=== PATIENT | female | born 1945 | race Caucasian/White ===

== ENCOUNTER 2022-01-16 12:23 | Emergency (ER) | payer MEDICARE, SELFPAY ==
[2022-01-16 12:24] VITALS: BP 131/110; PULSE 75; RESP 16; TEMP 36.6; O2SAT 94; BMI 31.8
--- NOTE | 2022-01-16 12:42 | RAD_ITS ---
STUDY: X-RAY - LUMBAR SPINE REASON FOR EXAM: Female, 76 years old. Pain TECHNIQUE: 3 view(s) of the lumbar spine were obtained. COMPARISON: Comparison is made with prior study dated 01/09/2015. FINDINGS: Normal lumbar lordosis. There is a mild dextroscoliosis of the lumbar spine. Minimal anterior listhesis of L5 on S1 most likely secondary to facet joint osteoarthritis. There is multilevel endplate spondylosis of the lumbar vertebrae. There is multi-level degenerative disc disease with multi-level disc space narrowing. There is atherosclerotic calcification of the abdominal aorta without a demonstrated aneurysm. The patient is status post cholecystectomy. RAD/Lumbar Spine 2 or 3 Views IMPRESSION: Degenerative changes of the spine, as detailed above. Electronically Signed: Murtaza Joseph MD at 13:40 EDT ,
--- NOTE | 2022-01-16 12:42 | RAD_ITS ---
STUDY: X-RAY - PELVIS AND LEFT HIP REASON FOR EXAM: Female, 76 years old. Left hip pain. TECHNIQUE: 3 views of the pelvis and hip. COMPARISON: None. FINDINGS: There is a non-specific bowel gas pattern. Normal visualized soft tissue structures. Normal bilateral iliac wings, sacroiliac joints and visualized sacrum. Normal bilateral superior and inferior pubic rami. Normal pubic symphysis. Normal bilateral ischial tuberosities. Normal visualized femoral head. There is osteoarthritic spur formation of the acetabular rim. is severe articular joint space narrowing of the hip. Moderate degree of joint space and of the right hip joint. RAD/HIP, UNI W/ Pelvis 2-3 Views IMPRESSION: Marked degree of joint space narrowing of the left hip joint. Electronically Signed: Murtaza Joseph MD at 13:41 EDT ,
--- NOTE | 2022-01-16 12:42 | RAD_ITS ---
STUDY: X-RAY - LEFT KNEE REASON FOR EXAM: Female, 76 years old. Pain TECHNIQUE: 2 view(s) of the knee. COMPARISON: Comparison is made with prior study dated 12/12/2015. FINDINGS: Normal visualized distal femur. Normal visualized proximal tibia and fibula. Normal proximal tibiofibular articulation. The patient is status post left knee replacement. There is good alignment. The soft tissue structures are unremarkable. RAD/Knee 1 or 2 Views IMPRESSION: Status post left knee replacement. No acute abnormality is seen. Electronically Signed: Murtaza Joseph MD at 13:38 EDT ,
--- NOTE | 2022-01-16 12:59 | ED.RN ---
juan manuel will pick pt up. [phone] per juan manuel pt walked to the car but refused to walk in the building
--- NOTE | 2022-01-16 13:08 | EDS_ITS ---
HPI History of Present Illness Chief Complaint: Back Informant: patient Narrative Narrative: 76-year-old female presenting with back pain. Patient states this has been ongoing for the past 3 months. She states she recently moved here from [place]. She was previously in pain management in [place]. She is trying to get set up with pain management in [place]. Denies recent injury. She complains of low back pain that radiates to her left leg. Denies bowel or bladder incontinence. Denies fever. Denies numbness or weakness. Prior similar symptoms: Yes Recent Illness/Hospitalization: No PFSH PFSH Home Medications glimepiride 2 mg PO DAILY 07/08/14 [History Last Taken 09/04/16] pantoprazole 40 mg PO BID 07/08/14 [History Last Taken 09/04/16] potassium chloride [Klor-Con M20] 20 meq PO BID 07/08/14 [History Last Taken 09/04/16] temazepam 15 mg PO QHS PRN PRN 07/08/14 [History Last Taken 09/04/16] losartan 100 mg PO DAILY 03/25/15 [History Last Taken 09/04/16] atenolol 25 mg PO DAILY #30 tablet 04/13/15 [Rx Last Taken 09/04/16] paroxetine HCl [Paxil] 20 mg PO DAILY 09/25/15 [History Last Taken 09/04/16] hydrocodone-acetaminophen 1 ea PO TID PRN 09/26/15 [History Last Taken 09/03/16] albuterol sulfate [Ventolin HFA] 2 puff INHALATION Q6H PRN PRN 12/04/15 [History Last Taken 09/04/16] dicyclomine 20 mg PO TIDAC #20 capsule 06/21/16 [Rx Last Taken 09/04/16] bumetanide 0.5 mg PO DAILY 03/15/17 [History Last Taken Unknown] doxazosin [Cardura] 2 mg PO DAILY 03/15/17 [History Last Taken Unknown] docusate sodium [Colace] 100 mg PO DAILY #20 capsule 04/03/17 [Rx Last Taken Unknown] oxycodone-acetaminophen 1 - 2 tab PO Q4H PRN PRN #20 tab 04/03/17 [Rx Last Taken Unknown] clopidogrel 75 mg tablet 75 mg PO DAILY #90 tab 01/06/18 [Rx Last Taken Unknown] hydrocodone-acetaminophen 1 tab PO Q6H PRN PRN 3 Days #10 tablet 01/16/22 [Rx Last Taken Unknown] Allergy/AdvReac Type Severity Reaction Status Date / Time amlodipine Allergy Unknown Verified 01/16/22 12:26 atorvastatin calcium Allergy Hives Verified 01/16/22 12:26 [From Lipitor] divalproex sodium Allergy Hives Verified 01/16/22 12:26 [From Depakote] furosemide [From Lasix] Allergy Unknown Verified 01/16/22 12:26 isosorbide mononitrate Allergy Unknown Verified 01/16/22 12:26 [From Imdur] moxifloxacin HCl Allergy Unknown Verified 01/16/22 12:26 [From Avelox] Social History Smoking Status: Former smoker ROS ROS ED Constitutional Constitutional ED: Denies fever(s) Eyes Eyes: Denies change in vision ENT ENT ED: Denies rhinorrhea or sore throat Cardiovascular Cardiovascular: Denies chest pain or palpitations Respiratory/Chest Respiratory/Chest: Denies cough or dyspnea Gastrointestinal Gastrointestinal: Denies abdominal pain, diarrhea, nausea or vomiting Genitourinary Genitourinary ED: Denies dysuria Musculoskeletal Musculoskeletal: Reports back pain; Denies myalgias Integumentary Denies rash Neurologic Neurologic: Denies headache(s) Psychiatric Psychiatric: Denies suicidal thoughts EXAM Physical Exam Const Vital Signs: 01/16/22 12:24 Temperature 97.8 F Temperature Source Temporal Pulse Rate 75 Respiratory Rate 16 Blood Pressure 131/110 H Blood Pressure Mean 117 Pulse Ox 94 Oxygen Delivery Method Room Air Positive well nourished and well developed General Appearance ED: well developed HEENT Reports normocephalic and head/scalp atraumatic Eyes PERRL and EOMs intact bilaterally Neck supple General: Negative for tenderness Chest Wall inspection of chest normal Resp normal respiratory effort and clear to auscultation bilaterally Cardio regular rate and regular rhythm GI non-tender and non-distended Palpation: soft; Negative for guarding or rebound tenderness present no CVA tenderness Back/Spine Back/Spine Narrative: Left lower paraspinal lumbar muscle tenderness. No midline tenderness. Normal strength and sensation. No foot drop. Thoracic Spine / Upper Back: paraspinal muscle tenderness Extremity normal to inspection Extremity Narrative: Mild diffuse tenderness left knee with active full range of motion. Neuro oriented x3 Sensorium / Orientation: alert Psych mental status grossly normal Skin no rashes or lesions noted MDM MDM MDM Narrative Medical decision making narrative: X-rays read by myself and radiology show:left hip shows joint space narrowing, Left knee shows no acute abnormality. Lumbar spine shows degenerative changes. Patient declined morphine. Discussed with Dr. Sherman. Patient is a new patient with him and has not yet been given narcotics. He is in agreement with short course of [place] and she will follow-up in the office. Advised return to ED for worsening complaints. Radiography Diagnostic Testing: Clinical Impression(s) from Imaging Studies Hip/Pelvis X-Ray 01/16/22 12:42 IMPRESSION: Marked degree of joint space narrowing of the left hip joint. Electronically Signed: Murtaza Joseph MD at 13:41 EDT , Knee X-Ray 01/16/22 12:42 IMPRESSION: Status post left knee replacement. No acute abnormality is seen. Electronically Signed: Murtaza Joseph MD at 13:38 EDT , Lumbar Spine X-Ray 01/16/22 12:42 IMPRESSION: Degenerative changes of the spine, as detailed above. Electronically Signed: Murtaza Joseph MD at 13:40 EDT , Discharge Plan Triage Chief Complaint: Back ED Provider: Yas Wilson Dx/Rx/DC Orders Clinical Impression: Chronic back pain Instructions: ED Back Pain (Acute or Chronic) Prescriptions: New hydrocodone-acetaminophen 5-325 mg tablet 1 tab PO Q6H PRN PRN (Reason: pain) 3 Days Qty: 10 RF: 0 No Action glimepiride 2 MG tablet 2 mg PO DAILY RF: 0 potassium chloride [Klor-Con M20] 20 MEQ tablet 20 meq PO BID RF: 0 temazepam 15 MG capsule 15 mg PO QHS PRN PRN (Reason: Insomnia) RF: 0 pantoprazole 40 MG tablet 40 mg PO BID RF: 0 losartan 100 MG tablet 100 mg PO DAILY RF: 0 atenolol 25 MG tablet 25 mg PO DAILY Qty: 30 RF: 0 paroxetine HCl [Paxil] 10 MG tablet 20 mg PO DAILY RF: 0 hydrocodone-acetaminophen 1 EACH tablet 1 ea PO TID PRN (Reason: Pain) RF: 0 albuterol sulfate [Ventolin HFA] 1 INHALER inhaler 2 puff inhalation Q6H PRN PRN (Reason: Sob &/Or Wheezing) RF: 0 dicyclomine 10 MG capsule 20 mg PO TIDAC Qty: 20 RF: 0 bumetanide 0.5 MG tablet 0.5 mg PO DAILY RF: 0 doxazosin [Cardura] 2 MG tablet 2 mg PO DAILY RF: 0 oxycodone-acetaminophen 1 TABLET tablet 1 - 2 tab PO Q4H PRN PRN (Reason: Pain) Qty: 20 RF: 0 docusate sodium [DOK] 100 MG capsule 100 mg PO DAILY Qty: 20 RF: 0 clopidogrel 75 MG tablet 75 mg PO DAILY Qty: 90 RF: 0 Primary Care Provider: Chandni Delgado NP Referrals: Hermelindo Sherman DO [NON-STAFF] - Chandni Delgado NP, LABEL MACHINE OPERATOR-C [Primary Care Provider] - Disposition Disposition: Home, Self Care
[2022-01-16 15:11] VITALS: BP 138/74; PULSE 62; RESP 15; O2SAT 97
== END 2022-01-16 15:12 | disposition home or self-care (01) ==
PROVIDERS: Emergency Provider Emergency Medicine; PCP Nurse Practitioner Family; Visit Provider Emergency Medicine
DX: M54.9 Dorsalgia, unspecified (principal); G89.29 Other chronic pain; M47.819 Spondylosis without myelopathy or radiculopathy, site unspecified; Z87.891 Personal history of nicotine dependence
CPT/HCPCS: 72100; 73502; 73560; 96372; 99282; J2405

== ENCOUNTER 2022-02-12 13:07 | Emergency (ER) | payer MEDICARE, SELFPAY ==
[2022-02-12 13:08] VITALS: BP 97/60; PULSE 70; RESP 15; TEMP 36.4; O2SAT 97; BMI 36.2
[2022-02-12 13:10] VITALS: BP 97/60; PULSE 70; RESP 15; TEMP 36.4; O2SAT 97
--- NOTE | 2022-02-12 13:50 | EX.ED.UPPERE ---
HPI History of Present Illness Chief Complaint: Upper Extremity Injury Informant: patient Narrative Narrative: Patient presents with a sore erythematous area to the right elbow. She states she noticed it this morning. She can move her elbow and shoulder without causing worsening pain. But if she bumps her elbow it hurts. On review of systems I find out she has nausea but she has chronic nausea and uses Zofran all the time. This is not new or worse. She has not been vomiting. She has no fevers or chills. She denies injury to the elbow. She does have diabetes. However, she states it is type II and it has been very well controlled. [facility] Medical History Arthritis CAD (coronary artery disease) CHF (congestive heart failure) COPD (chronic obstructive pulmonary disease) Home Medications glimepiride 2 mg PO DAILY 07/08/14 [History Last Taken 09/04/16] pantoprazole 40 mg PO BID 07/08/14 [History Last Taken 09/04/16] potassium chloride [Klor-Con M20] 20 meq PO BID 07/08/14 [History Last Taken 09/04/16] temazepam 15 mg PO QHS PRN PRN 07/08/14 [History Last Taken 09/04/16] losartan 100 mg PO DAILY 03/25/15 [History Last Taken 09/04/16] atenolol 25 mg PO DAILY #30 tablet 04/13/15 [Rx Last Taken 09/04/16] paroxetine HCl [Paxil] 20 mg PO DAILY 09/25/15 [History Last Taken 09/04/16] hydrocodone-acetaminophen 1 ea PO TID PRN 09/26/15 [History Last Taken 09/03/16] albuterol sulfate [Ventolin HFA] 2 puff INHALATION Q6H PRN PRN 12/04/15 [History Last Taken 09/04/16] dicyclomine 20 mg PO TIDAC #20 capsule 06/21/16 [Rx Last Taken 09/04/16] bumetanide 0.5 mg PO DAILY 03/15/17 [History Last Taken Unknown] doxazosin [Cardura] 2 mg PO DAILY 03/15/17 [History Last Taken Unknown] docusate sodium [Colace] 100 mg PO DAILY #20 capsule 04/03/17 [Rx Last Taken Unknown] oxycodone-acetaminophen 1 - 2 tab PO Q4H PRN PRN #20 tab 04/03/17 [Rx Last Taken Unknown] clopidogrel 75 mg tablet 75 mg PO DAILY #90 tab 01/06/18 [Rx Last Taken Unknown] hydrocodone-acetaminophen 1 tab PO Q6H PRN PRN 3 Days #10 tablet 01/16/22 [Rx Last Taken Unknown] doxycycline monohydrate 100 mg PO BID #20 cap 02/12/22 [Rx Last Taken Unknown] ondansetron 4 mg PO Q8H PRN #10 tab 02/12/22 [Rx Last Taken Unknown] Allergy/AdvReac Type Severity Reaction Status Date / Time amlodipine Allergy Unknown Verified 02/12/22 13:10 atorvastatin calcium Allergy Hives Verified 02/12/22 13:10 [From Lipitor] divalproex sodium Allergy Hives Verified 02/12/22 13:10 [From Depakote] furosemide [From Lasix] Allergy Unknown Verified 02/12/22 13:10 isosorbide mononitrate Allergy Unknown Verified 02/12/22 13:10 [From Imdur] moxifloxacin HCl Allergy Unknown Verified 02/12/22 13:10 [From Avelox] Social History Smoking Status: Former smoker ROS ROS ED Constitutional Constitutional ED: Denies chills or fever(s) ENT ENT ED: Denies rhinorrhea or sore throat Cardiovascular Cardiovascular: Denies chest pain Respiratory/Chest Respiratory/Chest: Denies cough or dyspnea Gastrointestinal Gastrointestinal: Reports nausea; Denies abdominal pain, constipation, diarrhea, melena or vomiting Genitourinary Genitourinary ED: Denies dysuria Musculoskeletal Musculoskeletal: Reports other Details: See history of present illness. Integumentary Reports Abrasions, rash and other Details: See history of present illness ; Denies abscess Neurologic Neurologic: Denies paresthesias or weakness Endocrine Endocrinology: Denies polydipsia or polyuria Hematologic/Lymphatic Hematologic/Lymphatic: Denies easy bleeding or easy bruising Allergic/Immunologic Allergic/Immunologic ED: Denies urticaria EXAM Physical Exam Const Vital Signs: 02/12/22 13:08 02/12/22 13:10 Temperature 97.5 F L 97.5 F L Temperature Source Temporal Temporal Pulse Rate 70 70 Respiratory Rate 15 15 Blood Pressure 97/60 97/60 Blood Pressure Mean 72 72 Pulse Ox 97 97 Oxygen Delivery Method Room Air Room Air Positive well nourished and well developed General Appearance ED: well developed and NAD; Negative for cyanotic or diaphoretic HEENT normocephalic and atraumatic Neck supple Resp normal respiratory effort and clear to auscultation bilaterally Cardio regular rate and regular rhythm GI non-tender and non-distended Auscultation: normoactive bowel sounds Palpation: soft Back/Spine no CVA tenderness Extremity Extremity Narrative: Patient does have a slight abrasion to the right elbow. She says she has not hit it but it looks like she may have scraped it on something recently. Around this there is an area of erythema about 3 x 6 cm. It is well demarcated. This is right over the olecranon bursa. However, the bursa does not seem to be notably enlarged. I can move her elbow a good 90 to 150 degrees without any notable pain. Distal pulses are intact. No proximal lymph nodes or tenderness in the axilla noted. Neuro oriented x3 Sensorium / Orientation: alert Psych mental status grossly normal Skin Skin Narrative: See above exam. MDM MDM MDM Narrative Medical decision making narrative: Patient's exam is more consistent with a local cellulitis that probably started from the small area of abrasion. No sign of intra-articular infection. No pain with short arc range of motion. Although this is overlying the olecranon bursa, I do not notice it to be enlarged. It would not be appropriate to attempt aspiration through what I think is already an infected area. We will get her started on antibiotics. She states she has lots of problems taking any medicines. She cannot tolerate Keflex. She cannot tolerate Bactrim. She does not know or recall any problems with doxycycline so we will try this. I will write for some more Zofran as she states she is getting out of it. I will give a dose of pain meds here. We discussed returning with worsening pain, swelling, fevers, vomiting or and inability to take meds, or other concerns. I will give patient hydrocodone here as she has tolerated this. She should have about a week less of hydrocodone from a recent prescription when I checked online prescribing. Discharge Plan Triage Chief Complaint: Upper Extremity Injury ED Provider: Heraclio Mckee Dx/Rx/DC Orders Clinical Impression: Cellulitis of right elbow Instructions: ED Cellulitis Prescriptions: New doxycycline monohydrate 100 MG capsule 100 mg PO BID Qty: 20 RF: 0 ondansetron 4 mg tablet,disintegrating 4 mg PO Q8H PRN (Reason: nausea and vomiting) Qty: 10 RF: 0 No Action glimepiride 2 MG tablet 2 mg PO DAILY RF: 0 potassium chloride [Klor-Con M20] 20 MEQ tablet 20 meq PO BID RF: 0 temazepam 15 MG capsule 15 mg PO QHS PRN PRN (Reason: Insomnia) RF: 0 pantoprazole 40 MG tablet 40 mg PO BID RF: 0 losartan 100 MG tablet 100 mg PO DAILY RF: 0 atenolol 25 MG tablet 25 mg PO DAILY Qty: 30 RF: 0 paroxetine HCl [Paxil] 10 MG tablet 20 mg PO DAILY RF: 0 hydrocodone-acetaminophen 1 EACH tablet 1 ea PO TID PRN (Reason: Pain) RF: 0 albuterol sulfate [Ventolin HFA] 1 INHALER inhaler 2 puff inhalation Q6H PRN PRN (Reason: Sob &/Or Wheezing) RF: 0 dicyclomine 10 MG capsule 20 mg PO TIDAC Qty: 20 RF: 0 bumetanide 0.5 MG tablet 0.5 mg PO DAILY RF: 0 doxazosin [Cardura] 2 MG tablet 2 mg PO DAILY RF: 0 oxycodone-acetaminophen 1 TABLET tablet 1 - 2 tab PO Q4H PRN PRN (Reason: Pain) Qty: 20 RF: 0 docusate sodium [DOK] 100 MG capsule 100 mg PO DAILY Qty: 20 RF: 0 hydrocodone-acetaminophen 5-325 mg tablet 1 tab PO Q6H PRN PRN (Reason: pain) 3 Days Qty: 10 RF: 0 clopidogrel 75 MG tablet 75 mg PO DAILY Qty: 90 RF: 0 Primary Care Provider: Chandni Delgado NP Referrals: Chandni Delgado SONG AND DANCE PERFORMER, SONG AND DANCE PERFORMER-C [Primary Care Provider] - 2 Days for wound check Disposition Disposition: Home, Self Care
[2022-02-12] MEDS: Ondansetron ODT 4 MG Tablet PO (14:15)
[2022-02-12] MEDS: HYDROcodone Bitartrate/Apap 5/325 Tablet PO (14:23)
--- NOTE | 2022-02-14 15:45 | CASEMGMT ---
SERGEY CASTRO ED visit f/u call: ED visit: 02/12/22 Complaint: Rt elbow pain Dx: Cellulitis Call to pt's #. Dtr, Karen, answered and states pt is not home at this time. She states pt was not feeling well yesterday and therefore had not picked up the new rx's that were prescribed in ED on Friday, so she is picking them up now. Dtr states pt says her elbow is still a little sore and that her mom has a picking problem and thinks that may have been how the infection started. She states she tries to help her parents w/medication management and appts, but that she does not live close and it has been difficult to manage. Dtr made aware of [facility] program and she states is very interested. She was provided w/CCN contact number and states she plans to call. SERGEY CASTRO also suggested looking into a pharmacy that does home delivery for use in the future, if needed. She voices appreciation for the call and information. She was not aware pt was to have f/u visit w/PSYCHIATRY INSTRUCTOR in 2 days for wound check, but states she will call now to schedule an appt. Dat LOPEZ RN, CM
== END 2022-02-12 14:30 | disposition home or self-care (01) ==
LOC: ED 14:13
PROVIDERS: Emergency Provider Emergency Medicine; PCP Nurse Practitioner Family; Visit Provider Emergency Medicine
DX: L03.113 Cellulitis of right upper limb (principal); J44.9 Chronic obstructive pulmonary disease, unspecified; I50.9 Heart failure, unspecified; E11.9 Type 2 diabetes mellitus without complications; I25.10 Atherosclerotic heart disease of native coronary artery without angina pectoris; Z87.891 Personal history of nicotine dependence; R11.0 Nausea
CPT/HCPCS: 99283

== ENCOUNTER → 2022-04-03 | Outpatient (CLI) | payer MEDICARE, SELFPAY ==
[2022-04-03 17:00] LABS: Absolute Lymphocyte Count 2.26 X10^3/uL (0.83-4.51); Absolute Neutrophil Count 5.2 X10^3/uL (2.0-7.7); Basophil# 0.06 X10^3/uL; Basophil% 0.7 % (0-1); Eosinophil# 0.29 X10^3/uL; Eosinophils% 3.4 % (0-5); Hematocrit 35.4 % (37-47); Hemoglobin 10.6 g/dL (12.0-15.0); Lymphocyte # 2.26 X10^3/ul (0.83-4.51); Lymphocyte % 26.3 % (19-41); Mean Corp Hgb Conc 29.9 g/dL (32-36); Mean Corpuscular Hgb 23.2 pg (27.0-32.0); Mean Corpuscular Volume 77.6 fL (81-99); Mean Platelet Vol. 9.7 fl (6.2-12.0); Monocyte# 0.73 X10^3/uL; Monocyte% 8.5 % (0-10); NRBC Flagged by Analyzer 0 % (0-5); Neutrophil # 5.21 X10^3/uL (2.7-7.7); Neutrophil % 60.8 % (47-70); Platelet Count 270 K/mm3 (150-450); RBC Distribution Width CV 17.8 % (11.6-14.6); RBC Distribution Width SD 49.4 fl (35.1-43.9); Red Blood Count 4.56 M/mm3 (4.2-5.4); White Blood Count 8.6 K/mm3 (4.4-11.0)
[2022-04-03 17:07] LABS: ALB/GLOB Ratio 0.8 RATIO (0.9-2.4); AST(SGOT) 19 U/L (15-37); Alanine Aminotransfer ALT/SGPT 29 U/L (13-56); Albumin, Serum 3.3 g/dL (3.2-5.0); Alkaline Phosphatase 61 U/L (45-117); Anion Gap 8 (5-15); BUN 12 mg/dL (7-18); BUN/Creat Ratio 16.9 RATIO (10-20); Calcium,Total 8.6 mg/dL (8.5-10.1); Chloride 104 mmol/L (98-107); Cholesterol 155 mg/dL (200); Creatinine, Serum 0.71 mg/dL (0.55-1.02); EST Glomerular Filtration Rate 85 mL/min (>60); Est Glom Filt Rate - Afr Amer 103 mL/min (>60); Globulin 3.9 g/dL (2.2-4.2); Glucose 97 mg/dL (74-106); High Density Lipoprotein 42 mg/dL; Potassium 3.6 mmol/L (3.5-5.1); Protein, Total 7.2 g/dL (6.4-8.2); Sodium Level 138 mmol/L (136-145); Triglycerides 105 mg/dL; Very Low Density Lipoprotein 21 mg/dL (5-40)
[2022-04-03 17:34] LABS: Hemoglobin A1c 6.3 % (3.8-5.6)
== END | disposition home or self-care (01) ==
LOC: BIMLAB 15:27
PROVIDERS: PCP Internal Medicine; Referring Provider Internal Medicine; Visit Provider Internal Medicine
DX: E11.65 Type 2 diabetes mellitus with hyperglycemia (principal); I10 Essential (primary) hypertension; E78.5 Hyperlipidemia, unspecified
CPT/HCPCS: 36415; 80053; 80061; 83036; 85025

== ENCOUNTER → 2022-06-12 | Outpatient (CLI) | payer MEDICARE, SELFPAY ==
[2022-06-12 12:44] LABS: Absolute Lymphocyte Count 1.61 X10^3/uL (0.83-4.51); Basophil# 0.06 X10^3/uL; Basophil% 0.8 % (0-1); Eosinophil# 0.19 X10^3/uL; Eosinophils% 2.6 % (0-5); Hematocrit 36.5 % (37-47); Hemoglobin 11.1 g/dL (12.0-15.0); Lymphocyte # 1.61 X10^3/ul (0.83-4.51); Lymphocyte % 21.6 % (19-41); Mean Corp Hgb Conc 30.4 g/dL (32-36); Mean Corpuscular Hgb 23.2 pg (27.0-32.0); Mean Corpuscular Volume 76.4 fL (81-99); Mean Platelet Vol. 9.7 fl (6.2-12.0); Monocyte# 0.56 X10^3/uL; Monocyte% 7.5 % (0-10); NRBC Flagged by Analyzer 0 % (0-5); Neutrophil % 67.1 % (47-70); Platelet Count 255 K/mm3 (150-450); RBC Distribution Width CV 15.3 % (11.6-14.6); Red Blood Count 4.78 M/mm3 (4.2-5.4); White Blood Count 7.5 K/mm3 (4.4-11.0)
[2022-06-12 13:35] LABS: AST(SGOT) 21 U/L (15-37); Alanine Aminotransfer ALT/SGPT 23 U/L (13-56); Albumin, Serum 3.4 g/dL (3.2-5.0); Alkaline Phosphatase 63 U/L (45-117); Anion Gap 9 (5-15); BUN 18 mg/dL (7-18); BUN/Creat Ratio 22.6 RATIO (10-20); Bilirubin, Direct 0.07 mg/dL (0.00-0.30); Calcium,Total 8.7 mg/dL (8.5-10.1); Chloride 105 mmol/L (98-107); Cholesterol 184 mg/dL (200); EST Glomerular Filtration Rate 74 mL/min (>60); Est Glom Filt Rate - Afr Amer 90 mL/min (>60); Globulin 3.8 g/dL (2.2-4.2); Glucose 100 mg/dL (74-106); High Density Lipoprotein 48 mg/dL; Magnesium 1.9 mg/dL (1.6-2.6); Potassium 3.1 mmol/L (3.5-5.1); Protein, Total 7.2 g/dL (6.4-8.2); Sodium Level 141 mmol/L (136-145); Triglycerides 169 mg/dL; Very Low Density Lipoprotein 34 mg/dL (5-40)
== END | disposition home or self-care (01) ==
LOC: LAB 10:50
PROVIDERS: PCP Internal Medicine; Referring Provider Internal Medicine Cardiovascular Disease; Visit Provider Internal Medicine Cardiovascular Disease
DX: R06.09 Other forms of dyspnea (principal); I77.9 Disorder of arteries and arterioles, unspecified; R07.9 Chest pain, unspecified; I25.10 Atherosclerotic heart disease of native coronary artery without angina pectoris; I35.0 Nonrheumatic aortic (valve) stenosis; Z95.5 Presence of coronary angioplasty implant and graft; E78.2 Mixed hyperlipidemia; I10 Essential (primary) hypertension; E66.9 Obesity, unspecified
CPT/HCPCS: 36415; 80048; 80061; 80076; 83735; 85025

== ENCOUNTER → 2022-06-27 | Outpatient (CLI) | payer MEDICARE, SELFPAY ==
[2022-06-27 14:48] LABS: Amphetamine Urine VISTA NEGATIVE (<1000 ng/mL); Barbiturate Urine VISTA NEGATIVE (< 200 ng/mL); Benzodiazepine Urine VISTA NEGATIVE (< 200 ng/mL); Cocaine Urine VISTA NEGATIVE (< 300 ng/mL); Ecstacy Urine VISTA NEGATIVE (< 500 ng/mL); Methadone Urine VISTA NEGATIVE (< 300 ng/mL); PCP Urine VISTA NEGATIVE (< 25 ng/mL); THC Urine VISTA NEGATIVE (< 50 ng/mL); Vista UDS pH Range 5
== END | disposition home or self-care (01) ==
LOC: LAB 13:36
PROVIDERS: PCP Internal Medicine; Referring Provider Anesthesiology Pain Medicine; Visit Provider Anesthesiology Pain Medicine
DX: F11.20 Opioid dependence, uncomplicated (principal)
CPT/HCPCS: 80307

== ENCOUNTER → 2022-07-04 | Outpatient (CLI) | payer MEDICARE, SELFPAY ==
--- NOTE | 2022-07-04 06:26 | ECHOD_ITS ---
Reason For Study: MURMUR Procedure This was a 2D Doppler, Color Flow transthoracic echocardiogram. The study was technically difficult. Exam performed in department. Left Ventricle Based upon the 2D echocardiographic and contrast enhanced images obtained there appears to be grossly normal left ventricular size, wall motion, and systolic function. The estimated ejection fraction is 55 %. No evidence for diastolic dysfunction. Right Ventricle Based upon the 2D echocardiographic images obtained there appears to be grossly normal right ventricular size and systolic function. Atria Normal left atrium. Normal right atrium. No doppler evidence for ASD. Mitral Valve There is no mitral annular calcification. Normal mitral valve. Trivial mitral valve insufficiency. Tricuspid Valve Normal tricuspid valve. Moderate (2+) tricuspid valve insufficiency. Right ventricular systolic pressure estimated to be 24 mmHg. Aortic Valve Trisinus/trileaflet aortic valve. Mild focal aortic valve calcification. Mild (1+) aortic valve insufficiency. Pulmonic Valve The pulmonic valve is not well visualized. Great Vessels Normal sized aortic root. Pericardium/Pleural No pericardial effusion. MMode/2D Measurements & Calculations LVIDd: 5.1 cm IVSd: 1.2 cm Ao root diam: 3.0 cm LVIDs: 2.8 cm LVPWd: 1.2 cm RVDd: 4.0 cm FS: 44.7 % LAV(MOD-bp): 61.5 ml LA A4 area: 19.4 cm2 LA dimension(2D): 4.3 cm LAV(MOD-bp) Indexed: 32.5 ml/m2 LAV(MOD-sp2): 55.9 ml LAV(MOD-sp4): 60.6 ml RA A4 area: 16.2 cm2 Time Measurements MV dec time: 0.21 sec Doppler Measurements & Calculations MV E max marquis: 78.2 cm/sec Lat Peak E' Marquis: 6.0 cm/sec Med Peak E' Marquis: 6.4 cm/sec MV A max marquis: 83.4 cm/sec E/E' lat: 13.0 E/E' med: 12.2 MV E/A: 0.94 MV dec slope: 379.7 cm/sec2 Ao V2 max: 82.9 cm/sec LV V1 max: 76.8 cm/sec Ao max P.7 mmHg LV V1 max P.4 mmHg PA V2 max: 84.0 cm/sec TR max marquis: 228.9 cm/sec TR max P.0 mmHg ECHO/Echo Complete Interpretation Summary The study was technically difficult. Based upon the 2D echocardiographic and contrast enhanced images obtained there appears to be grossly normal left ventricular size, wall motion, and systolic function. The estimated ejection fraction is 55 %. Trivial mitral valve insufficiency. Moderate (2+) tricuspid valve insufficiency. Mild focal aortic valve calcification. Mild (1+) aortic valve insufficiency. Right ventricular systolic pressure estimated to be 24 mmHg. No evidence for diastolic dysfunction. Ordering Physician: Gabriele Brooks Referring Physician: ROBIN HERNÁNDEZ Performed By: Claire Geronimo, RDPINO, RVT
--- NOTE | 2022-07-04 09:38 | STRESSREP ---
Stress Test Report Date: 07-04-2022 Procedure: Pharmacologic stress nuclear imaging study Indications: CAD; PCI; aortic valve disease; CHF Consent: Per the patient Procedure: The patient underwent pharmacologic (Regadenoson 0.4mg ) evaluation with a peak heart rate of 92 beats per minute (63%predicted maximal heart rate) and a peak blood pressure of 150/72 mmHg. The baseline ECG demonstrated sinus bradycardia. The peak pharmacologic ECG demonstrated sinus rhythm with nonspecific T wave abnormality with subsequent resolution to baseline in recovery. There were no cardiac dysrhythmias pretest, during pharmacologic infusion, or recovery. There was notation of chest discomfort at peak recovery with subsequent spontaneous resolution. The examination was discontinued secondary to completion of protocol. Impression: 1. Pharmacologic (Regadenoson) evaluation 2. Peak pharmacologic ECG with continued sinus rhythm with nonspecific T wave abnormality with subsequent resolution to baseline in recovery. 3. There were no cardiac dysrhythmias pretest, during pharmacologic infusion, or recovery. 4. Nuclear images pending Myocardial perfusion imaging study: Technique: The patient was injected with 11.9 millicuries of technetium 99m Cardiolite and subsequently rest SPECT Cardiolite nuclear imaging was obtained in the horizontal long, vertical long, and short axis views. The patient underwent pharmacologic (Regadenoson) evaluation with a peak heart rate of 92 beats per minute (63% percent predicted maximal heart rate) and a peak blood pressure of 150/72 mmHg. The patient was injected with 34.4 millicuries of technetium 99m Cardiolite and subsequently stress SPECT Cardiolite nuclear imaging was obtained in the horizontal long, vertical long, and short axis views. A gated Cardiolite study at peak stress was obtained. Interpretation: Rest and stress SPECT Cardiolite nuclear imaging status post realignment, normalization, and attenuation correction demonstrate relative uniform tracer uptake and myocardial perfusion appearing within normal limits. There is end systolic thickening and brightening. The gated Cardiolite study demonstrates myocardial thickening and inward wall motion. The reported LVEF is 78%. Impression: 1. Rest and stress SPECT Cardiolite nuclear imaging demonstrate relative uniform tracer uptake and myocardial perfusion appearing within normal limits. 2. The gated Cardiolite study reports an LVEF of 78%. This note was generated with Accellionation software. It may contain incorrect words, spelling, and punctuation that were not noted in checking the note before signing.
== END | disposition home or self-care (01) ==
LOC: CVS 06:23
PROVIDERS: PCP Internal Medicine; Referring Provider Internal Medicine Cardiovascular Disease; Visit Provider Internal Medicine Cardiovascular Disease
DX: R07.9 Chest pain, unspecified (principal); I77.9 Disorder of arteries and arterioles, unspecified; R06.09 Other forms of dyspnea; I25.10 Atherosclerotic heart disease of native coronary artery without angina pectoris; I35.0 Nonrheumatic aortic (valve) stenosis; Z95.5 Presence of coronary angioplasty implant and graft; E78.2 Mixed hyperlipidemia; I10 Essential (primary) hypertension; E66.9 Obesity, unspecified
CPT/HCPCS: 78452; 93017; 93306; A9500; A4216; J2785

== ENCOUNTER → 2022-07-10 | Outpatient (CLI) | payer MEDICARE, SELFPAY ==
[2022-07-10 14:59] LABS: Absolute Lymphocyte Count 1.81 X10^3/uL (0.83-4.51); Absolute Neutrophil Count 7.7 X10^3/uL (2.0-7.7); Basophil# 0.03 X10^3/uL; Basophil% 0.3 % (0-1); Eosinophil# 0.03 X10^3/uL; Eosinophils% 0.3 % (0-5); Hematocrit 35.4 % (37-47); Hemoglobin 10.7 g/dL (12.0-15.0); Lymphocyte # 1.81 X10^3/ul (0.83-4.51); Lymphocyte % 17.6 % (19-41); Mean Corp Hgb Conc 30.2 g/dL (32-36); Mean Corpuscular Hgb 23.5 pg (27.0-32.0); Mean Corpuscular Volume 77.6 fL (81-99); Mean Platelet Vol. 9.7 fl (6.2-12.0); Monocyte# 0.71 X10^3/uL; Monocyte% 6.9 % (0-10); NRBC Flagged by Analyzer 0 % (0-5); Neutrophil # 7.68 X10^3/uL (2.7-7.7); Neutrophil % 74.4 % (47-70); Platelet Count 266 K/mm3 (150-450); RBC Distribution Width CV 15.1 % (11.6-14.6); RBC Distribution Width SD 42.3 fl (35.1-43.9); Red Blood Count 4.56 M/mm3 (4.2-5.4); White Blood Count 10.3 K/mm3 (4.4-11.0)
[2022-07-10 15:38] LABS: Anion Gap 9 (5-15); BUN 16 mg/dL (7-18); BUN/Creat Ratio 18.4 RATIO (10-20); Calcium,Total 8.6 mg/dL (8.5-10.1); Chloride 103 mmol/L (98-107); Creatinine, Serum 0.87 mg/dL (0.55-1.02); EST Glomerular Filtration Rate 67 mL/min (>60); Est Glom Filt Rate - Afr Amer 81 mL/min (>60); Ferritin 8 ng/mL (8-252); Glucose 77 mg/dL (74-106); Iron 28 ug/dL (50-170); Iron Binding Capacity,Total 486 ug/dL (250-450); Potassium 3.2 mmol/L (3.5-5.1); Sodium Level 139 mmol/L (136-145)
== END | disposition home or self-care (01) ==
LOC: BIMLAB 14:23
PROVIDERS: Physician Assistant; PCP Internal Medicine; Referring Provider Internal Medicine; Visit Provider Internal Medicine
DX: D64.9 Anemia, unspecified (principal); E87.6 Hypokalemia; I10 Essential (primary) hypertension
CPT/HCPCS: 36415; 80048; 82728; 83540; 83550; 85025

== ENCOUNTER → 2022-07-26 | Outpatient (CLI) | payer MEDICARE, SELFPAY ==
[2022-07-26 15:48] LABS: Probe Check PASS; Specimen Processing Control PASS
== END | disposition home or self-care (01) ==
LOC: LABSPEC 09:37
PROVIDERS: PCP Internal Medicine; Referring Provider Nurse Practitioner Family; Visit Provider Nurse Practitioner Family
DX: J02.9 Acute pharyngitis, unspecified (principal)
CPT/HCPCS: 87635; U0003; U0005

== ENCOUNTER 2022-08-13 13:33 | Emergency (ER) | payer MEDICARE, SELFPAY ==
[2022-08-13 13:33] VITALS: BP 161/84; PULSE 76; RESP 18; TEMP 35.7; O2SAT 98; BMI 36.2
--- NOTE | 2022-08-13 15:33 | EDS_ITS ---
HPI History of Present Illness Chief Complaint: Eye Problem Narrative Narrative: I did not participate in this patient's care. [facility] Medical History Anemia Arthritis Atherosclerotic heart disease of [place] coronary artery without angina pectoris Benign essential hypertension CAD (coronary artery disease) CAD (coronary artery disease) CHF (congestive heart failure) Constipation COPD (chronic obstructive pulmonary disease) COPD (chronic obstructive pulmonary disease) Coronary atherosclerosis of [place] coronary artery Encounter to establish care History of COPD History of esophageal reflux History of fibromyalgia History of IBS History of tobacco use HLD (hyperlipidemia) Hypokalemia Memory impairment Mild aortic stenosis Mixed hyperlipidemia Nonrheumatic aortic (valve) stenosis YOVANA (obstructive sleep apnea) Presence of stent in coronary artery (~03/2002) Tremor Type 2 diabetes mellitus URI (upper respiratory infection) Vaginal anomaly Home Medications pantoprazole 40 mg tablet,delayed release 40 mg PO BID 07/08/14 [History Last Taken 09/04/16] atenolol 25 mg tablet 25 mg PO DAILY #30 TABLETS 04/13/15 [Rx Last Taken 09/04/16] doxazosin 2 mg tablet (Cardura) 2 mg PO DAILY 03/15/17 [History Last Taken Unknown] clopidogrel 75 mg tablet 75 mg PO DAILY #90 tabs 01/06/18 [Rx Last Taken U nknown] hydrocodone-acetaminophen 5-325mg 5mg-325mg 1 tab PO Q6H PRN PRN pain 3 days #10 TABLETS 01/16/22 [Rx Last Taken Unknown] valsartan 160 mg tablet 160 mg PO DAILY #90 tabs 04/23/22 [Rx Last Taken Unknown] paroxetine HCl 20 mg tablet 30 mg PO DAILY 06/06/22 [History Last Taken Unknown] glimepiride 2 mg tablet 4 mg PO DAILY 06/11/22 [History Last Taken Unknown] melatonin 5 mg tablet 5 mg PO HS PRN 06/11/22 [History Last Taken Unknown] potassium chloride 20 mEq oral packet 20 meq PO DAILY #100 ea 07/10/22 [Rx Last Taken Unknown] fluticasone propionate 50 mcg/actuation nasal spray,suspension (Flonase Allergy Relief) 2 spray intranasal DAILY #15.8 grams 07/26/22 [Rx Last Taken Unknown] Allergy/AdvReac Type Severity Reaction Status Date / Time amoxicillin Allergy Unknown Itching Verified 08/13/22 15:36 cephalexin [From Keflex] Allergy Unknown GI Upset, Verified 08/13/22 15:36 Itching doxycycline Allergy Unknown Rash Verified 08/13/22 15:36 furosemide [From Lasix] Allergy Unknown Hives Verified 08/13/22 15:36 simvastatin Allergy Unknown Hives Verified 08/13/22 15:36 atorvastatin calcium Allergy Hives Verified 08/13/22 15:36 [From Lipitor] divalproex sodium Allergy Hives Verified 08/13/22 15:36 [From Depakote] isosorbide mononitrate Allergy Unknown Verified 08/13/22 15:36 [From Imdur] moxifloxacin HCl Allergy Unknown Verified 08/13/22 15:36 [From Avelox] amlodipine AdvReac Unknown Swelling Verified 08/13/22 15:36 fluticasone furoate AdvReac Unknown Throat Verified 08/13/22 15:36 [From Breo Ellipta] Burning-hoarseness sucralfate [From Carafate] AdvReac Unknown Diarrhea Verified 08/13/22 15:36 vilanterol AdvReac Unknown Throat Verified 08/13/22 15:36 [From Breo Ellipta] Burning-hoarseness Family History Father CAD (coronary artery disease) Hypertension Mother CAD (coronary artery disease) Hypertension Mixed hyperlipidemia COPD (chronic obstructive pulmonary disease) Brother CAD (coronary artery disease) History of coronary artery bypass surgery Brother CAD (coronary artery disease) History of coronary artery bypass surgery Sister CAD (coronary artery disease) History of coronary artery bypass surgery Sister CAD (coronary artery disease) History of coronary artery bypass surgery Surgical History History of cholecystectomy History of foot surgery History of hysterectomy History of total knee replacement Presence of coronary angioplasty implant and graft (~03/2002) Social History Smoking Status: Former smoker alcohol intake: never substance use type: does not use what type of physical activity do you participate in: none EXAM Physical Exam Const Vital Signs: 08/13/22 13:33 Temperature 96.3 F L Temperature Source Temporal Pulse Rate 76 Respiratory Rate 18 Blood Pressure 161/84 H Blood Pressure Mean 109 Pulse Ox 98 Oxygen Delivery Method Room Air MDM MDM MDM Narrative Medical decision making narrative: I did not participate in this patient's care. Discharge Plan Triage Chief Complaint: Eye Problem ED Provider: Heraclio Mckee Dx/Rx/DC Orders Clinical Impression: Contusion of eye, left, Subconjunctival hemorrhage of left eye Prescriptions: No Action paroxetine HCl 20 mg tablet 30 mg PO DAILY potassium chloride 20 mEq packet 20 meq PO DAILY Qty: 100 1RF fluticasone propionate [Flonase Allergy Relief] 50 mcg/actuation spray,suspension 2 spray intranasal DAILY Qty: 15.8 1RF Rx Instructions: administer into each nostril pantoprazole 40 MG tablet 40 mg PO BID Label Comments: ACID REFLUX atenolol 25 MG tablet 25 mg PO DAILY Qty: 30 0RF Label Comments: BLOOD PRESSURE doxazosin [Cardura] 2 MG tablet 2 mg PO DAILY hydrocodone-acetaminophen 5-325 mg tablet 1 tab PO Q6H PRN PRN (Reason: pain) 3 Days Qty: 10 0RF clopidogrel 75 MG tablet 75 mg PO DAILY Qty: 90 0RF valsartan 160 mg tablet 160 mg PO DAILY Qty: 90 0RF glimepiride 2 mg tablet 4 mg PO DAILY melatonin 5 mg tablet 5 mg PO HS PRN Primary Care Provider: Loyd Armas Referrals: Loyd Armas MD [Primary Care Provider] - Shyam Wallace MD [Med Staff - Active Staff] - 2 Days Disposition Disposition: Home, Self Care Discharge Date/Time: 08/13/22 16:43
--- NOTE | 2022-08-13 15:43 | EDS_ITS ---
HPI History of Present Illness Chief Complaint: Eye Problem Informant: patient Narrative Narrative: Patient states her left eye has been bothering her for about 2 days. Its been a little bit red. She stated it was more red yesterday and is less red today. Her vision out of that eye is very poor. She does have what sounds like a fixed esotropia. She states her right eye is much better vision in her left eye is poor but it seems to be at its baseline. She is not sure if anything could have poked or abraded the eye. There has been no drainage or matting. She has no headache. No nausea vomiting. [facility] Medical History Anemia Arthritis Atherosclerotic heart disease of [place] coronary artery without angina pectoris Benign essential hypertension CAD (coronary artery disease) CAD (coronary artery disease) CHF (congestive heart failure) Constipation COPD (chronic obstructive pulmonary disease) COPD (chronic obstructive pulmonary disease) Coronary atherosclerosis of [place] coronary artery Encounter to establish care History of COPD History of esophageal reflux History of fibromyalgia History of IBS History of tobacco use HLD (hyperlipidemia) Hypokalemia Memory impairment Mild aortic stenosis Mixed hyperlipidemia Nonrheumatic aortic (valve) stenosis YOVANA (obstructive sleep apnea) Presence of stent in coronary artery (~03/2002) Tremor Type 2 diabetes mellitus URI (upper respiratory infection) Vaginal anomaly Home Medications pantoprazole 40 mg tablet,delayed release 40 mg PO BID 07/08/14 [History Last Taken 09/04/16] atenolol 25 mg tablet 25 mg PO DAILY #30 TABLETS 04/13/15 [Rx Last Taken 09/04/16] doxazosin 2 mg tablet (Cardura) 2 mg PO DAILY 03/15/17 [History Last Taken Unknown] clopidogrel 75 mg tablet 75 mg PO DAILY #90 tabs 01/06/18 [Rx Last Taken Unknown] hydrocodone-acetaminophen 5-325mg 5mg-325mg 1 tab PO Q6H PRN PRN pain 3 days #10 TABLETS 01/16/22 [Rx Last Taken Unknown] valsartan 160 mg tablet 160 mg PO DAILY #90 tabs 04/23/22 [Rx Last Taken Unknown] paroxetine HCl 20 mg tablet 30 mg PO DAILY 06/06/22 [History Last Taken Unknown] glimepiride 2 mg tablet 4 mg PO DAILY 06/11/22 [History Last Taken Unknown] melatonin 5 mg tablet 5 mg PO HS PRN 06/11/22 [History Last Taken Unknown] potassium chloride 20 mEq oral packet 20 meq PO DAILY #100 ea 07/10/22 [Rx Last Taken Unknown] fluticasone propionate 50 mcg/actuation nasal spray,suspension (Flonase Allergy Relief) 2 spray intranasal DAILY #15.8 grams 07/26/22 [Rx Last Taken Unknown] Allergy/AdvReac Type Severity Reaction Status Date / Time amoxicillin Allergy Unknown Itching Verified 08/13/22 15:36 cephalexin [From Keflex] Allergy Unknown GI Upset, Verified 08/13/22 15:36 Itching doxycycline Allergy Unknown Rash Verified 08/13/22 15:36 furosemide [From Lasix] Allergy Unknown Hives Verified 08/13/22 15:36 simvastatin Allergy Unknown Hives Verified 08/13/22 15:36 atorvastatin calcium Allergy Hives Verified 08/13/22 15:36 [From Lipitor] divalproex sodium Allergy Hives Verified 08/13/22 15:36 [From Depakote] isosorbide mononitrate Allergy Unknown Verified 08/13/22 15:36 [From Imdur] moxifloxacin HCl Allergy Unknown Verified 08/13/22 15:36 [From Avelox] amlodipine AdvReac Unknown Swelling Verified 08/13/22 15:36 fluticasone furoate AdvReac Unknown Throat Verified 08/13/22 15:36 [From Breo Ellipta] Burning-hoarseness sucralfate [From Carafate] AdvReac Unknown Diarrhea Verified 08/13/22 15:36 vilanterol AdvReac Unknown Throat Verified 08/13/22 15:36 [From Breo Ellipta] Burning-hoarseness Family History Father CAD (coronary artery disease) Hypertension Mother CAD (coronary artery disease) Hypertension Mixed hyperlipidemia COPD (chronic obstructive pulmonary disease) Brother CAD (coronary artery disease) History of coronary artery bypass surgery Brother CAD (coronary artery disease) History of coronary artery bypass surgery Sister CAD (coronary artery disease) History of coronary artery bypass surgery Sister CAD (coronary artery disease) History of coronary artery bypass surgery Surgical History History of cholecystectomy History of foot surgery History of hysterectomy History of total knee replacement Presence of coronary angioplasty implant and graft (~03/2002) Social History Smoking Status: Former smoker alcohol intake: never substance use type: does not use what type of physical activity do you participate in: none ROS ROS ED Constitutional Constitutional ED: Denies chills or fever(s) Eyes Eyes: Reports other Details: See history of present illness. ; Denies change in vision ENT ENT ED: Denies rhinorrhea or sore throat Cardiovascular Cardiovascular: Denies chest pain or palpitations Respiratory/Chest Respiratory/Chest: Denies cough or dyspnea Gastrointestinal Gastrointestinal: Denies nausea or vomiting Musculoskeletal Musculoskeletal: Denies myalgias or neck pain Integumentary Reports other Details: She denies seeing any rash or skin changes on her face. ; Denies rash Neurologic Neurologic: Denies headache(s) Hematologic/Lymphatic Hematologic/Lymphatic: Denies lymphadenopathy EXAM Physical Exam Const Vital Signs: 08/13/22 13:33 Temperature 96.3 F L Temperature Source Temporal Pulse Rate 76 Respiratory Rate 18 Blood Pressure 161/84 H Blood Pressure Mean 109 Pulse Ox 98 Oxygen Delivery Method Room Air Positive well nourished and well developed General Appearance ED: well developed HEENT HEENT Narrative: I see no vesicles on her face forehead or nose. atraumatic Eyes Eyes Narrative: There is a small area of erythema on the inferior lateral aspect of the left eye that is a small subconjunctival hematoma. She does have esotropia. Just with confrontation, her vision is normal to her. There is no swelling of the lids. There is no proptosis. There is no pain with range of motion. Resp normal respiratory effort Cardio regular rate and regular rhythm GI non-tender and non-distended Neuro Sensorium / Orientation: alert Skin no wounds Skin Narrative: No vesicles. Negative Nieves MDM MDM MDM Narrative Medical decision making narrative: Slit-lamp exam was done that showed no acute abnormality. I see no tear. Pupillary response is normal without indirect ophthalmoscope. I did use fluorescein dye. There is no sign of laceration or abrasion to the cornea. There is no dendritic pattern. I looked under both lids. Were not able to see any foreign body. I then did Raúl-Pen pressures and got 16, 18, 18. At the end of this exam the patient states that she thinks she forgot to tell me that she ran into the door of her microwave the other day. Its been hurting since then. I am not seeing any external bruising on the lids or face but there does appear to be that subconjunctival hemorrhage at the inferior lateral corner. This is likely from the impact. She states redness is getting better and pain is getting better. She states vision is at her baseline which is extremely poor. I have still encouraged her to follow-up with her coat operator. I will give her a number of somebody locally because it sounds like she has trouble getting to see hers. We discussed reasons to return. I do not think any specific treatment is needed at this time. Discharge Plan Triage Chief Complaint: Eye Problem ED Provider: Heraclio Mckee Dx/Rx/DC Orders Clinical Impression: Contusion of eye, left, Subconjunctival hemorrhage of left eye Instructions: ED Eye Contusion Prescriptions: No Action paroxetine HCl 20 mg tablet 30 mg PO DAILY potassium chloride 20 mEq packet 20 meq PO DAILY Qty: 100 1RF fluticasone propionate [Flonase Allergy Relief] 50 mcg/actuation spray,suspension 2 spray intranasal DAILY Qty: 15.8 1RF Rx Instructions: administer into each nostril pantoprazole 40 MG tablet 40 mg PO BID Label Comments: ACID REFLUX atenolol 25 MG tablet 25 mg PO DAILY Qty: 30 0RF Label Comments: BLOOD PRESSURE doxazosin [Cardura] 2 MG tablet 2 mg PO DAILY hydrocodone-acetaminophen 5-325 mg tablet 1 tab PO Q6H PRN PRN (Reason: pain) 3 Days Qty: 10 0RF clopidogrel 75 MG tablet 75 mg PO DAILY Qty: 90 0RF valsartan 160 mg tablet 160 mg PO DAILY Qty: 90 0RF glimepiride 2 mg tablet 4 mg PO DAILY melatonin 5 mg tablet 5 mg PO HS PRN Primary Care Provider: Loyd Armas Referrals: Loyd Armas MD [Primary Care Provider] - Shyam Wallace MD [Med Staff - Active Staff] - 2 Days Disposition Disposition: Home, Self Care
[2022-08-13] MEDS: Fluorescein 1 MG STRIP 1 STRIP OPHTHALMIC (15:49)
[2022-08-13] MEDS: Tetracaine 0.5% Ophthalmic Bottle OPHTHALMIC (16:37)
== END 2022-08-13 16:43 | disposition home or self-care (01) ==
PROVIDERS: Emergency Provider Emergency Medicine; PCP Internal Medicine; Visit Provider Emergency Medicine
DX: S05.12XA Contusion of eyeball and orbital tissues, left eye, initial encounter (principal); J44.9 Chronic obstructive pulmonary disease, unspecified; I11.0 Hypertensive heart disease with heart failure; I50.9 Heart failure, unspecified; E11.9 Type 2 diabetes mellitus without complications; Z87.891 Personal history of nicotine dependence; E78.2 Mixed hyperlipidemia; H11.32 Conjunctival hemorrhage, left eye; I25.10 Atherosclerotic heart disease of native coronary artery without angina pectoris
CPT/HCPCS: 99282

== ENCOUNTER 2022-09-26 15:53 | Inpatient (IN) | payer MEDICARE, SELFPAY ==
[2022-09-26 15:55] VITALS: BP 116/99; PULSE 69; RESP 16; TEMP 36.4; O2SAT 97; BMI 36.6
--- NOTE | 2022-09-26 16:09 | VDLE_ITS ---
Reason For Study: Pain RIGHT GSV is normal. CFV is compressible, spontaneous, phasic, competent and demonstrates normal augmentation. FV is compressible, spontaneous, phasic, competent and demonstrates normal augmentation. POP V is compressible, spontaneous, phasic, competent and demonstrates normal augmentation. T/P Trunk is compressible. PTV is compressible. RT PerV is compressible. Procedure This is a venous duplex using B-mode, color flow and spectral Doppler. Exam performed portable in ED. A preliminary report was called and/or faxed to Dr. Moctezuma. VL/Venous Duplex US, Unilateral Interpretation Summary There is no evidence of right lower extremity deep vein thrombosis. Right great saphenous vein appears patent and compressible segmentally. Ordering Physician: Curt Moctezuma Referring Physician: Loyd Armas Performed By: Krista Wan RVT
--- NOTE | 2022-09-26 16:10 | ED.VIS.LOWEX ---
HPI History of Present Illness Chief Complaint: Lower Extremity Injury Informant: patient Narrative Narrative: Sent in here from doctor's office for DVT rule out. Reports pain in the foot increasing swelling for the past 3 days. Baseline ambulates with a cane. Has had difficulty getting around for 3 days. She sees pain management Dr. Lopez for back issues with injections in the past. She follows up monthly. She only uses Tylenol as needed. Denies any trauma to the foot. Denies recent travel. Denies any history of DVTs. She has coronary disease with stenting on Plavix. She states she does not take baby aspirin. No other anticoagulants. She lives alone. She reports her son picked her up a walker. She was transported to the office from a van and wheelchair into the office. She had difficulty getting around. Prior similar symptoms: No PFSH PFSH Medical History Anemia Arthritis Atherosclerotic heart disease of [place] coronary artery without angina pectoris Benign essential hypertension CAD (coronary artery disease) CAD (coronary artery disease) CHF (congestive heart failure) Constipation COPD (chronic obstructive pulmonary disease) COPD (chronic obstructive pulmonary disease) Coronary atherosclerosis of [place] coronary artery Encounter to establish care History of COPD History of esophageal reflux History of fibromyalgia History of IBS History of tobacco use HLD (hyperlipidemia) Hypokalemia Memory impairment Mild aortic stenosis Mixed hyperlipidemia Nonrheumatic aortic (valve) stenosis YOVANA (obstructive sleep apnea) Presence of stent in coronary artery (~03/2002) Tremor Type 2 diabetes mellitus URI (upper respiratory infection) Vaginal anomaly Home Medications pantoprazole 40 mg tablet,delayed release 40 mg PO BID ACID REFLUX 07/08/14 [History Last Taken 09/26/22] doxazosin 2 mg tablet (Cardura) 2 mg PO QHS BLOOD PRESSURE 03/15/17 [History Last Taken 09/25/22] paroxetine HCl 20 mg tablet 30 mg PO DAILY ANXIETY 06/06/22 [History Last Taken 09/26/22] glimepiride 2 mg tablet 4 mg PO DAILY DIABETES 06/11/22 [History Last Taken 09/25/22] melatonin 5 mg tablet 10 mg PO HS PRN Sleep 06/11/22 [History Last Taken 09/25/22] ondansetron 4 mg disintegrating tablet 4 mg PO Q8H PRN nausea and vomiting #30 tabs 09/20/22 [Rx Last Taken 09/23/22] acetaminophen 500 mg tablet 500 mg PO Q6H PRN Pain 09/26/22 [History Last Taken Unknown] clopidogrel 75 mg tablet 75 mg PO QHS BLOOD THINNER 09/26/22 [History Last Taken 09/25/22] fluticasone propionate 50 mcg/actuation nasal spray,suspension (Flonase Allergy Relief) 2 spray intranasal QODAY ALLERGIES 09/26/22 [History Last Taken 09/25/22] hydrocodone-acetaminophen 5-325mg 5mg-325mg 1 tab PO BID PRN Pain 09/26/22 [History Last Taken Unknown] peg [id number] 1 %-0.2 %-0.2 % eye drops (Dry Eye Relief) 1 drp EACH EYE DAILY DRY EYES 09/26/22 [History Last Taken 09/26/22] valsartan 160 mg tablet 160 mg PO DAILY BLOOD PRESSURE 09/26/22 [History Last Taken 09/24/22] Allergy/AdvReac Type Severity Reaction Status Date / Time amoxicillin Allergy Unknown Itching Verified 09/26/22 15:55 cephalexin [From Keflex] Allergy Unknown GI Upset, Verified 09/26/22 15:55 Itching doxycycline Allergy Unknown Rash Verified 09/26/22 15:55 furosemide [From Lasix] Allergy Unknown Hives Verified 09/26/22 15:55 simvastatin Allergy Unknown Hives Verified 09/26/22 15:55 atorvastatin calcium Allergy Hives Verified 09/26/22 15:55 [From Lipitor] divalproex sodium Allergy Hives Verified 09/26/22 15:55 [From Depakote] isosorbide mononitrate Allergy Unknown Verified 09/26/22 15:55 [From Imdur] moxifloxacin HCl Allergy Unknown Verified 09/26/22 15:55 [From Avelox] vancomycin Allergy Hives Verified 09/26/22 22:50 amlodipine AdvReac Unknown Swelling Verified 09/26/22 15:55 fluticasone furoate AdvReac Unknown Throat Verified 09/26/22 15:55 [From Breo Ellipta] Burning-hoarseness sucralfate [From Carafate] AdvReac Unknown Diarrhea Verified 09/26/22 15:55 vilanterol AdvReac Unknown Throat Verified 09/26/22 15:55 [From Roberto Brothers] Burning-hoarseness Family History Father CAD (coronary artery disease) Hypertension Mother CAD (coronary artery disease) Hypertension Mixed hyperlipidemia COPD (chronic obstructive pulmonary disease) Brother CAD (coronary artery disease) History of coronary artery bypass surgery Brother CAD (coronary artery disease) History of coronary artery bypass surgery Sister CAD (coronary artery disease) History of coronary artery bypass surgery Sister CAD (coronary artery disease) History of coronary artery bypass surgery Surgical History History of cholecystectomy History of foot surgery History of hysterectomy History of total knee replacement Presence of coronary angioplasty implant and graft (~03/2002) Social History Smoking Status: Former smoker alcohol intake: never substance use type: does not use what type of physical activity do you participate in: none ROS ROS ED Constitutional Constitutional ED: Denies chills, fever(s) or sweats Eyes Eyes: Denies change in vision ENT ENT ED: Denies dysphagia or sore throat Cardiovascular Cardiovascular: Denies chest pain, leg edema, palpitations or racing heartbeat Respiratory/Chest Respiratory/Chest: Denies cough, dyspnea or dyspnea on exertion Gastrointestinal Gastrointestinal: Denies abdominal pain, diarrhea, nausea or vomiting Genitourinary Genitourinary ED: Denies dysuria, hematuria or urinary frequency Musculoskeletal Musculoskeletal: Reports extremity pain; Denies back pain or neck pain Integumentary Denies rash or wounds Neurologic Neurologic: Denies headache(s), paresthesias or weakness EXAM Physical Exam Const Vital Signs: 09/26/22 15:55 Temperature 97.6 F L Temperature Source Temporal Pulse Rate 69 Respiratory Rate 16 Blood Pressure 116/99 H Blood Pressure Mean 104 Pulse Ox 97 Oxygen Delivery Method Room Air Positive well nourished and well developed General Appearance ED: well developed and NAD HEENT Reports moist mucous membranes normocephalic and atraumatic Eyes PERRL, EOMs intact bilaterally and conjunctivae normal General Eye ED: Yes normal appearance of both eyes Neck no lymphadenopathy and supple General: Negative for tenderness Chest Wall Chest: Negative for tenderness Resp normal respiratory effort and normal air movement Effort and Inspection: symmetric chest movement; Negative for respiratory distress Cardio regular rate, regular rhythm and no murmurs Peripheral Pulses: pulses 2+ throughout GI normal to inspection, nondistended, normoactive bowel sounds and non-tender Palpation: Negative for guarding or rebound tenderness present Back/Spine no CVA tenderness and no thoracic nor lumbar tenderness Extremity Extremity Narrative: Right lower extremity: No calf or medial thigh pain. There is swelling ankle and foot with no tenderness to the ankle. There is midfoot tenderness. There is no erythema. No signs of infection. Pulses are intact distally. General Extremety ED: Yes weight-bearing difficulty; Negative for edema or tenderness General Extremity: weight-bearing difficulty; Negative for edema Neuro oriented x3 and no sensory deficits noted Sensorium / Orientation: awake and alert Skin no rashes or lesions noted and no wounds MDM MDM MDM Narrative Medical decision making narrative: Patient swelling tenderness in the midfoot. X-ray 3 views right foot reviewed by myself and read by radiology soft tissue swelling with no fractures there was 2 screws noted on the distal first metatarsal. DVT studies negative. Patient is in pain in the foot, there is red and warmth. Concerns for cellulitis. She is a diabetic. Potential complications because of the hardware. Over the top of the healed incision no significant redness however foot is warm. Labs were checked with blood cultures. White count 10.5. 0 out of 4 SIRS criteria. However elevated ESR and CRP. Patient is covered with clindamycin and vancomycin. Attempted ambulation with a walker, she is only able to take 2 steps. She lives alone. Discussed with son cannot be there to take care of her full-time. I discussed with hospitalist, Dr. Bishop for admission. She is stable for the medical floor. Lab Data Attestation: I reviewed the patient's lab results. Labs: Laboratory Results - last 24 hr 09/26/22 09/26/22 18:05 18:05 WBC 10.5 RBC 4.71 Hgb 10.8 L Hct 35.5 L MCV 75.4 L MCH 22.9 L MCHC 30.4 L RDW Std Deviation 43.5 RDW Coeff of Edgar 15.9 H Plt Count 271 MPV 9.3 Immature Gran % (Auto) 0.500 Neut % (Auto) 60.4 Lymph % (Auto) 26.3 [place] % (Auto) 11.0 H Eos % (Auto) 1.3 Baso % (Auto) 0.5 Absolute Neuts (auto) 6.4 Absolute Lymphs (auto) 2.76 Nucleated RBC % 0 ESR 70 H Sodium 137 Potassium 3.3 L Chloride 102 Carbon Dioxide 28.0 Anion Gap 7 BUN 12 Creatinine 0.79 Estim Creat Clear Calc 37.85 Est GFR (MDRD) Af Amer 91 Est GFR (MDRD) Non-Af 75 BUN/Creatinine Ratio 15.2 Glucose 132 H Calcium 8.9 C-React Prot Ext Range 75.10 H Radiography Diagnostic Testing: Clinical Impression(s) from Imaging Studies Venous Doppler Study 09/26/22 16:09 Interpretation Summary There is no evidence of right lower extremity deep vein thrombosis. Right great saphenous vein appears patent and compressible segmentally. Ordering Physician: Curt Moctezuma Referring Physician: Loyd Armas Performed By: Krista Wan RVT Foot X-Ray 09/26/22 16:11 IMPRESSION: Soft tissue swelling no acute osseous abnormalities. There is a hallux valgus deformity present. Electronically Signed: Herve Louise MD at 16:36 EST , Discharge Plan Dx/Rx/DC Orders Clinical Impression: Cellulitis of foot, right, Acute pain of right foot, History of diabetes mellitus Disposition Disposition: Acute Care [facility] Discharge Date/Time: 09/26/22 22:01
--- NOTE | 2022-09-26 16:11 | RAD_ITS ---
EXAM: XR RIGHT FOOT COMPLETE, 3 OR MORE VIEWS CLINICAL INDICATION: pain TECHNIQUE: Frontal, lateral and oblique views of the right foot. This report was created using [employer] report generation technology. COMPARISON: None. FINDINGS: BONES/JOINTS: Orthopedic screw is seen in the first metatarsal. There is a hallux valgus deformity present. No acute fracture. Preservation of the joint space. No sclerotic or destructive changes observed. SOFT TISSUES: There is soft tissue swelling over the dorsum of the foot. No radiopaque foreign body. RAD/Foot min 3 Views IMPRESSION: Soft tissue swelling no acute osseous abnormalities. There is a hallux valgus deformity present. Electronically Signed: Herve Louise MD at 16:36 EST ,
[2022-09-26] MEDS: HYDROcodone Bitartrate/Apap 5/325 Tablet PO (17:32)
[2022-09-26 18:33] LABS: Absolute Lymphocyte Count 2.76 X10^3/uL (0.83-4.51); Absolute Neutrophil Count 6.4 X10^3/uL (2.0-7.7); Basophil# 0.05 X10^3/uL; Basophil% 0.5 % (0-1); Eosinophil# 0.14 X10^3/uL; Eosinophils% 1.3 % (0-5); Hematocrit 35.5 % (37-47); Hemoglobin 10.8 g/dL (12.0-15.0); Lymphocyte # 2.76 X10^3/ul (0.83-4.51); Lymphocyte % 26.3 % (19-41); Mean Corp Hgb Conc 30.4 g/dL (32-36); Mean Corpuscular Hgb 22.9 pg (27.0-32.0); Mean Corpuscular Volume 75.4 fL (81-99); Mean Platelet Vol. 9.3 fl (6.2-12.0); Monocyte# 1.15 X10^3/uL; NRBC Flagged by Analyzer 0 % (0-5); Neutrophil # 6.35 X10^3/uL (2.7-7.7); Neutrophil % 60.4 % (47-70); Platelet Count 271 K/mm3 (150-450); RBC Distribution Width CV 15.9 % (11.6-14.6); RBC Distribution Width SD 43.5 fl (35.1-43.9); Red Blood Count 4.71 M/mm3 (4.2-5.4); White Blood Count 10.5 K/mm3 (4.4-11.0)
[2022-09-26 18:44] LABS: Erythrocyte Sedimentation Rate 70 mm/hr (0-30)
[2022-09-26 18:51] LABS: Anion Gap 7 (5-15); BUN 12 mg/dL (7-18); BUN/Creat Ratio 15.2 RATIO (10-20); Calcium,Total 8.9 mg/dL (8.5-10.1); Chloride 102 mmol/L (98-107); Creatinine, Serum 0.79 mg/dL (0.55-1.02); EST Glomerular Filtration Rate 75 mL/min (>60); Est Glom Filt Rate - Afr Amer 91 mL/min (>60); Estimated Creatinine Clearance 37.85 ml/min; Glucose 132 mg/dL (74-106); Potassium 3.3 mmol/L (3.5-5.1); Sodium Level 137 mmol/L (136-145)
[2022-09-26 20:35] VITALS: BP 118/78; PULSE 78; RESP 16; TEMP 36.6; O2SAT 100; O2SAT 99
--- NOTE | 2022-09-26 20:39 | HP.PCM.HOS_ITS ---
[facility] - General General Date of Admission: 09/26/22 Date of Service: 09/26/22 Chief Complaint: Swelling of right foot HPI Narrative BRADY BALL, is a 77 F with a significant history of asthma, COPD, CAD on Plavix; diabetes mellitus who presents to the emergency department with 3-day history of progressively worsening swelling of her right foot. Associated with her symptoms is pain and increased warmth of right foot. Patient went to see her pain management doctor, Dr. Lopez for routine back pain visit. She mentioned and showed her right foot to her pain management doctor and she was encouraged her to come to the emergency department. Patient lives by her self at home. Patient is unable to walk on her right foot secondary to pain. [facility] Medical History Anemia Arthritis Atherosclerotic heart disease of [place] coronary artery without angina pectoris Benign essential hypertension CAD (coronary artery disease) CAD (coronary artery disease) CHF (congestive heart failure) Constipation COPD (chronic obstructive pulmonary disease) COPD (chronic obstructive pulmonary disease) Coronary atherosclerosis of [place] coronary artery Encounter to establish care History of COPD History of esophageal reflux History of fibromyalgia History of IBS History of tobacco use HLD (hyperlipidemia) Hypokalemia Memory impairment Mild aortic stenosis Mixed hyperlipidemia Nonrheumatic aortic (valve) stenosis YOVANA (obstructive sleep apnea) Presence of stent in coronary artery (~03/2002) Tremor Type 2 diabetes mellitus URI (upper respiratory infection) Vaginal anomaly Home Medications pantoprazole 40 mg tablet,delayed release 40 mg PO BID ACID REFLUX 07/08/14 [History Last Taken 09/26/22] doxazosin 2 mg tablet (Cardura) 2 mg PO QHS BLOOD PRESSURE 03/15/17 [History Last Taken 09/25/22] paroxetine HCl 20 mg tablet 30 mg PO DAILY ANXIETY 06/06/22 [History Last Taken 09/26/22] glimepiride 2 mg tablet 4 mg PO DAILY DIABETES 06/11/22 [History Last Taken 09/25/22] melatonin 5 mg tablet 10 mg PO HS PRN Sleep 06/11/22 [History Last Taken 09/25/22] ondansetron 4 mg disintegrating tablet 4 mg PO Q8H PRN nausea and vomiting #30 tabs 09/20/22 [Rx Last Taken 09/23/22] acetaminophen 500 mg tablet 500 mg PO Q6H PRN Pain 09/26/22 [History Last Taken Unknown] clopidogrel 75 mg tablet 75 mg PO QHS BLOOD THINNER 09/26/22 [History Last Taken 09/25/22] fluticasone propionate 50 mcg/actuation nasal spray,suspension (Flonase Allergy Relief) 2 spray intranasal QODAY ALLERGIES 09/26/22 [History Last Taken 09/25/22] hydrocodone-acetaminophen 5-325mg 5mg-325mg 1 tab PO BID PRN Pain 09/26/22 [History Last Taken Unknown] peg 262-[id number]-ghfyjbsz 1 %-0.2 %-0.2 % eye drops (Dry Eye Relief) 1 drp EACH EYE DAILY DRY EYES 09/26/22 [History Last Taken 09/26/22] valsartan 160 mg tablet 160 mg PO DAILY BLOOD PRESSURE 09/26/22 [History Last Taken 09/24/22] Allergy/AdvReac Type Severity Reaction Status Date / Time amoxicillin Allergy Unknown Itching Verified 09/26/22 15:55 cephalexin [From Keflex] Allergy Unknown GI Upset, Verified 09/26/22 15:55 Itching doxycycline Allergy Unknown Rash Verified 09/26/22 15:55 furosemide [From Lasix] Allergy Unknown Hives Verified 09/26/22 15:55 simvastatin Allergy Unknown Hives Verified 09/26/22 15:55 atorvastatin calcium Allergy Hives Verified 09/26/22 15:55 [From Lipitor] divalproex sodium Allergy Hives Verified 09/26/22 15:55 [From Depakote] isosorbide mononitrate Allergy Unknown Verified 09/26/22 15:55 [From Imdur] moxifloxacin HCl Allergy Unknown Verified 09/26/22 15:55 [From Avelox] vancomycin Allergy Hives Verified 09/26/22 22:50 amlodipine AdvReac Unknown Swelling Verified 09/26/22 15:55 fluticasone furoate AdvReac Unknown Throat Verified 09/26/22 15:55 [From Breo Ellipta] Burning-hoarseness sucralfate [From Carafate] AdvReac Unknown Diarrhea Verified 09/26/22 15:55 vilanterol AdvReac Unknown Throat Verified 09/26/22 15:55 [From Breo Ellipta] Burning-hoarseness Family History Father CAD (coronary artery disease) Hypertension Mother CAD (coronary artery disease) Hypertension Mixed hyperlipidemia COPD (chronic obstructive pulmonary disease) Brother CAD (coronary artery disease) History of coronary artery bypass surgery Brother CAD (coronary artery disease) History of coronary artery bypass surgery Sister CAD (coronary artery disease) History of coronary artery bypass surgery Sister CAD (coronary artery disease) History of coronary artery bypass surgery Surgical History History of cholecystectomy History of foot surgery History of hysterectomy History of total knee replacement Presence of coronary angioplasty implant and graft (~03/2002) Social History Smoking Status: Former smoker alcohol intake: never substance use type: does not use what type of physical activity do you participate in: none ROS ROS Narrative Pertinent positives and pertinent negatives as noted in HPI. All other systems were reviewed and are negative Vital Signs Vital Signs Vital Signs: 09/26/22 15:55 09/26/22 20:35 09/26/22 20:35 Temperature 97.6 F L 97.8 F Temperature Source Temporal Temporal Pulse Rate 69 78 78 Respiratory Rate 16 16 16 Blood Pressure 116/99 H 118/78 118/78 Blood Pressure Mean 104 91 91 Pulse Ox 97 99 100 Oxygen Delivery Method Room Air Room Air Room Air Weight Weight: 90.718 kg Body Mass Index (BMI) 36.6 Physical Exam Narrative Physical exam: General: Well-nourished, well-developed. Head: Normocephalic, atraumatic, no tenderness Eyes: Vision is grossly intact. EOMI ENT, no trauma, moist mucous membranes, no rhinorrhea Neck: Nontender, No thyromegaly. CVS: Regular rate and rhythm. S1-S2 present. No murmur, gallop or rub. Respiratory : clear to auscultation bilaterally, chest wall nontender, no wheezing Abdomen: Soft, nontender, nondistended, normal bowel sounds, no masses : Deferred Back: Nontender, no CVA tenderness. Extremities: Right foot swelling, tenderness and increased warmth. Left foot with no swelling, tenderness or increased warmth. Skin: Normal color, no trauma, abrasions Neuro: Alert, oriented, cranial nerves II through XII grossly intact. Psychiatry: Normal mood. Normal affect. Not depressed. Not anxious. Results Lab / Micro Data Result Diagrams: 09/26/22 18:05 09/26/22 18:05 Labs: Laboratory Results - last 24 hr 09/26/22 18:05: WBC 10.5, RBC 4.71, Hgb 10.8 L, Hct 35.5 L, MCV 75.4 L, MCH 22.9 L, MCHC 30.4 L, RDW Std Deviation 43.5, RDW Coeff of Edgar 15.9 H, Plt Count 271, MPV 9.3, Immature Gran % (Auto) 0.500, Neut % (Auto) 60.4, Lymph % (Auto) 26.3, [place] % (Auto) 11.0 H, Eos % (Auto) 1.3, Baso % (Auto) 0.5, Absolute Neuts (auto) 6.4, Absolute Lymphs (auto) 2.76, Nucleated RBC % 0, ESR 70 H 09/26/22 18:05: Sodium 137, Potassium 3.3 L, Chloride 102, Carbon Dioxide 28.0, Anion Gap 7, BUN 12, Creatinine 0.79, Estim Creat Clear Calc 37.85, Est GFR (MDRD) Af Amer 91, Est GFR (MDRD) Non-Af 75, BUN/Creatinine Ratio 15.2, Glucose 132 H, Calcium 8.9, C-React Prot Ext Range 75.10 H Radiology Impression Venous Doppler Study 09/26/22 16:09 Interpretation Summary There is no evidence of right lower extremity deep vein thrombosis. Right great saphenous vein appears patent and compressible segmentally. Ordering Physician: Curt Moctezuma Referring Physician: Loyd Armas Performed By: Krista Wan RVT Foot X-Ray 09/26/22 16:11 IMPRESSION: Soft tissue swelling no acute osseous abnormalities. There is a hallux valgus deformity present. Electronically Signed: Herve Louise MD at 16:36 EST , Assessment & Plan Assessment/Plan (1) Cellulitis of right foot: (2) Benign essential hypertension: PLAN: Plan Cellulitis of right foot Patient was given vancomycin at the emergency department and reportedly he developed hives on extremity. Vancomycin was stopped and Benadryl was given. Also clindamycin was ordered in the ED. Clindamycin continued. [place] continued. CRP and ESR was elevated. We will check MRI. Consult podiatry. Diabetes mellitus Patient with mild hyperglycemia on presentation Hold home glimepiride Monitor Accu-Cheks Correction scale insulin ordered. Hypertension Blood pressure is stable Cardura continued Trend blood pressure and adjust blood pressure medications. DVT prophylaxis Subcutaneous Lovenox ordered. Charges/Coding Visit Charges Inpatient E&M: 53177 Init Hosp L3
[2022-09-26] MEDS: Clindamycin 600 MG/50 ML BAG 100 MG IV (20:58)
[2022-09-26 21:51] VITALS: BMI 36.3
[2022-09-26] MEDS: Doxazosin 1 MG Tablet 2 MG PO (22:30)
[2022-09-26] MEDS: Clopidogrel Bisulfate 75 MG Tablet PO (22:30)
[2022-09-26] MEDS: Pantoprazole Sodium 40 MG Tablet PO (22:30)
[2022-09-26 22:34] VITALS: BP 136/60; PULSE 65; RESP 18; TEMP 37.1; O2SAT 94
--- NOTE | 2022-09-26 22:41 | PCM.RX.CS ---
Consult Pharmacy has been consulted to manage selected antiobiotic: Vancomycin Type of Consult: New start Suspected Infection: Skin/Soft tissue Prior Doses of Antibiotics Received/Current Regimen: Medications Vancomycin HCl (Vancomycin) 1,000 mg in 200 mls @ 200 mls/hr IV Q12H JENNIFER Discontinued Medications Vancomycin HCl 2,000 mg/ (Sodium Chloride) 540 mls @ 250 mls/hr IV X1 ONE Stop: 09/26/22 22:38 Last Admin: 09/26/22 22:31 Dose: 250 mls/hr Labs: Sodium 137 mmol/L (136-145) 09/26/22 18:05 Potassium 3.3 mmol/L (3.5-5.1) L 09/26/22 18:05 Chloride 102 mmol/L (98-107) 09/26/22 18:05 Carbon Dioxide 28.0 mmol/L (21.0-32.0) 09/26/22 18:05 Anion Gap 7 (5-15) 09/26/22 18:05 BUN 12 mg/dL (7-18) 09/26/22 18:05 Creatinine 0.79 mg/dL (0.55-1.02) 09/26/22 18:05 Est GFR (MDRD) Af Amer 91 mL/min (>60) 09/26/22 18:05 Est GFR (MDRD) Non-Af 75 mL/min (>60) 09/26/22 18:05 BUN/Creatinine Ratio 15.2 RATIO (10-20) 09/26/22 18:05 Glucose 132 mg/dL (74-106) H 09/26/22 18:05 Weight used for dosin kg Estimated Creatinine Clearance: 63 Goal Trough: 15-20 mcg/mL Pharmacy Plan for Drug Dosing: Pharmacy Service will continue to monitor and adjust dosing as required. Follow-Up Labs: Trough Vancomycin Labs to be done on [date and time ordered]: 09/28/22 @1000
[2022-09-26] MEDS: MELATONIN 10 MG TABLET PO (22:43)
[2022-09-26] MEDS: DiphenhydrAMINE 50 MG/ML Syringe 25 MG IV (23:54)
[2022-09-27] VITALS (9 sets, daily range): BP systolic 111–148; BP diastolic 45–66; PULSE 53–75; RESP 16–18; TEMP 35.8–37.4; O2SAT 94–98
[2022-09-27] MEDS: Insulin Lispro 100 UNIT/ML INSULN.PEN SC (00:03)
[2022-09-27] MEDS: 0.9% Saline Lock 10 ML Syringe IV ×2 (00:05→05:01)
[2022-09-27] MEDS: Clindamycin 600 MG/50 ML BAG 100 MG IV ×4 (00:52→18:17)
[2022-09-27] MEDS: HYDROcodone Bitartrate/Apap 5/325 Tablet PO ×3 (00:57→18:29)
[2022-09-27 02:36] LABS: Bedside Glucose 155 mg/dL (74-106)
[2022-09-27 04:44] LABS: Absolute Lymphocyte Count 2.47 X10^3/uL (0.83-4.51); Absolute Neutrophil Count 3.8 X10^3/uL (2.0-7.7); Basophil# 0.06 X10^3/uL; Basophil% 0.8 % (0-1); Eosinophil# 0.23 X10^3/uL; Eosinophils% 3.1 % (0-5); Hematocrit 31.8 % (37-47); Hemoglobin 9.9 g/dL (12.0-15.0); Lymphocyte # 2.47 X10^3/ul (0.83-4.51); Lymphocyte % 33.2 % (19-41); Mean Corp Hgb Conc 31.1 g/dL (32-36); Mean Corpuscular Hgb 23.7 pg (27.0-32.0); Mean Corpuscular Volume 76.1 fL (81-99); Mean Platelet Vol. 9.6 fl (6.2-12.0); Monocyte# 0.89 X10^3/uL; NRBC Flagged by Analyzer 0 % (0-5); Neutrophil # 3.77 X10^3/uL (2.7-7.7); Neutrophil % 50.8 % (47-70); Platelet Count 225 K/mm3 (150-450); RBC Distribution Width CV 15.9 % (11.6-14.6); RBC Distribution Width SD 43.8 fl (35.1-43.9); Red Blood Count 4.18 M/mm3 (4.2-5.4); White Blood Count 7.4 K/mm3 (4.4-11.0)
[2022-09-27 05:05] LABS: Anion Gap 7 (5-15); BUN 13 mg/dL (7-18); BUN/Creat Ratio 17.6 RATIO (10-20); Calcium,Total 8.6 mg/dL (8.5-10.1); Chloride 107 mmol/L (98-107); Creatinine, Serum 0.74 mg/dL (0.55-1.02); EST Glomerular Filtration Rate 81 mL/min (>60); Est Glom Filt Rate - Afr Amer 98 mL/min (>60); Estimated Creatinine Clearance 37.85 ml/min; Glucose 148 mg/dL (74-106); Potassium 3.2 mmol/L (3.5-5.1); Sodium Level 140 mmol/L (136-145)
--- NOTE | 2022-09-27 07:24 | MRI_ITS ---
STUDY: MRI RIGHT MIDFOOT/FOREFOOT WITHOUT CONTRAST. REASON FOR EXAM: Female, 77 years old. pain -- midfoot pain PAIN RADIATES FRO MID FOOT TO TOES AND HEEL, NO INJURY, STEPPED DOWN OUT OF BED AND HAD PAIN, UNABLE TO BEAR WEIGHT TECHNIQUE: Standardized fat and water weighted pulse sequences were obtained in all 3 orthogonal planes. COMPARISON: X-ray of the right foot dated September 26, 2022. FINDINGS: Moderate edema is present in the bases and proximal shaft of the second and third metatarsal bones, with mild edema seen in the base of the fourth metatarsal bone and in the first and middle cuneiforms. The edema is most likely due to contusions/stress edema related to the recent stepping injury. No fracture or cortical break is present. Moderate subcutaneous edema is present around the mid and forefoot. Mild intramuscular edema is also present throughout the mid foot either due to strain injury, reactivity, or sequela of chronic neuropathy. A small to moderate size ankle joint effusion is also present. Prior osteotomy with anchoring screws seen in the head neck junction of the first metatarsal bone. Normal talonavicular articulation. Normal calcaneocuboid articulation. Normal navicular-cuneiform articulations. Normal intercuneiform articulations. Normal first tarsometatarsal articulation. Normal Lisfranc ligament. Normal second and third tarsometatarsal articulations. Normal cuboid fourth and cuboid fifth tarsometatarsal articulation. The phalanges are unremarkable. The visualized aspects of the distal Achilles tendon reveals mild bulbous thickening at the level of Kager''s fat pad consistent with mild tendinosis. The distal Achilles insertion on the calcaneus is normal. Normal tibialis anterior tendon. Normal extensor hallucis longus tendon. Normal extensor digitorum longus tendons. Normal peroneus longus tendon and distal insertion. Normal peroneus brevis tendon and distal insertion. There is mild fluid distention of the posterior tibialis tendon sheath, consistent with mild tenosynovitis. MRI/Lower Ext/No Jt/w/o IMPRESSION: 1. Moderate edema is present in the bases and proximal shaft of the second and third metatarsal bones, with mild edema seen in the base of the fourth metatarsal bone and in the first and middle cuneiforms. The edema is most likely due to contusions/stress edema related to the recent stepping injury. No fracture or cortical break is present. 2. Moderate subcutaneous edema is present around the mid and forefoot. 3. Mild intramuscular edema is also present throughout the mid foot either due to strain injury, reactivity, or sequela of chronic neuropathy. 4. Small to moderate-sized ankle joint effusion. 5. Mild tenosynovitis of the posterior tibialis tendon Electronically Signed: Benny Lee MD at 12:06 EST ,
--- NOTE | 2022-09-27 07:24 | PCM.CONS.GEN ---
Assessment & Plan Assessment/Plan (1) Acute pain of right foot: (2) Cellulitis of foot, right: (3) History of diabetes mellitus: PLAN: Plan Evaluation performed. Reviewed diagnotic data. There is pain and swelling to the right foot. Clinically there are no open wounds and really no erythema. Right foot xrays with no visible fracture or acute issues noted. Further evaluation is indicated - MRI was ordered. Also ordered uric acid lab to help evaluate for the possibility of gout. Patient is on antibiotics at this time to help cover for any infection. Podiatry will continue to follow. Thank you for consultation. HPI Consult Data Date of Consult: 09/27/22 HPI Narrative Reason for Consultation: Right foot pain and swelling HPI Narrative: BRADY BALL, is a 77 F who presents for right foot pain and swelling. Patient was seen in the ER last night for pain and swelling right foot. Doppler was negative for DVT. She relates the pain - points to the midfoot on the right foot. She is able to move the foot but it is limited. She is resting in bed. She follows with pain management. She has been started on antibiotics. WBC is normal. Patient is afebrile, no fever, or chills. She has hx of diabetes and many medical problems. [facility] Medical History Anemia Arthritis Atherosclerotic heart disease of po[place] coronary artery without angina pectoris Benign essential hypertension CAD (coronary artery disease) CAD (coronary artery disease) CHF (congestive heart failure) Constipation COPD (chronic obstructive pulmonary disease) COPD (chronic obstructive pulmonary disease) Coronary atherosclerosis of [place] coronary artery Encounter to establish care History of COPD History of esophageal reflux History of fibromyalgia History of IBS History of tobacco use HLD (hyperlipidemia) Hypokalemia Memory impairment Mild aortic stenosis Mixed hyperlipidemia Nonrheumatic aortic (valve) stenosis YOVANA (obstructive sleep apnea) Presence of stent in coronary artery (~03/2002) Tremor Type 2 diabetes mellitus URI (upper respiratory infection) Vaginal anomaly Home Medications pantoprazole 40 mg tablet,delayed release 40 mg PO BID ACID REFLUX 07/08/14 [History Last Taken 09/26/22] doxazosin 2 mg tablet (Cardura) 2 mg PO QHS BLOOD PRESSURE 03/15/17 [History Last Taken 09/25/22] paroxetine HCl 20 mg tablet 30 mg PO DAILY ANXIETY 06/06/22 [History Last Taken 09/26/22] glimepiride 2 mg tablet 4 mg PO DAILY DIABETES 06/11/22 [History Last Taken 09/25/22] melatonin 5 mg tablet 10 mg PO HS PRN Sleep 06/11/22 [History Last Taken 09/25/22] ondansetron 4 mg disintegrating tablet 4 mg PO Q8H PRN nausea and vomiting #30 tabs 09/20/22 [Rx Last Taken 09/23/22] acetaminophen 500 mg tablet 500 mg PO Q6H PRN Pain 09/26/22 [History Last Taken Unknown] clopidogrel 75 mg tablet 75 mg PO QHS BLOOD THINNER 09/26/22 [History Last Taken 09/25/22] fluticasone propionate 50 mcg/actuation nasal spray,suspension (Flonase Allergy Relief) 2 spray intranasal QODAY ALLERGIES 09/26/22 [History Last Taken 09/25/22] hydrocodone-acetaminophen 5-325mg 5mg-325mg 1 tab PO BID PRN Pain 09/26/22 [History Last Taken Unknown] peg [id number] 1 %-0.2 %-0.2 % eye drops (Dry Eye Relief) 1 drp EACH EYE DAILY DRY EYES 09/26/22 [History Last Taken 09/26/22] valsartan 160 mg tablet 160 mg PO DAILY BLOOD PRESSURE 09/26/22 [History Last Taken 09/24/22] Allergy/AdvReac Type Severity Reaction Status Date / Time amoxicillin Allergy Unknown Itching Verified 09/26/22 15:55 cephalexin [From Keflex] Allergy Unknown GI Upset, Verified 09/26/22 15:55 Itching doxycycline Allergy Unknown Rash Verified 09/26/22 15:55 furosemide [From Lasix] Allergy Unknown Hives Verified 09/26/22 15:55 simvastatin Allergy Unknown Hives Verified 09/26/22 15:55 atorvastatin calcium Allergy Hives Verified 09/26/22 15:55 [From Lipitor] divalproex sodium Allergy Hives Verified 09/26/22 15:55 [From Depakote] isosorbide mononitrate Allergy Unknown Verified 09/26/22 15:55 [From Imdur] moxifloxacin HCl Allergy Unknown Verified 09/26/22 15:55 [From Avelox] vancomycin Allergy Hives Verified 09/26/22 22:50 amlodipine AdvReac Unknown Swelling Verified 09/26/22 15:55 fluticasone furoate AdvReac Unknown Throat Verified 09/26/22 15:55 [From Breo Ellipta] Burning-hoarseness sucralfate [From Carafate] AdvReac Unknown Diarrhea Verified 09/26/22 15:55 vilanterol AdvReac Unknown Throat Verified 09/26/22 15:55 [From Breo Ellipta] Burning-hoarseness Family History Father CAD (coronary artery disease) Hypertension Mother CAD (coronary artery disease) Hypertension Mixed hyperlipidemia COPD (chronic obstructive pulmonary disease) Brother CAD (coronary artery disease) History of coronary artery bypass surgery Brother CAD (coronary artery disease) History of coronary artery bypass surgery Sister CAD (coronary artery disease) History of coronary artery bypass surgery Sister CAD (coronary artery disease) History of coronary artery bypass surgery Surgical History History of cholecystectomy History of foot surgery History of hysterectomy History of total knee replacement Presence of coronary angioplasty implant and graft (~03/2002) Social History Smoking Status: Former smoker alcohol intake: never substance use type: does not use what type of physical activity do you participate in: none Physical Exam Narrative Right foot with edema noted and goes to the ankle, no right leg edema, there is POP to the midfoot; there are no open lesions, no drainage, no necrosis, no fluctuance, no visible abscess, no crepitus, CFT < 2 seconds to all toes and no evidence of ischemia noted to the foot, no blisters, there is very trace to no erythema to the foot, muscle strength is intact to the major muscle groups of the foot and ankle but limited. Sensation is intact to light touch bilateral. Left foot with no open lesions, no edema or acute issues. Const alert, oriented x3 and no apparent distress Lab / Micro Data Result Diagrams: 09/27/22 04:20 09/27/22 04:20 Labs: Laboratory Results - last 24 hr 09/26/22 18:05: WBC 10.5, RBC 4.71, Hgb 10.8 L, Hct 35.5 L, MCV 75.4 L, MCH 22.9 L, MCHC 30.4 L, RDW Std Deviation 43.5, RDW Coeff of Edgar 15.9 H, Plt Count 271, MPV 9.3, Immature Gran % (Auto) 0.500, Neut % (Auto) 60.4, Lymph % (Auto) 26.3, [place] % (Auto) 11.0 H, Eos % (Auto) 1.3, Baso % (Auto) 0.5, Absolute Neuts (auto) 6.4, Absolute Lymphs (auto) 2.76, Nucleated RBC % 0, ESR 70 H 09/26/22 18:05: Sodium 137, Potassium 3.3 L, Chloride 102, Carbon Dioxide 28.0, Anion Gap 7, BUN 12, Creatinine 0.79, Estim Creat Clear Calc 37.85, Est GFR (MDRD) Af Amer 91, Est GFR (MDRD) Non-Af 75, BUN/Creatinine Ratio 15.2, Glucose 132 H, Calcium 8.9, C-React Prot Ext Range 75.10 H 09/27/22 00:00: POC Glucose 155 H 09/27/22 04:20: WBC 7.4, RBC 4.18 L, Hgb 9.9 L, Hct 31.8 L, MCV 76.1 L, MCH 23.7 L, MCHC 31.1 L, RDW Std Deviation 43.8, RDW Coeff of Edgar 15.9 H, Plt Count 225, MPV 9.6, Immature Gran % (Auto) 0.100, Neut % (Auto) 50.8, Lymph % (Auto) 33.2, [place] % (Auto) 12.0 H, Eos % (Auto) 3.1, Baso % (Auto) 0.8, Absolute Neuts (auto) 3.8, Absolute Lymphs (auto) 2.47, Nucleated RBC % 0 09/27/22 04:20: Sodium 140, Potassium 3.2 L, Chloride 107, Carbon Dioxide 26.0, Anion Gap 7, BUN 13, Creatinine 0.74, Estim Creat Clear Calc 37.85, Est GFR (MDRD) Af Amer 98, Est GFR (MDRD) Non-Af 81, BUN/Creatinine Ratio 17.6, Glucose 148 H, Calcium 8.6 Radiology Impression Venous Doppler Study 09/26/22 16:09 Interpretation Summary There is no evidence of right lower extremity deep vein thrombosis. Right great saphenous vein appears patent and compressible segmentally. Ordering Physician: Curt Moctezuma Referring Physician: Loyd Armas Performed By: Krista Wan T Foot X-Ray 09/26/22 16:11 IMPRESSION: Soft tissue swelling no acute osseous abnormalities. There is a hallux valgus deformity present. Electronically Signed: Herve Louise MD at 16:36 EST ,
[2022-09-27 07:25] LABS: Bedside Glucose 110 mg/dL (74-106)
[2022-09-27 07:46] LABS: Uric Acid 5.9 mg/dL (2.6-6.0)
[2022-09-27] MEDS: Potassium Chloride Oral Tablet 20 MEQ 40 MEQ PO (08:53)
[2022-09-27] MEDS: PARoxetine 10 MG Tablet 30 MG PO (08:55)
[2022-09-27] MEDS: Glycerin/Hypromellose/PEG400 15 ml Bottle 1 DRP EACH EYE (08:56)
[2022-09-27] MEDS: Pantoprazole Sodium 40 MG Tablet PO ×2 (08:56→20:59)
[2022-09-27] MEDS: Losartan Potassium 50 MG Tablet PO (08:59)
--- NOTE | 2022-09-27 11:30 | CASEMGMT ---
RN?CM?EXTR[employer] SUPERVISOR?CM?to room to meet with patient for initial transition planning/care coordination?assessment.?RN?CM?introduced self and role at [facility].? Pt voices understanding and consents to?assessment?at this time.? Pt sitting up in chair in room in no distress at this time.? Pt is A/O at this time and answers all questions appropriately.?? Care providers, pharmacy, and demographics verified/updated at this time.? PCP:?Dr Armas Specialists:?Dr Lopez-pain mgmt, Dr Brooks-cardiology Preferred Pharmacy:?[facility] Insurance:?[facility] Prescription Benefit:?yes Living Will/HPOA:??Pt states she has both LW and HCPOA, who is her dtr, Karen Victoria LNOK:?Pt has 4 children. Dtr/POA, Karen. Son, Delroy. Pt states her in April of this year/2021. Living Arrangements:?Lives alone in a one-story home w/one step to enter. Pt states she is independent w/ADL's and manages her own medications and appts. Her friend, Meggan, checks in on her about 2 x's/week and helps car pick up driver her medications, get groceries for her, or takes her to the grocery store. Transportation:?Pt states she does not have a vehicle. Friend, Meggan, or son Delroy, help her w/transportation or she takes a cab at times. She used to use [facility] van for transportation but d/t difficulty getting in/out of the van on her own, she has not been able to use them. DME: ?States has the following DME:??built-in shower seat, cane, walker. She has been using her late husbands glucometer and is almost out of lancets. She would like to get another glucometer and supplies. Jodi, MS3 RN MATTHEW, made aware. She used to have a PAP, but no longer has it. She voices interest on information on medical alert button. SERGEY CASTRO provided list at this time. Pt states no need for further DME at this time.?? HHC/SNF:?No hx of either. Pt states she is interested in HHC. PT/OT evals pending. Discussed home-bound requirements. Pt states, if she does not qualify for HHC, then she would also be interested in OP therapy @ [facility]. SERGEY Zapata CM, made aware. Pt wishes to return home and states has no concerns with going home at time of discharge.???CM?to follow for further discharge planning/needs.? Pt voices no further concerns/needs at this time.? Advised pt to ask for?CM?if any further questions/concerns/needs arise.? Voices understanding.? PLAN:??Home w/either HHC or OP therapy. PT/OT evals pending. Pt would like a script for glucometer. Dat ROSADON?RN?CM
--- NOTE | 2022-09-27 11:46 | CASEMGMT ---
Social Work Pt does have a health care POA on file naming Stiven Lee. SW spoke with pt about this document. Pt states she has made a new HCPOA since this 2007 document and Trace is no longer her HCPOA. Pt states the new document names her daughter Karen Victoria. Pt states she will bring this document to the hospital when she returns home. Pt Dgts name added to contact information on demographic sheet. PA Greenberg
[2022-09-27 12:35] LABS: Bedside Glucose 133 mg/dL (74-106)
--- NOTE | 2022-09-27 14:01 | PCM.PN.HOSP ---
Subjective Subjective Patient reports that her foot may feel little bit better today. No erythema however she stated there was a black spot on the lateral aspect and it was red yesterday. No significant tenderness to palpation however the foot is swollen. She was unable to bear a bit of weight on it but not anything significant. MRI is pending Objective Data Objective Data Vital Signs: Vital Signs Temp Pulse Resp BP Pulse Ox O2 Del Method 97.6 F L 58 L 16 111/50 L 95 Room Air 09/27/22 12:42 09/27/22 12:42 09/27/22 12:42 09/27/22 12:42 09/27/22 12:42 09/27/22 12:42 Oxygen Delivery Method Room Air Weight: 90.083 kg Body Mass Index (BMI) 36.3 Intake & Output: Intake and Output for Last 24 Hours 09/25/22 09/26/22 09/27/22 23:59 23:59 23:59 Intake Total 87.5 / 187.5 700 / 700 Balance 87.5 / 187.5 700 / 700 Lab / Micro Data Result Diagrams: 09/27/22 04:20 09/27/22 04:20 Labs: Laboratory Results - last 24 hr 09/26/22 18:05: WBC 10.5, RBC 4.71, Hgb 10.8 L, Hct 35.5 L, MCV 75.4 L, MCH 22.9 L, MCHC 30.4 L, RDW Std Deviation 43.5, RDW Coeff of Edgar 15.9 H, Plt Count 271, MPV 9.3, Immature Gran % (Auto) 0.500, Neut % (Auto) 60.4, Lymph % (Auto) 26.3, [place] % (Auto) 11.0 H, Eos % (Auto) 1.3, Baso % (Auto) 0.5, Absolute Neuts (auto) 6.4, Absolute Lymphs (auto) 2.76, Nucleated RBC % 0, ESR 70 H 09/26/22 18:05: Sodium 137, Potassium 3.3 L, Chloride 102, Carbon Dioxide 28.0, Anion Gap 7, BUN 12, Creatinine 0.79, Estim Creat Clear Calc 37.85, Est GFR (MDRD) Af Amer 91, Est GFR (MDRD) Non-Af 75, BUN/Creatinine Ratio 15.2, Glucose 132 H, Calcium 8.9, C-React Prot Ext Range 75.10 H 09/27/22 00:00: POC Glucose 155 H 09/27/22 04:20: WBC 7.4, RBC 4.18 L, Hgb 9.9 L, Hct 31.8 L, MCV 76.1 L, MCH 23.7 L, MCHC 31.1 L, RDW Std Deviation 43.8, RDW Coeff of Edgar 15.9 H, Plt Count 225, MPV 9.6, Immature Gran % (Auto) 0.100, Neut % (Auto) 50.8, Lymph % (Auto) 33.2, [place] % (Auto) 12.0 H, Eos % (Auto) 3.1, Baso % (Auto) 0.8, Absolute Neuts (auto) 3.8, Absolute Lymphs (auto) 2.47, Nucleated RBC % 0 09/27/22 04:20: Sodium 140, Potassium 3.2 L, Chloride 107, Carbon Dioxide 26.0, Anion Gap 7, BUN 13, Creatinine 0.74, Estim Creat Clear Calc 37.85, Est GFR (MDRD) Af Amer 98, Est GFR (MDRD) Non-Af 81, BUN/Creatinine Ratio 17.6, Glucose 148 H, Calcium 8.6 09/27/22 04:20: Uric Acid 5.9 09/27/22 07:03: POC Glucose 110 H 09/27/22 12:06: POC Glucose 133 H Radiography Diagnostic Testing: Radiology Impression Venous Doppler Study 09/26/22 16:09 Interpretation Summary There is no evidence of right lower extremity deep vein thrombosis. Right great saphenous vein appears patent and compressible segmentally. Ordering Physician: Curt Moctezuma Referring Physician: Loyd Armas Performed By: Krista Wan RVT Foot X-Ray 09/26/22 16:11 IMPRESSION: Soft tissue swelling no acute osseous abnormalities. There is a hallux valgus deformity present. Electronically Signed: Herve Louise MD at 16:36 EST , Lower Extremity MRI 09/27/22 07:24 IMPRESSION: 1. Moderate edema is present in the bases and proximal shaft of the second and third metatarsal bones, with mild edema seen in the base of the fourth metatarsal bone and in the first and middle cuneiforms. The edema is most likely due to contusions/stress edema related to the recent stepping injury. No fracture or cortical break is present. 2. Moderate subcutaneous edema is present around the mid and forefoot. 3. Mild intramuscular edema is also present throughout the mid foot either due to strain injury, reactivity, or sequela of chronic neuropathy. 4. Small to moderate-sized ankle joint effusion. 5. Mild tenosynovitis of the posterior tibialis tendon Electronically Signed: Benny Lee MD at 12:06 EST , Physical Exam Const alert, oriented x3, no apparent distress, healthy appearing and well nourished Constitutional Narrative: Obese, very pleasant elderly white female sitting up in chair at the bedside, therapy at bedside, patient appears comfortable nontoxic HEENT head/scalp atraumatic and moist oral mucous membranes HEENT Narrative: Edentulous, Mallampati 2, no thrush Resp normal respiratory effort, no retractions, no use of accessory muscles and clear to auscultation bilaterally Auscultation: Negative for crackles, rhonchi or wheezes Cardio regular rate, regular rhythm, S1 normal heart sound, S2 normal heart sound, no murmurs, no rub, no gallops and no clicks GI normal to inspection, nondistended, normoactive bowel sounds, soft to palpation and non-tender Extremity Extremity Narrative: Numbness right foot with mild tenderness, no wounds or erythema, 2+ pedal pulses, no cyanosis or clubbing Skin no rashes or lesions noted, no wounds, skin turgor normal, no jaundice, no petechiae and no mottling Neuro oriented x3, CN's II-XII intact bilaterally, moves all extremities, no focal motor deficits and no sensory deficits noted Speech: speech normal Psych affect normal Psych Narrative: Very pleasant and appropriately interactive, intermittently joking Assessment & Plan Assessment/Plan (1) Acute pain of right foot: (2) Iron deficiency anemia: (3) Hypokalemia: PLAN: Plan Acute right foot pain -No significant cellulitic changes noted -No open wounds -X-rays were unremarkable -MRI is pending -Sed rate and CRP are elevated -White count is normal -Uric acid is normal -Continue antibiotics at this time and await further work-up--> if no signs of infection on MRI will discontinue antibiotics -As needed oral narcotics for pain control -As needed bowel regimen -PT/OT consultation Chronic microcytic anemia -Did have recent iron studies in June 2022 which were consistent with iron deficiency -Start supplemental iron -Check Hemoccult -Consider GI consultation depending on Hemoccult versus outpatient follow-up -No colonoscopy or EGD performed here per review of recent documentation Hypokalemia -40 mill equivalents p.o. potassium -Repeat in a.m. DM-2 -Most recent hemoglobin A1c was 5.9 -Hold home glimepiride -Sliding scale insulin -Accu-Cheks as ordered GERD -Continue home Protonix Hypertension -Continue home valsartan -As needed Cardura CAD -Continue home Plavix History of COPD -Patient is not on any inhalers -Consider as needed albuterol if any shortness of breath YOVANA -Patient does not wear CPAP -Monitor Depression -Continue home paroxetine DVT prophylaxis -Start enoxaparin -SCDs CODE STATUS -full code Charges/Coding Visit Charges Inpatient E&M: 66920 Subs Hosp L2
[2022-09-27 15:17] LABS: Platelet Count 224 K/mm3 (150-450); RET-HE 26.4 pg (30-35); Reticulocyte Count 1.07 % (0.5-1.5)
[2022-09-27] MEDS: Ondansetron 4 MG/2 ML Vial IV (15:18)
--- NOTE | 2022-09-27 15:37 | CASEMGMT ---
SERGEY CASTRO in to pt room, discussed pt progress with therapy today. Pt states she would like to have HHC. Patient was provided a list of HHC providers including quality and resource use data and consistent with the patient?s preferred geographic region, medical needs, and insurance network were provided from [facility]. Pt states she will review this but cannot at the moment as she is nauseated. SERGEY CASTRO to check back. Pt nurse made aware of nausea.
[2022-09-27 17:10] LABS: Bedside Glucose 133 mg/dL (74-106)
[2022-09-27] MEDS: Doxazosin 1 MG Tablet 2 MG PO (20:59)
[2022-09-27] MEDS: Clopidogrel Bisulfate 75 MG Tablet PO (20:59)
[2022-09-27] MEDS: MELATONIN 10 MG TABLET PO (21:11)
[2022-09-27 23:30] LABS: Bedside Glucose 123 mg/dL (74-106)
[2022-09-28] VITALS (8 sets, daily range): BP systolic 124–165; BP diastolic 55–75; PULSE 64–93; RESP 18; TEMP 36.6–37.5; O2SAT 95–98
[2022-09-28] MEDS: Clindamycin 600 MG/50 ML BAG 100 MG IV ×3 (01:00→12:09)
[2022-09-28] MEDS: HYDROcodone Bitartrate/Apap 5/325 Tablet PO ×3 (01:05→19:52)
[2022-09-28 07:06] LABS: Absolute Neutrophil Count 2.7 X10^3/uL (2.0-7.7); Basophil# 0.07 X10^3/uL; Basophil% 1.1 % (0-1); Eosinophil# 0.31 X10^3/uL; Eosinophils% 5.1 % (0-5); Hematocrit 32.3 % (37-47); Lymphocyte % 37.6 % (19-41); Mean Corpuscular Hgb 23.7 pg (27.0-32.0); Mean Corpuscular Volume 76.5 fL (81-99); Mean Platelet Vol. 9.4 fl (6.2-12.0); Monocyte# 0.69 X10^3/uL; Monocyte% 11.3 % (0-10); NRBC Flagged by Analyzer 0 % (0-5); Neutrophil # 2.74 X10^3/uL (2.7-7.7); Neutrophil % 44.7 % (47-70); Platelet Count 244 K/mm3 (150-450); RBC Distribution Width SD 44.3 fl (35.1-43.9); Red Blood Count 4.22 M/mm3 (4.2-5.4); White Blood Count 6.1 K/mm3 (4.4-11.0)
[2022-09-28 07:25] LABS: Bedside Glucose 109 mg/dL (74-106)
[2022-09-28 07:32] LABS: ALB/GLOB Ratio 0.8 RATIO (0.9-2.4); AST(SGOT) 13 U/L (15-37); Alanine Aminotransfer ALT/SGPT 20 U/L (13-56); Albumin, Serum 2.8 g/dL (3.2-5.0); Alkaline Phosphatase 52 U/L (45-117); Anion Gap 6 (5-15); BUN 15 mg/dL (7-18); BUN/Creat Ratio 21.7 RATIO (10-20); Calcium,Total 8.3 mg/dL (8.5-10.1); Chloride 107 mmol/L (98-107); Creatinine, Serum 0.69 mg/dL (0.55-1.02); EST Glomerular Filtration Rate 88 mL/min (>60); Est Glom Filt Rate - Afr Amer 106 mL/min (>60); Estimated Creatinine Clearance 37.85 ml/min; Globulin 3.4 g/dL (2.2-4.2); Glucose 101 mg/dL (74-106); Phosphorus 4.6 mg/dL (2.5-4.9); Potassium 3.7 mmol/L (3.5-5.1); Protein, Total 6.2 g/dL (6.4-8.2); Sodium Level 140 mmol/L (136-145)
[2022-09-28] MEDS: Glycerin/Hypromellose/PEG400 15 ml Bottle 1 DRP EACH EYE (09:31)
[2022-09-28] MEDS: Pantoprazole Sodium 40 MG Tablet PO ×2 (09:32→23:01)
[2022-09-28] MEDS: Losartan Potassium 50 MG Tablet PO (09:32)
--- NOTE | 2022-09-28 09:44 | PN_ITS ---
Subjective Subjective Patient was seen this morning for follow up on right foot. WBC is normal. Patient is afebrile. No complaints of fever, chills, nausea or vomiting. Objective Data Objective Data Vital Signs: Vital Signs Temp Pulse Resp BP Pulse Ox O2 Del Method 98.5 F 67 18 124/55 H 97 Room Air 09/28/22 09:11 09/28/22 09:11 09/28/22 09:11 09/28/22 09:11 09/28/22 09:11 09/28/22 09:11 Oxygen Delivery Method Room Air Weight: 90.083 kg Body Mass Index (BMI) 36.3 Intake & Output: Intake and Output for Last 24 Hours 09/26/22 09/27/22 09/28/22 23:59 23:59 23:59 Intake Total 87.5 / 187.5 1150 / 1150 100 / 100 Balance 87.5 / 187.5 1150 / 1150 100 / 100 Lab / Micro Data Result Diagrams: 09/28/22 06:20 09/28/22 06:20 Labs: Laboratory Results - last 24 hr 09/27/22 04:20: Retic Count 1.07, Immature Retic Fraction 15.70, Retic Hgb Equivalent 26.4 L 09/27/22 12:06: POC Glucose 133 H 09/27/22 16:51: POC Glucose 133 H 09/27/22 21:16: POC Glucose 123 H 09/28/22 06:02: POC Glucose 109 H 09/28/22 06:20: WBC 6.1, RBC 4.22, Hgb 10.0 L, Hct 32.3 L, MCV 76.5 L, MCH 23.7 L, MCHC 31.0 L, RDW Std Deviation 44.3 H, RDW Coeff of Edgar 16.0 H, Plt Count 24 4, MPV 9.4, Immature Gran % (Auto) 0.200, Neut % (Auto) 44.7 L, Lymph % (Auto) 37.6, [place] % (Auto) 11.3 H, Eos % (Auto) 5.1 H, Baso % (Auto) 1.1 H, Absolute Neuts (auto) 2.7, Absolute Lymphs (auto) 2.30, Nucleated RBC % 0 09/28/22 06:20: Sodium 140, Potassium 3.7, Chloride 107, Carbon Dioxide 27.0, Anion Gap 6, BUN 15, Creatinine 0.69, Estim Creat Clear Calc 37.85, Est GFR (MDRD) Af Amer 106, Est GFR (MDRD) Non-Af 88, BUN/Creatinine Ratio 21.7 H, Glucose 101, Calcium 8.3 L, Phosphorus 4.6, Magnesium 2.0, Total Bilirubin 0.30, AST 13 L, ALT 20, Alkaline Phosphatase 52, Total Protein 6.2 L, Albumin 2.8 L, Globulin 3.4, Albumin/Globulin Ratio 0.8 L Radiography Diagnostic Testing: Radiology Impression Lower Extremity MRI 09/27/22 07:24 IMPRESSION: 1. Moderate edema is present in the bases and proximal shaft of the second and third metatarsal bones, with mild edema seen in the base of the fourth metatarsal bone and in the first and middle cuneiforms. The edema is most likely due to contusions/stress edema related to the recent stepping injury. No fracture or cortical break is present. 2. Moderate subcutaneous edema is present around the mid and forefoot. 3. Mild intramuscular edema is also present throughout the mid foot either due to strain injury, reactivity, or sequela of chronic neuropathy. 4. Small to moderate-sized ankle joint effusion. 5. Mild tenosynovitis of the posterior tibialis tendon Electronically Signed: Benny Lee MD at 12:06 EST Reading Location ID and State: [address] [place] [address] , Service support , Physical Exam Narrative Right foot with edema noted and goes to the ankle, no right leg edema, there is POP to the midfoot; there are no open lesions, no drainage, no necrosis, no fluctuance, no visible abscess, no crepitus, CFT < 2 seconds to all toes and no evidence of ischemia noted to the foot, no blisters, there is no erythema to the foot, muscle strength is intact to the major muscle groups of the foot and ankle but limited. Sensation is intact to light touch bilateral. Left foot with no open lesions, no edema or acute issues. Const alert, oriented x3 and no apparent distress Assessment & Plan Assessment/Plan (1) Acute pain of right foot: (2) Cellulitis of foot, right: (3) History of diabetes mellitus: (4) Contusion of foot, right: (5) Stress fracture, right foot, initial encounter for fracture: PLAN: Plan Evaluation performed. Reviewed diagnostic data. Reviewed right foot MRI findings, discussed with patient. Finding c/w more with deep contusion, possible stress fracture to the right foot, also consider early Charcot neuroarthropathy, but Charcot neuroarthropathy appears less likely at this time. Ordered right pneumatic CAM Walker boot to keep the foot immobilized and protected. She is to keep the foot protected in the boot. Keep right foot elevated. TRELL hose for compression therapy. Limit weight on foot to allow foot to rest and heal aid healing. Patient may partial weightbear for transitions and for short distances as long as she is assisted with regular walker and again- keep foot protected in CAM Walker; avoid ambulation to foot if any pain. Physical therapy is going to see patient today to see if these is able to do this - otherwise patient may need to go to nursing rehab facility. Patient is on antibiotics at this time to help cover for any infection as there was initial concern for cellulitis, but no noted erythema or open wound to foot or ankle this time. Podiatry will continue to follow. We will need to continue to follow foot - patient to follow up as outpatient in podiatry office in 2-3 days after discharge. Discussed with Dr. Porras today.
[2022-09-28] MEDS: PARoxetine 10 MG Tablet 30 MG PO (12:07)
[2022-09-28 12:31] LABS: Bedside Glucose 120 mg/dL (74-106)
--- NOTE | 2022-09-28 14:36 | PCM.PN.HOSP ---
Subjective Subjective No significant issues overnight. Patient is still experiencing foot pain. We discussed the case with Dr. Jernigan at the bedside and he is concerned that there may be a possible stress fracture that is not showing up on MRI versus soft tissue injury. But no signs of infection. A boot was recommended and we reevaluated gait with boot in place and therapy is still recommending skilled facility at discharge. Objective Data Objective Data Vital Signs: Vital Signs Temp Pulse Resp BP Pulse Ox O2 Del Method 97.9 F 75 18 129/57 H 98 Room Air 09/28/22 10:00 09/28/22 10:00 09/28/22 10:00 09/28/22 10:00 09/28/22 10:00 09/28/22 10:22 Oxygen Delivery Method Room Air Weight: 90.083 kg Body Mass Index (BMI) 36.3 Intake & Output: Intake and Output for Last 24 Hours 09/26/22 09/27/22 09/28/22 23:59 23:59 23:59 Intake Total 87.5 / 187.5 1150 / 1150 6250 / 6250 Balance 87.5 / 187.5 1150 / 1150 6250 / 6250 Lab / Micro Data Result Diagrams: 09/28/22 06:20 09/28/22 06:20 Labs: Laboratory Results - last 24 hr 09/27/22 04:20: Retic Count 1.07, Immature Retic Fraction 15.70, Retic Hgb Equivalent 26.4 L 09/27/22 16:51: POC Glucose 133 H 09/27/22 21:16: POC Glucose 123 H 09/28/22 06:02: POC Glucose 109 H 09/28/22 06:20: WBC 6.1, RBC 4.22, Hgb 10.0 L, Hct 32.3 L, MCV 76.5 L, MCH 23.7 L, MCHC 31.0 L, RDW Std Deviation 44.3 H, RDW Coeff of Edgar 16.0 H, Plt Count 244, MPV 9.4, Immature Gran % (Auto) 0.200, Neut % (Auto) 44.7 L, Lymph % (Auto) 37.6, [place] % (Auto) 11.3 H, Eos % (Auto) 5.1 H, Baso % (Auto) 1.1 H, Absolute Neuts (auto) 2.7, Absolute Lymphs (auto) 2.30, Nucleated RBC % 0 09/28/22 06:20: Sodium 140, Potassium 3.7, Chloride 107, Carbon Dioxide 27.0, Anion Gap 6, BUN 15, Creatinine 0.69, Estim Creat Clear Calc 37.85, Est GFR (MDRD) Af Amer 106, Est GFR (MDRD) Non-Af 88, BUN/Creatinine Ratio 21.7 H, Glucose 101, Calcium 8.3 L, Phosphorus 4.6, Magnesium 2.0, Total Bilirubin 0.30, AST 13 L, ALT 20, Alkaline Phosphatase 52, Total Protein 6.2 L, Albumin 2.8 L, Globulin 3.4, Albumin/Globulin Ratio 0.8 L 09/28/22 12:06: POC Glucose 120 H Physical Exam Const alert, oriented x3, no apparent distress, healthy appearing and well nourished Constitutional Narrative: Obese, very pleasant elderly white female sitting up in chair at the bedside, therapy at bedside, patient appears comfortable nontoxic HEENT head/scalp atraumatic and moist oral mucous membranes HEENT Narrative: A dentulous, Mallampati 2-3, no thrush Head and Scalp: normocephalic Resp normal respiratory effort, no retractions, no use of accessory muscles and clear to auscultation bilaterally Auscultation: Negative for crackles, rhonchi or wheezes Cardio regular rate, regular rhythm, S1 normal heart sound, S2 normal heart sound, no murmurs, no rub, no gallops and no clicks GI normal to inspection, nondistended, normoactive bowel sounds, soft to palpation and non-tender Extremity Extremity Narrative: Tenderness right foot with palpation on the plantar and dorsal aspect, no wounds or erythema, 2+ pedal pulses, no cyanosis or clubbing Neuro oriented x3 and moves all extremities Speech: speech normal Psych affect normal Psych Narrative: Very pleasant and appropriately interactive, intermittently joking Assessment & Plan Assessment/Plan (1) Acute pain of right foot: (2) Iron deficiency anemia: (3) Hypokalemia: PLAN: Plan Acute right foot pain -No significant cellulitic changes noted -No open wounds -X-rays were unremarkable -MRI -Per podiatry they feel that this is likely a deep contusion versus possible stress fracture versus early Charcot neuroarthropathy -CAM Walker boot ordered and patient is to be partial weightbearing -Was reevaluated by therapy with this in place however still will need skilled placement -TRELL hose/Quinn bandage for compression -Only podiatry follow-up 2 to 3 days after discharge -Sed rate and CRP are elevated -White count is normal -Uric acid is normal -Discontinue antibiotics -As needed oral narcotics for pain control -As needed bowel regimen -PT/OT following -Dietary will follow as an outpatient after discharge Chronic microcytic anemia -Did have recent iron studies in June 2022 which were consistent with iron deficiency -Patient does not tolerate oral iron -Dose IV iron 200 mg daily x3 days -Check Hemoccult--> negative in April 2016 -With stable hemoglobin will recommend outpatient follow-up with GI -No colonoscopy or EGD performed here per review of recent documentation -States its been a long time since he has had any colonoscopy Hypokalemia - resolved DM-2 -Most recent hemoglobin A1c was 5.9 -Hold home glimepiride -Sliding scale insulin -Accu-Cheks as ordered GERD -Continue home Protonix Hypertension -Continue home valsartan -As needed Cardura CAD -Continue home Plavix History of COPD -Patient is not on any inhalers -Consider as needed albuterol if any shortness of breath YOVANA -Patient does not wear CPAP -Monitor Depression -Continue home paroxetine DVT prophylaxis -Enoxaparin -SCDs CODE STATUS -full code Charges/Coding Visit Charges Inpatient E&M: 61986 Subs Hosp L2
--- NOTE | 2022-09-28 14:49 | CASEMGMT ---
Social Work SW met w/pt, as PT has indicated pt agreeable to SNF at this time. SW spoke w/pt about going to a fci for rehab, pt is agreeable. SW provided to pt a list via [facility] of fdc facilities complete with quality and resource use data in pt's preferred geographic area, in pt's insurance network. SW reviewed the list w/pt also as she states sees double with her left eye. Pt would like to [facility], however [facility] does not come up as in network w/her insurance. SW explained that the SW on Friday will check on this, and if [facility] does not take her insurance pt will need to choose additional facilities. Pt states understanding. SW explained on Friday we will make the referrals, and once we have an accepting facility they will start the precert process. SW then assisted pt in calling her friend. SW will follow up Friday with [facility], and w/pt regarding other choices if [facility] does not take her insurance. PAMELLA [place]
[2022-09-28 16:21] LABS: Bedside Glucose 127 mg/dL (74-106)
[2022-09-28] MEDS: Sodium Ferric Gluconat 250 MG in 0.9% Normal Saline 250 ML 135 MG IV (16:36)
[2022-09-28] MEDS: MELATONIN 10 MG TABLET PO (22:55)
[2022-09-28] MEDS: Clopidogrel Bisulfate 75 MG Tablet PO (23:00)
[2022-09-28] MEDS: Doxazosin 1 MG Tablet 2 MG PO (23:01)
[2022-09-28 23:55] LABS: Bedside Glucose 104 mg/dL (74-106)
[2022-09-29] VITALS (7 sets, daily range): BP systolic 144–166; BP diastolic 50–80; PULSE 61–69; RESP 18; TEMP 36.4–36.9; O2SAT 94–98
[2022-09-29] MEDS: 0.9% Saline Lock 10 ML Syringe IV ×2 (02:50→22:10)
[2022-09-29] MEDS: HYDROcodone Bitartrate/Apap 5/325 Tablet PO ×3 (05:39→22:05)
[2022-09-29 07:20] LABS: Bedside Glucose 118 mg/dL (74-106)
[2022-09-29] MEDS: Glycerin/Hypromellose/PEG400 15 ml Bottle 1 DRP EACH EYE (10:25)
[2022-09-29] MEDS: Fluticasone 0.05% 1 SPRAY NASAL.SRY 2 SPRAY NASAL (10:26)
[2022-09-29] MEDS: Pantoprazole Sodium 40 MG Tablet PO ×2 (10:26→22:07)
[2022-09-29] MEDS: PARoxetine 10 MG Tablet 30 MG PO (10:27)
[2022-09-29] MEDS: Enoxaparin 40 MG/0.4 ML Syringe SC (10:27)
[2022-09-29] MEDS: Losartan Potassium 50 MG Tablet PO (10:28)
--- NOTE | 2022-09-29 12:08 | PN.HOSP_ITS ---
Subjective Subjective Given the night. Patient states she does not like coffee and would like TIM. She states her foot does feel better overall in the boot especially on the plantar surface. Ambulating is still a challenge. She is excepting of need to go for rehab prior to discharge home. Objective Data Objective Data Vital Signs: Vital Signs Temp Pulse Resp BP Pulse Ox O2 Del Method O2 Flow Rate 98.1 F 64 18 157/61 H 95 Room Air 94 09/29/22 08:00 09/29/22 08:46 09/29/22 08:00 09/29/22 08:00 09/29/22 11:57 09/29/22 11:57 09/29/22 02:44 Oxygen Flow Rate (L/min) 94 Oxygen Delivery Method Room Air Weight: 90.083 kg Body Mass Index (BMI) 36.3 Intake & Output: Intake and Output for Last 24 Hours 09/27/22 09/28/22 09/29/22 23:59 23:59 23:59 Intake Total 1150 / 1150 6520 / 6520 Balance 1150 / 1150 6520 / 6520 Lab / Micro Data Result Diagrams: 09/28/22 06:20 09/28/22 06:20 Labs: Laboratory Results - last 24 hr 09/28/22 12:06: POC Glucose 120 H 09/28/22 15:59: POC Glucose 127 H 09/28/22 22:51: POC Glucose 104 09/29/22 05:41: POC Glucose 118 H Physical Exam Const alert, oriented x3, no apparent distress, healthy appearing and well nourished Constitutional Narrative: Obese, very pleasant elderly white female sitting up in chair at the bedside, eating breakfast, patient appears comfortable nontoxic HEENT head/scalp atraumatic and moist oral mucous membranes Resp normal respiratory effort, no retractions, no use of accessory muscles and clear to auscultation bilaterally Auscultation: Negative for crackles, rhonchi or wheezes Cardio regular rate, regular rhythm, S1 normal heart sound, S2 normal heart sound, no murmurs, no rub, no gallops and no clicks GI normal to inspection, nondistended, normoactive bowel sounds, soft to palpation and non-tender Extremity Extremity Narrative: Boot on right lower extremity Neuro oriented x3, moves all extremities and no focal motor deficits Speech: speech normal Psych affect normal Psych Narrative: Very pleasant and appropriately interactive Assessment & Plan Assessment/Plan (1) Acute pain of right foot: (2) Iron deficiency anemia: (3) Hypokalemia: PLAN: Plan Acute right foot pain -No significant cellulitic changes noted -No open wounds -X-rays were unremarkable -MRI -Per podiatry they feel that this is likely a deep contusion versus possible st ress fracture versus early Charcot neuroarthropathy -CAM Walker boot in place -We will need skilled therapy at discharge--> Case management to address -TRELL hose/Quinn bandage for compression -We will need podiatry follow-up 2 to 3 days after discharge -Sed rate and CRP are elevated -White count is normal -Uric acid is normal -Discontinue antibiotics -As needed oral narcotics for pain control -As needed bowel regimen -PT/OT following -Dietary will follow as an outpatient after discharge Chronic microcytic anemia -Did have recent iron studies in June 2022 which were consistent with iron deficiency -Patient does not tolerate oral iron -Dose IV iron 200 mg daily x3 days--> today is day 2 of 3 -Check Hemoccult--> negative in April 2016 -With stable hemoglobin will recommend outpatient follow-up with GI -No colonoscopy or EGD performed here per review of recent documentation -States its been a long time since he has had any colonoscopy -CBC in a.m. DM-2 -Most recent hemoglobin A1c was 5.9 -Hold home glimepiride -Sliding scale insulin -Accu-Cheks as ordered GERD -Continue home Protonix Hypertension -Continue home valsartan -As needed Cardura CAD -Continue home Plavix History of COPD -Patient is not on any inhalers -Consider as needed albuterol if any shortness of breath YOAVNA -Patient does not wear CPAP -Monitor Depression -Continue home paroxetine DVT prophylaxis -Enoxaparin -SCDs CODE STATUS -full code Charges/Coding Visit Charges Inpatient E&M: 56701 Subs Hosp L2
--- NOTE | 2022-09-29 17:08 | PN_ITS ---
Subjective Subjective Patient was seen today for follow up on right foot. She is able to ambulate with CAM Walker in place. WBC normal. Patient afebrile. Objective Data Objective Data Vital Signs: Vital Signs Temp Pulse Resp BP Pulse Ox O2 Del Method O2 Flow Rate 98.0 F 66 18 144/80 H 95 Room Air 94 09/29/22 14:56 09/29/22 14:56 09/29/22 14:56 09/29/22 14:56 09/29/22 14:56 09/29/22 14:56 09/29/22 02:44 Oxygen Flow Rate (L/min) 94 Oxygen Delivery Method Room Air Weight: 90.083 kg Body Mass Index (BMI) 36.3 Intake & Output: Intake and Output for Last 24 Hours 09/27/22 09/28/22 09/29/22 23:59 23:59 23:59 Intake Total 1150 / 1150 6520 / 6520 500 / 500 Balance 1150 / 1150 6520 / 6520 500 / 500 Lab / Micro Data Result Diagrams: 09/28/22 06:20 09/28/22 06:20 Labs: Laboratory Results - last 24 hr 09/28/22 22:51: POC Glucose 104 09/29/22 05:41: POC Glucose 118 H Physical Exam Narrative Right foot with edema noted and goes to the ankle, no right leg edema, there is POP to the midfoot; there are no open lesions, no drainage, no necrosis, no fluctuance, no visible abscess, no crepitus, CFT < 2 seconds to all toes and no evidence of ischemia noted to the foot, no blisters, there is no erythema to the foot, muscle strength is intact to the major muscle groups of the foot and ankle but limited. Sensation is intact to light touch bilateral. Left foot with no open lesions, no edema or acute issues. Const alert, oriented x3 and no apparent distress Assessment & Plan Assessment/Plan (1) Acute pain of right foot: (2) Cellulitis of foot, right: (3) History of diabetes mellitus: (4) Contusion of foot, right: (5) Stress fracture, right foot, initial encounter for fracture: PLAN: Plan Evaluation performed. Reviewed diagnostic data. Reviewed right foot MRI findings, discussed with patient. Finding c/w more with deep contusion, possible stress fracture to the right foot, also consider early Charcot neuroarthropathy, but Charcot neuroarthropathy appears less likely at this time. Continue with right pneumatic CAM Walker boot to keep the foot immobilized and protected. She is to keep the foot protected in the boot. Keep right foot elevated. TRELL hose for compression therapy or kerlix and magdalene bandage- change daily. Limit weight on foot to allow foot to rest and heal aid healing. Patient may partial weightbear for transitions and for short distances as long as she is assisted with regular walker and again- keep foot protected in CAM Walker; avoid ambulation to foot if any pain. Podiatry will continue to follow. We will need to continue to follow foot - patient to follow up as outpatient in podiatry office in 2-3 days after dis charge.
[2022-09-29] MEDS: MELATONIN 10 MG TABLET PO (22:06)
[2022-09-29] MEDS: Senna/Docusate Sodium 1 Tablet PO (22:06)
[2022-09-29] MEDS: Clopidogrel Bisulfate 75 MG Tablet PO (22:06)
[2022-09-29] MEDS: Doxazosin 1 MG Tablet 2 MG PO (22:09)
[2022-09-29 23:31] LABS: Bedside Glucose 127 mg/dL (74-106)
[2022-09-30 02:09] VITALS: BP 164/67; PULSE 64; RESP 18; TEMP 36.7; O2SAT 95
[2022-09-30 05:35] LABS: Absolute Lymphocyte Count 2.32 X10^3/uL (0.83-4.51); Basophil# 0.06 X10^3/uL; Basophil% 0.8 % (0-1); Eosinophil# 0.38 X10^3/uL; Eosinophils% 5.1 % (0-5); Hematocrit 33.6 % (37-47); Hemoglobin 10.4 g/dL (12.0-15.0); Lymphocyte # 2.32 X10^3/ul (0.83-4.51); Lymphocyte % 31.3 % (19-41); Mean Corpuscular Hgb 23.6 pg (27.0-32.0); Mean Corpuscular Volume 76.4 fL (81-99); Mean Platelet Vol. 9.4 fl (6.2-12.0); Monocyte# 0.65 X10^3/uL; Monocyte% 8.8 % (0-10); NRBC Flagged by Analyzer 0 % (0-5); Neutrophil # 3.99 X10^3/uL (2.7-7.7); Neutrophil % 53.7 % (47-70); Platelet Count 274 K/mm3 (150-450); RBC Distribution Width CV 16.1 % (11.6-14.6); White Blood Count 7.4 K/mm3 (4.4-11.0)
[2022-09-30 05:55] LABS: Anion Gap 6 (5-15); BUN 16 mg/dL (7-18); BUN/Creat Ratio 23.7 RATIO (10-20); Calcium,Total 8.6 mg/dL (8.5-10.1); Chloride 104 mmol/L (98-107); Creatinine, Serum 0.68 mg/dL (0.55-1.02); EST Glomerular Filtration Rate 90 mL/min (>60); Est Glom Filt Rate - Afr Amer 109 mL/min (>60); Estimated Creatinine Clearance 37.85 ml/min; Glucose 115 mg/dL (74-106); Potassium 3.9 mmol/L (3.5-5.1); Sodium Level 138 mmol/L (136-145)
[2022-09-30 07:15] LABS: Bedside Glucose 121 mg/dL (74-106)
[2022-09-30 08:08] VITALS: BP 152/67; PULSE 69; RESP 18; TEMP 36.7; O2SAT 96
[2022-09-30] MEDS: Ferrous Sulfate 325 MG Tablet PO ×2 (09:14→12:46)
[2022-09-30] MEDS: Glycerin/Hypromellose/PEG400 15 ml Bottle 1 DRP EACH EYE (09:14)
[2022-09-30] MEDS: Polyethylene Glycol 3350 17 GM PACKET PO (09:15)
[2022-09-30] MEDS: PARoxetine 10 MG Tablet 30 MG PO (09:15)
[2022-09-30] MEDS: Pantoprazole Sodium 40 MG Tablet PO ×2 (09:16→20:40)
[2022-09-30] MEDS: Enoxaparin 40 MG/0.4 ML Syringe SC (09:22)
[2022-09-30] MEDS: Losartan Potassium 50 MG Tablet PO (09:22)
[2022-09-30] MEDS: Senna/Docusate Sodium 1 Tablet PO (09:23)
--- NOTE | 2022-09-30 11:23 | CASEMGMT ---
Social Work SW called [facility] to confirm if facility takes pt insurance. SW was told facility does not take pt insurance. Pt informed of this and pt frustrated with news. SW attempted to discuss alternative options with pt. Pt listened as SW read options for list, but pt declined all options provided. Pt concerned that family will not be able to travel to visit pt at farther SNFs. Pt also declined local SNFs at this time. Pt inquired about returning home with [facility]. SW reviewed pt therapy notes with pt. Pt unable to ambulate more then a few feet on own, needing assistance with toiletry and dressing tasks. Pt states would be able to handle meals as meals are delivered to pt home. SW asked pt about heating meals and carrying meals without being able to walk. Pt still insistent on d/c home. After some discussion SW gained permission from pt to call pt daughter Karen, and discuss SNF options. Pt stated Karen would make right choice for pt. SW called Karen. Discussed pt need for SNF. Karen agreeable as does not want pt home alone and unable to walk. An electronic list of SNF providers including quality and resource use data and consistent with the patient?s preferred geographic region, medical needs, and insurance network from the [employer] Guide was sent to Karen. Karen to review and provide choices later this day. PLAN: SNF [facility]
[2022-09-30] MEDS: HYDROcodone Bitartrate/Apap 5/325 Tablet PO ×2 (12:46→21:17)
--- NOTE | 2022-09-30 13:14 | PCM.PN.HOSP ---
Subjective Subjective Follow-up for right lower extremity pain and swelling, possible Charcot's joint Objective Data Objective Data Vital Signs: Vital Signs Temp Pulse Resp BP Pulse Ox O2 Del Method O2 Flow Rate 98.1 F 69 18 152/67 H 96 Room Air 94 09/30/22 08:08 09/30/22 08:08 09/30/22 08:08 09/30/22 08:08 09/30/22 08:08 09/30/22 08:12 09/29/22 02:44 Oxygen Flow Rate (L/min) 94 Oxygen Delivery Method Room Air Weight: 198 lb 9.6 oz Body Mass Index (BMI) 36.3 Intake & Output: Intake and Output for Last 24 Hours 09/28/22 09/29/22 09/30/22 23:59 23:59 23:59 Intake Total 6520 / 6520 500 / 500 Balance 6520 / 6520 500 / 500 Lab / Micro Data Result Diagrams: 09/30/22 05:05 09/30/22 05:05 Labs: Laboratory Results - last 24 hr 09/29/22 22:19: POC Glucose 127 H 09/30/22 05:05: WBC 7.4, RBC 4.40, Hgb 10.4 L, Hct 33.6 L, MCV 76.4 L, MCH 23.6 L, MCHC 31.0 L, RDW Std Deviation 44.0 H, RDW Coeff of Edgar 16.1 H, Plt Count 274, MPV 9.4, Immature Gran % (Auto) 0.300, Neut % (Auto) 53.7, Lymph % (Auto) 31.3, [place] % (Auto) 8.8, Eos % (Auto) 5.1 H, Baso % (Auto) 0.8, Absolute Neuts (auto) 4.0, Absolute Lymphs (auto) 2.32, Nucleated RBC % 0 09/30/22 05:05: Sodium 138, Potassium 3.9, Chloride 104, Carbon Dioxide 28.0, Anion Gap 6, BUN 16, Creatinine 0.68, Estim Creat Clear Calc 37.85, Est GFR (MDRD) Af Amer 109, Est GFR (MDRD) Non-Af 90, BUN/Creatinine Ratio 23.7 H, Glucose 115 H, Calcium 8.6 09/30/22 06:54: POC Glucose 121 H Physical Exam Narrative Seen and examined. Patient yesterday she did not move hold for 2 days. Mild dyspeptic symptoms. General: Alert, Oriented x3, Cooperative HEENT: Atraumatic, PERRLA, EOMI, Normocephalic Oral: No Gingival or Mucosal Lesions/ Ulcerations Neck: Supple, No JVD, Negative Carotid Bruits Lungs: Air entry diminished in bilateral lung bases. No crepitation/rhonchi Cardiovascular: Regular rate, Regular Rhythm, Normal S1, Normal S2, No murmurs Abdomen: Bowel Sounds Present, Soft, Non Tender, Non-Distended : No renal angle tenderness. No suprapubic tenderness. Extremities: No edema, Capillary Refill Less than 3 Seconds Skin: No rashes, No breakdown Musculoskeletal: Right foot swelling, tender and increased sensitivity/hyperalgesia. Left foot also tender. Bilateral Quinn wrap bandage. ROM severely limited at ankle joints. Neurological: Cranial nerves II-XII grossly intact, DTR 2+/4, bilateral feet neuropathy Psych/Mental Status: Flat affect. Assessment & Plan Assessment/Plan (1) Acute pain of right foot: (2) Iron deficiency anemia: (3) Hypokalemia: PLAN: Plan 1. 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 MRI foot shows moderate edema and bases and proximal shaft of second and third metatarsal bone, mild edema in base of fourth metatarsal bone. No fracture or cortical break noticed. Moderate subcutaneous edema around mid and forefoot, reactive edema. Small to moderate ankle joint effusion and mild stenosing Vitas of posterior tibialis tendon. No cellulitis changes. No open wound. X-rays were unremarkable. Unit Control Clerk feels early Charcot neuroarthropathy -CAM Walker boot in place -We will need skilled therapy at discharge--> Case management to address -TRELL hose/Quinn bandage for compression need podiatry follow-up 2 to 3 days after discharge -Sed rate and CRP are elevated -White count is normal -Uric acid is normal Antibiotics were discontinued -As needed oral narcotics for pain control -As needed bowel regimen -PT/OT following Chronic microcytic anemia Had recent iron studies in June 2022 which were consistent with iron deficiency -Patient does not tolerate oral iron -Dose IV iron 200 mg daily x3 days--> today is day 2 of 3 Stool for occult blood ordered. negative in April 2016. Hemoglobin is stable 10.4/33.6. Platelet count 274,000. Outpatient colonoscopy. -With stable hemoglobin will recommend outpatient follow-up with GI -No colonoscopy or EGD performed here per review of recent documentation DM-2 -Most recent hemoglobin A1c was 5.9 -Hold home glimepiride -Sliding scale insulin -Accu-Cheks as ordered GERD -Continue home Protonix Hypertension -Continue home valsartan -As needed Cardura CAD -Continue home Plavix History of COPD -Patient is not on any inhalers -Consider as needed albuterol if any shortness of breath YOVANA -Patient does not wear CPAP -Monitor Depression -Continue home paroxetine DVT prophylaxis -Enoxaparin -SCDs Chronic constipation: Dulcolax suppository ordered. Patient already on oral laxatives CODE STATUS -full code Laboratory Results 09/29/22 22:19: POC Glucose 127 H 09/30/22 05:05: WBC 7.4, RBC 4.40, Hgb 10.4 L, Hct 33.6 L, MCV 76.4 L, MCH 23.6 L, MCHC 31.0 L, RDW Std Deviation 44.0 H, RDW Coeff of Edgar 16.1 H, Plt Count 274, MPV 9.4, Immature Gran % (Auto) 0.300, Neut % (Auto) 53.7, Lymph % (Auto) 31.3, [place] % (Auto) 8.8, Eos % (Auto) 5.1 H, Baso % (Auto) 0.8, Absolute Neuts (auto) 4.0, Absolute Lymphs (auto) 2.32, Nucleated RBC % 0 09/30/22 05:05: Sodium 138, Potassium 3.9, Chloride 104, Carbon Dioxide 28.0, Anion Gap 6, BUN 16, Creatinine 0.68, Estim Creat Clear Calc 37.85, Est GFR (MDRD) Af Amer 109, Est GFR (MDRD) Non-Af 90, BUN/Creatinine Ratio 23.7 H, Glucose 115 H, Calcium 8.6 09/30/22 06:54: POC Glucose 121 H Clinical Impression(s) from Imaging Studies Venous Doppler Study 09/26/22 16:09 Interpretation Summary There is no evidence of right lower extremity deep vein thrombosis. Right great saphenous vein appears patent and compressible segmentally. Foot X-Ray 09/26/22 16:11 IMPRESSION: Soft tissue swelling no acute osseous abnormalities. There is a hallux valgus deformity present. Lower Extremity MRI 09/27/22 07:24 IMPRESSION: 1. Moderate edema is present in the bases and proximal shaft of the second and third metatarsal bones, with mild edema seen in the base of the fourth metatarsal bone and in the first and middle cuneiforms. The edema is most likely due to contusions/stress edema related to the recent stepping injury. No fracture or cortical break is present. 2. Moderate subcutaneous edema is present around the mid and forefoot. 3. Mild intramuscular edema is also present throughout the mid foot either due to strain injury, reactivity, or sequela of chronic neuropathy. 4. Small to moderate-sized ankle joint effusion. 5. Mild tenosynovitis of the posterior tibialis tendon Charges/Coding Visit Charges Inpatient E&M: 35918 Subs Hosp L2
--- NOTE | 2022-09-30 14:27 | CASEMGMT ---
Social Work Pt Daughter, Karen, responded to [facility] SNF list with preferred provider. SW sent referral to [facility] in [place]. PLAN: [facility], pending acceptance and precert [facility]
[2022-09-30 14:50] VITALS: BP 162/61; PULSE 58; RESP 18; TEMP 36.8; O2SAT 96
[2022-09-30 14:52] VITALS: BP 162/61; PULSE 58; RESP 18; TEMP 36.8; O2SAT 96
[2022-09-30] MEDS: Bisacodyl 10 MG Suppository RC (17:31)
[2022-09-30 20:31] VITALS: BP 144/75; PULSE 73; RESP 18; TEMP 36.7; O2SAT 96
[2022-09-30] MEDS: Doxazosin 1 MG Tablet 2 MG PO (20:38)
[2022-09-30] MEDS: Clopidogrel Bisulfate 75 MG Tablet PO (20:39)
[2022-09-30] MEDS: MELATONIN 10 MG TABLET PO (20:41)
--- NOTE | 2022-09-30 21:11 | NURSING ---
pt C/O back pain - [place] not due again until 45. Dr Fernandez notified & ordered OK to give [place] now instead.
[2022-09-30] MEDS: 0.9% Saline Lock 10 ML Syringe IV (21:18)
[2022-10-01 02:00] VITALS: BP 142/71; PULSE 61; RESP 18; TEMP 36.8; O2SAT 98
[2022-10-01 06:10] LABS: Absolute Lymphocyte Count 2.12 X10^3/uL (0.83-4.51); Absolute Neutrophil Count 3.9 X10^3/uL (2.0-7.7); Basophil# 0.06 X10^3/uL; Basophil% 0.9 % (0-1); Eosinophil# 0.35 X10^3/uL; Hematocrit 35.1 % (37-47); Hemoglobin 10.6 g/dL (12.0-15.0); Lymphocyte # 2.12 X10^3/ul (0.83-4.51); Lymphocyte % 30.1 % (19-41); Mean Corp Hgb Conc 30.2 g/dL (32-36); Mean Corpuscular Hgb 23.1 pg (27.0-32.0); Mean Corpuscular Volume 76.6 fL (81-99); Mean Platelet Vol. 9.2 fl (6.2-12.0); Monocyte# 0.61 X10^3/uL; Monocyte% 8.7 % (0-10); NRBC Flagged by Analyzer 0 % (0-5); Neutrophil # 3.88 X10^3/uL (2.7-7.7); Neutrophil % 54.9 % (47-70); Platelet Count 283 K/mm3 (150-450); RBC Distribution Width CV 16.2 % (11.6-14.6); RBC Distribution Width SD 44.5 fl (35.1-43.9); Red Blood Count 4.58 M/mm3 (4.2-5.4); White Blood Count 7.1 K/mm3 (4.4-11.0)
[2022-10-01 06:45] LABS: Anion Gap 7 (5-15); BUN 13 mg/dL (7-18); BUN/Creat Ratio 18.5 RATIO (10-20); Calcium,Total 8.6 mg/dL (8.5-10.1); Chloride 106 mmol/L (98-107); EST Glomerular Filtration Rate 86 mL/min (>60); Est Glom Filt Rate - Afr Amer 104 mL/min (>60); Estimated Creatinine Clearance 37.85 ml/min; Glucose 116 mg/dL (74-106); Potassium 3.9 mmol/L (3.5-5.1); Sodium Level 140 mmol/L (136-145)
[2022-10-01 08:00] VITALS: BP 119/64; PULSE 77; RESP 18; TEMP 36.7; O2SAT 96
[2022-10-01] MEDS: Fluticasone 0.05% 1 SPRAY NASAL.SRY 2 SPRAY NASAL (09:29)
[2022-10-01] MEDS: Glycerin/Hypromellose/PEG400 15 ml Bottle 1 DRP EACH EYE (09:29)
[2022-10-01] MEDS: Pantoprazole Sodium 40 MG Tablet PO ×2 (09:29→19:51)
[2022-10-01] MEDS: Enoxaparin 40 MG/0.4 ML Syringe SC (09:31)
[2022-10-01] MEDS: Losartan Potassium 50 MG Tablet PO (09:31)
[2022-10-01] MEDS: PARoxetine 10 MG Tablet 30 MG PO (09:32)
[2022-10-01] MEDS: HYDROcodone Bitartrate/Apap 5/325 Tablet PO ×2 (09:35→18:01)
--- NOTE | 2022-10-01 11:06 | CASEMGMT ---
Addendum entered by Carlie Marroquin 10/01/22 11:09: SW in to update pt of acceptance. Pt voiced understanding. Made aware will need to wait for insurance auth now. SW called pt daughter, Karen, to give family update. Karen voiced understanding and will wait for further updates on d/c plan. [facility] Original Note: Social Work Juan J from [employer] Reached out. Patient has been accepted. Juan J to start precert this morning. PLAN: [facility], pending precert [facility]
[2022-10-01 15:00] VITALS: BP 141/57; PULSE 63; RESP 18; TEMP 36.7; O2SAT 97
--- NOTE | 2022-10-01 17:00 | PCM.PN.HOSP ---
Subjective Subjective Seen and examined. No acute change in his status. Right ankle is still painful. Objective Data Objective Data Vital Signs: Vital Signs Temp Pulse Resp BP Pulse Ox O2 Del Method O2 Flow Rate 98.0 F 77 18 119/64 96 Room Air 94 10/01/22 08:00 10/01/22 08:00 10/01/22 08:00 10/01/22 08:00 10/01/22 08:00 10/01/22 08:00 09/30/22 14:52 Oxygen Flow Rate (L/min) 94 Oxygen Delivery Method Room Air Weight: 198 lb 9.6 oz Body Mass Index (BMI) 36.3 Intake & Output: Intake and Output for Last 24 Hours 09/29/22 09/30/22 10/01/22 23:59 23:59 23:59 Intake Total 500 / 500 Balance 500 / 500 Lab / Micro Data Result Diagrams: 10/01/22 05:30 10/01/22 05:30 Labs: Laboratory Results - last 24 hr 10/01/22 05:30: WBC 7.1, RBC 4.58, Hgb 10.6 L, Hct 35.1 L, MCV 76.6 L, MCH 23.1 L, MCHC 30.2 L, RDW Std Deviation 44.5 H, RDW Coeff of Edgar 16.2 H, Plt Count 283, MPV 9.2, Immature Gran % (Auto) 0.400, Neut % (Auto) 54.9, Lymph % (Auto) 30.1, [place] % (Auto) 8.7, Eos % (Auto) 5.0, Baso % (Auto) 0.9, Absolute Neuts (auto) 3.9, Absolute Lymphs (auto) 2.12, Nucleated RBC % 0 10/01/22 05:30: Sodium 140, Potassium 3.9, Chloride 106, Carbon Dioxide 27.0, Anion Gap 7, BUN 13, Creatinine 0.70, Estim Creat Clear Calc 37.85, Est GFR (MDRD) Af Amer 104, Est GFR (MDRD) Non-Af 86, BUN/Creatinine Ratio 18.5, Glucose 116 H, Calcium 8.6 Micro: Microbiology 09/30/22 18:31 Stool Stool Occult Blood (RAFITA) - Final Physical Exam Narrative Seen and examined. Patient had bowel movement. General: Alert, Oriented x3, Cooperative HEENT: Atraumatic, PERRLA, EOMI, Normocephalic Oral: No Gingival or Mucosal Lesions/ Ulcerations Neck: Supple, No JVD, Negative Carotid Bruits Lungs: Air entry diminished in bilateral lung bases. No crepitation/rhonchi Cardiovascular: Regular rate, Regular Rhythm, Normal S1, Normal S2, No murmurs Abdomen: Bowel Sounds Present, Soft, Non Tender, Non-Distended : No renal angle tenderness. No suprapubic tenderness. Extremities: No edema, Capillary Refill Less than 3 Seconds Skin: No rashes, No breakdown Musculoskeletal: Right foot swelling, tender and increased sensitivity/hyperalgesia. Left foot also tender. Bilateral Quinn wrap bandage. ROM severely limited at ankle joints. Neurological: Cranial nerves II-XII grossly intact, DTR 2+/4, bilateral feet neuropathy Psych/Mental Status: Flat affect. Assessment & Plan Assessment/Plan (1) Acute pain of right foot: (2) Iron deficiency anemia: (3) Hypokalemia: PLAN: Plan 1. 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 MRI foot shows moderate edema and bases and proximal shaft of second and third metatarsal bone, mild edema in base of fourth metatarsal bone. No fracture or cortical break noticed. Moderate subcutaneous edema around mid and forefoot, reactive edema. Small to moderate ankle joint effusion and mild stenosing Vitas of posterior tibialis tendon. No cellulitis changes. No open wound. X-rays were unremarkable. Mainframe Applications Developer feels early Charcot neuroarthropathy -CAM Walker boot in place -We will need skilled therapy at discharge--> Case management to address -TRELL hose/Quinn bandage for compression need podiatry follow-up 2 to 3 days after discharge -Sed rate and CRP are elevated -White count is normal -Uric acid is normal Antibiotics were discontinued -As needed oral narcotics for pain control -As needed bowel regimen -PT/OT following 10/01: Patient awaiting pre-CERT. Chronic microcytic anemia Had recent iron studies in June 2022 which were consistent with iron deficiency -Patient does not tolerate oral iron -Dose IV iron 200 mg daily x3 days--> today is day 2 of 3 Stool for occult blood ordered. negative in April 2016. Hemoglobin is stable 10.4/33.6. Platelet count 274,000. Outpatient colonoscopy. -With stable hemoglobin will recommend outpatient follow-up with GI -No colonoscopy or EGD performed here per review of recent documentation 10/01: H&H 10.6/35.1%. Platelet count 1 83,000. DM-2 -Most recent hemoglobin A1c was 5.9 -Hold home glimepiride -Sliding scale insulin -Accu-Cheks as ordered GERD -Continue home Protonix Hypertension -Continue home valsartan -As needed Cardura CAD -Continue home Plavix History of COPD -Patient is not on any inhalers -Consider as needed albuterol if any shortness of breath YOVANA -Patient does not wear CPAP -Monitor Depression -Continue home paroxetine DVT prophylaxis -Enoxaparin -SCDs Chronic constipation: Dulcolax suppository ordered. Patient already on oral laxatives 10/18: Patient had a bowel movement. CODE STATUS -full code Clinical Impression(s) from Imaging Studies Venous Doppler Study 09/26/22 16:09 Interpretation Summary There is no evidence of right lower extremity deep vein thrombosis. Right great saphenous vein appears patent and compressible segmentally. Foot X-Ray 09/26/22 16:11 IMPRESSION: Soft tissue swelling no acute osseous abnormalities. There is a hallux valgus deformity present. Lower Extremity MRI 09/27/22 07:24 IMPRESSION: 1. Moderate edema is present in the bases and proximal shaft of the second and third metatarsal bones, with mild edema seen in the base of the fourth metatarsal bone and in the first and middle cuneiforms. The edema is most likely due to contusions/stress edema related to the recent stepping injury. No fracture or cortical break is present. 2. Moderate subcutaneous edema is present around the mid and forefoot. 3. Mild intramuscular edema is also present throughout the mid foot either due to strain injury, reactivity, or sequela of chronic neuropathy. 4. Small to moderate-sized ankle joint effusion. 5. Mild tenosynovitis of the posterior tibialis tendon Charges/Coding Visit Charges Inpatient E&M: 77965 Subs Hosp L2
[2022-10-01] MEDS: Doxazosin 1 MG Tablet 2 MG PO (19:49)
[2022-10-01] MEDS: Clopidogrel Bisulfate 75 MG Tablet PO (19:50)
[2022-10-01] MEDS: MELATONIN 10 MG TABLET PO (20:00)
[2022-10-01 22:00] VITALS: BP 127/77; PULSE 75; RESP 18; TEMP 37.2; O2SAT 97
[2022-10-02 04:00] VITALS: BP 168/63; PULSE 66; RESP 18; TEMP 36.8; O2SAT 91
[2022-10-02 06:33] LABS: Absolute Neutrophil Count 3.6 X10^3/uL (2.0-7.7); Basophil# 0.06 X10^3/uL; Eosinophil# 0.29 X10^3/uL; Eosinophils% 4.6 % (0-5); Hematocrit 34.1 % (37-47); Hemoglobin 10.7 g/dL (12.0-15.0); Lymphocyte % 28.7 % (19-41); Mean Corp Hgb Conc 31.4 g/dL (32-36); Mean Corpuscular Volume 76.5 fL (81-99); Mean Platelet Vol. 10.5 fl (6.2-12.0); Monocyte# 0.53 X10^3/uL; Monocyte% 8.4 % (0-10); NRBC Flagged by Analyzer 0 % (0-5); Neutrophil # 3.57 X10^3/uL (2.7-7.7); Neutrophil % 56.8 % (47-70); POSITIVE COUNT YES; Platelet Count 232 K/mm3 (150-450); RBC Distribution Width CV 16.6 % (11.6-14.6); RBC Distribution Width SD 45.1 fl (35.1-43.9); Red Blood Count 4.46 M/mm3 (4.2-5.4); White Blood Count 6.3 K/mm3 (4.4-11.0)
[2022-10-02 06:55] LABS: Anion Gap 5 (5-15); BUN 16 mg/dL (7-18); BUN/Creat Ratio 22.4 RATIO (10-20); Calcium,Total 8.7 mg/dL (8.5-10.1); Chloride 105 mmol/L (98-107); Creatinine, Serum 0.71 mg/dL (0.55-1.02); EST Glomerular Filtration Rate 85 mL/min (>60); Est Glom Filt Rate - Afr Amer 102 mL/min (>60); Estimated Creatinine Clearance 37.85 ml/min; Glucose 112 mg/dL (74-106); Potassium 4.1 mmol/L (3.5-5.1); Sodium Level 138 mmol/L (136-145)
[2022-10-02] MEDS: Glycerin/Hypromellose/PEG400 15 ml Bottle 1 DRP EACH EYE (09:31)
[2022-10-02] MEDS: Pantoprazole Sodium 40 MG Tablet PO (09:31)
[2022-10-02] MEDS: PARoxetine 10 MG Tablet 30 MG PO (09:32)
[2022-10-02] MEDS: Losartan Potassium 50 MG Tablet PO (09:32)
[2022-10-02] MEDS: Enoxaparin 40 MG/0.4 ML Syringe SC (09:32)
[2022-10-02] MEDS: HYDROcodone Bitartrate/Apap 5/325 Tablet PO (09:39)
--- NOTE | 2022-10-02 09:58 | CASEMGMT ---
Discharge Waste Water Operator Juan J from [facility] reached out. Pre-cert has been obtained. Patient can go to [facility] when medically ready. Dr. Peacock notified. This proposal manager writer asked patients RN to due a rapid covid test. Roberta YOUNG Drawing Operator
[2022-10-02 09:59] VITALS: BP 152/87; PULSE 81; RESP 18; TEMP 36.7; O2SAT 94
--- NOTE | 2022-10-02 10:00 | TREXTCAR_ITS ---
Diet Diet Order/Speech Therapy: 09/26/22 21:44 Diet: Consistent Carb - Calorie Controlled Food consistency:: Easy to Chew Liquid Consistency:: Regular/Thin Dietary Modifications:: Cardiac / Heart Healthy Type of Dietary Supplement:: 4 oz GS tid Is pt able to select menu?: No Diet Comments: pt has no teeth, do not send hard to chew items How many daily calories?: 1800 calorie Routine Orders/Code Status Suppository Type: Dulcolax 10mg Suppository Frequency: Daily PRN Code Status: Full Code Therapies Weight Bearing: Partial weight bearing Extremity Affected:: Bilateral Lower Physical Therapy: Eval and Treat Occupational Therapy: Eval and Treat Speech Therapy: Eval and Treat Problem/Diagnosis (1) Acute pain of right foot: Status: Acute Code(s): M79.671 - Pain in right foot (2) Iron deficiency anemia: Status: Acute Code(s): D50.9 - Iron deficiency anemia, unspecified (3) Hypokalemia: Status: Acute Code(s): E87.6 - Hypokalemia Plan 1. Acute right foot pain most likely due to early Charcot neuroarthropathy: Patient is admitted MedSur floor. MRI foot shows moderate edema and bases and proximal shaft of second and third metatarsal bone, mild edema in base of fourth metatarsal bone. No fracture or cortical break noticed. Moderate subcutaneous edema around mid and forefoot, reactive edema. Small to moderate ankle joint ef fusion and mild stenosing Vitas of posterior tibialis tendon. No cellulitis changes. No open wound. X-rays were unremarkable. Diagram Clerk feels early Charcot neuroarthropathy -CAM Walker boot in place -We will need skilled therapy at discharge--> Case management to address -TRELL hose/Quinn bandage for compression need podiatry follow-up 2 to 3 days after discharge -Sed rate and CRP are elevated -White count is normal -Uric acid is normal Antibiotics were discontinued -As needed oral narcotics for pain control -As needed bowel regimen -PT/OT following Chronic microcytic anemia Had recent iron studies in June 2022 which were consistent with iron deficiency -Patient does not tolerate oral iron -Dose IV iron 200 mg daily x3 days--> today is day 2 of 3 Stool for occult blood ordered. negative in April 2016. Hemoglobin is stable 10.4/33.6. Platelet count 274,000. Outpatient colonoscopy. -With stable hemoglobin will recommend outpatient follow-up with GI -No colonoscopy or EGD performed here per review of recent documentation DM-2 -Most recent hemoglobin A1c was 5.9 -Hold home glimepiride -Sliding scale insulin -Accu-Cheks as ordered GERD -Continue home Protonix Hypertension -Continue home valsartan -As needed Cardura CAD -Continue home Plavix History of COPD -Patient is not on any inhalers -Consider as needed albuterol if any shortness of breath YOVANA -Patient does not wear CPAP -Monitor Depression -Continue home paroxetine DVT prophylaxis -Enoxaparin -SCDs Chronic constipation: Dulcolax suppository ordered. Patient already on oral laxatives CODE STATUS -full code Laboratory Results 09/29/22 22:19: POC Glucose 127 H 09/30/22 05:05: WBC 7.4, RBC 4.40, Hgb 10.4 L, Hct 33.6 L, MCV 76.4 L, MCH 23.6 L, MCHC 31.0 L, RDW Std Deviation 44.0 H, RDW Coeff of Edgar 16.1 H, Plt Count 274, MPV 9.4, Immature Gran % (Auto) 0.300, Neut % (Auto) 53.7, Lymph % (Auto) 31.3, [place] % (Auto) 8.8, Eos % (Auto) 5.1 H, Baso % (Auto) 0.8, Absolute Neuts (auto) 4.0, Absolute Lymphs (auto) 2.32, Nucleated RBC % 0 09/30/22 05:05: Sodium 138, Potassium 3.9, Chloride 104, Carbon Dioxide 28.0, Anion Gap 6, BUN 16, Creatinine 0.68, Estim Creat Clear Calc 37.85, Est GFR (MDRD) Af Amer 109, Est GFR (MDRD) Non-Af 90, BUN/Creatinine Ratio 23.7 H, Glucose 115 H, Calcium 8.6 09/30/22 06:54: POC Glucose 121 H Clinical Impression(s) from Imaging Studies Venous Doppler Study 09/26/22 16:09 Interpretation Summary There is no evidence of right lower extremity deep vein thrombosis. Right great saphenous vein appears patent and compressible segmentally. Foot X-Ray 09/26/22 16:11 IMPRESSION: Soft tissue swelling no acute osseous abnormalities. There is a hallux valgus deformity present. Lower Extremity MRI 09/27/22 07:24 IMPRESSION: 1. Moderate edema is present in the bases and proximal shaft of the second and third metatarsal bones, with mild edema seen in the base of the fourth metatarsal bone and in the first and middle cuneiforms. The edema is most likely due to contusions/stress edema related to the recent stepping injury. No fracture or cortical break is present. 2. Moderate subcutaneous edema is present around the mid and forefoot. 3. Mild intramuscular edema is also present throughout the mid foot either due to strain injury, reactivity, or sequela of chronic neuropathy. 4. Small to moderate-sized ankle joint effusion. 5. Mild tenosynovitis of the posterior tibialis tendon Allergies/Procedures Done in Hospital Allergies amoxicillin Allergy (Unknown, Verified 09/26/22 15:55) Itching cephalexin [From Keflex] Allergy (Unknown, Verified 09/26/22 15:55) GI Upset, Itching doxycycline Allergy (Unknown, Verified 09/26/22 15:55) Rash furosemide [From Lasix] Allergy (Unknown, Verified 09/26/22 15:55) Hives simvastatin Allergy (Unknown, Verified 09/26/22 15:55) Hives atorvastatin calcium [From Lipitor] Allergy (Verified 09/26/22 15:55) Hives divalproex sodium [From Depakote] Allergy (Verified 09/26/22 15:55) Hives isosorbide mononitrate [From Imdur] Allergy (Verified 09/26/22 15:55) Unknown moxifloxacin HCl [From Avelox] Allergy (Verified 09/26/22 15:55) Unknown vancomycin Allergy (Verified 09/26/22 22:50) Hives amlodipine Adverse Reaction (Unknown, Verified 09/26/22 15:55) Swelling fluticasone furoate [From Breo Ellipta] Adverse Reaction (Unknown, Verified 09/26/22 15:55) Throat Burning-hoarseness sucralfate [From Carafate] Adverse Reaction (Unknown, Verified 09/26/22 15:55) Diarrhea vilanterol [From Breo Ellipta] Adverse Reaction (Unknown, Verified 09/26/22 15:55) Throat Burning-hoarseness Type of Care/Length of Stay Estimated LOS: Convalescent Care Less Than 30 days Type of Care Needed: Skilled Rehab Potential: Good Prognosis: Good Additional Orders/Day of Discharge Day of Discharge: 10/02/22 Dietary and Speech Recommendations Dietitian Recommendations/Changes: Will continue Cardiac/ 1800 rain Consistent CHO diet d/t hx edema, cardiac dysfunction Will decrease glucerna shake to 4 oz w/ meals - pt wants to continue to receive. Discharge Plan Admission Admit Date/Time: 09/26/22 20:23 Primary Reason for Your Visit: Right foot possible charchot joint with pain Attending Provider: Felipe Peacock Primary Care Provider: Loyd Armas Consulting Providers: Matt Jernigan ; Jj Bishop ; Magali Porras Discharge Orders/Prescriptions Prescriptions: New losartan 50 mg Tablet 50 mg PO DAILY Qty: 0 0RF polyethylene glycol 3350 17 gram Powder In Packet 17 g PO DAILY Qty: 0 0RF sennosides-docusate sodium [Stool Softener-Stimulant Laxat] 8.6-50 mg Tablet 1 tab PO BID Qty: 0 0RF ferrous sulfate [FeroSul] 325 mg (65 mg iron) Tablet 325 mg PO QODAY Qty: 0 0RF Continued paroxetine HCl 20 mg tablet 30 mg PO DAILY pantoprazole 40 MG tablet 40 mg PO BID Label Comments: ACID REFLUX doxazosin [Cardura] 2 MG tablet 2 mg PO QHS acetaminophen 500 mg Tablet 500 mg PO Q6H PRN (Reason: Pain) Dry Eye Relief 1-0.2-0.2 % Drops 1 drp EACH EYE DAILY clopidogrel 75 MG tablet 75 mg PO QHS fluticasone propionate [Flonase Allergy Relief] 50 mcg/actuation spray,suspension 2 spray intranasal QODAY glimepiride 2 mg tablet 4 mg PO DAILY melatonin 5 mg tablet 10 mg PO HS PRN (Reason: Sleep) ondansetron 4 mg tablet,disintegrating 4 mg PO Q8H PRN (Reason: nausea and vomiting) Qty: 30 0RF Changed hydrocodone-acetaminophen 5-325 mg tablet 1 tab PO BID PRN (Reason: Pain) 3 Days Qty: 7 0RF Discontinued valsartan 160 mg tablet 160 mg PO DAILY Referrals / Follow Up: Loyd Armas MD [Primary Care Provider] - Within 1 Month Matt Jernigan DPM [Med Staff - Active Staff] - See Referral Note (2 to 3 days) Friend,DO Constantine [Med Staff - Active Staff] - Within 1 Month (Chronic microcytic anemia/needs colonoscopy) Disposition Disposition (needs filled in before D/C Order can be placed): Residential Facility
--- NOTE | 2022-10-02 11:45 | PCM.DC.SUM ---
Providers Date of Admission: 09/26/22 Date of Discharge: 10/02/22 Primary Care Physician: Dr. Loyd Armas MD Consultations 09/26/22 21:44 Consult: Podiatry Routine Consulting Provider: Matt Jernigan Reason for Consult: R foot infection EMERGENT Consult: No MD Notified: Yes Date Notified: 09/27/22 Time Notified: 05:32 Method of Notification: Text Reason For Visit: R FOOT CELLULITIS Diagnosis Discharge Diagnosis (1) Acute pain of right foot: Status: Acute Code(s): M79.671 - Pain in right foot (2) Iron deficiency anemia: Status: Acute Code(s): D50.9 - Iron deficiency anemia, unspecified (3) Hypokalemia: Status: Acute Code(s): E87.6 - Hypokalemia Medications at Discharge Home Medications pantoprazole 40 mg tablet,delayed release 40 mg PO BID ACID REFLUX 07/08/14 doxazosin 2 mg tablet (Cardura) 2 mg PO QHS BLOOD PRESSURE 03/15/17 paroxetine HCl 20 mg tablet 30 mg PO DAILY ANXIETY 06/06/22 glimepiride 2 mg tablet 4 mg PO DAILY DIABETES 06/11/22 melatonin 5 mg tablet 10 mg PO HS PRN Sleep 06/11/22 ondansetron 4 mg disintegrating tablet 4 mg PO Q8H PRN nausea and vomiting #30 tabs 09/20/22 acetaminophen 500 mg tablet 500 mg PO Q6H PRN Pain 09/26/22 clopidogrel 75 mg tablet 75 mg PO QHS BLOOD THINNER 09/26/22 fluticasone propionate 50 mcg/actuation nasal spray,suspension (Flonase Allergy Relief) 2 spray intranasal QODAY ALLERGIES 09/26/22 peg [id number] 1 %-0.2 %-0.2 % eye drops (Dry Eye Relief) 1 drp EACH EYE DAILY DRY EYES 09/26/22 ferrous sulfate 325 mg (65 mg iron) tablet (FeroSul) 325 mg PO QODAY #0 tabs 10/02/22 hydrocodone-acetaminophen 5-325mg 5mg-325mg 1 tab PO BID PRN Pain 3 days #7 tabs 10/02/22 losartan 50 mg tablet 50 mg PO DAILY #0 tabs 10/02/22 polyethylene glycol 3350 17 gram oral powder packet 17 g PO DAILY #0 ea 10/02/22 sennosides 8.6 mg-docusate sodium 50 mg tablet (Stool Softener-Stimulant Laxative) 1 tab PO BID #0 tabs 10/02/22 Hospital Course Summary of Care Provided Hospital Course: 77-year-old female was admitted with 3-day history of progressive swelling of right foot along with pain and increased warmth. Patient was unable to walk on her right foot and therefore admitted. 1. 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 MRI foot shows moderate edema and bases and proximal shaft of second and third metatarsal bone, mild edema in base of fourth metatarsal bone. No fracture or cortical break noticed. Moderate subcutaneous edema around mid and forefoot, reactive edema. Small to moderate ankle joint effusion and mild stenosing Vitas of posterior tibialis tendon. No cellulitis changes. No open wound. X-rays were unremarkable. Night Clerk Auditor feels early Charcot neuroarthropathy -CAM Walker boot in place -We will need skilled therapy at discharge--> Case management to address -TRELL hose/Quinn bandage for compression need podiatry follow-up 2 to 3 days after discharge -Sed rate and CRP are elevated -White count is normal -Uric acid is normal Antibiotics were discontinued -As needed oral narcotics for pain control -As needed bowel regimen -PT/OT following Patient is being discharged to [facility] Chronic microcytic anemia Had recent iron studies in June 2022 which were consistent with iron deficiency -Patient does not tolerate oral iron -Dose IV iron 200 mg daily x3 days--> today is day 2 of 3 Stool for occult blood ordered. negative in April 2016. Hemoglobin is stable 10.4/33.6. Platelet count 274,000. Outpatient colonoscopy. -With stable hemoglobin will recommend outpatient follow-up with GI -No colonoscopy or EGD performed here per review of recent documentation 10/02: Discharged on ferrous sulfate. DM-2 -Most recent hemoglobin A1c was 5.9 -Hold home glimepiride -Sliding scale insulin -Accu-Cheks as ordered 10/02: Home meds resumed. On glimepiride. Glucose is controlled GERD -Continue home Protonix Hypertension -Continue home valsartan -As needed Cardura CAD -Continue home Plavix History of COPD -Patient is not on any inhalers -Consider as needed albuterol if any shortness of breath YOVANA -Patient does not wear CPAP -Monitor Depression -Continue home paroxetine DVT prophylaxis -Enoxaparin -SCDs Chronic constipation: Dulcolax suppository ordered. Patient already on oral laxatives CODE STATUS -full code Discharge medication reconciliation done. Discharge follow-up instructions completed. Discharge process discussed with the patient and all questions were answered to patient's satisfaction. Follow-up with GI, podiatry and PCP. Total time spent, exact 35 minutes on discharge meds reconciliation, examination, coordination of care with nurses and ancillary staff, review of imaging and blood test and discussion with the patient on follow-up instructions. Microbiology Past 72 Hours 10/02/22 10:10 Nasal Secretion SARS-CoV-2 Antigen (Rapid) - Final 09/26/22 18:15 Blood Culture (Wb) - Right Hand Blood Culture - Final No growth in 5 days. 09/26/22 18:05 Blood Culture (Wb) - Left Forearm Blood Culture - Final No growth in 5 days. 09/30/22 18:31 Stool Stool Occult Blood (RAFITA) - Final Laboratory Results 10/02/22 05:50: WBC 6.3, RBC 4.46, Hgb 10.7 L, Hct 34.1 L, MCV 76.5 L, MCH 24.0 L, MCHC 31.4 L, RDW Std Deviation 45.1 H, RDW Coeff of Edgar 16.6 H, Plt Count 232, MPV 10.5, Immature Gran % (Auto) 0.500, Neut % (Auto) 56.8, Lymph % (Auto) 28.7, Freestone % (Auto) 8.4, Eos % (Auto) 4.6, Baso % (Auto) 1.0, Absolute Neuts (auto) 3.6, Absolute Lymphs (auto) 1.80, Nucleated RBC % 0 10/02/22 05:50: Sodium 138, Potassium 4.1, Chloride 105, Carbon Dioxide 28.0, Anion Gap 5, BUN 16, Creatinine 0.71, Estim Creat Clear Calc 37.85, Est GFR (MDRD) Af Amer 102, Est GFR (MDRD) Non-Af 85, BUN/Creatinine Ratio 22.4 H, Glucose 112 H, Calcium 8.7 Clinical Impression(s) from Imaging Studies Venous Doppler Study 09/26/22 16:09 Interpretation Summary There is no evidence of right lower extremity deep vein thrombosis. Right great saphenous vein appears patent and compressible segmentally. Foot X-Ray 09/26/22 16:11 IMPRESSION: Soft tissue swelling no acute osseous abnormalities. There is a hallux valgus deformity present. Lower Extremity MRI 09/27/22 07:24 IMPRESSION: 1. Moderate edema is present in the bases and proximal shaft of the second and third metatarsal bones, with mild edema seen in the base of the fourth metatarsal bone and in the first and middle cuneiforms. The edema is most likely due to contusions/stress edema related to the recent stepping injury. No fracture or cortical break is present. 2. Moderate subcutaneous edema is present around the mid and forefoot. 3. Mild intramuscular edema is also present throughout the mid foot either due to strain injury, reactivity, or sequela of chronic neuropathy. 4. Small to moderate-sized ankle joint effusion. 5. Mild tenosynovitis of the posterior tibialis tendon Physical Exam Narrative Seen and examined. Patient had bowel movement. The patient is still has pain mainly in the right foot and very sensitive to touch General: Alert, Oriented x3, Cooperative HEENT: Atraumatic, PERRLA, EOMI, Normocephalic Oral: No Gingival or Mucosal Lesions/ Ulcerations Neck: Supple, No JVD, Negative Carotid Bruits Lungs: Air entry diminished in bilateral lung bases. No crepitation/rhonchi Cardiovascular: Regular rate, Regular Rhythm, Normal S1, Normal S2, No murmurs Abdomen: Bowel Sounds Present, Soft, Non Tender, Non-Distended : No renal angle tenderness. No suprapubic tenderness. Extremities: No edema, Capillary Refill Less than 3 Seconds Skin: No rashes, No breakdown Musculoskeletal: Right foot swelling and tenderness, sensitivity mild improvement. Left foot also tender. Bilateral Quinn wrap bandage. ROM severely limited at ankle joints. Neurological: Cranial nerves II-XII grossly intact, DTR 2+/4, bilateral feet neuropathy Psych/Mental Status: Flat affect. Weight / BMI Weight Weight: 198 lb 9.6 oz Body Mass Index (BMI) 36.3 ABG / Lab / Microbiology Data Result Diagrams: 10/02/22 05:50 10/02/22 05:50 Laboratory: Laboratory Results - last 24 hr 10/01/22 05:30: WBC 7.1, RBC 4.58, Hgb 10.6 L, Hct 35.1 L, MCV 76.6 L, MCH 23.1 L, MCHC 30.2 L, RDW Std Deviation 44.5 H, RDW Coeff of Edgar 16.2 H, Plt Count 283, MPV 9.2, Immature Gran % (Auto) 0.400, Neut % (Auto) 54.9, Lymph % (Auto) 30.1, Freestone % (Auto) 8.7, Eos % (Auto) 5.0, Baso % (Auto) 0.9, Absolute Neuts (auto) 3.9, Absolute Lymphs (auto) 2.12, Nucleated RBC % 0 10/01/22 05:30: Sodium 140, Potassium 3.9, Chloride 106, Carbon Dioxide 27.0, Anion Gap 7, BUN 13, Creatinine 0.70, Estim Creat Clear Calc 37.85, Est GFR (MDRD) Af Amer 104, Est GFR (MDRD) Non-Af 86, BUN/Creatinine Ratio 18.5, Glucose 116 H, Calcium 8.6 Microbiology: Microbiology 09/30/22 18:31 Stool Stool Occult Blood (RAFITA) - Final Meaningful Use Info Meaningful Use Diagnoses (Choose all that apply): None applicable Discharge Plan Admission Admit Date/Time: 09/26/22 20:23 Primary Reason for Your Visit: Right foot possible charchot joint with pain Attending Provider: Felipe Peacock Primary Care Provider: Loyd Armas Consulting Providers: Matt Jernigan ; Jj Bishop ; Magali Porras Discharge Orders/Prescriptions Prescriptions: New losartan 50 mg Tablet 50 mg PO DAILY Qty: 0 0RF polyethylene glycol 3350 17 gram Powder In Packet 17 g PO DAILY Qty: 0 0RF sennosides-docusate sodium [Stool Softener-Stimulant Laxat] 8.6-50 mg Tablet 1 tab PO BID Qty: 0 0RF ferrous sulfate [FeroSul] 325 mg (65 mg iron) Tablet 325 mg PO QODAY Qty: 0 0RF Continued paroxetine HCl 20 mg tablet 30 mg PO DAILY pantoprazole 40 MG tablet 40 mg PO BID Label Comments: ACID REFLUX doxazosin [Cardura] 2 MG tablet 2 mg PO QHS acetaminophen 500 mg Tablet 500 mg PO Q6H PRN (Reason: Pain) Dry Eye Relief 1-0.2-0.2 % Drops 1 drp EACH EYE DAILY clopidogrel 75 MG tablet 75 mg PO QHS fluticasone propionate [Flonase Allergy Relief] 50 mcg/actuation spray,suspension 2 spray intranasal QODAY glimepiride 2 mg tablet 4 mg PO DAILY melatonin 5 mg tablet 10 mg PO HS PRN (Reason: Sleep) ondansetron 4 mg tablet,disintegrating 4 mg PO Q8H PRN (Reason: nausea and vomiting) Qty: 30 0RF Changed hydrocodone-acetaminophen 5-325 mg tablet 1 tab PO BID PRN (Reason: Pain) 3 Days Qty: 7 0RF Discontinued valsartan 160 mg tablet 160 mg PO DAILY Referrals / Follow Up: Loyd Armas MD [Primary Care Provider] - Within 1 Month Matt Jernigan DPM [Med Staff - Active Staff] - See Referral Note (2 to 3 days) Constantine Mcallister DO [Med Staff - Active Staff] - Within 1 Month (Chronic microcytic anemia/needs colonoscopy) Disposition Disposition (needs filled in before D/C Order can be placed): Long Term Facility Charges/Coding Visit Charges Inpatient E&M: 96799 Disch Hosp
--- NOTE | 2022-10-02 12:06 | CASEMGMT ---
Social Work? ALEJANDRA notified pt of discharge to [facility] [place] today. ALEJANDRA also called pt daughter, Karen to inform of discharge. ALEJANDRA completed 7000 convalescent form in [employer]. Set up wheelchair transportation through [facility] for 1:00 pm. ALEJANDRA faxed all discharge orders to [facility] [place] via [employer] and notified of discharge time. ALEJANDRA notified pt nurse of transport time. ALEJANDRA made copies of discharge orders and placed on pt chart. Sent original orders in envelope with pt upon discharge.?? Disposition: [facility] [place], skilled, convalescent, level of care? [place]
== END 2022-10-02 12:55 | DRG 74 ==
LOC: ED 20:32 → MS3 20:59
PROVIDERS: Internal Medicine; Podiatrist; Admitting Provider Hospitalist; Emergency Provider Emergency Medicine; PCP Internal Medicine; Visit Provider Internal Medicine
DX: E11.610 Type 2 diabetes mellitus with diabetic neuropathic arthropathy (principal); A52.16 Charcot's arthropathy (tabetic); J44.9 Chronic obstructive pulmonary disease, unspecified; D50.9 Iron deficiency anemia, unspecified; E78.2 Mixed hyperlipidemia; E87.6 Hypokalemia; I10 Essential (primary) hypertension; I25.10 Atherosclerotic heart disease of native coronary artery without angina pectoris; M79.7 Fibromyalgia; G47.33 Obstructive sleep apnea (adult) (pediatric); M10.9 Gout, unspecified; K21.9 Gastro-esophageal reflux disease without esophagitis; Z60.2 Problems related to living alone; Z79.84 Long term (current) use of oral hypoglycemic drugs; Z87.891 Personal history of nicotine dependence; F32.A Depression, unspecified
CPT/HCPCS: 36415; 73630; 73718; 80048; 80053; 82274; 82962; 83735; 84100; 84550; 85025; 85045; 85652; 86140; 87040; 87426; 92610; 93971; 97110; 97116; 97162; 97530; 97802; 99283; J7040; J7050; A4216; J2405; J2916

== ENCOUNTER 2022-11-02 17:12 | Emergency (ER) | payer MEDICARE, SELFPAY ==
[2022-11-02 17:13] VITALS: BP 155/78; PULSE 78; RESP 16; TEMP 36.6; O2SAT 99; BMI 53.9
--- NOTE | 2022-11-02 18:22 | EKG12_ITS ---
Test Reason : DYSRYTHMIA Blood Pressure : / mmHG Vent. Rate : 057 BPM Atrial Rate : 057 BPM P-R Int : 184 ms QRS Dur : 070 ms QT Int : 500 ms P-R-T Axes : 046 -08 053 degrees QTc Int : 486 ms Sinus bradycardia Otherwise normal ECG Confirmed by KEVIN PAZ, OTTONIEL ([id number]), scientific publications editor SHANTEL LANIER ([id number]) on 11/04/2022 11:17:20 AM Referred By: CARMELITA Confirmed By:OTTONIEL BROWN MD
--- NOTE | 2022-11-02 18:23 | CT_ITS ---
STUDY: CT ABDOMEN AND PELVIS WITHOUT CONTRAST REASON FOR EXAM: Female, 77 years old. Gastric pain and chills. Nausea, vomiting and diarrhea. RADIATION DOSAGE (If Supplied By Facility): CTDIvol = ( 20.14 ) mGy, DLP = ( 1031.50 ) mGycm TECHNIQUE: Transaxial images were obtained from the dome of the diaphragm to the symphysis pubis without oral contrast, and without intravenous contrast. Sagittal and coronal images were reconstructed. Individualized dose optimization techniques were used for this CT. COMPARISON: March 15, 2017. FINDINGS: The visualized lung bases are unremarkable. The visualized portions of the heart are within normal limits. Normal liver. There are surgical clips in the gallbladder fossa consistent with a prior cholecystectomy. Normal spleen. Normal pancreas. Normal bilateral adrenal glands. Normal right kidney. Normal left kidney. Normal bilateral ureters. Normal visualized stomach. Normal small intestine. Scattered colonic diverticuli. There is lack of haustral markings and luminal narrowing at the descending and sigmoid colon. Question colitis. The appendix is visualized and appears normal. Normal abdominal aorta. Normal inferior vena cava. Normal retroperitoneum. Normal urinary bladder. Status post hysterectomy with unremarkable vaginal cuff. No pelvic lymphadenopathy. No free air or free fluid is seen within the abdominal cavity. Small umbilical hernia of omental fat. Apical degenerative changes of the lumbar spine. CT/Abdomen/Pelvis without Cont IMPRESSION: Question colitis. Electronically Signed: Jerson Mittal DO at 19:29 EST Reading Location ID and State: [facility] Tel [phone], Service support ,
--- NOTE | 2022-11-02 18:24 | EX.ED.DYSGE1 ---
HPI History of Present Illness Chief Complaint: Nausea/Vomiting/Diarrhea Informant: patient Narrative Narrative: Patient is here primarily for epigastric pain. She also states she has some flank pain. She has a history of GERD and irritable bowel and she thinks this is acting up but she is not sure. She does have nausea vomiting and diarrhea. No blood is seen. She currently is not on Plavix as she stopped that for a trigger point injection. She also has some headache and myalgias. She said she had a cough and then she denied having a cough but she consistently denied being short of breath. I then find out that she was around her son who is sick was diagnosed with influenza and she was around him the day before her symptoms initially started. She has been trying to take some crackers and Pedialyte but really is not able to keep it down well. She denies any fever. Nothing specifically makes her symptoms better or worse. I see Emma on her med list but it sounds like she does not actually have this at home now. Past surgical history includes gallbladder and abdominal hysterectomy. She denies prior bowel obstruction. [facility] Medical History Acute pain of right foot Anemia Arthritis Atherosclerotic heart disease of ramp[place] coronary artery without angina pectoris Benign essential hypertension CAD (coronary artery disease) CAD (coronary artery disease) CHF (congestive heart failure) Constipation COPD (chronic obstructive pulmonary disease) COPD (chronic obstructive pulmonary disease) Coronary atherosclerosis of [place] coronary artery Encounter to establish care History of COPD History of diabetes mellitus History of esophageal reflux History of fibromyalgia History of IBS History of tobacco use HLD (hyperlipidemia) Hypokalemia Iron deficiency anemia Memory impairment Mild aortic stenosis Mixed hyperlipidemia Nonrheumatic aortic (valve) stenosis YOVANA (obstructive sleep apnea) Presence of stent in coronary artery (~03/2002) Tremor Type 2 diabetes mellitus URI (upper respiratory infection) Vaginal anomaly Home Medications pantoprazole 40 mg tablet,delayed release 40 mg PO BID ACID REFLUX 07/08/14 [History Last Taken 09/26/22] doxazosin 2 mg tablet (Cardura) 2 mg PO QHS BLOOD PRESSURE 03/15/17 [History Last Taken 09/25/22] paroxetine HCl 20 mg tablet 30 mg PO DAILY ANXIETY 06/06/22 [History Last Taken 09/26/22] glimepiride 2 mg tablet 4 mg PO DAILY DIABETES 06/11/22 [History Last Taken 09/25/22] melatonin 5 mg tablet 10 mg PO HS PRN Sleep 06/11/22 [History Last Taken 09/25/22] ondansetron 4 mg disintegrating tablet 4 mg PO Q8H PRN nausea and vomiting #30 tabs 09/20/22 [Rx Last Taken 09/23/22] acetaminophen 500 mg tablet 500 mg PO Q6H PRN Pain 09/26/22 [History Last Taken Unknown] clopidogrel 75 mg tablet 75 mg PO QHS BLOOD THINNER 09/26/22 [History Last Taken 09/25/22] fluticasone propionate 50 mcg/actuation nasal spray,suspension (Flonase Allergy Relief) 2 spray intranasal QODAY ALLERGIES 09/26/22 [History Last Taken 09/25/22] peg [id number] 1 %-0.2 %-0.2 % eye drops (Dry Eye Relief) 1 drp EACH EYE DAILY DRY EYES 09/26/22 [History Last Taken 09/26/22] ferrous sulfate 325 mg (65 mg iron) tablet (FeroSul) 325 mg PO QODAY #0 tabs 10/02/22 [Rx Last Taken Unknown] hydrocodone-acetaminophen 5-325mg 5mg-325mg 1 tab PO BID PRN Pain 3 days #7 tabs 10/02/22 [Rx Last Taken Unknown] losartan 50 mg tablet 50 mg PO DAILY #0 tabs 10/02/22 [Rx Last Taken Unknown] polyethylene glycol 3350 17 gram oral powder packet 17 g PO DAILY #0 ea 10/02/22 [Rx Last Taken Unknown] sennosides 8.6 mg-docusate sodium 50 mg tablet (Stool Softener-Stimulant Laxative) 1 tab PO BID #0 tabs 10/02/22 [Rx Last Taken Unknown] promethazine 12.5 mg tablet 12.5 mg PO TID PRN nausea and vomiting #10 tabs 11/02/22 [Rx Last Taken Unknown] Allergy/AdvReac Type Severity Reaction Status Date / Time amoxicillin Allergy Unknown Itching Verified 11/02/22 17:12 cephalexin [From Keflex] Allergy Unknown GI Upset, Verified 11/02/22 17:12 Itching doxycycline Allergy Unknown Rash Verified 11/02/22 17:12 furosemide [From Lasix] Allergy Unknown Hives Verified 11/02/22 17:12 simvastatin Allergy Unknown Hives Verified 11/02/22 17:12 atorvastatin calcium Allergy Hives Verified 11/02/22 17:12 [From Lipitor] divalproex sodium Allergy Hives Verified 11/02/22 17:12 [From Depakote] isosorbide mononitrate Allergy Unknown Verified 11/02/22 17:12 [From Imdur] moxifloxacin HCl Allergy Unknown Verified 11/02/22 17:12 [From Avelox] vancomycin Allergy Hives Verified 11/02/22 17:12 amlodipine AdvReac Unknown Swelling Verified 11/02/22 17:12 fluticasone furoate AdvReac Unknown Throat Verified 11/02/22 17:12 [From Breo Ellipta] Burning-hoarseness sucralfate [From Carafate] AdvReac Unknown Diarrhea Verified 11/02/22 17:12 vilanterol AdvReac Unknown Throat Verified 11/02/22 17:12 [From Breo Ellipta] Burning-hoarseness Family History Father CAD (coronary artery disease) Hypertension Mother CAD (coronary artery disease) Hypertension Mixed hyperlipidemia COPD (chronic obstructive pulmonary disease) Brother CAD (coronary artery disease) History of coronary artery bypass surgery Brother CAD (coronary artery disease) History of coronary artery bypass surgery Sister CAD (coronary artery disease) History of coronary artery bypass surgery Sister CAD (coronary artery disease) History of coronary artery bypass surgery Surgical History History of cholecystectomy History of foot surgery History of hysterectomy History of total knee replacement Presence of coronary angioplasty implant and graft (~03/2002) Social History Smoking Status: Former smoker alcohol intake: never substance use type: does not use what type of physical activity do you participate in: none ROS ROS ED Constitutional Constitutional ED: Denies fever(s) Eyes Eyes: Denies change in vision ENT ENT ED: Denies rhinorrhea or sore throat Cardiovascular Cardiovascular: Denies chest pain or palpitations Respiratory/Chest Respiratory/Chest: Reports cough; Denies dyspnea Gastrointestinal Gastrointestinal: Reports abdominal pain, diarrhea, nausea and vomiting Genitourinary Genitourinary ED: Denies dysuria Musculoskeletal Musculoskeletal: Reports myalgias Integumentary Denies rash Neurologic Neurologic: Reports headache(s); Denies paresthesias or weakness Endocrine Endocrinology: Denies polydipsia or polyuria Hematologic/Lymphatic Hematologic/Lymphatic: Denies easy bleeding or easy bruising Allergic/Immunologic Allergic/Immunologic ED: Denies urticaria EXAM Physical Exam Const Vital Signs: 11/02/22 17:13 11/02/22 18:36 Temperature 97.8 F Temperature Source Temporal Pulse Rate 78 59 L Respiratory Rate 16 17 Blood Pressure 155/78 H 124/71 H Blood Pressure Mean 103 88 Pulse Ox 99 99 Oxygen Delivery Method Room Air Room Air Positive well nourished and well developed General Appearance ED: well developed and NAD; Negative for pallor HEENT Reports dry mucous membranes HEENT Narrative: Mildly dry mucous membrane Mouth ED: Yes dry mucous membranes Mouth: dry mucous membranes Eyes General Eye ED: Negative for scleral icterus Neck supple Chest Wall inspection of chest normal Resp normal respiratory effort and clear to auscultation bilaterally Cardio regular rate and regular rhythm GI GI Narrative: Abdomen does show some obesity. No notable distention. She does have some slightly increased bowel sounds. She has some mild epigastric tenderness that is variable. No rebound or guarding. I do not feel a mass. Back/Spine no CVA tenderness Extremity normal to inspection Psych mental status grossly normal Skin no rashes or lesions noted General Skin Exam: Negative for jaundice or pallor MDM MDM MDM Narrative Medical decision making narrative: My independent interpretation of the patient's abdominal film obstruction. No free air. I do not see any abnormal mass. I was not able to notice any sign of colitis. Official reading does show some hint what could be mild colitis. Patient CBC shows normal white count. Her hemoglobin is a little higher than her normal. Platelets are normal. Electrolytes are normal. Liver function test are normal. Glucose is normal at 79. Her lipase level is normal at 92. Patient was rechecked. She is feeling better. Zofran helped a little bit. She states it helps IV but it does not help orally. Evidently she does have Zofran at home. She states this is her typical irritable bowel and reflux. She states sometimes a Grasshopper helps but she states she feels better now and does not really want to try 1. I think we can get her home. I will write for some Phenergan as she states that works better for nausea for her. We did discuss that it can make her a little bit tired and sleepy or Zofran does not. We discussed reasons to return. Lab Data Attestation: I reviewed the patient's lab results. Labs: Laboratory Results - last 24 hr 11/02/22 11/02/22 18:10 18:10 WBC 7.6 RBC 4.74 Hgb 11.5 L Hct 37.1 MCV 78.3 L MCH 24.3 L MCHC 31.0 L RDW Std Deviation 47.5 H RDW Coeff of Edgar 16.9 H Plt Count 240 MPV 9.6 Immature Gran % (Auto) 0.300 Neut % (Auto) 49.3 Lymph % (Auto) 38.0 [place] % (Auto) 8.9 Eos % (Auto) 2.6 Baso % (Auto) 0.9 Absolute Neuts (auto) 3.8 Absolute Lymphs (auto) 2.90 Nucleated RBC % 0 Sodium 138 Potassium 4.2 Chloride 108 H Carbon Dioxide 22.0 Anion Gap 8 BUN 12 Creatinine 0.84 Estim Creat Clear Calc 45.06 Est GFR (MDRD) Af Amer 84 Est GFR (MDRD) Non-Af 70 BUN/Creatinine Ratio 14.3 Glucose 79 Calcium 8.6 Total Bilirubin 0.30 AST 31 ALT 25 Alkaline Phosphatase 63 Total Protein 7.4 Albumin 3.5 Globulin 3.9 Albumin/Globulin Ratio 0.9 Lipase 92 Radiography Diagnostic Testing: Clinical Impression(s) from Imaging Studies Abdomen/Pelvis CT 11/02/22 18:23 IMPRESSION: Question colitis. Electronically Signed: Jerson Mittal DO at 19:29 EST Reading Location ID and State: [address] [place] [address] Tel [phone], Service support , Discharge Plan Triage Chief Complaint: Nausea/Vomiting/Diarrhea ED Provider: Heraclio Mckee Dx/Rx/DC Orders Clinical Impression: Abdominal pain, History of gastroesophageal reflux (GERD), History of irritable bowel syndrome, Nausea Instructions: ED Abdominal Pain Unkn Cause Fem Prescriptions: New promethazine 12.5 mg tablet 12.5 mg PO TID PRN (Reason: nausea and vomiting) Qty: 10 0RF Rx Instructions: 3 doses during day; last dose no later than 4 hr before bedtime No Action paroxetine HCl 20 mg tablet 30 mg PO DAILY pantoprazole 40 MG tablet 40 mg PO BID Label Comments: ACID REFLUX doxazosin [Cardura] 2 MG tablet 2 mg PO QHS acetaminophen 500 mg Tablet 500 mg PO Q6H PRN (Reason: Pain) Dry Eye Relief 1-0.2-0.2 % Drops 1 drp EACH EYE DAILY clopidogrel 75 MG tablet 75 mg PO QHS fluticasone propionate [Flonase Allergy Relief] 50 mcg/actuation spray,suspension 2 spray intranasal QODAY losartan 50 mg Tablet 50 mg PO DAILY Qty: 0 0RF polyethylene glycol 3350 17 gram Powder In Packet 17 g PO DAILY Qty: 0 0RF sennosides-docusate sodium [Stool Softener-Stimulant Laxat] 8.6-50 mg Tablet 1 tab PO BID Qty: 0 0RF ferrous sulfate [FeroSul] 325 mg (65 mg iron) Tablet 325 mg PO QODAY Qty: 0 0RF hydrocodone-acetaminophen 5-325 mg tablet 1 tab PO BID PRN (Reason: Pain) 3 Days Qty: 7 0RF glimepiride 2 mg tablet 4 mg PO DAILY melatonin 5 mg tablet 10 mg PO HS PRN (Reason: Sleep) ondansetron 4 mg tablet,disintegrating 4 mg PO Q8H PRN (Reason: nausea and vomiting) Qty: 30 0RF Primary Care Provider: Loyd Armas Referrals: Loyd Armas MD [Primary Care Provider] - 3-5 Days Disposition Disposition: Home, Self Care
[2022-11-02] MEDS: Morphine 4 MG/ML Syringe IV ×2 (18:30→19:35)
[2022-11-02] MEDS: Ondansetron 4 MG/2 ML Vial IV (18:30)
[2022-11-02] MEDS: 0.9% Normal Saline 1,000 ML 1000 ML IV (18:30)
[2022-11-02 18:36] VITALS: BP 124/71; PULSE 59; RESP 17; O2SAT 99
[2022-11-02 18:49] LABS: Absolute Neutrophil Count 3.8 X10^3/uL (2.0-7.7); Basophil# 0.07 X10^3/uL; Basophil% 0.9 % (0-1); Eosinophils% 2.6 % (0-5); Hematocrit 37.1 % (37-47); Hemoglobin 11.5 g/dL (12.0-15.0); Mean Corpuscular Hgb 24.3 pg (27.0-32.0); Mean Corpuscular Volume 78.3 fL (81-99); Mean Platelet Vol. 9.6 fl (6.2-12.0); Monocyte# 0.68 X10^3/uL; Monocyte% 8.9 % (0-10); NRBC Flagged by Analyzer 0 % (0-5); Neutrophil # 3.77 X10^3/uL (2.7-7.7); Neutrophil % 49.3 % (47-70); Platelet Count 240 K/mm3 (150-450); RBC Distribution Width CV 16.9 % (11.6-14.6); RBC Distribution Width SD 47.5 fl (35.1-43.9); Red Blood Count 4.74 M/mm3 (4.2-5.4); White Blood Count 7.6 K/mm3 (4.4-11.0)
[2022-11-02 19:06] LABS: ALB/GLOB Ratio 0.9 RATIO (0.9-2.4); AST(SGOT) 31 U/L (15-37); Alanine Aminotransfer ALT/SGPT 25 U/L (13-56); Albumin, Serum 3.5 g/dL (3.2-5.0); Alkaline Phosphatase 63 U/L (45-117); Anion Gap 8 (5-15); BUN 12 mg/dL (7-18); BUN/Creat Ratio 14.3 RATIO (10-20); Calcium,Total 8.6 mg/dL (8.5-10.1); Chloride 108 mmol/L (98-107); Creatinine, Serum 0.84 mg/dL (0.55-1.02); EST Glomerular Filtration Rate 70 mL/min (>60); Est Glom Filt Rate - Afr Amer 84 mL/min (>60); Estimated Creatinine Clearance 45.06 ml/min; Globulin 3.9 g/dL (2.2-4.2); Glucose 79 mg/dL (74-106); Lipase 92 U/L (73-393); Potassium 4.2 mmol/L (3.5-5.1); Protein, Total 7.4 g/dL (6.4-8.2); Sodium Level 138 mmol/L (136-145)
[2022-11-02 21:41] VITALS: BP 165/85; PULSE 74; RESP 16; O2SAT 97
== END 2022-11-02 21:58 | disposition home or self-care (01) ==
PROVIDERS: Emergency Provider Emergency Medicine; PCP Internal Medicine; Visit Provider Emergency Medicine
DX: R10.9 Unspecified abdominal pain (principal); J44.9 Chronic obstructive pulmonary disease, unspecified; I11.0 Hypertensive heart disease with heart failure; I50.9 Heart failure, unspecified; E11.9 Type 2 diabetes mellitus without complications; Z87.891 Personal history of nicotine dependence; E78.2 Mixed hyperlipidemia; M79.10 Myalgia, unspecified site; I25.10 Atherosclerotic heart disease of native coronary artery without angina pectoris; R11.2 Nausea with vomiting, unspecified; K58.0 Irritable bowel syndrome with diarrhea
CPT/HCPCS: 74176; 80053; 83690; 85025; 87428; 93005; 99283; J7030; A4216; J2405

== ENCOUNTER → 2022-11-25 | Outpatient (CLI) | payer MEDICARE, SELFPAY ==
[2022-11-25 16:35] LABS: Absolute Lymphocyte Count 2.29 X10^3/uL (0.83-4.51); Basophil# 0.06 X10^3/uL; Basophil% 0.8 % (0-1); Eosinophil# 0.25 X10^3/uL; Eosinophils% 3.5 % (0-5); Hematocrit 37.4 % (37-47); Hemoglobin 11.6 g/dL (12.0-15.0); Lymphocyte # 2.29 X10^3/ul (0.83-4.51); Lymphocyte % 32.1 % (19-41); Mean Corpuscular Hgb 24.2 pg (27.0-32.0); Mean Corpuscular Volume 78.1 fL (81-99); Mean Platelet Vol. 9.8 fl (6.2-12.0); Monocyte# 0.54 X10^3/uL; Monocyte% 7.6 % (0-10); NRBC Flagged by Analyzer 0 % (0-5); Neutrophil # 3.98 X10^3/uL (2.7-7.7); Neutrophil % 55.7 % (47-70); Platelet Count 234 K/mm3 (150-450); RBC Distribution Width CV 16.4 % (11.6-14.6); RBC Distribution Width SD 46.7 fl (35.1-43.9); Red Blood Count 4.79 M/mm3 (4.2-5.4); White Blood Count 7.1 K/mm3 (4.4-11.0)
[2022-11-25 17:13] LABS: BNP,B-Type NATRIURETIC PEPTIDE 102.5 pg/mL (0-100)
[2022-11-25 17:29] LABS: Anion Gap 7 (5-15); BUN 10 mg/dL (7-18); BUN/Creat Ratio 12.9 RATIO (10-20); Calcium,Total 8.6 mg/dL (8.5-10.1); Chloride 104 mmol/L (98-107); Creatinine, Serum 0.78 mg/dL (0.55-1.02); EST Glomerular Filtration Rate 77 mL/min (>60); Est Glom Filt Rate - Afr Amer 93 mL/min (>60); Glucose 116 mg/dL (74-106); Potassium 3.2 mmol/L (3.5-5.1); Sodium Level 139 mmol/L (136-145); Thyroid Stim Hormone (TSH) 1.42 uIU/mL (0.358-3.74)
== END | disposition home or self-care (01) ==
LOC: LAB 14:59
PROVIDERS: PCP Internal Medicine; Referring Provider Nurse Practitioner Gerontology; Visit Provider Nurse Practitioner Gerontology
DX: R06.09 Other forms of dyspnea (principal); R53.83 Other fatigue
CPT/HCPCS: 36415; 80048; 83880; 84443; 85025

== ENCOUNTER → 2022-12-06 | Outpatient (CLI) | payer MEDICARE, SELFPAY ==
--- NOTE | 2022-12-06 12:42 | CDU_ITS ---
Reason For Study: Dizziness Rt. Velocities/BP Lt. Velocities/BP Prox CCA 68.6/11.9 cm/sec. Prox CCA 95.2/16.0 cm/sec. Mid CCA 64.8/12.8 cm/sec. Mid CCA 78.7/17.1 cm/sec. Dist CCA 67.6/13.8 cm/sec. Dist CCA 72.1/13.8 cm/sec. Prox ICA 63.9/15.7 cm/sec. Prox ICA 84.2/22.6 cm/sec. Mid ICA 76.1/16.6 cm/sec. Mid ICA 103.0/23.0 cm/sec. Dist ICA 123.5/34.0 cm/sec. Dist ICA 108.9/26.7 cm/sec. Rt. ICA/CCA = 1.9. Lt. ICA/CCA = 1.4. Prox ECA 80.9/3.4 cm/sec. Prox ECA 117.4/5.6 cm/sec. Rt. Vert. 76.0/12.1 cm/sec. Lt. Vert. 48.6/8.1 cm/sec. Right Extracranial There is homogeneous, smooth atherosclerotic plaque noted in the right common carotid artery. There is heterogeneous, irregular atherosclerotic plaque noted in the right internal carotid artery. The right internal carotid artery is very tortuous. The tortuous nature of the right internal carotid artery may result in flow velocities overestimating the degree of stenosis. There is heterogeneous, irregular atherosclerotic plaque noted in the right external carotid artery. Antegrade flow is noted in the right vertebral artery. Left Extracranial There is homogeneous, smooth atherosclerotic plaque noted in the left common carotid artery. There is heterogeneous, irregular atherosclerotic plaque noted in the left internal carotid artery. The left internal carotid artery is very tortuous. The tortuous nature of the left internal carotid artery may result in flow velocities overestimating the degree of stenosis. The atherosclerotic plaque causes acoustic shadowing. There is homogeneous, smooth atherosclerotic plaque noted in the left external carotid artery. Antegrade flow is noted in the left vertebral artery. Procedure Carotid Duplex [id number]. This is a Carotid Duplex examination using B-mode, color flow and specral Doppler. The exam was diagnostic. Exam performed in department. VL/Carotid Duplex Ultrasound Interpretation Summary Mild (<50%) stenosis right extracranial internal carotid. Mild (<50%) stenosis left extracranial internal carotid. Patent and antegrade vertebrals bilaterally. Ordering Physician: Ann Yeboah Referring Physician: Loyd Armas Performed By: Apolinar Jones RVT
== END | disposition home or self-care (01) ==
LOC: CVS 12:40
PROVIDERS: PCP Internal Medicine; Referring Provider Nurse Practitioner Gerontology; Visit Provider Nurse Practitioner Gerontology
DX: I65.23 Occlusion and stenosis of bilateral carotid arteries (principal)
CPT/HCPCS: 93880

== ENCOUNTER → 2023-02-04 | Outpatient (CLI) | payer MEDICARE, SELFPAY ==
[2023-02-04 12:44] LABS: Hematocrit 38.4 % (37-47); Hemoglobin 11.8 g/dL (12.0-15.0); Mean Corp Hgb Conc 30.7 g/dL (32-36); Mean Corpuscular Hgb 24.5 pg (27.0-32.0); Mean Corpuscular Volume 79.8 fL (81-99); Mean Platelet Vol. 9.3 fl (6.2-12.0); Platelet Count 258 K/mm3 (150-450); RBC Distribution Width CV 15.7 % (11.6-14.6); RBC Distribution Width SD 45.1 fl (35.1-43.9); Red Blood Count 4.81 M/mm3 (4.2-5.4); White Blood Count 7.8 K/mm3 (4.4-11.0)
[2023-02-04 13:07] LABS: AST(SGOT) 22 U/L (15-37); Alanine Aminotransfer ALT/SGPT 25 U/L (13-56); Albumin, Serum 3.6 g/dL (3.2-5.0); Alkaline Phosphatase 67 U/L (45-117); Bilirubin, Direct 0.08 mg/dL (0.00-0.30); Cholesterol 188 mg/dL (200); Globulin 3.6 g/dL (2.2-4.2); High Density Lipoprotein 43 mg/dL; Protein, Total 7.2 g/dL (6.4-8.2); Triglycerides 264 mg/dL; Very Low Density Lipoprotein 53 mg/dL (5-40)
[2023-02-04 13:31] LABS: Anion Gap 8 (5-15); BUN 12 mg/dL (7-18); BUN/Creat Ratio 15.2 RATIO (10-20); Calcium,Total 8.6 mg/dL (8.5-10.1); Chloride 107 mmol/L (98-107); Creatinine, Serum 0.79 mg/dL (0.55-1.02); EST Glomerular Filtration Rate 75 mL/min (>60); Est Glom Filt Rate - Afr Amer 91 mL/min (>60); Glucose 83 mg/dL (74-106); Potassium 3.1 mmol/L (3.5-5.1); Sodium Level 141 mmol/L (136-145)
== END | disposition home or self-care (01) ==
LOC: BIMLAB 10:29
PROVIDERS: Nurse Practitioner Gerontology; PCP Internal Medicine; Referring Provider Nurse Practitioner Family; Visit Provider Nurse Practitioner Family
DX: E87.6 Hypokalemia (principal); Z87.19 Personal history of other diseases of the digestive system; E78.2 Mixed hyperlipidemia
CPT/HCPCS: 36415; 80048; 80061; 80076; 85027

== ENCOUNTER → 2023-06-18 | Outpatient (CLI) | payer MEDICARE, SELFPAY ==
[2023-06-18 14:58] LABS: Amphetamine Urine VISTA NEGATIVE (<1000 ng/mL); Barbiturate Urine VISTA NEGATIVE (< 200 ng/mL); Benzodiazepine Urine VISTA NEGATIVE (< 200 ng/mL); Cocaine Urine VISTA NEGATIVE (< 300 ng/mL); Ecstacy Urine VISTA NEGATIVE (< 500 ng/mL); Methadone Urine VISTA NEGATIVE (< 300 ng/mL); PCP Urine VISTA NEGATIVE (< 25 ng/mL); THC Urine VISTA NEGATIVE (< 50 ng/mL); Vista UDS pH Range 4
== END | disposition home or self-care (01) ==
LOC: LAB 14:01
PROVIDERS: PCP Internal Medicine; Referring Provider Anesthesiology Pain Medicine; Visit Provider Anesthesiology Pain Medicine
DX: F11.20 Opioid dependence, uncomplicated (principal)
CPT/HCPCS: 80307

== ENCOUNTER → 2023-06-27 | Outpatient (CLI) | payer MEDICARE, SELFPAY ==
[2023-06-27 16:32] LABS: Absolute Lymphocyte Count 2.31 X10^3/uL (0.83-4.51); Absolute Neutrophil Count 3.5 X10^3/uL (2.0-7.7); Basophil# 0.05 X10^3/uL; Basophil% 0.8 % (0-1); Eosinophil# 0.24 X10^3/uL; Eosinophils% 3.6 % (0-5); Hematocrit 38.8 % (37-47); Lymphocyte # 2.31 X10^3/ul (0.83-4.51); Lymphocyte % 34.7 % (19-41); Mean Corp Hgb Conc 30.9 g/dL (32-36); Mean Corpuscular Hgb 24.8 pg (27.0-32.0); Mean Corpuscular Volume 80.2 fL (81-99); Mean Platelet Vol. 9.2 fl (6.2-12.0); Monocyte# 0.53 X10^3/uL; NRBC Flagged by Analyzer 0 % (0-5); Neutrophil # 3.52 X10^3/uL (2.7-7.7); Neutrophil % 52.7 % (47-70); Platelet Count 239 K/mm3 (150-450); RBC Distribution Width CV 15.4 % (11.6-14.6); RBC Distribution Width SD 44.6 fl (35.1-43.9); Red Blood Count 4.84 M/mm3 (4.2-5.4); White Blood Count 6.7 K/mm3 (4.4-11.0)
[2023-06-27 17:09] LABS: ALB/GLOB Ratio 1.2 RATIO (0.9-2.4); AST(SGOT) 18 U/L (15-37); Alanine Aminotransfer ALT/SGPT 28 U/L (13-56); Albumin, Serum 3.8 g/dL (3.2-5.0); Alkaline Phosphatase 68 U/L (45-117); Anion Gap 5 (5-15); BUN 14 mg/dL (7-18); BUN/Creat Ratio 18.2 RATIO (10-20); Calcium,Total 8.8 mg/dL (8.5-10.1); Chloride 108 mmol/L (98-107); Creatinine, Serum 0.77 mg/dL (0.55-1.02); EST Glomerular Filtration Rate 77 mL/min (>60); Est Glom Filt Rate - Afr Amer 94 mL/min (>60); Globulin 3.3 g/dL (2.2-4.2); Glucose 79 mg/dL (74-106); Protein, Total 7.1 g/dL (6.4-8.2); Sodium Level 140 mmol/L (136-145)
== END | disposition home or self-care (01) ==
LOC: BIMLAB 16:07
PROVIDERS: PCP Internal Medicine; Visit Provider Internal Medicine
DX: E11.9 Type 2 diabetes mellitus without complications (principal)
CPT/HCPCS: 36415; 80053; 85025

== ENCOUNTER → 2023-07-08 | Outpatient (CLI) | payer MEDICARE, SELFPAY ==
[2023-07-08 16:17] LABS: Absolute Lymphocyte Count 2.14 X10^3/uL (0.83-4.51); Basophil# 0.06 X10^3/uL; Basophil% 0.9 % (0-1); Eosinophil# 0.16 X10^3/uL; Eosinophils% 2.3 % (0-5); Hematocrit 36.3 % (37-47); Hemoglobin 11.1 g/dL (12.0-15.0); Lymphocyte # 2.14 X10^3/ul (0.83-4.51); Lymphocyte % 31.4 % (19-41); Mean Corp Hgb Conc 30.6 g/dL (32-36); Mean Corpuscular Hgb 24.8 pg (27.0-32.0); Mean Corpuscular Volume 81.2 fL (81-99); Mean Platelet Vol. 9.4 fl (6.2-12.0); Monocyte# 0.49 X10^3/uL; Monocyte% 7.2 % (0-10); NRBC Flagged by Analyzer 0 % (0-5); Neutrophil # 3.96 X10^3/uL (2.7-7.7); Neutrophil % 58.1 % (47-70); Platelet Count 234 K/mm3 (150-450); RBC Distribution Width CV 15.1 % (11.6-14.6); RBC Distribution Width SD 44.6 fl (35.1-43.9); Red Blood Count 4.47 M/mm3 (4.2-5.4); White Blood Count 6.8 K/mm3 (4.4-11.0)
[2023-07-08 17:04] LABS: Anion Gap 7 (5-15); BUN 10 mg/dL (7-18); BUN/Creat Ratio 12.5 RATIO (10-20); Calcium,Total 8.3 mg/dL (8.5-10.1); Chloride 106 mmol/L (98-107); EST Glomerular Filtration Rate 74 mL/min (>60); Est Glom Filt Rate - Afr Amer 90 mL/min (>60); Glucose 143 mg/dL (74-106); Potassium 3.5 mmol/L (3.5-5.1); Sodium Level 139 mmol/L (136-145); Thyroid Stim Hormone (TSH) 1.56 uIU/mL (0.358-3.74)
== END | disposition home or self-care (01) ==
LOC: LAB 15:23
PROVIDERS: PCP Internal Medicine; Referring Provider Nurse Practitioner Gerontology; Visit Provider Nurse Practitioner Gerontology
DX: R06.09 Other forms of dyspnea (principal); R00.2 Palpitations
CPT/HCPCS: 36415; 80048; 83735; 83880; 84443; 85025

== ENCOUNTER → 2023-07-11 | Outpatient (CLI) | payer MEDICARE, SELFPAY ==
--- NOTE | 2023-07-11 11:49 | RAD_ITS ---
EXAM: XR LEFT SHOULDER COMPLETE, 2 OR MORE VIEWS CLINICAL INDICATION: Left Shoulder Pain TECHNIQUE: Two or more views of the left shoulder. COMPARISON: No relevant prior studies available. FINDINGS: BONES/JOINTS: No acute abnormality. SOFT TISSUES: Normal. No soft tissue swelling or gas. No radiopaque foreign body. RAD/Shoulder min 2 Views IMPRESSION: Intact left shoulder. Electronically Signed: Maury Masterson MD at 15:30 EDT ,
== END | disposition home or self-care (01) ==
LOC: RAD 11:45
PROVIDERS: PCP Internal Medicine; Referring Provider Internal Medicine; Visit Provider Internal Medicine
DX: M25.512 Pain in left shoulder (principal)
CPT/HCPCS: 73030

== ENCOUNTER → 2023-07-18 | Outpatient (CLI) | payer MEDICARE, SELFPAY | END | disposition home or self-care (01) | LOC: PSN 13:59 | PROVIDERS: PCP Internal Medicine; Referring Provider Nurse Practitioner Gerontology; Visit Provider Nurse Practitioner Gerontology | DX: R00.2 Palpitations (principal) | CPT/HCPCS: 93225; 93226 ==

== ENCOUNTER → 2023-07-28 | Outpatient (CLI) | payer MEDICARE, SELFPAY ==
--- NOTE | 2023-07-28 06:18 | ECHOD_ITS ---
Reason For Study: CHEST PAIN Procedure This was a 2D Doppler, Color Flow transthoracic echocardiogram. Exam performed in department. Left Ventricle Normal LV size. Moderate concentric left ventricular hypertrophy. The left ventricular ejection fraction is 65 %. Stage 2 diastolic dysfunction. Right Ventricle Normal right ventricle. Atria The left atrium is mildly enlarged. Normal right atrium. Mitral Valve Trivial mitral valve insufficiency. Tricuspid Valve Moderate (2+) tricuspid valve insufficiency. Right ventricular systolic pressure estimated to be 35 mmHg. Aortic Valve Trisinus/trileaflet aortic valve. Mild diffuse aortic valve calcification. Mild aortic stenosis. Mild-Moderate (1-2+) aortic valve insufficiency. Pulmonic Valve The pulmonic valve is not well visualized. Great Vessels Normal sized aortic root. Pericardium/Pleural No pericardial effusion. Epicardial fat. MMode/2D Measurements & Calculations LVIDd: 4.3 cm IVSd: 1.6 cm Ao root diam: 3.2 cm LVIDs: 2.8 cm LVPWd: 1.0 cm FS: 35.2 % LAV(MOD-bp): 63.6 ml LVAd ap4: 27.1 cm2 LVAd ap2: 24.9 cm2 LAV(MOD-bp) Indexed: 33.3 ml/m2 LVLd ap4: 8.4 cm LVLd ap2: 7.5 cm LAV(MOD-sp2): 63.6 ml EDV(MOD-sp4): 71.7 ml EDV(MOD-sp2): 69.3 ml LAV(MOD-sp4): 63.7 ml EDV(sp4-el): 73.7 ml EDV(sp2-el): 69.6 ml LVAs ap4: 15.3 cm2 LVAs ap2: 13.8 cm2 LVLs ap4: 6.7 cm LVLs ap2: 6.9 cm ESV(MOD-sp4): 31.7 ml ESV(MOD-sp2): 24.9 ml ESV(sp4-el): 29.8 ml ESV(sp2-el): 23.2 ml EF(MOD-sp4): 55.7 % EF(MOD-sp2): 64.1 % EF(sp4-el): 59.6 % SV(MOD-sp4): 40.0 ml SV(MOD-sp2): 44.4 ml SV(sp4-el): 43.9 ml LA dimension(2D): 4.0 cm Aortic Valve Planimetry: 1.8 cm2 LA A4 area: 21.3 cm2 RA A4 area: 18.0 cm2 TAPSE: 2.0 cm Time Measurements MV dec time: 0.31 sec Doppler Measurements & Calculations MV E max marquis: 90.6 cm/sec Lat Peak E' Marquis: 7.8 cm/sec Med Peak E' Marquis: 5.9 cm/sec MV A max marquis: 100.6 cm/sec E/E' lat: 11.6 E/E' med: 15.4 MV E/A: 0.90 MV V2 max: 114.8 cm/sec MV P1/2t max marquis: 93.1 cm/sec Ao V2 max: 205.6 cm/sec MV max P.3 mmHg MV P1/2t: 96.1 msec Ao max P.0 mmHg MV V2 mean: 64.5 cm/sec Ao V2 mean: 145.1 cm/sec MV mean P.9 mmHg MV dec slope: 283.8 cm/sec2 Ao mean P.5 mmHg MV V2 VTI: 37.0 cm MVA(P1/2t): 2.3 cm2 Ao V2 VTI: 54.7 cm AV (velocity ratio): 0.55 AI max marquis: 446.5 cm/sec LV V1 max: 104.4 cm/sec PA V2 max: 69.7 cm/sec AI max P.8 mmHg LV V1 max P.4 mmHg PA V2 mean: 51.1 cm/sec LV V1 mean P.2 mmHg AI dec slope: 289.4 cm/sec2 LV V1 mean: 69.3 cm/sec AI P1/2t: 451.9 msec LV V1 VTI: 30.3 cm TR max marquis: 269.6 cm/sec TR max P.1 mmHg ECHO/Echo Complete Interpretation Summary Moderate concentric left ventricular hypertrophy. The left ventricular ejection fraction is 65 %. Stage 2 diastolic dysfunction. The left atrium is mildly enlarged. Moderate (2+) tricuspid valve insufficiency. Mild aortic stenosis. Mild-Moderate (1-2+) aortic valve insufficiency. Ordering Physician: Ann Yeboah Referring Physician: Loyd Armas Performed By: Claire Geronimo, HECTOR, RVT
--- NOTE | 2023-07-31 09:31 | STRESSREP ---
Stress Test Report Date: 07/28/2023 Procedure: Pharmacologic stress nuclear imaging study Indications: Chest pain Consent: Per the patient Procedure: The patient underwent pharmacologic (Regadenoson 0.4mg ) evaluation with a peak heart rate of 80 beats per minute (55%predicted maximal heart rate) and a peak blood pressure of 126/80 mmHg. The baseline ECG demonstrated sinus rhythm with nonspecific ST-T wave changes. The peak pharmacologic ECG demonstrated no diagnostic changes secondary to baseline abnormality. Occasional PVCs noted. There was no complaint of chest discomfort during pharmacologic infusion or recovery. The patient was injected with 11.4 millicuries of technetium 99m Cardiolite and subsequently rest SPECT Cardiolite nuclear imaging was obtained in the horizontal long, vertical long, and short axis views. The patient underwent pharmacologic (Regadenoson) evaluation. The patient was injected with 34.1 millicuries of technetium 99m Cardiolite and subsequently stress SPECT Cardiolite nuclear imaging was obtained in the horizontal long, vertical long, and short axis views. A gated Cardiolite study at peak stress was obtained. The examination was stopped secondary to completion of protocol. Rest and stress SPECT Cardiolite nuclear imaging status post realignment, normalization, and attenuation correction demonstrate small area at the apex with mild reversible perfusion defect. There is end systolic thickening and brightening. The gated Cardiolite study demonstrates myocardial thickening and inward wall motion. The reported LVEF is 62%. Impression: 1. Pharmacologic (Regadenoson) evaluation 2. Peak pharmacologic ECG with no diagnostic change. 3. Occasional PVCs noted. 5. Small reversible defect of the apex suggestive of mild ischemia. 6. The gated Cardiolite study reports an LVEF of 62%. This note was generated with [employer] software. It may contain incorrect words, spelling, and punctuation that were not noted in checking the note before signing.
== END | disposition home or self-care (01) ==
PROVIDERS: PCP Internal Medicine; Referring Provider Nurse Practitioner Gerontology; Visit Provider Nurse Practitioner Gerontology
DX: I35.0 Nonrheumatic aortic (valve) stenosis (principal); R07.9 Chest pain, unspecified; R06.09 Other forms of dyspnea
CPT/HCPCS: 78452; 93017; 93306; A9500; A4216; J2785

== ENCOUNTER 2023-09-16 11:27 | Observation (INO) | payer MEDICARE, SELFPAY ==
--- NOTE | 2023-09-09 12:13 | RAD_ITS ---
STUDY: X-RAY CHEST REASON FOR EXAM: Female, 78 years old. Shortness of breath. For heart catheterization. TECHNIQUE: Frontal and lateral views of the chest on 3 images. COMPARISON: Chest dated June 21, 2016 FINDINGS: Hyperinflation unchanged. There is no demonstrated pleural abnormality. Stable cardiomegaly. Normal mediastinum and tanner. Normal visualized pulmonary arteries. Aortic tortuosity with calcification unchanged. Diffuse mild thoracic spondylosis unchanged. Normal visualized ribs, clavicles, and shoulders. No abnormality of the visualized soft tissue structures of the upper abdomen. RAD/Chest PA and Lateral IMPRESSION: Stable chest with no acute or active cardiopulmonary disease Electronically Signed: Venkat Ruiz MD at 14:28 EST ,
[2023-09-09 12:25] LABS: Absolute Lymphocyte Count 2.13 X10^3/uL (0.83-4.51); Absolute Neutrophil Count 6.1 X10^3/uL (2.0-7.7); Basophil# 0.07 X10^3/uL; Basophil% 0.7 % (0-1); Eosinophil# 0.25 X10^3/uL; Eosinophils% 2.7 % (0-5); Hematocrit 36.1 % (37-47); Hemoglobin 11.1 g/dL (12.0-15.0); Lymphocyte # 2.13 X10^3/ul (0.83-4.51); Lymphocyte % 22.8 % (19-41); Mean Corp Hgb Conc 30.7 g/dL (32-36); Mean Corpuscular Hgb 24.6 pg (27.0-32.0); Mean Corpuscular Volume 79.9 fL (81-99); Mean Platelet Vol. 9.3 fl (6.2-12.0); Monocyte# 0.79 X10^3/uL; Monocyte% 8.4 % (0-10); NRBC Flagged by Analyzer 0 % (0-5); Neutrophil # 6.09 X10^3/uL (2.7-7.7); Neutrophil % 65.2 % (47-70); Platelet Count 291 K/mm3 (150-450); RBC Distribution Width CV 15.3 % (11.6-14.6); RBC Distribution Width SD 44.4 fl (35.1-43.9); Red Blood Count 4.52 M/mm3 (4.2-5.4); White Blood Count 9.4 K/mm3 (4.4-11.0)
[2023-09-09 12:53] LABS: Anion Gap 8 (5-15); BUN 14 mg/dL (7-18); BUN/Creat Ratio 19.6 RATIO (10-20); Calcium,Total 8.4 mg/dL (8.5-10.1); Chloride 107 mmol/L (98-107); Creatinine, Serum 0.71 mg/dL (0.55-1.02); EST Glomerular Filtration Rate 84 mL/min (>60); Est Glom Filt Rate - Afr Amer 102 mL/min (>60); Glucose 82 mg/dL (74-106); Potassium 3.6 mmol/L (3.5-5.1); Sodium Level 140 mmol/L (136-145)
[2023-09-15 07:59] VITALS: BMI 36.7
[2023-09-16] VITALS (19 sets, daily range): BP systolic 89–138; BP diastolic 41–84; PULSE 63–95; RESP 13–22; TEMP 36.2–37; O2SAT 87–96; BMI 37.1
--- NOTE | 2023-09-16 11:30 | EKG12_ITS ---
Test Reason : AFIB Blood Pressure : / mmHG Vent. Rate : 090 BPM Atrial Rate : 144 BPM P-R Int : 000 ms QRS Dur : 076 ms QT Int : 374 ms P-R-T Axes : 000 -17 178 degrees QTc Int : 457 ms Poor data quality, interpretation may be adversely affected Atrial fibrillation with premature ventricular or aberrantly conducted complexes Marked ST abnormality, possible lateral subendocardial injury Abnormal ECG When compared with ECG of 02-NOV-2022 18:36, Atrial fibrillation has replaced Sinus rhythm Vent. rate has increased BY [address] now depressed in Anterolateral leads Nonspecific T wave abnormality now evident in Inferior leads T wave inversion now evident in Lateral leads Confirmed by KEVIN PAZ, OTTONIEL ([id number]), clinical editor MERVIN CEBALLOS ([id number]) on 09/18/2023 9:26:37 AM Referred By: Elbert Rodriguez Confirmed By:OTTONIEL BROWN MD
--- NOTE | 2023-09-16 11:34 | PN_ITS ---
Progress Note Patient complains of choking sensation and hoarseness during coronary angiography. Tongue noted to be swollen. Treated for contrast allergic reacti on/anaphylaxis. Administered hydrocortisone, Benadryl and epinephrine. Feeling better. Post epinephrine, patient went into atrial fibrillation. Administered amiodarone. Monitor in ICU.
[2023-09-16] MEDS: 0.9% Normal Saline (1000mL) 1,000 ML 100 ML IV (11:54)
--- NOTE | 2023-09-16 12:00 | CL.I_ITS ---
Patient Name: BRADY BALL Study Date: 09/16/2023 Performing: Elbert Rodriguez MD Ht: 62 inches 157.48 cm : 1945 Wt: 201 lbs 91.17 kg Age: 78 Gender: female BSA: 1.92 PROCEDURE(S) PERFORMED DC02-(78220)LHC/COR IC12-(23870/C9600)JOSE W/WO PTCA, SINGLE CORONARY ARTERY CLINICAL PROFILE AND CO-MORBIDITIES Indications: Stable Known CAD Heart Failure: None Stress/Imaging Stress Test w/SPECT MPI: Yes Result: Positive Intermediate Risk Stress Test with SPECT MPI: Positive Intermediate Risk CAD Presentations: Other: CONCLUSIONS 70% distal/apical LAD 60-65% Prox LCX calcified 70% Prox RCA; 90% distal RCA ISR (post-dilated using 3.0 mm balloon) RECOMMENDATIONS ASA Indefinitley Plavix for at least 12 months DESCRIPTION OF PROCEDURE The patient arrived to the procedure lab. The risks and benefits of the procedure as well as a full description of our services here and lack of surgical backup were fully explained to the patient and/or their significant other prior to the catheterization. The Timeout was completed, verifying the correct patient and procedure. The patient's procedural site was prepped and draped in the usual fashion. Local anesthetic was given subcutaneously to right radial region with Lidocaine 2%. Using a modified Seldinger technique, and ultrasound guidance,arterial access was obtained via the right radial artery, a 6Fr sheath was inserted.. Left Coronary Artery selective angiography was performed in multiple views using a 5 Fr. JL3.5 catheter. Right Coronary Artery selective angiography was then performed in multiple views using a 5 Fr. 3DRC (Binu) catheterThe images were reviewed and options discussed. A decision was then made to proceed with an Intervention, IVUS or other adjunct procedure. 3drc Guide catheter was inserted and engaged into the RCA. runthrough Guide wire was advanced to the RCA. Angiogram performed pre stent deployment. lester 2.5 x 38 Drug Eluting stent was advanced across the lesion in the graft to the RCA. Angiogram performed post stent deployment. nc emerege 2.75 x20 Balloon catheter was inserted post stent. Angiogram performed post balloon dilatation. lester 2.75 x 8 Drug Eluting stent was advanced across the lesion in the graft to the RCA. Angiogram performed post stent deployment. Ballwin lester 3x26 Drug Eluting stent was inserted. PTCA balloon inflated at 14 atms for 10 secs. Angiogram performed. frontier lester 3.0x12 Drug Eluting stent was advanced across the lesion in the right coronary, proximal. PTCA balloon inflated at 14 atms for 08 secs. 3.0x20 NC emerge Balloon catheter was inserted post stent. Angiogram performed. The arterial sheath was pulled and a TR Band was applied for hemostasis with 12cc of air placed in the band. CORONARY ANGIOGRAPHY DOMINANCE: Right Dominant LEFT MAIN: Tubular 20% Ostial lesion in Left Main LEFT ANTERIOR DESCENDING ARTERY: LAD: Tubular 70% Distal lesion in LAD Calcified 30% Proximal lesion in LAD DIAGONAL 1: Tubular 50% Proximal lesion in 1st Diagonal RIGHT CORONARY ARTERY: RCA: Calcified 70% Proximal lesion in RCA In-Stent Restenosis 90% Distal lesion in RCA, STENT to 90% RT PDA: Tubular 50% Mid lesion in RT PDA INTERVENTION INFORMATION LESION SITE: RCA (Distal) Lesion Complexity: High/C, lesion length: 44 mm, In-stent restenosis: Yes, Previously treated with a stent: Yes Stent Type: with JOSE Pre Stenosis: 90 % Pre intervention OFELIA flow: 3 PROCEDURE: Drug Eluting Stent with post dilatation Post Stenosis: 0 % Post intervention OFELIA flow: 3 Lesion Devices: Cordis 6 Fr 3DRC 100cm Guide Catheter Terumo .014 180cm Runthrough Extra Floppy straight Medtronic 2.50 x 38 LESTER FRONTIER JOSE Michele Sci NC EMERGE MR 2.75x20 BALLOON Medtronic 2.75 x 08 LESTER FRONTIER JOSE LESION SITE: RCA (Proximal) Lesion Complexity: High/C, lesion length: 36 mm Pre Stenosis: 70 % Pre intervention OFELIA flow: 3 PROCEDURE: Drug Eluting Stent with post dilatation Post Stenosis: 0 % Post intervention OFELIA flow: 3 Lesion Devices: Cordis 6 Fr 3DRC 100cm Guide Catheter Terumo .014 180cm Runthrough Extra Floppy straight Medtronic 3.0 x 26 LESTER FRONTIER JOSE Medtronic 3.0 x 12 LESTER FRONTIER JOSE Michele Sci NC EMERGE MR 3.00x20 BALLOON COMPLICATIONS No Complications PROCEDURE MEDICATIONS Versed 2 mg IV Fentanyl 50 mcg IV Versed 2 mg IV Fentanyl 50 mcg IV Fentanyl 50 mcg IV Versed 1 mg IV Fentanyl 50 mcg IV Oxygen: 2 L/min via nasal cannula Oxygen: 15 L/min via bag Benadryl 25 mg IV 09/16/2023 10:47:47 Amiodarone 600 ml/hour @ 09/16/2023 11:26:53 Epinephrine 0.3cc 09/16/2023 10:54:58 Heparin given IA 09/16/2023 09:50:05 Heparin 2000 unit(s) IV 09/16/2023 09:51:10 Heparin 5000 unit(s) IV 09/16/2023 10:09:43 Heparin 2000 unit(s) IV 09/16/2023 10:49:27 Heparin 3000 unit(s) IV 09/16/2023 11:22:19 Nitro 200 mcg IC 09/16/2023 10:13:10 Nitro Tab .4 mg PO 09/16/2023 10:27:16 Nitro 200 mcg IC 09/16/2023 10:41:32 Nitro 200 mcg IC 09/16/2023 10:51:03 Verapamil 2.5mg, Ntg 200mcgs, 2000 units of Heparin given IA 09/16/2023 09:50:05 SUMMARY OF HEMODYNAMIC DATA Time AIR REST ECG 07:52:40 AO 128/66 (90) SA 09:50:54 Signed By Elbert Rodriguez MD On 09/16/2023 11:59:37 Elbert Rodriguez MD
--- NOTE | 2023-09-16 13:09 | CRPHASE1_ITS ---
Patient Communication Patient Information Former Patient:: Phase I PHII Cardiac Rehab Discussed with Patient:: Yes Guide to Cardiac Rehab Given to Patient:: Yes Cardiac Rehab Facility Choice List Given to Patient:: Yes Communication to Cardiac Rehab Choice Program [facility] CR PHII:: Communication Given to CR Lens Polisher:: Elbert Rodriguez Phase II Cardiac Rehab:: Yes Sessions:: 36 sessions - 3 days/wk, 12 weeks Post Discharge Choice Letter Given to Patient:: Yes Cardiac Rehabilitation Info Program Information Cardiac Rehabilitation Program Information: Cardiac Rehab The cardiac rehab team at [facility] consists of highly skilled exercise physiologists, nurses, respiratory therapists and physicians working together with you. Our purpose is to help you have a full recovery and achieve the goals you set for yourself. Over the years many of our patients have returned to activities they assumed they would never do again! We can help restore your confidence and motivation to make lifestyle changes that can have a significant impact on your health and quality of life! We can help answer questions and concerns you may have about exercise, lifestyle , medications, diet, stress and anxiety which are common following a hospitalization. WE monitor ECG and vital signs during exercise and discuss your progress with you and report to your physician(s). Cardiac Rehab is proven to help reduce readmissions, improve functional capacity and lower recurrence of problems with your heart. Our Cardiac Rehab program is Certified by the [place] [employer]monary [employer] (AACVPR) and Accredited by the [place] [employer] through our [facility]. You can contact us at . We invite you to call us with your questions or to get started in our program. If you have other questions or concerns be sure to ask your physician/provider during your follow-up visit. WE look forward to seeing you!
--- NOTE | 2023-09-16 13:10 | CRPH1.INST_ITS ---
General Education Discussed with Patient CAD and cardiac anatomy and function:: Patient communicates acknowledgment Explanation of diagnoses and procedures:: Patient communicates acknowledgment Sign/Symptoms of ND:: Patient communicates acknowledgment Antiplatelet therapy: Patient communicates acknowledgment Proper use of NTG-SL: Patient communicates acknowledgment Emergency procedures and activation of EMS: Patient communicates acknowledgment Compliance of all prescribed medications: Patient communicates acknowledgment Smoking Recommendations Recommendations Include:: Previous smoker; encourage continued cessation Response Code Nicotine/Smoking Response Code:: Patient communicates acknowledgment Dyslipidemia Recommendations Recommendations Include:: Lipid profile not available Response Code Dyslipidemia Response Code:: Patient communicates acknowledgment Overweight/Obesity Risk Factors Patient Overweight/Obesity Risk Factors Are:: Obesity - > or = 30 Recommendations Recommendations Include:: Weight loss of 5-10%, Reduced calorie diet and Exercise 5-7 times/week Response Code Overweight/Obesity:: Patient communicates acknowledgment Hypertension Recommendations Recommendations Include:: BP <130/80 if diabetic Response Code Hypertension:: Patient communicates acknowledgment Heart Disease Risk Factors Patient Heart Disease Risk Factors Are:: Family history of heart disease < 65 years old Recommendations Recommendations Include:: Educated family members of their risk Response Code Heart Disease Response Code:: Patient communicates acknowledgment Diabetes Risk Factors Patient Diabetes Risk Factors Are:: Elevated blood sugars Recommendations Recommendations Include:: Maintain fasting blood sugars 70-110 md/dL and Melanie ntain HgbA1c of 6% or less Response Code Diabetes:: Patient communicates acknowledgment Metabolic Syndrome Recommendations Recommendations Include:: Does not meet criteria Response Code Metabolic Syndrome Response Code:: Patient communicates acknowledgment Sedentary Recommendations Recommendations Include:: Benefits of regular exercise and Monitored Outpatient Cardiac Rehab Response Code Sedentary Response Code:: Patient communicates acknowledgment Stress Recommendations Recommendations Include:: Identification of stressors, and assessment of coping skills and Stress management techniques Response Code Stress Response Code:: Patient communicates acknowledgment
--- NOTE | 2023-09-16 14:08 | DCINST_ITS ---
Discharge Instructions Diet Discharge Diet: No restrictions and 2000 Calorie Control Diet Activity Discharge Activity: Return to Normal Activity May resume sexual activity in: No Restrictions Dressing / Incision Call your doctor if your incision/area has: Continuous Slow Oozing, Sudden Increased Bleeding, Increased Pain/ Swelling, Increased Redness, Foul Smelling Discharge and Swelling at the incision site Call your doctor if you observe: Fever of 101 or Higher, Coldness, Increased Pain, Numbness or Tingling and Change in Color Follow Up Care Please Follow Up With: Elbert Rodriguez MD When: 1-2 weeks Test Results: Test results from this visit will be discussed in further detail at your follow- up appointment, if applicable. Discharge Plan Admission Admit Date/Time: 09/16/23 11:27 Attending Provider: Elbert Rodriguez Primary Care Provider: Loyd Armas Discharge Orders/Prescriptions Prescriptions: New aspirin 81 mg Tablet,Delayed Release (Dr/Ec) 81 mg PO DAILY@0800 Qty: 100 6RF Continued paroxetine HCl 30 mg tablet 30 mg PO DAILY hydrocodone-acetaminophen 5-325 mg tablet 1 tab PO BID PRN (Reason: pain) valsartan 320 mg tablet 320 mg PO DAILY Qty: 90 3RF amlodipine 5 mg tablet 5 mg PO DAILY Qty: 30 1RF glimepiride 2 mg tablet 2 mg PO DAILY Qty: 90 1RF potassium chloride 20 mEq tablet extended release 20 meq PO DAILY Qty: 90 1RF ezetimibe [Zetia] 10 mg tablet 10 mg PO DAILY Qty: 90 1RF clopidogrel 75 mg tablet 75 mg PO QHS Qty: 90 1RF pantoprazole 40 mg tablet,delayed release (DR/EC) 40 mg PO BID Qty: 180 1RF doxazosin [Cardura] 2 mg tablet 2 mg PO QHS Qty: 90 1RF Referrals / Follow Up: Loyd Armas MD [Primary Care Provider] - Disposition Disposition (needs filled in before D/C Order can be placed): Home, Self Care
--- NOTE | 2023-09-16 14:08 | PCM.PN.BLA ---
Progress Note Patient spontaneously converted to normal sinus rhythm. Denies any complaints. Resting comfortably in bed. Continue to monitor. Discharge home in the morning if remains stable.
[2023-09-16 18:36] LABS: ACT Activated Clotting Time 233 sec (74-137)
[2023-09-16 18:36] LABS: ACT Activated Clotting Time 185 sec (74-137)
[2023-09-16] MEDS: HYDROcodone Bitartrate/Apap 5/325 Tablet PO (19:21)
[2023-09-16] MEDS: Doxazosin 1 MG Tablet 2 MG PO (20:40)
[2023-09-16] MEDS: Pantoprazole Sodium 40 MG Tablet PO (20:41)
[2023-09-16] MEDS: Clopidogrel Bisulfate 75 MG Tablet PO (20:41)
[2023-09-17] VITALS (13 sets, daily range): BP systolic 104–156; BP diastolic 37–82; PULSE 57–112; RESP 13–22; TEMP 36.4–37; O2SAT 92–97; BMI 37.3
[2023-09-17] MEDS: HYDROcodone Bitartrate/Apap 5/325 Tablet PO (05:40)
[2023-09-17 06:08] LABS: ALB/GLOB Ratio 0.9 RATIO (0.9-2.4); AST(SGOT) 16 U/L (15-37); Alanine Aminotransfer ALT/SGPT 17 U/L (13-56); Albumin, Serum 3.2 g/dL (3.2-5.0); Alkaline Phosphatase 62 U/L (45-117); Anion Gap 6 (5-15); BUN 9 mg/dL (7-18); BUN/Creat Ratio 12.3 RATIO (10-20); Chloride 107 mmol/L (98-107); Creatinine, Serum 0.73 mg/dL (0.55-1.02); EST Glomerular Filtration Rate 82 mL/min (>60); Est Glom Filt Rate - Afr Amer 99 mL/min (>60); Estimated Creatinine Clearance 37.26 ml/min; Globulin 3.5 g/dL (2.2-4.2); Glucose 105 mg/dL (74-106); Protein, Total 6.7 g/dL (6.4-8.2); Sodium Level 141 mmol/L (136-145)
[2023-09-17] MEDS: PARoxetine 10 MG Tablet 30 MG PO (08:32)
[2023-09-17] MEDS: Glimepiride 2 MG Tablet PO (08:32)
[2023-09-17] MEDS: Ezetimibe 10 MG Tablet PO (08:32)
[2023-09-17] MEDS: Potassium Chloride Oral Tablet 20 MEQ PO (08:32)
[2023-09-17] MEDS: Pantoprazole Sodium 40 MG Tablet PO (08:33)
[2023-09-17] MEDS: Aspirin E.C. 81 MG Tablet PO (08:33)
[2023-09-17 09:04] LABS: Hematocrit 36.9 % (37-47); Mean Corp Hgb Conc 29.8 g/dL (32-36); Mean Corpuscular Hgb 24.4 pg (27.0-32.0); Mean Corpuscular Volume 81.8 fL (81-99); Mean Platelet Vol. 9.6 fl (6.2-12.0); Platelet Count 257 K/mm3 (150-450); RBC Distribution Width CV 15.5 % (11.6-14.6); RBC Distribution Width SD 45.9 fl (35.1-43.9); Red Blood Count 4.51 M/mm3 (4.2-5.4); White Blood Count 8.3 K/mm3 (4.4-11.0)
[2023-09-17] MEDS: Losartan Potassium 100 MG Tablet PO (09:17)
[2023-09-17] MEDS: amLODIPine 5 MG Tablet PO (09:17)
--- NOTE | 2023-09-17 10:00 | EKG12_ITS ---
Test Reason : AM EKG Blood Pressure : / mmHG Vent. Rate : 065 BPM Atrial Rate : 000 BPM P-R Int : 000 ms QRS Dur : 070 ms QT Int : 406 ms P-R-T Axes : 000 -23 150 degrees QTc Int : 422 ms Atrial fibrillation Nonspecific T wave abnormality Abnormal ECG When compared with ECG of 16-SEP-2023 11:06, MANUAL COMPARISON REQUIRED, DATA IS UNCONFIRMED Confirmed by KEVIN PAZ, OTTONIEL ([id number]), school photograph editor MERVIN CEBALLOS ([id number]) on 09/18/2023 9:26:02 AM Referred By: Elbert Rodriguez Confirmed By:OTTONIEL BROWN MD
== END 2023-09-17 13:45 | disposition home or self-care (01) ==
LOC: ICU 11:44
PROVIDERS: Admitting Provider Internal Medicine Cardiovascular Disease; PCP Internal Medicine; Referring Provider Internal Medicine Cardiovascular Disease; Visit Provider Internal Medicine Cardiovascular Disease
DX: I25.10 Atherosclerotic heart disease of native coronary artery without angina pectoris (principal); J44.9 Chronic obstructive pulmonary disease, unspecified; I11.0 Hypertensive heart disease with heart failure; I50.9 Heart failure, unspecified; E11.9 Type 2 diabetes mellitus without complications; R07.9 Chest pain, unspecified; Z79.899 Other long term (current) drug therapy; Z79.84 Long term (current) use of oral hypoglycemic drugs; Z79.02 Long term (current) use of antithrombotics/antiplatelets; K21.9 Gastro-esophageal reflux disease without esophagitis; M79.7 Fibromyalgia; E78.5 Hyperlipidemia, unspecified; Z87.891 Personal history of nicotine dependence; R94.39 Abnormal result of other cardiovascular function study
CPT/HCPCS: 36415; 71046; 80048; 80053; 85025; 85027; 85347; 92928; 93005; 93454; 96360; 96361; 99152; 99153; 99221; C1874; J7030; J7040; Q9967; C1725; C1769; C1887; C1894; C9600; G0378; J2405

== ENCOUNTER → 2023-12-02 | Outpatient (CLI) | payer MEDICARE, SELFPAY ==
[2023-12-02 16:53] LABS: ALB/GLOB Ratio 0.9 RATIO (0.9-2.4); AST(SGOT) 15 U/L (15-37); Alanine Aminotransfer ALT/SGPT 17 U/L (13-56); Albumin, Serum 3.3 g/dL (3.2-5.0); Alkaline Phosphatase 69 U/L (45-117); Anion Gap 6 (5-15); BUN 14 mg/dL (7-18); BUN/Creat Ratio 16.9 RATIO (10-20); Calcium,Total 8.6 mg/dL (8.5-10.1); Chloride 109 mmol/L (98-107); Cholesterol 154 mg/dL (200); Creatinine, Serum 0.83 mg/dL (0.55-1.02); EST Glomerular Filtration Rate 71 mL/min (>60); Est Glom Filt Rate - Afr Amer 86 mL/min (>60); Globulin 3.6 g/dL (2.2-4.2); Glucose 121 mg/dL (74-106); High Density Lipoprotein 44 mg/dL; Protein, Total 6.9 g/dL (6.4-8.2); Sodium Level 141 mmol/L (136-145); Triglycerides 154 mg/dL; Very Low Density Lipoprotein 31 mg/dL (5-40)
== END | disposition home or self-care (01) ==
LOC: LAB 14:28
PROVIDERS: PCP Internal Medicine; Referring Provider Internal Medicine Cardiovascular Disease; Visit Provider Internal Medicine Cardiovascular Disease
DX: I10 Essential (primary) hypertension (principal); I27.29 Other secondary pulmonary hypertension; E78.5 Hyperlipidemia, unspecified; I25.10 Atherosclerotic heart disease of native coronary artery without angina pectoris; Z86.79 Personal history of other diseases of the circulatory system; R06.09 Other forms of dyspnea
CPT/HCPCS: 36415; 80053; 80061

== ENCOUNTER → 2023-12-15 | Outpatient (CLI) | payer MEDICARE, SELFPAY ==
--- NOTE | 2023-12-15 10:36 | CDU_ITS ---
Reason For Study: Carotid bruit Rt. Velocities/BP Lt. Velocities/BP Prox CCA 68.3/13.5 cm/sec. Prox CCA 76.8/11.6 cm/sec. Mid CCA 70.2/12.6 cm/sec. Mid CCA 78.7/12.6 cm/sec. Dist CCA 68.3/12.6 cm/sec. Dist CCA 72.1/14.5 cm/sec. Prox ICA 71.6/15.1 cm/sec. Prox ICA 74/16.3 cm/sec. Mid ICA 79/23.7 cm/sec. Mid ICA 73.7/17.7 cm/sec. Dist ICA 100/22.6 cm/sec. Dist ICA 92.5/20 cm/sec. Rt. ICA/CCA = 1.46. Lt. ICA/CCA = 1.20. Prox ECA 118.2/6.5 cm/sec. Prox ECA 108.4/7.7 cm/sec. Rt. Vert. 77.7/15.1 cm/sec. Lt. Vert. 57/7.8 cm/sec. Right Extracranial There is homogeneous, smooth atherosclerotic plaque noted in the right common carotid artery. There is homogeneous, smooth atherosclerotic plaque noted in the right internal carotid artery. The right internal carotid artery is very tortuous. There is intimal thickening but no significant atherosclerotic plaque noted in the right external carotid artery. Antegrade flow is noted in the right vertebral artery. Left Extracranial There is homogeneous, smooth atherosclerotic plaque noted in the left common carotid artery. There is heterogeneous, irregular atherosclerotic plaque noted in the left internal carotid artery. There is intimal thickening but no significant atherosclerotic plaque noted in the left external carotid artery. Antegrade flow is noted in the left vertebral artery. Procedure This is a Carotid Duplex examination using B-mode, color flow and specral Doppler. Carotid Duplex [id number]. Exam performed in department. VL/Carotid Duplex Ultrasound Interpretation Summary Mild (<50%) stenosis right extracranial internal carotid. Mild (<50%) stenosis left extracranial internal carotid. Patent and antegrade vertebrals bilaterally. Ordering Physician: Elbert Rodriguez Referring Physician: Loyd Armas Performed By: Krista Wan RVT
--- OUTSIDE RECORDS SUMMARY | 2023-12-15 11:59 | XMS RPT_ITS | CCD ---
Author Name Unknown Address [address] [facility] [address] [place] [address] Organization [facility] Care Team Providers Care Collection Support Specialist Name Role Phone Queden SHREDDING SPECIALIST.Chandni PERRY Primary Care Provider QUEDAYNE, CHANDNI A Attending Unavailable QUEDEN, CHANDNI A Referring Unavailable QUEDEN, CHANDNI A Primary Care Unavailable QUEDEN, CHANDNI A Referring Unavailable QUEDEN, CHANDNI A Primary Care Unavailable Loyd Armas MD Primary Care Provider Queden SHREDDING SPECIALIST.Chandni PERRY Primary Care Provider Quedayne SHREDDING SPECIALIST.Chandni PERRY Primary Care Provider LOYD ARMAS Primary Care Unavailable JARRET VYAS Attending Unavailable QUEDEN, CHANDNI A Primary Care Unavailable AJRRET VYAS Attending Unavailable QUEDEN, CHANDNI A Primary Care Unavailable Allergies Allergy Classification Reported Allergen(s) Allergy Type Date of Onset Reaction(s) Facility (17 sources) amLODIPine; Translations: [AMLODIPINE] Drug Allergy 04-18-2015 Swelling [facility] Work Phone: (17 sources) Amoxicillin; Translations: [AMOXICILLIN] Drug Allergy 02-24-2015 Itching [facility] Work Phone: (17 sources) atorvastatin; Translations: [ATORVASTATIN CALCIUM] Drug Allergy 01-30-2007 Hives [facility] Work Phone: (17 sources) Cephalexin; Translations: [CEPHALEXIN] Drug Allergy 02-28-2015 GI Upset, Itching [facility] Work Phone: (17 sources) Doxycycline; Translations: [DOXYCYCLINE] Drug Allergy 02-24-2015 Rash [facility] Work Phone: (8 sources) fluticasone / vilanterol; Translations: [FLUTICASONE FUROATE-VILANTER OL] Drug Allergy 03-25-2017 Other: See Comments [facility] (17 sources) Furosemide; Translations: [FUROSEMIDE] Drug Allergy 12-28-2014 Itching, Other: See Comments [facility] Work Phone: (17 sources) moxifloxacin; Translations: [MOXIFLOXACIN HCL] Drug Allergy 03-29-2010 Vomiting [facility] Work Phone: (17 sources) Simvastatin; Translations: [SIMVASTATIN] Drug Allergy 01-30-2007 [facility] Work Phone: [phone] (17 sources) Sucralfate; Translations: [SUCRALFATE] Drug Allergy 01-30-2007 Diarrhea [facility] Work Phone: (17 sources) Valproate; Translations: [DIVALPROEX SODIUM] Drug Allergy 03-29-2010 [facility] Work Phone: (9 sources) fluticasone / vilanterol Drug Allergy 03-25-2017 Other: See Comments [facility] Medications Current Medications Medication Drug Class(es) Dates Sig (Normalized) Sig (Original) benoxinate hydrochloride 4 mg/ml / fluorescein sodium 2.5 mg/ml ophthalmic solution (1 source) Diagnostic Dye Start: 03-19-2022 End: 03-20-2022 fluorescein-benoxin ate 0.25-0.4 % 1 Drop (FLURESS) phenylephrine hydrochloride 25 mg/ml ophthalmic solution (2 sources) alpha-1 Adrenergic Agonist Start: 08-28-2022 End: 08-28-2022 PHENYLephrine 2.5 % 1 Drop (AK-DILATE, LEXY-SYNEPHRINE) Completed/Discontinued Medications Medication Drug Class(es) Dates Sig (Normalized) Sig (Original) albuterol 0.83 mg/ml inhalation solution (15 sources) beta2-Adrenergic Agonist Start: 06-09-2017 take 2.5 mg by inhalation every six hours as needed albuterol (PROVENTIL) 2.5 mg /3 mL (0.083 %) nebulizer solution Use 3 mL via nebulizer four times daily as needed for Wheezing/Shortnes s of Breath (DX: J45.40). Inhale by nebulizer over 5-15 minutes 1 Package 3 06/09/2017 Active Problems Active Problems Problem Classification Problem Date Documented Da te Episodic/Chronic Anxiety disorders (16 sources) Mixed anxiety and depressive disorder; Translations: [Anxiety disorder, unspecified] Onset: 3 06-10-2013 Chronic Asthma (16 sources) Asthma; Translations: [Unspecified asthma, uncomplicated] Onset: 1 10-15-2021 Chronic Cataract (2 sources) Pseudophakia; Translations: [Presence of intraocular lens] Chronic Coronary atherosclerosis and other heart disease (16 sources) Coronary arteriosclerosis; Translations: [Atherosclerotic heart disease of [place] coronary artery without angina pectoris] Onset: 5 10-15-2021 Chronic Diabetes mellitus without complication (18 sources) Type 2 diabetes mellitus; Translations: [Type 2 diabetes mellitus without complications] Onset: 3 12-18-2012 Chronic Disorders of lipid metabolism (16 sources) Hyperlipidemia; Translations: [Hyperlipidemia, unspecified] Onset: 5 08-11-2015 Chronic Esophageal disorders (20 sources) Gastroesophageal reflux disease; Translations: [Gastro-esophageal reflux disease without esophagitis] 01-21-2007 Chronic Essential hypertension (17 sources) Hypertensive disorder; Translations: [Essential (primary) hypertension] Onset: 3 12-18-2012 Chronic Mood disorders (1 source) Mood disorders; Translations: [Anxiety and depression] Onset: 3 Osteoarthritis (15 sources) Osteoarthritis of left knee joint; Translations: [Unilateral primary osteoarthritis, left knee] 10-15-2021 Chronic Other connective tissue disease (15 sources) History of total knee arthroplasty; Translations: [Presence of unspecified artificial knee joint] Onset: 6 05-23-2016 Chronic Other connective tissue disease (15 sources) Muscle pain; Translations: [Myalgia and myositis, unspecified] 03-29-2010 Episodic Other eye disorders (2 sources) Esotropia of left eye; Translations: [Unspecified esotropia] Episodic Other eye disorders (1 source) Tear film insufficiency; Translations: [Dry eye syndrome of bilateral lacrimal glands] Episodic Other gastrointestinal disorders (15 sources) Irritable bowel syndrome; Translations: [Irritable bowel syndrome without diarrhea] 03-29-2010 Chronic Other gastrointestinal disorders (1 source) Irritable bowel syndrome with diarrhea; Translations: [Irritable bowel syndrome with diarrhea] Onset: 0 Chronic Other nervous system disorders (1 source) Chronic pain syndrome; Translations: [Chronic pain syndrome] Onset: 2 Chronic Other nervous system disorders (1 source) Difficulty in walking, not elsewhere classified; Translations: [Difficulty walking] Onset: 2 Chronic Other nutritional; endocrine; and metabolic disorders (15 sources) Body mass index 30+ - obesity; Translations: [Obesity, unspecified] 05-25-2016 Chronic Kimberly-; endo-; and myocarditis; cardiomyopathy (except that caused by tuberculosis or sexually transmitted disease) (15 sources) Heart valve disorder; Translations: [Endocarditis, valve unspecified] Onset: 5 04-04-2015 Chronic Retinal detachments; defects; vascular occlusion; and retinopathy (1 source) Epiretinal membrane of right eye; Translations: [Puckering of macula, right eye] Chronic Unclassified (1 source) PT Eval Onset: 2 Past or Other Problems Problem Classification Problem Date Documented Date Episodic/Chronic Administrative/social admission (1 source) Other reduced mobility; Translations: [Impaired mobility and endurance] Onset: 01-02-2022 Episodic Complication of device; implant or graft (15 sources) Pain due to knee joint prosthesis; Translations: [Pain due to internal orthopedic prosthetic devices, implants and grafts, initial encounter] Onset: 09-03-2016 09-03-2016 Episodic Other connective tissue disease (2 sources) Other symptoms and signs involving the musculoskeletal system; Translations: [Bilateral leg weakness] Onset: 12-04-2021 Episodic Other non-traumatic joint disorders (15 sources) Pain in left knee; Translations: [Pain in joint, lower leg] Onset: 05-23-2016 05-23-2016 Episodic Residual codes; unclassified (15 sources) Insomnia; Translations: [Insomnia, unspecified] Onset: 04-04-2015 10-15-2021 Episodic Results Test Name Value Interpretation Reference Range Facil ity Encounters Encounter Date Encounter Type Care Provider Facility Start: 01-16-2023 Refill Ulices Faggiol i [facility] Work Phone: [facility] Procedures Date Procedure Procedure Detail Performing Clinician Start: 08-28-2022 Computerized ophthal enrrique imaging retina Jarret Vyas MD Work Phone: Start: 12-26-2009 Colonoscopy Chandni Herrera sriram GRAVESSALES COMPENSATION ANALYST Work Phone: Plan of Treatment Date Care Activity Detail Author Start: 08-28-2023 Hepatitis C antibody , confirmatory test DILATED RETINAL EXAM [facility] Start: 04-03-2023 Hepatitis B surface antibody level LDL CHOLESTEROL [facility] Start: 03-19-2023 Hepatitis C antibody , confirmatory test DILATED RETINAL EXAM [facility] Start: 02-12-2023 BP CONTROLLED (<130/80) BP CONTROLLE D (<130/80) [facility] Start: 12-04-2022 ANNUAL PCP TEAM TIMBER FALLER ELLEN DISEASE VISIT ANNUAL PCP TEAM CHRONIC DISEASE VISIT [facility] Start: 10-20-2022 ADVANCE DIRECTIVE DISCUSSION ADVANCE DIRECTIVE DISCUSSION [facility] Start: 10-03-2022 Hemoglobin A1c/Hemoglobin.total in Blood HBA1C [facility] Start: 06-20-2022 Influenza vaccination [facility] Start: 01-05-2022 COVID-19 VACCINE (4 - Booster) COVID-19 VACCINE (4 - Booster) [facility] Start: 11-02-2021 COVID-19 VACCINE (4 - Booster) COVID-19 VACCINE (4 - Booster) [facility] Start: 10-20-2021 ADVANCE DIRECTIVE DISCUSSION ADVANCE DIRECTIVE DISCUSSION [facility] Start: 12-27-2019 Colonoscopy COLONOSCOPY [facility] Start: 12-27-2019 COLORECTAL CANCER SCREENING COLORECTAL CANCER SCREENING [facility] Start: 01-06-2018 Hepatitis C antibody , confirmatory test DILATED RETINAL EXAM [facility] Start: 12-16-2017 3 comp foot exam completed DIABETIC FOOT EXAM [facility] Start: 12-12-2017 Hepatitis B surface antibody level LDL CHOLESTEROL [facility] Start: 07-29-2017 Hepatitis B screening URINE AL BUMIN:CREATININE RATIO [facility] Start: 06-11-2017 Hemoglobin A1c/Hemoglobin.total in Blood HBA1C [facility] Start: 1996 SHINGRIX VACCINE (1 of 2) SHINGRIX V ACCINE (1 of 2) [facility] Start: 1991 COLOGUARD (FIT-DNA) COLOGUARD (FIT-D NA) [facility] Start: [address] COLONOGRAPHY [facility] Start: 1991 FECAL OCCULT BLOOD FECAL OCCULT BLOO D [facility] Start: 1991 SIGMOIDOSCOPY SIGMOIDOSCOPY [facility] Start: 1965 Urine microalbumin profile DTAP,TDAP ,TD (1 - Tdap) [facility] Start: 1964 SPIROMETRY SPIROMETRY [facility] Immunizations Immunization Date Immunization Notes Care Provider Fa cility 09-07-2021 COVID-19 vaccine, ag e 12+ yr (PFIZER-BIONTECH - PURPLE TOP) Chandni Queden SHREDDING SPECIALIST.SALES COMPENSATION ANALYST Work Phone: [facility] 01-18-2021 COVID-19 vaccine, ag e 12+ yr (PFIZER-BIONTECH - PURPLE TOP) Chandni Queden SHREDDING SPECIALIST.SALES COMPENSATION ANALYST Work Phone: [facility] 12-20-2020 COVID-19 vaccine, fu ll dose (MODERNA) Chandni Queden SHREDDING SPECIALIST.SALES COMPENSATION ANALYST Work Phone: [facility] 07-18-2016 influenza, high dose seasonal, preservative-free Chandni Queden SHREDDING SPECIALIST.SALES COMPENSATION ANALYST Work Phone: [facility] 07-18-2016 pneumococcal polysaccharide vaccine, 23 valent Chandni Queden SHREDDING SPECIALIST.SALES COMPENSATION ANALYST Work Phone: [facility] 08-04-2015 influenza, high dose seasonal, preservative-free Chandni Queden SHREDDING SPECIALIST.SALES COMPENSATION ANALYST Work Phone: [facility] Work Phone: 04-04-2015 pneumococcal conjuga te vaccine, 13 valent Chandni Queden SHREDDING SPECIALIST.SALES COMPENSATION ANALYST Work Phone: [facility] 08-03-2014 influenza, seasonal, injectable Chandni Queden SHREDDING SPECIALIST.SALES COMPENSATION ANALYST Work Phone: [facility] 07-31-2013 influenza virus vacc ine, unspecified formulation Chandni Queden SHREDDING SPECIALIST.SALES COMPENSATION ANALYST Work Phone: [facility] 07-16-2011 influenza virus vacc ine, unspecified formulation Chandni Delgado SHREDDING SPECIALIST.SALES COMPENSATION ANALYST Work Phone: [facility] Work Phone: 10-21-1999 pneumococcal polysaccharide vaccine, 23 valent Chandni Delgado SHREDDING SPECIALIST.SALES COMPENSATION ANALYST Work Phone: [facility] Work Phone: Payers Date Payer Category Payer Unknown ANTHEM BLUE CROS S AND BLUE SHIELD ANTHEM MEDIBLUE O [id number] 2021-Present [phone] [id number] [id number] 2021 Unknown [id number] 2021 Unknown ANTHEM BLUE CROS S AND BLUE SHIELD ANTHEM MEDIBLUE O [id number] 2021-Present [phone] [address] [place] [id number] [facility] [id number] Social History Date Type Detail Facility Start: 08-23-[facility] End: 10-20-1987 History of tobacco use Current smoker [facility] Start: 02-12-2022 End: 08-28-2022 Alcohol intake Current non-drinker of alcohol (finding) [facility] Start: 1945 Sex Assigned At Not on file [facility] Start: 02-02-2022 End: 03-19-2022 Exposure to SARS-CoV-2 (event) Not sure [facility] End: 10-20-1987 History of tobacco use Cigarette Smoker [facility] Start: 08-23-2011 Cigarettes smoked cu rrent (pack per day) - Reported 3 [facility] Start: 08-23-2011 Tobacco use and exposure Smoke less tobacco non-user [facility] Clinical Notes 12-29-2014 to 01-16-2023 Telephone Encounter - Heather Lorenz MA - 01/16/2023 2:41 PM EDTTelephone Encounter - Heather Lorenz MA - 01/16/2023 2:41 PM EDTTelephone Encounter - Ulices Rizvi RPh - 01/16/2023 12:29 PM EDT Note Date & Type Note Facility 01-16-2023 Miscellaneous Notes Tried to call patient, no answer and voicemail full. Heather Lorenz MA Images from the original note were not included. Chandni Dlegado APRN.[facility] Clinical Pool 1 hour ago (12:55 PM) Patient needs an appointment. Tata Ball is identified through a medication adherence outreach initiative based on pharmacy claims data from [employer] (insurer) for LAVINIA medication(s). Patient is reviewed 01/15/23 due to medication adherence concerns with the following medications (name, strength, sig): valsartan 160 mg tablets - 1 tablet by mouth once daily. Patient is out of refills. Patient's medications were transferred to different pharmacy and no refills left when transferred. Pended order for provider review. Of note, patient is using different pharmacy called [facility]. Ulices Rizvi, PharmD, [facility] Primary Care Director Public documented in this encounter [facility] 01-15-2023 Note HNO ID: [id number] Author: Leilani Diaz Service: ? Author Type: ? Type: Progress Notes Filed: 01/15/2023 3:57 PM Note Text: ---- Attestation signed by Ulices Rizvi RPh at 01/20/2023 11:48 AM Approving student documentation and outreach below. Refill request sent to PCP. Ulices Rizvi RPh PharmD BCPS ---- Tata Ball is identified through a medication adherence outreach initiative based on pharmacy claims data from [employer] (insurer) for LAVINIA medication(s). Patient is reviewed 01/15/23 due to medication adherence concerns with the following medications (name, strength, sig): valsartan 160 mg tablets - 1 tablet by mouth once daily. Per call to pharmacy, last picked up date and days supply: 30 d/s picked up on 12/17/22. Patient is out of refills and will need more in the next day or two. Any need for new prescription (I.e. out of refills on most recent prescription) YES/NO/Active: yes Outcome of review/outreach: (choose outcome source and status) - Filled within 7 days of Next fill date per call to pharmacy Leilani Diaz PharmD Candidate 2022 [facility] 01-15-2023 Note Patient Outreach (PH POHE) ---- TATA BALL ([id number]) 1945 F Date Time Provider Department 01/15/23 ULICES RIZVI During your visit today, we recorded the following information about you: Leilani Diaz 01/15/2023 3:57 PM Attested ---- Attestation signed by Ulices Rizvi RPh at 01/20/2023 11:48 AM Approving student documentation and outreach below. Refill request sent to PCP. Ulices Rizvi RPh PharmD BCPS ---- Tatagabino Ball is identified through a medication adherence outreach initiative based on pharmacy claims data from [employer] (insurer) for LAVINIA medication(s). Patient is reviewed 01/15/23 due to medication adherence concerns with the following medications (name, strength, sig): valsartan 160 mg tablets - 1 tablet by mouth once daily. Per call to pharmacy, last picked up date and days supply: 30 d/s picked up on 12/17/22. Patient is out of refills and will need more in the next day or two. Any need for new prescription (I.e. out of refills on most recent prescription) YES/NO/Active: yes Outcome of review/outreach: (choose outcome source and status) - Filled within 7 days of Next fill date per call to pharmacy Leilani Diaz PharmD Candidate 2022 Allergies As of Date: 01/15/2023 Noted Allergy Reaction AMOXICILLIN 02/24/2015 9 - Itching AVELOX (MOXIFLOXACIN HCL) 03/29/2010 11 - Vomiting Comments: palpatations BREO ELLIPTA (FLUTICASONE FUROATE*03/25/2017 14 - Other: See Comments Comments: throat burning - hoarseness / raspy voice / worse cough. CARAFATE (SUCRALFATE) 01/30/2007 6 - Diarrhea DEPAKOTE ER (DIVALPROEX SODIUM) 03/29/2010 4 - Hives DOXYCYCLINE 02/24/2015 2 - Rash FUROSEMIDE 12/28/2014 9 - Itching 14 - Other: See Comments Comments: A few petechiae Patient also said got hives KEFLEX (CEPHALEXIN) 02/28/2015 8 - GI Upset 9 - Itching LIPITOR (ATORVASTATIN CALCIUM) 01/30/2007 4 - Hives NORVASC (AMLODIPINE) 04/18/2015 7 - Swelling Comments: swelling; resolved after stopped Norvasc ZOCOR (SIMVASTATIN) 01/30/2007 4 - Hives Date Reviewed: 08/28/2022 Reviewed by: Jarret Vyas MD - Fully Assessed Reason for Visit: Allied Health Visit [5] Cmt: Medication Adherence Outreach Prescriptions as of 01/20/2023 - pantoprazole DR (PROTONIX) 40 mg tablet TAKE 1 TABLET BY MOUTH TWICE A DAY BEFORE MEALS - PARoxetine (PAXIL) 20 mg tablet TAKE 1 TABLET BY MOUTH EVERY DAY - clopidogrel (PLAVIX) 75 mg tablet TAKE 1 TABLET BY MOUTH EVERY DAY - glimepiride (AMARYL) 2 mg tablet TAKE 2 TABLETS BY MOUTH DAILY WITH BREAKFAST. - valsartan (DIOVAN) 160 mg tablet Take 1 tablet by mouth once daily. - atenolol (TENORMIN) 25 mg tablet Take 1 tablet by mouth once daily. - doxazosin (CARDURA) 2 mg tablet Take 1 tablet by mouth daily at bedtime. - fluticasone-salmeterol (ADVAIR DISKUS) 100-50 mcg/dose inhaler Inhale 1 Puff as instructed twice daily. RINSE AND GARGLE MOUTH WITH WATER AFTER EACH USE. - potassium chloride ER (KLOR-CON M20) 20 mEq tablet Take 1 tablet by mouth twice daily. - albuterol (PROVENTIL) 2.5 mg /3 mL (0.083 %) nebulizer solution Use 3 mL via nebulizer four times daily as needed for Wheezing/Shortness of Breath (DX: J45.40). Inhale by nebulizer over 5-15 minutes - dicyclomine (BENTYL) 20 mg tablet Take 1 tablet by mouth twice daily as needed. - ondansetron (ZOFRAN) 4 mg tablet Take 1 tablet by mouth every 8 hours as needed. 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] Groin pain [R10.30] 08/23/2011 04/04/2015 Esophagitis, unspecified [K20.90] 02/05/2012 04/04/2015 DM type 2 (diabetes mellitus, type 2) [E11.9] HTN (hypertension) [I10] CHF (congestive heart failure) ([facility]) [I50.9] 04/04/2015 Hyperlipidemia [E78.5] Obesity (BMI 35.0-39.9 without comorbidity) [E6* Anxiety and depression [F41.9, F32.A] Left knee DJD [M17.12] Abdominal pain, unspecified site [R10.9] 12/29/2014 04/04/2015 CAD (coronary artery disease) [I25.10] 04/04/2015 Valvular heart disease [I38] 04/04/2015 Insomnia [G47.00] 04/04/2015 Asthma [J45.909] History of total knee arthroplasty [Z96.659] 05/23/2016 Chronic pain of left knee [M25.562, G89.29] 05/23/2016 Painful total knee replacement (HCC) [T84.84XA,*09/03/2016 Encounter Status:Closed by ULICES RIZVI on 01/20/23 [facility] 12-10-2022 Miscellaneous Notes Pharmacy requesting refills as follows: Last Office Visit 12/04/21. Last Refill 05/20/22. Needs apt Requested Prescriptions Pending Prescriptions Disp Refills valsartan (DIOVAN) 160 mg tablet [Pharmacy Med Name: VALSARTAN 160 MG TABLET] 30 tablet 2 Sig: TAKE 1 TABLET BY MOUTH EVERY DAY Please review and advise. Kathrin Zarate MA documented in this encounter [facility] 10-22-2022 Miscellaneous Notes Pharmacy requesting refills as follows: Last Office Visit 12/04/21. Last Refill 05/20/22. Requested Prescriptions Pending Prescriptions Disp Refills PARoxetine (PAXIL) 20 mg tablet [Pharmacy Med Name: PAROXETINE HCL 20 MG TABLET] 30 tablet 2 Sig: TAKE 1 TABLET BY MOUTH EVERY DAY Please review and advise. Kathrin Zarate MA documented in this encounter [facility] 09-23-2022 Miscellaneous Notes Pharmacy requesting refills as follows: Last Office Visit 12/04/21. Last Refill 05/20/22. Requested Prescriptions Pending Prescriptions Disp Refills clopidogrel (PLAVIX) 75 mg tablet [Pharmacy Med Name: CLOPIDOGREL 75 MG TABLET] 30 tablet 2 Sig: TAKE 1 TABLET BY MOUTH EVERY DAY Please review and advise. Kathrin Zarate MA documented in this encounter [facility] 09-06-2022 Miscellaneous Notes Pharm requesting refills: Last office visit 12/04/2021. Last refill 02/22/2022 nov none Requested Prescriptions Pending Prescriptions Disp Refills glimepiride (AMARYL) 2 mg tablet [Pharmacy Med Name: GLIMEPIRIDE 2 MG TABLET] 90 tablet 3 Sig: TAKE 2 TABLETS BY MOUTH DAILY WITH BREAKFAST. Please review and advise. Tianna Cardenas MA documented in this encounter [facility] 08-28-2022 Note HNO ID: [id number] Author: Jarret Vyas MD Service: ? Author Type: Physician Type: Progress Notes Filed: 08/28/2022 10:23 AM Note Text: Assessment and Plan 1. Type 2 diabetes mellitus without retinopathy (HCC) -no diabetic retinopathy both eyes 2. Pseudophakia -stable both eyes -s/p YAG capsulotomy both eyes 3. Esotropia, left eye -long-standing. Has seen Dr. Hampton -with element of amblyopia both eyes? 4. Epiretinal membrane right eye -preserved foveal contour 5. Dry eye syndrome both eyes -contributing to fluctuating vision? Plan: -Continue blood sugar and blood pressure control -artificial tears twice a day both eyes -follow-up 4-6 months with dilated fundus exam and OCT macula both eyes / sooner as needed I have confirmed and edited as necessary the relevant ophthalmic history, ROS, and the neuro exam findings as obtained by others. I have seen and examined Tata Ball. I have discussed the case and the management of this patient's care with the Resident/Fellow, if applicable. I also have reviewed and agree with the assessment and plan as stated above and agree with all of its relevant components. Jarret Vyas MD [facility] 08-28-2022 Instructions Jarret Vyas MD - 08/28/2022 10:23 AM EST Images from the original note were not included. documented in this encounter [facility] 08-28-2022 History of Present illness Narrative Assessment and Plan 1. Type 2 diabetes mellitus without retinopathy (HCC) -no diabetic retinopathy both eyes 2. Pseudophakia -stable both eyes -s/p YAG capsulotomy both eyes 3. Esotropia, left eye -long-standing. Has seen Dr. Hampton -with element of amblyopia both eyes? 4. Epiretinal membrane right eye -preserved foveal contour 5. Dry eye syndrome both eyes -contributing to fluctuating vision? Plan: -Continue blood sugar and blood pressure control -artificial tears twice a day both eyes -follow-up 4-6 months with dilated fundus exam and OCT macula both eyes / sooner as needed I have confirmed and edited as necessary the relevant ophthalmic history, ROS, and the neuro exam findings as obtained by others. I have seen and examined Tata Ball. I have discussed the case and the management of this patient's care with the Resident/Fellow, if applicable. I also have reviewed and agree with the assessment and plan as stated above and agree with all of its relevant components. Jarret Vyas MD documented in this encounter [facility] 08-23-2022 Miscellaneous Notes Pharmacy requesting refills as follows: Last Office Visit 12/04/21. Last Refill 05/20/22. Requested Prescriptions Pending Prescriptions Disp Refills pantoprazole DR (PROTONIX) 40 mg tablet [Pharmacy Med Name: PANTOPRAZOLE SOD DR 40 MG TAB] 60 tablet 2 Sig: TAKE 1 TABLET BY MOUTH TWICE A DAY BEFORE MEALS Please review and advise. Kathrin Zarate MA documented in this encounter [facility] 07-29-2022 Miscellaneous Notes documented in this encounter [facility] 07-16-2022 Note HNO ID: [id number] Author: Mary Salomon PT Service: ? Author Type: Physical Therapist Type: Progress Notes Filed: 07/16/2022 1:27 PM Note Text: 07/16/2022 [facility] PHYSICAL THERAPY DISCONTINUANCE OF CARE Plan of Care Period: Start of Care Date: 12/25/21 Last Visit Date: 01/02/2022 Therapy Program: The following is a summary of the interventions provided for this episode of care; Therapeutic activities and Gait training Assessment: Based on most recent visit, patient was progressing slower than expected toward functional goals based on pain levels. Unable to formally assess goal achievement, as patient has not returned to therapy or scheduled additional follow-up appointments. Reason for Discontinuation of Care: Patient has not returned to therapy or scheduled additional follow-up appointments. Mary Salomon PT [facility] 05-20-2022 Miscellaneous Notes Pharmacy requesting refills as follows: Last Office Visit 12/04/21. Last Refill 02/22/22 for Paxil and 02/14/22 for the rest. Pending Prescriptions Disp Refills PANTOPRAZOLE 40 MG TABLET,DELAYED RELEASE 60 tablet 2 Sig: TAKE 1 TABLET BY MOUTH TWICE A DAY BEFORE MEALS AYAAN: Yes CLOPIDOGREL 75 MG TABLET 30 tablet 2 Sig: TAKE 1 TABLET BY MOUTH ONCE DAILY. (DR. THOMPSON) AYAAN: Yes PAROXETINE 20 MG TABLET 30 tablet 2 Sig: TAKE 1 TABLET BY MOUTH EVERY DAY AYAAN: Yes VALSARTAN 160 MG TABLET 30 tablet 2 Sig: Take 1 tablet by mouth once daily. AYAAN: No Please review and advise. Kathrin Zarate MA documented in this encounter [facility] 03-19-2022 Note HNO ID: [id number] Author: Jarret Vyas MD Service: ? Author Type: Physician Type: Progress Notes Filed: 03/19/2022 3:18 PM Note Text: Assessment and Plan 1. Type 2 diabetes mellitus without retinopathy (HCC) -no diabetic retinopathy both eyes 2. Pseudophakia -stable both eyes -s/p YAG capsulotomy both eyes 3. Esotropia, left eye -long-standing. Has seen Dr. Hampton Plan: -Continue blood sugar and blood pressure control -follow-up 1 year with dilated fundus exam both eyes / sooner as needed I have confirmed and edited as necessary the relevant ophthalmic history, ROS, and the neuro exam findings as obtained by others. I have seen and examined Tata Ball. I have discussed the case and the management of this patient's care with the Resident/Fellow, if applicable. I also have reviewed and agree with the assessment and plan as stated above and agree with all of its relevant components. Jarret Vyas MD March 19, 2022 3:15 PM [facility] 03-19-2022 History of Present illness Narrative Assessment and Plan 1. Type 2 diabetes mellitus without retinopathy (HCC) -no diabetic retinopathy both eyes 2. Pseudophakia -stable both eyes -s/p YAG capsulotomy both eyes 3. Esotropia, left eye -long-standing. Has seen Dr. Hampton Plan: -Continue blood sugar and blood pressure control -follow-up 1 year with dilated fundus exam both eyes / sooner as needed I have confirmed and edited as necessary the relevant ophthalmic history, ROS, and the neuro exam findings as obtained by others. I have seen and examined Tata Ball. I have discussed the case and the management of this patient's care with the Resident/Fellow, if applicable. I also have reviewed and agree with the assessment and plan as stated above and agree with all of its relevant components. Jarret Vyas MD March 19, 2022 3:15 PM documented in this encounter [facility] 02-22-2022 Miscellaneous Notes Faxed, placed in scanning. Tianna Cardenas MA Thank you, form is completed and signed. Reviewed her chart, okay to stop Plavix for procedure. Albertina Ceron APRN.[place] Received fax from [facility] requesting signature to stop plavix 7 days for procedure. Placed in red folder. Tianna Cardenas MA documented in this encounter [facility] 02-21-2022 Miscellaneous Notes Received a fax from [facility]. Placed on [email or web address] desk to review and sigh Digna White MA documented in this encounter [facility] 02-21-2022 Miscellaneous Notes Patient requesting refills as follows: Last Office Visit 12/04/21. Last Refill 03/28/2017. Pending Prescriptions Disp Refills ATENOLOL 25 MG TABLET 30 tablet 1 Sig: Take 1 tablet by mouth once daily. AYAAN: No DOXAZOSIN 2 MG TABLET 90 tablet 3 Sig: Take 1 tablet by mouth daily at bedtime. AYAAN: No GLIMEPIRIDE 2 MG TABLET 90 tablet 3 Sig: Take 2 tablets by mouth daily with breakfast. AYAAN: No PAROXETINE 20 MG TABLET 30 tablet 5 Sig: Take 1 tablet by mouth once daily. AYAAN: No Please review and advise. Digna White MA documented in this encounter [facility] 02-18-2022 Note HNO ID: [id number] Author: Heather Lorenz MA Service: ? Author Type: Manager Decision Support Type: Progress Notes Filed: 02/18/2022 3:13 PM Note Text: ED Follow Up: Patient discharged from [facility] ED on 02/12/22. 1. How are you feeling since your ED visit? States she is doing much better Have your symptoms improved or resolved? Yes 2. Were you prescribed any medications while in the ED or advised to stop any medication? Yes - If yes, were you able to fill your prescriptions? Yes -if stopped medication, what was the medication? n/a 3. Were you advised to schedule a follow up appointment with your provider? Yes - If no, Do you feel like you need an appointment scheduled? Not applicable - If yes, Do you need this scheduled now or has this already been scheduled? No and declines appointment at this time 4. Were you able to contact the office or flight control tower operator provider prior to your ED visit? Not applicable 5. Is there anything else I can do for you today? No Heather Lorenz MA [facility] 02-18-2022 History of Present illness Narrative ED Follow Up: Patient discharged from [facility] ED on 02/12/22. 1. How are you feeling since your ED visit? States she is doing much better Have your symptoms improved or resolved? Yes 2. Were you prescribed any medications while in the ED or advised to stop any medication? Yes - If yes, were you able to fill your prescriptions? Yes -if stopped medication, what was the medication? n/a 3. Were you advised to schedule a follow up appointment with your provider? Yes - If no, Do you feel like you need an appointment scheduled? Not applicable - If yes, Do you need this scheduled now or has this already been scheduled? No and declines appointment at this time 4. Were you able to contact the office or flight control tower operator provider prior to your ED visit? Not applicable 5. Is there anything else I can do for you today? No Heather Lorenz MA documented in this encounter [facility] 02-18-2022 Note Patient Outreach (AG FAMPLE) ---- TATA BALL ([id number]) 1945 F Date Time Provider Department 02/18/22 CHANDNI DELGADO During your visit today, we recorded the following information about you: Heather Lorenz MA 02/18/2022 3:13 PM Signed ED Follow Up: Patient discharged from [facility] ED on 02/12/22. 1. How are you feeling since your ED visit? States she is doing much better Have your symptoms improved or resolved? Yes 2. Were you prescribed any medications while in the ED or advised to stop any medication? Yes - If yes, were you able to fill your prescriptions? Yes -if stopped medication, what was the medication? n/a 3. Were you advised to schedule a follow up appointment with your provider? Yes - If no, Do you feel like you need an appointment scheduled? Not applicable - If yes, Do you need this scheduled now or has this already been scheduled? No and declines appointment at this time 4. Were you able to contact the office or flight control tower operator provider prior to your ED visit? Not applicable 5. Is there anything else I can do for you today? No Heather Lorenz MA Allergies As of Date: 02/18/2022 Noted Allergy Reaction AMOXICILLIN 02/24/2015 9 - Itching AVELOX (MOXIFLOXACIN HCL) 03/29/2010 11 - Vomiting Comments: palpatations BREO ELLIPTA (FLUTICASONE FUROATE*03/25/2017 14 - Other: See Comments Comments: throat burning - hoarseness / raspy voice / worse cough. 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 - clopidogrel (PLAVIX) 75 mg tablet Take 1 tablet by mouth once daily. (Dr. Thompson) - valsartan (DIOVAN) 160 mg tablet Take 1 tablet by mouth once daily. - fluticasone-salmeterol (ADVAIR DISKUS) 100-50 mcg/dose inhaler Inhale 1 Puff as instructed twice daily. RINSE AND GARGLE MOUTH WITH WATER AFTER EACH USE. - potassium chloride ER (KLOR-CON M20) 20 mEq tablet Take 1 tablet by mouth twice daily. - atenolol (TENORMIN) 25 mg tablet TAKE 1 TABLET BY MOUTH EVERY DAY - albuterol (PROVENTIL) 2.5 mg /3 mL (0.083 %) nebulizer solution Use 3 mL via nebulizer four times daily as needed for Wheezing/Shortness of Breath (DX: J45.40). Inhale by nebulizer over 5-15 minutes - dicyclomine (BENTYL) 20 mg tablet Take 1 tablet by mouth twice daily as needed. - PARoxetine (PAXIL) 20 mg tablet TAKE ONE TABLET BY MOUTH EVERY DAY - ondansetron (ZOFRAN) 4 mg tablet Take 1 tablet by mouth every 8 hours as needed. - doxazosin (CARDURA) 2 mg tablet Take 1 tablet by mouth daily at bedtime. - glimepiride (AMARYL) 2 mg tablet Take 1 tablet by mouth daily with breakfast. Problem List As Of Date 02/18/2022 Noted Resolved ESOPHAGEAL REFLUX [K21.9] Diarrhea [R19.7] 02/26/2007 04/04/2015 Hemorrhage of gastrointestinal tract, unspecifi*02/26/2007 04/04/2015 IBS (Irritable Bowel Syndrome) [K58.9] Heartburn [R12] 04/04/2015 Unspecified Myalgia and Myositis [DMJ4592] Hammer's Esophagus [K22.70] Groin pain [R10.30] 08/23/2011 04/04/2015 Esophagitis, unspecified [K20.90] 02/05/2012 04/04/2015 DM type 2 (diabetes mellitus, type 2) [E11.9] HTN (hypertension) [I10] CHF (congestive heart failure) (HCC) [I50.9] 04/04/2015 Hyperlipidemia [E78.5] Obesity (BMI 35.0-39.9 without comorbidity) [E6* Anxiety and depression [F41.9, F32.A] Left knee DJD [M17.12] Abdominal pain, unspecified site [R10.9] 12/29/2014 04/04/2015 CAD (coronary artery disease) [I25.10] 04/04/2015 Valvular heart disease [I38] 04/04/2015 Insomnia [G47.00] 04/04/2015 Asthma [J45.909] History of total knee arthroplasty [Z96.659] 05/23/2016 Chronic pain of left knee [M25.562, G89.29] 05/23/2016 Painful total knee replacement (HCC) [T84.84XA,*09/03/2016 Encounter Status:Closed by HEATHER LORENZ on 02/18/22 [facility] 02-14-2022 Miscellaneous Notes Patient spelled medication names when requesting refills. Spoke with patient and she checked her pill bottles and states she does not have a bottle that says losartan or cozaar and does not think she is taking that. Heather Lorenz MA Please check with patient if she is taking the Valsartan and Losartan. They are duplicate medications and she should only be taking one. Thank you. Patient phones requesting refills as follows: Last seen 12/04/21 . Last refill previous pcp . Pending Prescriptions Disp Refills PANTOPRAZOLE 40 MG TABLET,DELAYED RELEASE 60 tablet 2 Sig: Take 1 tablet by mouth twice daily before meals. AYAAN: No CLOPIDOGREL 75 MG TABLET 30 tablet 2 Sig: Take 1 tablet by mouth once daily. (Dr. Thompson) AYAAN: No VALSARTAN 160 MG TABLET 30 tablet 2 Sig: Take 1 tablet by mouth once daily. AYAAN: No Please review and advise. Heather Lorenz MA documented in this encounter [facility] 02-12-2022 Note HNO ID: [id number] Author: Matt Ríos APRN.[place] Service: ? Author Type: Nurse Practitioner Type: Progress Notes Filed: 02/12/2022 1:05 PM Note Text: Subjective HPI Nontoxic-appearing female presents urgent care chief complaint right elbow pain. Duration of symptoms upon arising. Associated symptoms swelling redness warmth and pain. Patient rates pain 9 out of 10. Describes pain as deep and elbow. Is unable to straighten elbow. Denies any known injury. Denies history of similar symptoms. States overall she feels unwell. Denies any fevers. Past medical history prescription medication use allergies reviewed. .Patient presents with: Pain: (RT) elbow pain, swelling, warmth, onset AM Follow Up: Pt reported increased SOB, denied chest pain Headache: Pain rated 9, onset AM PAST MEDICAL HISTORY Diagnosis Date - Acute gastritis without mention of hemorrhage - Acute gastritis without mention of hemorrhage - Anxiety and depression - Asthma Dr. Morgan - Hammer's esophagus Dr. Bowman and Dr. Mancilla have seen her - Bipolar disorder, unspecified ([facility]) - CHF (congestive heart failure) ([facility]) Dr. Thompson - COPD (chronic obstructive pulmonary disease) ([facility]) Dr. Montez - Coronary atherosclerosis of unspecified type of vessel, [place] or graft - Diarrhea - DM type 2 (diabetes mellitus, type 2) ([facility]) - Esophageal reflux - Esophagitis, unspecified - Heartburn - Hemorrhage of gastrointestinal tract, unspecified - IBS (irritable bowel syndrome) - Internal hemorrhoids without mention of complication - Left knee DJD medial compartment narrowing--XRay 06/2014 - Migraine - Mitral valve disorders(424.0) - Myalgia and myositis, unspecified - Obesity - YOVANA (obstructive sleep apnea) Dr. Montez; will be starting on CPAP - Other and unspecified hyperlipidemia - PMH - PAST MEDICAL HISTORY OF aortic sclerosis - PMH - PAST MEDICAL HISTORY OF chest pain non cardiact - Postsurgical percutaneous transluminal coronary angioplasty status - Snoring - Unspecified essential hypertension PAST SURGICAL HISTORY Procedure Laterality Date - CHOLECYSTECTOMY Cholecystectomy - COLONOSCOPY FLX DX W/COLLJ SPEC WHEN PFRMD 12-26-09 [facility] inpt - COLONOSCOPY W/BIOPSY SINGLE/MULTIPLE 02/26/07 - EGD TRANSORAL BIOPSY SINGLE/MULTIPLE 02/26/07 - EGD TRANSORAL BIOPSY SINGLE/MULTIPLE 02/05/2012 - ESOPHAGOGASTRODUODENOSCOPY TRANSORAL DIAGNOSTIC 08/11/13 EGD - HEART SURGERY HX - PAST SURGICAL HISTORY OF subtotal hysterectomy--1 ovary left (not sure which side) - PAST SURGICAL HISTORY OF bilateral foot surgery - PAST SURGICAL HISTORY OF carpal tunnel ALLERGIES Amoxicillin, Avelox [Moxifloxacin Hcl], Breo Ellipta [Fluticasone Furoate-Vilanterol], Carafate [Sucralfate], Depakote Er [Divalproex Sodium], Doxycycline, Furosemide, Keflex [Cephalexin], Lipitor [Atorvastatin Calcium], Norvasc [Amlodipine], and Zocor [Simvastatin] MEDICATIONS fluticasone-salmeterol (ADVAIR DISKUS) 100-50 mcg/dose inhaler Inhale 1 Puff as instructed twice daily. RINSE AND GARGLE MOUTH WITH WATER AFTER EACH USE. potassium chloride ER (KLOR-CON M20) 20 mEq tablet Take 1 tablet by mouth twice daily. atenolol (TENORMIN) 25 mg tablet TAKE 1 TABLET BY MOUTH EVERY DAY losartan (COZAAR) 100 mg tablet TAKE 1 TABLET BY MOUTH EVERY DAY albuterol (PROVENTIL) 2.5 mg /3 mL (0.083 %) nebulizer solution Use 3 mL via nebulizer four times daily as needed for Wheezing/Shortness of Breath (DX: J45.40). Inhale by nebulizer over 5-15 minutes dicyclomine (BENTYL) 20 mg tablet Take 1 tablet by mouth twice daily as needed. pantoprazole DR (PROTONIX) 40 mg tablet Take 1 tablet by mouth twice daily before meals. PARoxetine (PAXIL) 20 mg tablet TAKE ONE TABLET BY MOUTH EVERY DAY ondansetron (ZOFRAN) 4 mg tablet Take 1 tablet by mouth every 8 hours as needed. doxazosin (CARDURA) 2 mg tablet Take 1 tablet by mouth daily at bedtime. glimepiride (AMARYL) 2 mg tablet Take 1 tablet by mouth daily with breakfast. clopidogrel (PLAVIX) 75 mg tablet Take 1 tablet by mouth once daily. (Dr. Thompson) FAMILY HISTORY Problem Relation Age of Onset - Cancer Mother lung - Cancer Father lung - other (CHF [Other]) Brother - other (CHF [Other]) Sister - Heart Mother - Heart Father Social History Tobacco Use - Smoking status: Former Smoker Packs/day: 3.00 Years: 30.00 Pack years: 90.00 Quit date: 10/20/1987 Years since quittin.3 - Smokeless tobacco: Never Used Substance Use Topics - Alcohol use: No - Drug use: No BP 114/60 Pulse 72 Temp 36.2 ?C (97.2 ?F) Resp 18 SpO2 97% Review of Systems Constitutional: Negative for chills, fever and malaise/fatigue. HENT: Negative for congestion, ear discharge, ear pain, sinus pain and sore throat. Eyes: Negative for blurred vision, pain, discharge and redness. Respiratory: Negative for cough, hemoptysis, sputum production, shortness of br (more content not included)... [facility] documented as of this encounter (statuses as of 02/14/2022) [facility] History of Past illness Narrative* Problem Noted Date Resolved Date Abdominal pain, unspecified site 12/29/2014 04/04/2015 Esophagitis, unspecified 02/05/2012 015 Groin pain 08/23/2011 04/04/2015 Diarrhea 02/26/2007 04/04/2015 Hemorrhage of gastrointestinal tract, unspecifie d 02/26/2007 04/04/2015 Heartburn 04/04/2015 CHF (congestive heart failure) 0 04/04/2015 documented as of this encounter (statuses as of 02/18/2022) [facility] of Past illness Narrative* Problem Noted Date Resolved Date Abdominal pain, unspecified site 12/29/2014 04/04/2015 Esophagitis, unspecified 02/05/2012 015 Groin pain 08/23/2011 04/04/2015 Diarrhea 02/26/2007 04/04/2015 Hemorrhage of gastrointestinal tract, unspecifie d 02/26/2007 04/04/2015 Heartburn 04/04/2015 CHF (congestive heart failure) 0 04/04/2015 documented as of this encounter (statuses as of 02/22/2022) [facility] of [facility] illness Narrative* Problem Noted Date Resolved Date Abdominal pain, unspecified site 12/29/2014 04/04/2015 Esophagitis, unspecified 02/05/2012 015 Groin pain 08/23/2011 04/04/2015 Diarrhea 02/26/2007 04/04/2015 Hemorrhage of gastrointestinal tract, unspecifie d 02/26/2007 04/04/2015 Heartburn 04/04/2015 CHF (congestive heart failure) 0 04/04/2015 documented as of this encounter (statuses as of 02/22/2022) [facility] of [facility] illness Narrative* Problem Noted Date Resolved Date Abdominal pain, unspecified site 12/29/2014 04/04/2015 Esophagitis, unspecified 02/05/2012 015 Groin pain 08/23/2011 04/04/2015 Diarrhea 02/26/2007 04/04/2015 Hemorrhage of gastrointestinal tract, unspecifie d 02/26/2007 04/04/2015 Heartburn 04/04/2015 CHF (congestive heart failure) 0 04/04/2015 documented as of this encounter (statuses as of 03/19/2022) [facility] of [facility] Narrative* Problem Noted Date Resolved Date Abdominal pain, unspecified site 12/29/2014 04/04/2015 Esophagitis, unspecified 02/05/2012 015 Groin pain 08/23/2011 04/04/2015 Diarrhea 02/26/2007 04/04/2015 Hemorrhage of gastrointestinal tract, unspecifie d 02/26/2007 04/04/2015 Heartburn 04/04/2015 CHF (congestive heart failure) 0 04/04/2015 documented as of this encounter (statuses as of 05/20/2022) [facility] of [facility] Narrative* Problem Noted Date Resolved Date Abdominal pain, unspecified site 12/29/2014 04/04/2015 Esophagitis, unspecified 02/05/2012 015 Groin pain 08/23/2011 04/04/2015 Diarrhea 02/26/2007 04/04/2015 Hemorrhage of gastrointestinal tract, unspecifie d 02/26/2007 04/04/2015 Heartburn 04/04/2015 CHF (congestive heart failure) 0 04/04/2015 documented as of this encounter (statuses as of 07/29/2022) [facility] Narrative* Problem Noted Date Resolved Date Abdominal pain, unspecified site 12/29/2014 04/04/2015 Esophagitis, unspecified 02/05/2012 015 Groin pain 08/23/2011 04/04/2015 Diarrhea 02/26/2007 04/04/2015 Hemorrhage of gastrointestinal tract, unspecifie d 02/26/2007 04/04/2015 Heartburn 04/04/2015 CHF (congestive heart failure) 0 04/04/2015 documented as of this encounter (statuses as of 08/23/2022) [facility] Narrative* Problem Noted Date Resolved Date Abdominal pain, unspecified site 12/29/2014 04/04/2015 Esophagitis, unspecified 02/05/2012 015 Groin pain 08/23/2011 04/04/2015 Diarrhea 02/26/2007 04/04/2015 Hemorrhage of gastrointestinal tract, unspecifie d 02/26/2007 04/04/2015 Heartburn 04/04/2015 CHF (congestive heart failure) 0 04/04/2015 documented as of this encounter (statuses as of 08/28/2022) [facility] Narrative* Problem Noted Date Resolved Date Abdominal pain, unspecified site 12/29/2014 04/04/2015 Esophagitis, unspecified 02/05/2012 015 Groin pain 08/23/2011 04/04/2015 Diarrhea 02/26/2007 04/04/2015 Hemorrhage of gastrointestinal tract, unspecifie d 02/26/2007 04/04/2015 Heartburn 04/04/2015 CHF (congestive heart failure) 0 04/04/2015 documented as of this encounter (statuses as of 09/06/2022) [facility] Narrative* Problem Noted Date Resolved Date Abdominal pain, unspecified site 12/29/2014 04/04/2015 Esophagitis, unspecified 02/05/2012 015 Groin pain 08/23/2011 04/04/2015 Diarrhea 02/26/2007 04/04/2015 Hemorrhage of gastrointestinal tract, unspecifie d 02/26/2007 04/04/2015 Heartburn 04/04/2015 CHF (congestive heart failure) 0 04/04/2015 documented as of this encounter (statuses as of 09/23/2022) [facility] N[facility]ative* Problem Noted Date Resolved Date Abdominal pain, unspecified site 12/29/2014 04/04/2015 Esophagitis, unspecified 02/05/2012 015 Groin pain 08/23/2011 04/04/2015 Diarrhea 02/26/2007 04/04/2015 Hemorrhage of gastrointestinal tract, unspecifie d 02/26/2007 04/04/2015 Heartburn 04/04/2015 CHF (congestive heart failure) 0 04/04/2015 documented as of this encounter (statuses as of 10/24/2022) [facility] Narrative* Problem Noted Date Resolved Date Abdominal pain, unspecified site 12/29/2014 04/04/2015 Esophagitis, unspecified 02/05/2012 015 Groin pain 08/23/2011 04/04/2015 Diarrhea 02/26/2007 04/04/2015 Hemorrhage of gastrointestinal tract, unspecifie d 02/26/2007 04/04/2015 Heartburn 04/04/2015 CHF (congestive heart failure) 0 04/04/2015 documented as of this encounter (statuses as of 12/10/2022) [facility] Narrative* Problem Noted Date Resolved Date Abdominal pain, unspecified site 12/29/2014 04/04/2015 Esophagitis, unspecified 02/05/2012 015 Groin pain 08/23/2011 04/04/2015 Diarrhea 02/26/2007 04/04/2015 Hemorrhage of gastrointestinal tract, unspecifie d 02/26/2007 04/04/2015 Heartburn 04/04/2015 CHF (congestive heart failure) 0 04/04/2015 documented as of this encounter (statuses as of 01/16/2023) [facility] Diagnosis Essential hypertension Unspecified essential hypertension [facility] Diagnosis Type 2 diabetes mellitus without retinopathy (HCC)- Primary Type II or unspecified type diabetes mellitus without mention of complication, not stated as uncontrolled Pseudophakia Lens replaced by other means Esotropia, left eye Esotropia, unspecified documented in this encounter [facility] Diagnosis Type 2 diabetes mellitus without retinopathy (HCC)- Primary Type II or unspecified type diabetes mellitus without mention of complication, not stated as uncontrolled Pseudophakia Lens replaced by other means Esotropia, left eye Esotropia, unspecified Epiretinal membrane (ERM) of right eye Dry eye syndrome of both eyes documented in this encounter [facility] Advance Directives No Advanced Directives Records FoundDocuments on File Type Date Recorded 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 Expl anation Advance Directive(s) 12/29/2014 12:24 PM Summary Purpose Family History No Family History Records FoundNo Family History Records Found Medications Administered Section Active Administered Medications - up to 3 most recent administrations Medication Order MAR Action Action Date Dose Rate Site PHENYLephrine 2.5 % 1 Drop (AK-DILATE, LEXY-SYNEPHRINE) 1 Drop, BOTH EYES, DIRECTED, Starting on Fri08/28/22 at 1000, Until Fri08/28/22 at 2159, Administer for dilation PROTECT FROM LIGHT Given 08/28/2022 10:00 AM EST 1 Drop proparacaine 0.5 % 1 Drop (ALCAINE) 1 Drop, BOTH EYES, DIRECTED, Starting on Fri08/28/22 at 1000, Until Fri08/28/22 at 2159, Administer for pneumo tonometry, tonopen tonometry, or pachymetry. In the event of a proparacaine shortage, administer tetracaine 0.5% ophthalmic drops 1 drop in the left eye as directed for pneumo tonometry, tonopen tonometry, or pachymetry Given 08/28/2022 10:00 AM EST 1 Drop tropicamide 1 % 1 Drop (MYDRIACYL) 1 Drop, BOTH EYES, DIRECTED, Starting on Fri08/28/22 at 1000, Until Fri08/28/22 at 2159, Administer for dilation Given 08/28/2022 10:00 AM EST 1 Drop Additional Source Comments Source Comments (unrecognize d section and content) In the event this informatio n is protected by the Federal Confidentiality of Alcohol and Drug Abuse Patient Records regulations: The Federal rules restrict any use of the information to criminally investigate or prosecute any alcohol or drug abuse patient.[facility] the event this information is protected by the Federal Confidentiality of Alcohol and Drug Abuse Patient Records regulations: The Federal rules restrict any use of the information to criminally investigate or prosecute any alcohol or drug abuse patient.[facility] System[facility] the event this information is protected by the Federal Confidentiality of Alcohol and Drug Abuse Patient Records regulations: The Federal rules restrict any use of the information to criminally investigate or prosecute any alcohol or drug abuse patient.[facility] System[facility] the event this information is protected by the Federal Confidentiality of Alcohol and Drug Abuse Patient Records regulations: The Federal rules restrict any use of the information to criminally investigate or prosecute any alcohol or drug abuse patient.[facility] System[facility] the event this information is protected by the Federal Confidentiality of Alcohol and Drug Abuse Patient Records regulations: The Federal rules restrict any use of the information to criminally investigate or prosecute any alcohol or drug abuse patient.[facility] SystemIn the event this information is protected by the Federal Confidentiality of Alcohol and Drug Abuse Patient Records regulations: The Federal rules restrict any use of the information to criminally investigate or prosecute any alcohol or drug abuse patient.[facility] System[facility] the event this information is protected by the Federal Confidentiality of Alcohol and Drug Abuse Patient Records regulations: The Federal rules restrict any use of the information to criminally investigate or prosecute any alcohol or drug abuse patient.[facility] System[facility] the event this information is protected by the Federal Confidentiality of Alcohol and Drug Abuse Patient Records regulations: The Federal rules restrict any use of the information to criminally investigate or prosecute any alcohol or drug abuse patient.[facility] System[facility] the event this information is protected by the Federal Confidentiality of Alcohol and Drug Abuse Patient Records regulations: The Federal rules restrict any use of the information to criminally investigate or prosecute any alcohol or drug abuse patient.[facility] SystemIn the event this information is protected by the Federal Confidentiality of Alcohol and Drug Abuse Patient Records regulations: The Federal rules restrict any use of the information to criminally investigate or prosecute any alcohol or drug abuse patient.[facility] the event this information is protected by the Federal Confidentiality of Alcohol and Drug Abuse Patient Records regulations: The Federal rules restrict any use of the information to criminally investigate or prosecute any alcohol or drug abuse patient.[facility] SystemIn the event this information is protected by the Federal Confidentiality of Alcohol and Drug Abuse Patient Records regulations: The Federal rules restrict any use of the information to criminally investigate or prosecute any alcohol or drug abuse patient.[facility] SystemIn the event this information is protected by the Federal Confidentiality of Alcohol and Drug Abuse Patient Records regulations: The Federal rules restrict any use of the information to criminally investigate or prosecute any alcohol or drug abuse patient.[facility] SystemIn the event this information is protected by the Federal Confidentiality of Alcohol and Drug Abuse Patient Records regulations: The Federal rules restrict any use of the information to criminally investigate or prosecute any alcohol or drug abuse patient.[facility] SystemIn the event this information is protected by the Federal Confidentiality of Alcohol and Drug Abuse Patient Records regulations: The Federal rules restrict any use of the information to criminally investigate or prosecute any alcohol or drug abuse patient.[facility] Reason for Visit (unrecogniz ed section and content) Reason Onset Date Comments ER F/U 02/18/2022 Reason Comments stop plavix for 7 days form from [facility] Reason Comments Orders Reason Onset Date Comments Refill Request 02/21/2022 Reason Comments Decreased Vision Both Eyes Reason Comments Refill Request Reason Comments Floaters Right Eye Blurred Vision Right Eye Type 2 Diabetes Blood sugar: 124A1C: 6.3 Reason Onset Date Comments Refill Request 01/16/2023 Care Teams (unrecognized sec tion and content) Collection Support Specialist Relationship Specialty Start Date End Date Chandni Delgado, SHREDDING SPECIALIST.SALES COMPENSATION ANALYST [address], [place] [phone] PCP - General Family Practice 12/04/21 Collection Support Specialist Relationship Specialty Start Date End Date Chandni Delgado, SHREDDING SPECIALIST.SALES COMPENSATION ANALYST [address], [place] [phone] PCP - General Family Practice 12/04/21 Collection Support Specialist Relationship Specialty Start Date End Date Chandni Delgado, SHREDDING SPECIALIST.SALES COMPENSATION ANALYST [address], [place] [phone] PCP - General Family Practice 12/04/21 Collection Support Specialist Relationship Specialty Start Date End Date Chandni Delgado, SHREDDING SPECIALIST.SALES COMPENSATION ANALYST [address], [place] [phone] PCP - General Family Practice 12/04/21 Collection Support Specialist Relationship Specialty Start Date End Date Loyd Armas MD [address] [place], [place] [phone] PCP - General Internal Medicine 05/23/22 Collection Support Specialist Relationship Specialty Start Date End Date Loyd Armas MD [address] [place], [place] [phone] PCP - General Internal Medicine 05/23/22 Collection Support Specialist Relationship Specialty Start Date End Date Loyd Armas MD [address] [place], [place] [phone] PCP - General Internal Medicine 05/23/22 Collection Support Specialist Relationship Specialty Start Date End Date Chandni Delgado, SHREDDING SPECIALIST.SALES COMPENSATION ANALYST [address] [place] [address] PCP - General Family Medicine 09/06/22 Collection Support Specialist Relationship Specialty Start Date End Date Chandni Delgado, SHREDDING SPECIALIST.SALES COMPENSATION ANALYST [address] [place] [address] PCP - General Family Medicine 09/06/22 INFORMATION SOURCE (unrecogn ized section and content) DATE CREATED AUTHOR AUTHOR'S BULMARO ATMARCUS 01/20/2023 [facility] FOR RECORDS PERTAINING TO PATIENTS WHO ARE OR HAVE BEEN ENROLLED IN A CHEMICAL DEPENDENCY/SUBSTANCEABUSE PROGRAM, SOME INFORMATION MAY BE OMITTED. This clinical summary was aggregated from multiple sources. Caution should be exercised in using it in the provision of clinical care. This summary normalizes information from multiple sources, and as a consequence, information in this document may materially change the coding, format and clinical context of patient data. In addition, data may be omitted in some cases. CLINICAL DECISIONS SHOULD BE BASED ON THE PRIMARY CLINICAL RECORDS. [employer] provides no warranty or guarantee of the accuracy or completeness of information in this document.
== END | disposition home or self-care (01) ==
LOC: CVS 10:36
PROVIDERS: PCP Internal Medicine; Referring Provider Internal Medicine Cardiovascular Disease; Visit Provider Internal Medicine Cardiovascular Disease
DX: I65.23 Occlusion and stenosis of bilateral carotid arteries (principal); R09.89 Other specified symptoms and signs involving the circulatory and respiratory systems; E78.5 Hyperlipidemia, unspecified
CPT/HCPCS: 93880

== ENCOUNTER → 2024-02-04 | Outpatient (CLI) | payer MEDICARE, SELFPAY ==
[2024-02-04 09:37] LABS: Bacteria 0 SEEN /hpf (None Seen); Mucous, Urine 0 SEEN /hpf (<or=2+)
[2024-02-04 12:24] LABS: Color, Urine Yellow (Yellow); Glucose, Dipstick Normal (Normal); Ketone-Dipstick Negative (Negative); Leukocyte Esterase-Dipstick 25 /ul (Negative); Nitrite-Dipstick Negative (Negative); Occult Blood-Urine Negative /ul (Negative); Protein-Dipstick Negative (Negative); Urine Bilirubin Dipstick Negative (Negative); Urine Clarity Sl. Cloudy (Clear); Urine Urobilinogen Normal (Normal)
[2024-02-04 12:34] LABS: Red Blood Cells-Urine 0-5 SEEN /hpf (0-5); Squamous Epithelial Cells - UA 0-5 SEEN /hpf (5-10); White Blood Cells 0-5 SEEN /hpf (0-5)
== END | disposition home or self-care (01) ==
LOC: LABSPEC 09:36
PROVIDERS: PCP Internal Medicine; Visit Provider Internal Medicine
DX: R39.15 Urgency of urination (principal)
CPT/HCPCS: 81001

== ENCOUNTER → 2024-05-03 | Outpatient (CLI) | payer MEDICARE, SELFPAY ==
[2024-05-03 12:01] LABS: Absolute Lymphocyte Count 2.24 X10^3/uL (0.83-4.51); Absolute Neutrophil Count 5.7 X10^3/uL (2.0-7.7); Basophil# 0.08 X10^3/uL; Basophil% 0.9 % (0-1); Eosinophils% 3.3 % (0-5); Hematocrit 35.2 % (37-47); Hemoglobin 10.6 g/dL (12.0-15.0); Lymphocyte # 2.24 X10^3/ul (0.83-4.51); Lymphocyte % 24.5 % (19-41); Mean Corp Hgb Conc 30.1 g/dL (32-36); Mean Corpuscular Hgb 22.8 pg (27.0-32.0); Mean Corpuscular Volume 75.7 fL (81-99); Mean Platelet Vol. 8.9 fl (6.2-12.0); Monocyte# 0.74 X10^3/uL; Monocyte% 8.1 % (0-10); NRBC Flagged by Analyzer 0 % (0-5); Neutrophil # 5.72 X10^3/uL (2.7-7.7); Neutrophil % 62.5 % (47-70); Platelet Count 322 K/mm3 (150-450); RBC Distribution Width CV 16.3 % (11.6-14.6); RBC Distribution Width SD 44.4 fl (35.1-43.9); Red Blood Count 4.65 M/mm3 (4.2-5.4); White Blood Count 9.1 K/mm3 (4.4-11.0)
[2024-05-03 12:52] LABS: Cholesterol 189 mg/dL (200); High Density Lipoprotein 47 mg/dL; Triglycerides 234 mg/dL; Very Low Density Lipoprotein 47 mg/dL (5-40)
[2024-05-03 13:10] LABS: ALB/GLOB Ratio 0.9 RATIO (0.9-2.4); AST(SGOT) 21 U/L (15-37); Alanine Aminotransfer ALT/SGPT 20 U/L (13-56); Albumin, Serum 3.5 g/dL (3.2-5.0); Alkaline Phosphatase 65 U/L (45-117); Anion Gap 9 (5-15); BUN 19 mg/dL (7-18); Bilirubin, Direct 0.06 mg/dL (0.00-0.30); Calcium,Total 8.8 mg/dL (8.5-10.1); Chloride 103 mmol/L (98-107); Creatinine, Serum 0.86 mg/dL (0.55-1.02); EST Glomerular Filtration Rate 68 mL/min (>60); Est Glom Filt Rate - Afr Amer 82 mL/min (>60); Globulin 4.1 g/dL (2.2-4.2); Glucose 121 mg/dL (74-106); Potassium 4.8 mmol/L (3.5-5.1); Protein, Total 7.6 g/dL (6.4-8.2); Sodium Level 137 mmol/L (136-145)
== END | disposition home or self-care (01) ==
LOC: BIMLAB 10:47
PROVIDERS: Nurse Practitioner Gerontology; PCP Internal Medicine; Referring Provider Internal Medicine; Visit Provider Internal Medicine
DX: I10 Essential (primary) hypertension (principal); E11.9 Type 2 diabetes mellitus without complications; E87.6 Hypokalemia; E78.2 Mixed hyperlipidemia
CPT/HCPCS: 36415; 80053; 80061; 82248; 85025

== ENCOUNTER 2024-05-19 07:42 | Emergency (ER) | payer MEDICARE, SELFPAY ==
[2024-05-19 07:44] VITALS: BP 93/75; PULSE 82; RESP 16; TEMP 36.2; O2SAT 93
--- NOTE | 2024-05-19 07:54 | RAD_ITS ---
STUDY: X-RAY CHEST REASON FOR EXAM: Female, 79 years old. CAD TECHNIQUE: Single AP portable view of the chest. COMPARISON: Comparison is made with prior study dated September 09, 2023. FINDINGS: EKG electrodes are seen. Minimal increased linear markings at the left lung base suggestive of linear atelectasis. Hyperinflation. There is no demonstrated pleural abnormality. Normal size heart. Normal mediastinum and tanner. Normal visualized pulmonary arteries. There is atherosclerotic calcification of the aortic arch with tortuosity. Normal visualized thoracic spine. Normal visualized ribs, clavicles, and shoulders. There is no demonstrated abnormality of the visualized soft tissue structures of the upper abdomen. RAD/Chest 1 View (Portable) IMPRESSION: Minimal linear atelectasis at the left lung base. Hyperinflation. Electronically Signed: Murtaza Joseph MD at 9:15 EDT ,
--- NOTE | 2024-05-19 07:54 | CT_ITS ---
STUDY: CT ABDOMEN AND PELVIS WITHOUT CONTRAST REASON FOR EXAM: Female, 79 years old. Abdominal pain with nausea and vomiting. RADIATION DOSAGE (If Supplied By Facility): CTDIvol = ( 22.88 ) mGy, DLP = ( 1154.68 ) mGycm TECHNIQUE: Transaxial images were obtained from the dome of the diaphragm to the symphysis pubis without oral contrast, and without intravenous contrast. Sagittal and coronal images were reconstructed. Individualized dose optimization techniques were used for this CT. COMPARISON: Comparison is made with prior study dated November 02, 2022. FINDINGS: The visualized lung bases are unremarkable. Coronary calcification. Calcification of the mitral valve annulus. Normal liver. There are surgical clips in the gallbladder fossa consistent with a prior cholecystectomy. Normal spleen. Normal pancreas. Normal bilateral adrenal glands. Normal right kidney. Normal left kidney. Normal visualized stomach. Normal small intestine. There are scattered colonic diverticula consistent with diverticulosis. The appendix is visualized and appears normal. There is diffuse atherosclerotic calcification of the abdominal aorta and its major visceral branches, without a demonstrated aneurysm. Normal inferior vena cava. Normal retroperitoneum. Normal urinary bladder. There is absence of the uterus consistent with a prior hysterectomy. There is a small umbilical hernia containing fat. There are small bilateral benign-appearing inguinal lymph nodes. There are mild degenerative changes of the visualized lumbar spine. CT/Abdomen/Pelvis without Cont IMPRESSION: Normal unenhanced CT of the abdomen and pelvis. Electronically Signed: Murtaza Joseph MD at 9:08 EDT ,
--- NOTE | 2024-05-19 07:54 | EX.ED.DYSGE1 ---
HPI History of Present Illness Chief Complaint: General Illness Narrative Narrative: 79-year-old female with multiple somatic complaints, but mainly 4 days of nausea, vomiting, and diarrhea. She states that she is having difficulty sleeping, and has been up since 3 AM. It is almost 8 AM so she has been awake for 5 hours. She states over the last 4 days, she has had generalized weakness, had 4 episodes of diarrhea today already. States she has been nauseated and vomiting. Sometimes she has headaches as well. Is very nonspecific with her complaints and the duration. She does state that her almost 2 months ago, and she lives at home by herself, but has her neighbors check on her and she is doing well. She states so far so good. [facility] Medical History Anxiety and depression OAB (overactive bladder) Urinary urgency Diastolic dysfunction Aortic valve regurgitation Tricuspid regurgitation Aortic stenosis Abnormal cardiovascular stress test Flu vaccine need Palpitations Left shoulder pain Hypertension Hypokalemia Rectal bleeding Fatigue Iron deficiency anemia History of diabetes mellitus Acute pain of right foot URI (upper respiratory infection) Hypokalemia Carotid stenosis, bilateral Carotid artery disease Dyspnea on exertion Chest pain, unspecified CAD (coronary artery disease) Nonrheumatic aortic (valve) stenosis COPD (chronic obstructive pulmonary disease) YOVANA (obstructive sleep apnea) Mixed hyperlipidemia Atherosclerotic heart disease of [place] coronary artery without angina pectoris Anemia Vaginal anomaly Encounter to establish care Type 2 diabetes mellitus Memory impairment Tremor COPD (chronic obstructive pulmonary disease) Arthritis CAD (coronary artery disease) CHF (congestive heart failure) Iron deficiency anemia Venous insufficiency of both lower extremities Mild aortic stenosis Pulmonary HTN Chronic pain Constipation Chest pain Obesity Lumbago History of IBS HLD (hyperlipidemia) History of tobacco use Generalized anxiety disorder History of gastroesophageal reflux (GERD) History of fibromyalgia History of esophageal reflux CAD (coronary artery disease) Type II diabetes mellitus, uncontrolled History of COPD Coronary atherosclerosis of [place] coronary artery History of CHF (congestive heart failure) Benign essential hypertension Home Medications ?Medication ?Instructions ?Recorded ?Last Taken ?Type valsartan 320 mg tablet 320 mg PO DAILY #90 tabs 09/03/23 09/16/23 Rx aspirin 81 mg tablet,delayed 81 mg PO DAILY@0800 #100 tabs 09/16/23 Unknown Rx release docusate calcium 240 mg capsule 240 mg PO BID PRN constipation #60 09/18/23 Unknown Rx (Stool Softener (docusate calcium)) caps sennosides 8.6 mg tablet (Natural 8.6 mg PO DAILY PRN constipation: 09/18/23 Unknown Rx Senna Laxative) take if Colace doesn't work #14 tabs amlodipine 5 mg tablet 5 mg PO DAILY 12/02/23 Unknown History buprenorphine 5 mcg/hour weekly 1 patch transdermal QWEEK 12/02/23 Unknown History transdermal patch clopidogrel 75 mg tablet 75 mg PO QHS BLOOD THINNER #90 tabs 12/26/23 Unknown Rx pantoprazole 40 mg tablet,delayed 40 mg PO BID ACID REFLUX #180 tabs 12/26/23 Unknown Rx release fluticasone propionate 50 2 spray intranasal DAILY #16 grams 01/16/24 Unknown Rx mcg/actuation nasal spray,suspension (Allergy Relief (fluticasone)) doxazosin 2 mg tablet (Cardura) 2 mg PO QHS BLOOD PRESSURE #90 tabs 03/08/24 Unknown Rx ezetimibe 10 mg tablet (Zetia) 10 mg PO DAILY #90 tabs 03/29/24 Unknown Rx potassium chloride 20 mEq 20 meq PO DAILY #90 tabs 03/29/24 Unknown Rx tablet,extended release oxybutynin chloride 5 mg 5 mg PO DAILY #60 tabs 04/26/24 Unknown Rx tablet,extended release 24 hr cetirizine 10 mg tablet (All Day 10 mg PO DAILY #90 tabs 04/30/24 Unknown Rx Allergy (cetirizine)) duloxetine 20 mg capsule,delayed 20 mg PO BID #60 caps 05/03/24 Unknown Rx release glimepiride 4 mg tablet 4 mg PO DAILY DIABETES #90 tabs 05/03/24 Unknown Rx Allergy/AdvReac Type Severity Reaction Status Date / Time Iodinated Contrast Media Allergy Severe Angioedema Verified 05/03/24 10:13 amoxicillin Allergy Unknown Itching Verified 05/03/24 10:13 cephalexin (From Keflex) Allergy Unknown GI Upset, Verified 05/03/24 10:13 Itching doxycycline Allergy Unknown Rash Verified 05/03/24 10:13 furosemide (From Lasix) Allergy Unknown Hives Verified 05/03/24 10:13 simvastatin Allergy Unknown Hives Verified 05/03/24 10:13 atorvastatin calcium (From Allergy Hives Verified 05/03/24 10:13 Lipitor) divalproex sodium (From Allergy Hives Verified 05/03/24 10:13 Depakote) isosorbide mononitrate (From Allergy Unknown Verified 05/03/24 10:13 Imdur) moxifloxacin HCl (From Allergy Unknown Verified 05/03/24 10:13 Avelox) vancomycin Allergy Hives Verified 05/03/24 10:13 amlodipine AdvReac Unknown Swelling Verified 05/03/24 10:13 fluticasone furoate (From AdvReac Unknown Throat Verified 05/03/24 10:13 Breo Ellipta) Burning-hoarseness sucralfate (From Carafate) AdvReac Unknown Diarrhea Verified 05/03/24 10:13 vilanterol (From Breo AdvReac Unknown Throat Verified 05/03/24 10:13 Ellipta) Burning-hoarseness Family History Father CAD (coronary artery disease) Hypertension Mother CAD (coronary artery disease) Hypertension Mixed hyperlipidemia COPD (chronic obstructive pulmonary disease) Brother CAD (coronary artery disease) History of coronary artery bypass surgery Brother CAD (coronary artery disease) History of coronary artery bypass surgery Sister CAD (coronary artery disease) History of coronary artery bypass surgery Sister CAD (coronary artery disease) History of coronary artery bypass surgery Surgical History History of left heart catheterization (~09/16/23) Presence of stent in coronary artery (~09/16/23) History of foot surgery History of cholecystectomy History of total knee replacement History of hysterectomy Social History Smoking Status: Former smoker alcohol intake: never substance use type: does not use what type of physical activity do you participate in: none ROS ROS ED ROS Narrative Constitutional: No fever, no chills. HEENT: No sore throat. No neck pain. No loss of vision. No rhinorrhea. Cardiovascular: No chest pain. No palpitations. No pedal edema. Respiratory: No cough, no shortness of breath. Abdominal: Diffuse abdominal pain. 4 days worth of nausea, vomiting, and diarrhea. No bloody stool. Genitourinary: No dysuria. No hematuria. Musculoskeletal: No myalgias. No arthralgias. Neurologic: Intermittent headaches. No dizziness. No lightheadedness. Skin: No rash. No change in color. Psychiatric: No depression. No anxiety. EXAM Physical Exam Narrative Exam Narrative: Afebrile. Vital signs noted. HEENT: Normocephalic. Atraumatic. PERRL, EOMI. Neck soft and supple. No point tenderness or step off. Cardiovascular: Regular rate and rhythm. No murmurs, rubs, or gallops appreciated. Respiratory: No tachypnea. Lungs clear to auscultation bilaterally. Gastrointestinal: Abdomen soft, nontender, with normoactive bowel sounds. No rebound or guarding. Neurological: Awake. Alert. Nonfocal, nonlateralizing. Skin: No rash. Normal color. No pallor. Musculoskeletal: No pedal edema. Full range of motion extremities. Const Vital Signs: 05/19/24 07:44 05/19/24 07:49 05/19/24 09:43 Temperature 97.2 F L Temperature Source Temporal Pulse Rate 82 76 Respiratory Rate 16 21 H Respiratory Effort Short of Breath Blood Pressure 93/75 159/110 H Blood Pressure Mean 81 126 Pulse Ox 93 93 Oxygen Delivery Method Room Air Room Air MDM MDM MDM Narrative Medical decision making narrative: Differential diagnosis includes but not limited to gastroenteritis versus bowel obstruction/partial small bowel obstruction. While I feel CT imaging is indicated, she has an allergy to IV contrast. Comprehensive workup will be pursued to help rule out dehydration as well from her reported diarrhea. Comprehensive workup was pursued. Chest x-ray 1 view interpreted by myself independently shows no evidence of pneumonia or pneumothorax. I reviewed the radiology report which confirms my independent interpretation of the comments on atelectasis. I reviewed her laboratory work and she has a normal white count of 6.9, hemoglobin stable at 10.0, hematocrit 32.3, platelet count normal at 273. Electrolyte panel shows no evidence of dehydration with a glucose of 124, normal BUN of 13, creatinine 0.72, normal anion gap of 6. LFTs are grossly unremarkable. Urinalysis is negative for infection on review. I do not feel antibiotics are indicated. Additionally, she has negative ketones. I reviewed the radiology report of the CT of the abdomen pelvis which shows no acute process. At this point in time, for chronic back pain, she was administered morphine and ondansetron. She will follow-up with pain management. I do not feel she requires observation or admission. Additionally, I discussed with her prison placement and she declines. I feel she can be discharged to follow-up with her primary care provider. Disposition is discharged home in stable condition. History & Record Review Discussion w/independent historian: Patient Additional record(s) reviewed:: Prior ED visit and Prior labs Lab Data Attestation: I reviewed the patient's lab results. Labs: Laboratory Results - last 24 hr 05/19/24 05/19/24 08:10 09:11 WBC 6.9 RBC 4.37 Hgb 10.0 L Hct 32.3 L MCV 73.9 L MCH 22.9 L MCHC 31.0 L RDW Std Deviation 43.8 RDW Coeff of [place] 16.5 H Plt Count 273 MPV 8.7 Immature Gran % (Auto) 0.400 Neut % (Auto) 58.1 Lymph % (Auto) 25.6 [place] % (Auto) 9.4 Eos % (Auto) 5.5 H Baso % (Auto) 1.0 Absolute Neuts (auto) 4.0 Absolute Lymphs (auto) 1.77 Nucleated RBC % 0 Sodium 137 Potassium 3.8 Chloride 107 Carbon Dioxide 24.0 Anion Gap 6 BUN 13 Creatinine 0.72 Est GFR (MDRD) Af Amer 101 Est GFR (MDRD) Non-Af 84 BUN/Creatinine Ratio 18.2 Glucose 124 H Calcium 8.6 Total Bilirubin 0.20 AST 25 ALT 22 Alkaline Phosphatase 69 Total Protein 7.3 Albumin 3.4 Globulin 3.9 Albumin/Globulin Ratio 0.9 Urine Color Yellow Urine Clarity Clear Urine pH 5.0 Ur Specific [place] 1.015 Urine Protein Negative Urine Glucose (UA) Normal Urine Ketones Negative Urine Occult Blood Negative Urine Nitrite Negative Urine Bilirubin Negative Urine Urobilinogen Normal Ur Leukocyte Esterase 25 H Urine RBC 0 SEEN Urine WBC 0-5 SEEN Ur Squamous Epith Cells 0-5 SEEN Urine Bacteria 0 SEEN Urine Mucus 0 SEEN Radiography Diagnostic Testing: Clinical Impression(s) from Imaging Studies Abdomen/Pelvis CT 05/19/24 07:54 IMPRESSION: Normal unenhanced CT of the abdomen and pelvis. Electronically Signed: Murtaza Joseph MD at 9:08 EDT , Chest X-Ray 05/19/24 07:54 IMPRESSION: Minimal linear atelectasis at the left lung base. Hyperinflation. Electronically Signed: Murtaza Joseph MD at 9:15 EDT , Discharge Plan Triage Chief Complaint: General Illness ED Provider: Gurmeet Beltran Dx/Rx/DC Orders Clinical Impression: Nausea, vomiting and diarrhea, Anxiety and depression, Abdominal pain, Cough Instructions: ED Abdominal Pain Unkn Cause Fem, ED Cough Chronic Uncertain Cause Adult, ED Vomit Diarrhea Nonspec Adult Prescriptions: No Action valsartan 320 mg tablet 320 mg PO DAILY Qty: 90 3RF amlodipine 5 mg tablet 5 mg PO DAILY buprenorphine 5 mcg/hour patch weekly 1 patch transdermal QWEEK fluticasone propionate [Allergy Relief (fluticasone)] 50 mcg/actuation spray,suspension 2 spray intranasal DAILY Qty: 16 0RF Rx Instructions: administer into each nostril duloxetine 20 mg capsule,delayed release(DR/EC) 20 mg PO BID Qty: 60 1RF glimepiride 4 mg tablet 4 mg PO DAILY Qty: 90 1RF aspirin 81 mg Tablet,Delayed Release (Dr/Ec) 81 mg PO DAILY@0800 Qty: 100 6RF docusate calcium [Stool Softener (docusate rain)] 240 mg capsule 240 mg PO BID PRN (Reason: constipation) Qty: 60 11RF sennosides [Natural Senna Laxative] 8.6 mg tablet 8.6 mg PO DAILY PRN (Reason: constipation: take if Colace doesn't work) Qty: 14 3RF clopidogrel 75 mg tablet 75 mg PO QHS Qty: 90 1RF pantoprazole 40 mg tablet,delayed release (DR/EC) 40 mg PO BID Qty: 180 1RF doxazosin [Cardura] 2 mg tablet 2 mg PO QHS Qty: 90 0RF ezetimibe [Zetia] 10 mg tablet 10 mg PO DAILY Qty: 90 1RF potassium chloride 20 mEq tablet extended release 20 meq PO DAILY Qty: 90 1RF oxybutynin chloride 5 mg tablet extended release 24hr 5 mg PO DAILY Qty: 60 1RF cetirizine [All Day Allergy (cetirizine)] 10 mg tablet 10 mg PO DAILY Qty: 90 0RF Primary Care Provider: Loyd Armas Referrals: Loyd Armas MD [Primary Care Provider] - 3-5 Days if not improving Print Language: Grenadian Disposition Disposition: Home, Self Care
[2024-05-19] MEDS: 0.9% Normal Saline (1000mL) 1,000 ML 999 ML IV (08:15)
[2024-05-19 08:35] LABS: Absolute Lymphocyte Count 1.77 X10^3/uL (0.83-4.51); Basophil# 0.07 X10^3/uL; Eosinophil# 0.38 X10^3/uL; Eosinophils% 5.5 % (0-5); Hematocrit 32.3 % (37-47); Lymphocyte # 1.77 X10^3/ul (0.83-4.51); Lymphocyte % 25.6 % (19-41); Mean Corpuscular Hgb 22.9 pg (27.0-32.0); Mean Corpuscular Volume 73.9 fL (81-99); Mean Platelet Vol. 8.7 fl (6.2-12.0); Monocyte# 0.65 X10^3/uL; Monocyte% 9.4 % (0-10); NRBC Flagged by Analyzer 0 % (0-5); Neutrophil # 4.02 X10^3/uL (2.7-7.7); Neutrophil % 58.1 % (47-70); Platelet Count 273 K/mm3 (150-450); RBC Distribution Width CV 16.5 % (11.6-14.6); RBC Distribution Width SD 43.8 fl (35.1-43.9); Red Blood Count 4.37 M/mm3 (4.2-5.4); White Blood Count 6.9 K/mm3 (4.4-11.0)
[2024-05-19 08:47] LABS: ALB/GLOB Ratio 0.9 RATIO (0.9-2.4); AST(SGOT) 25 U/L (15-37); Alanine Aminotransfer ALT/SGPT 22 U/L (13-56); Albumin, Serum 3.4 g/dL (3.2-5.0); Alkaline Phosphatase 69 U/L (45-117); Anion Gap 6 (5-15); BUN 13 mg/dL (7-18); BUN/Creat Ratio 18.2 RATIO (10-20); Calcium,Total 8.6 mg/dL (8.5-10.1); Chloride 107 mmol/L (98-107); Creatinine, Serum 0.72 mg/dL (0.55-1.02); EST Glomerular Filtration Rate 84 mL/min (>60); Est Glom Filt Rate - Afr Amer 101 mL/min (>60); Globulin 3.9 g/dL (2.2-4.2); Glucose 124 mg/dL (74-106); Potassium 3.8 mmol/L (3.5-5.1); Protein, Total 7.3 g/dL (6.4-8.2); Sodium Level 137 mmol/L (136-145)
[2024-05-19 09:17] LABS: Bacteria 0 SEEN /hpf (None Seen); Mucous, Urine 0 SEEN /hpf (<or=2+)
[2024-05-19 09:41] LABS: Color, Urine Yellow (Yellow); Glucose, Dipstick Normal (Normal); Ketone-Dipstick Negative (Negative); Leukocyte Esterase-Dipstick 25 /ul (Negative); Nitrite-Dipstick Negative (Negative); Occult Blood-Urine Negative /ul (Negative); Protein-Dipstick Negative (Negative); Specific Gravity, Urine 1.015 (1.002-1.030); Urine Bilirubin Dipstick Negative (Negative); Urine Clarity Clear (Clear); Urine Urobilinogen Normal (Normal)
[2024-05-19 09:43] VITALS: BP 159/110; PULSE 76; RESP 21; O2SAT 93
[2024-05-19 10:01] LABS: Red Blood Cells-Urine 0 SEEN /hpf (0-5); Squamous Epithelial Cells - UA 0-5 SEEN /hpf (5-10); White Blood Cells 0-5 SEEN /hpf (0-5)
[2024-05-19] MEDS: Morphine 4 MG/ML Syringe IV (10:13)
[2024-05-19] MEDS: Ondansetron 4 MG/2 ML Vial IV (10:13)
[2024-05-19 10:27] VITALS: BP 141/77; PULSE 89; RESP 17; TEMP 36.4; O2SAT 96
== END 2024-05-19 10:41 | disposition home or self-care (01) ==
PROVIDERS: Emergency Provider Emergency Medicine; PCP Internal Medicine; Visit Provider Emergency Medicine
DX: R11.2 Nausea with vomiting, unspecified (principal); I11.0 Hypertensive heart disease with heart failure; I50.32 Chronic diastolic (congestive) heart failure; J44.9 Chronic obstructive pulmonary disease, unspecified; E11.9 Type 2 diabetes mellitus without complications; I25.10 Atherosclerotic heart disease of native coronary artery without angina pectoris; R51.9 Headache, unspecified; F32.A Depression, unspecified; R19.7 Diarrhea, unspecified; E78.2 Mixed hyperlipidemia; Z87.891 Personal history of nicotine dependence; F41.9 Anxiety disorder, unspecified; R10.9 Unspecified abdominal pain; R05.9 Cough, unspecified; Z90.49 Acquired absence of other specified parts of digestive tract; Z95.5 Presence of coronary angioplasty implant and graft; Z82.49 Family history of ischemic heart disease and other diseases of the circulatory system; Z79.82 Long term (current) use of aspirin
CPT/HCPCS: 71045; 74176; 80053; 81001; 85025; 96361; 96374; 96375; 99283; J7030; A4216; J2405

== ENCOUNTER 2024-06-08 11:14 | Emergency (ER) | payer MEDICARE, SELFPAY ==
[2024-06-08 11:15] VITALS: TEMP 36.9; BMI 44.1
[2024-06-08 11:20] VITALS: BP 140/96; PULSE 83; RESP 18; O2SAT 96
--- NOTE | 2024-06-08 11:49 | EKG12_ITS ---
Test Reason : Blood Pressure : / mmHG Vent. Rate : 073 BPM Atrial Rate : 073 BPM P-R Int : 196 ms QRS Dur : 068 ms QT Int : 396 ms P-R-T Axes : 065 -24 097 degrees QTc Int : 436 ms Normal sinus rhythm with sinus arrhythmia Nonspecific T wave abnormality Abnormal ECG Confirmed by GILES PAZ, BETO ([id number]), development editor MERVIN CEBALLOS ([id number]) on 06/11/2024 6:33:15 AM Referred By: JEANETTE Confirmed By:ABRAM SKAGGS MD
--- NOTE | 2024-06-08 11:49 | RAD_ITS ---
STUDY: X-RAY CHEST REASON FOR EXAM: Female, 79 years old. Left-sided chest pain. Productive cough. TECHNIQUE: Single AP portable view of the chest. COMPARISON: Comparison is made with prior study dated May 19, 2024. FINDINGS: EKG electrodes are seen. The lungs are clear and expanded. There is no demonstrated pleural abnormality. There is borderline cardiomegaly. Normal mediastinum and tanner. Normal visualized pulmonary arteries. There is atherosclerotic calcification of the aortic arch with tortuosity. There are diffuse degenerative changes of the visualized thoracic spine. Normal visualized ribs, clavicles, and shoulders. There is no demonstrated abnormality of the visualized soft tissue structures of the upper abdomen. RAD/Chest 1 View (Portable) IMPRESSION: No acute abnormality is seen. Electronically Signed: Murtaza Joseph MD at 12:43 EDT ,
--- NOTE | 2024-06-08 12:08 | EX.ED.VIS.UR ---
HPI HPI - URI History of Present Illness Chief Complaint: Chest Pain Detail of Chief Complaint: URI symptoms. Generalized weakness. Onset/Context/Timing Onset: Days Context: Gradual Onset Timing: Continuous Current Severity: Mild Associated Symptoms Associated Symptoms: Positive for Nasal Congestion and Productive Cough Narrative Narrative: 71-year-old female history of diabetes, CAD with stents. Says she had URI symptoms at in the last month and it came back in the last 4 to 5 days. She is feeling generally weak. Productive cough of greenish sputum. She feels somewhat lightheaded. Denies vomiting or diarrhea. No dysuria. Prior similar symptoms: Yes Recent Illness/Hospitalization: Yes ROS ROS ED ROS Narrative URI symptoms. Generalized weakness. Productive cough. Chest discomfort with coughing only. Constitutional Constitutional ED: Denies chills or fever(s) Eyes Eyes: Denies blurry vision ENT ENT ED: Denies ear pain Cardiovascular Cardiovascular: Denies chest pain Respiratory/Chest Respiratory/Chest: Reports cough Gastrointestinal Gastrointestinal: Denies abdominal pain, diarrhea, nausea or vomiting Genitourinary Genitourinary ED: Denies dysuria or hematuria Musculoskeletal Musculoskeletal: Denies arthralgias Integumentary Denies abscess Neurologic Neurologic: Denies headache(s) Psychiatric Psychiatric: Denies anxiety Endocrine Endocrinology: Denies cold intolerance Hematologic/Lymphatic Hematologic/Lymphatic: Denies easy bleeding Allergic/Immunologic Allergic/Immunologic ED: Denies mouth swelling PFSH PFSH Medical History Anxiety and depression OAB (overactive bladder) Urinary urgency Diastolic dysfunction Aortic valve regurgitation Tricuspid regurgitation Aortic stenosis Abnormal cardiovascular stress test Flu vaccine need Palpitations Left shoulder pain Hypertension Hypokalemia Rectal bleeding Fatigue Iron deficiency anemia History of diabetes mellitus Acute pain of right foot URI (upper respiratory infection) Hypokalemia Carotid stenosis, bilateral Carotid artery disease Dyspnea on exertion Chest pain, unspecified CAD (coronary artery disease) Nonrheumatic aortic (valve) stenosis COPD (chronic obstructive pulmonary disease) YOVANA (obstructive sleep apnea) Mixed hyperlipidemia Atherosclerotic heart disease of [place] coronary artery without angina pectoris Anemia Vaginal anomaly Encounter to establish care Type 2 diabetes mellitus Memory impairment Tremor COPD (chronic obstructive pulmonary disease) Arthritis CAD (coronary artery disease) CHF (congestive heart failure) Iron deficiency anemia Venous insufficiency of both lower extremities Mild aortic stenosis Pulmonary HTN Chronic pain Constipation Chest pain Obesity Lumbago History of IBS HLD (hyperlipidemia) History of tobacco use Generalized anxiety disorder History of gastroesophageal reflux (GERD) History of fibromyalgia History of esophageal reflux CAD (coronary artery disease) Type II diabetes mellitus, uncontrolled History of COPD Coronary atherosclerosis of [place] coronary artery History of CHF (congestive heart failure) Benign essential hypertension Home Medications ?Medication ?Instructions ?Recorded ?Last Taken ?Type valsartan 320 mg tablet 320 mg PO DAILY #90 tabs 09/03/23 09/16/23 Rx aspirin 81 mg tablet,delayed 81 mg PO DAILY@0800 #100 tabs 09/16/23 Unknown Rx release docusate calcium 240 mg capsule 240 mg PO BID PRN constipation #60 09/18/23 Unknown Rx (Stool Softener (docusate calcium)) caps sennosides 8.6 mg tablet (Natural 8.6 mg PO DAILY PRN constipation: 09/18/23 Unknown Rx Senna Laxative) take if Colace doesn't work #14 tabs amlodipine 5 mg tablet 5 mg PO DAILY 12/02/23 Unknown History buprenorphine 5 mcg/hour weekly 1 patch transdermal QWEEK 12/02/23 Unknown History transdermal patch fluticasone propionate 50 2 spray intranasal DAILY #16 grams 01/16/24 Unknown Rx mcg/actuation nasal spray,suspension (Allergy Relief (fluticasone)) ezetimibe 10 mg tablet (Zetia) 10 mg PO DAILY #90 tabs 03/29/24 Unknown Rx potassium chloride 20 mEq 20 meq PO DAILY #90 tabs 03/29/24 Unknown Rx tablet,extended release oxybutynin chloride 5 mg 5 mg PO DAILY #60 tabs 04/26/24 Unknown Rx tablet,extended release 24 hr cetirizine 10 mg tablet (All Day 10 mg PO DAILY #90 tabs 04/30/24 Unknown Rx Allergy (cetirizine)) glimepiride 4 mg tablet 4 mg PO DAILY DIABETES #90 tabs 05/03/24 Unknown Rx duloxetine 20 mg capsule,delayed 20 mg PO BID #60 caps 05/21/24 Unknown Rx release clopidogrel 75 mg tablet 75 mg PO QHS BLOOD THINNER #90 tabs 05/28/24 Unknown Rx doxazosin 2 mg tablet (Cardura) 2 mg PO QHS BLOOD PRESSURE #90 tabs 05/28/24 Unknown Rx pantoprazole 40 mg tablet,delayed 40 mg PO BID ACID REFLUX #180 tabs 05/28/24 Unknown Rx release ondansetron 4 mg disintegrating 4 mg PO Q8H PRN nausea and 06/08/24 Unknown Rx tablet vomiting #7 tabs Allergy/AdvReac Type Severity Reaction Status Date / Time Iodinated Contrast Media Allergy Severe Angioedema Verified 06/08/24 11:15 amoxicillin Allergy Unknown Itching Verified 06/08/24 11:15 cephalexin (From Keflex) Allergy Unknown GI Upset, Verified 06/08/24 11:15 Itching doxycycline Allergy Unknown Rash Verified 06/08/24 11:15 furosemide (From Lasix) Allergy Unknown Hives Verified 06/08/24 11:15 simvastatin Allergy Unknown Hives Verified 06/08/24 11:15 atorvastatin calcium (From Allergy Hives Verified 06/08/24 11:15 Lipitor) divalproex sodium (From Allergy Hives Verified 06/08/24 11:15 Depakote) isosorbide mononitrate (From Allergy Unknown Verified 06/08/24 11:15 Imdur) moxifloxacin HCl (From Allergy Unknown Verified 06/08/24 11:15 Avelox) vancomycin Allergy Hives Verified 06/08/24 11:15 amlodipine AdvReac Unknown Swelling Verified 06/08/24 11:15 fluticasone furoate (From AdvReac Unknown Throat Verified 06/08/24 11:15 Breo Ellipta) Burning-hoarseness sucralfate (From Carafate) AdvReac Unknown Diarrhea Verified 06/08/24 11:15 vilanterol (From Breo AdvReac Unknown Throat Verified 06/08/24 11:15 Ellipta) Burning-hoarseness Family History Father CAD (coronary artery disease) Hypertension Mother CAD (coronary artery disease) Hypertension Mixed hyperlipidemia COPD (chronic obstructive pulmonary disease) Brother CAD (coronary artery disease) History of coronary artery bypass surgery Brother CAD (coronary artery disease) History of coronary artery bypass surgery Sister CAD (coronary artery disease) History of coronary artery bypass surgery Sister CAD (coronary artery disease) History of coronary artery bypass surgery Surgical History History of left heart catheterization (~09/16/23) Presence of stent in coronary artery (~09/16/23) History of foot surgery History of cholecystectomy History of total knee replacement History of hysterectomy Social History Smoking Status: Former smoker alcohol intake: never substance use type: does not use what type of physical activity do you participate in: none EXAM Physical Exam Narrative Exam Narrative: 71-year-old female vital signs stable afebrile. Pulse ox 96% on room air no signs of hypoxia. H EENT exam unremarkable. Patient sitting upright in bed no distress. Mild dry mucous membranes. Neck nontender no JVD. Lungs clear to auscultation bilaterally. No rales rhonchi or wheezing. Heart regular rate and rhythm rate about 80 no murmur. Chest wall and ribs nontender. Abdomen soft nontender. Moving all 4 extremities. Calves are nontender without edema or cords. No deformity. No tenderness. Back nontender. She is awake alert. Answering questions following commands. Const Vital Signs: 06/08/24 11:15 06/08/24 11:20 06/08/24 11:49 Temperature 98.4 F Temperature Source Oral Pulse Rate 83 Respiratory Rate 18 Blood Pressure 140/96 H Blood Pressure Mean 110 Pulse Ox 96 Oxygen Delivery Method Room Air Room Air Room Air 06/08/24 13:00 06/08/24 14:00 Temperature Temperature Source Pulse Rate 83 82 Respiratory Rate 18 18 Blood Pressure 146/59 H 144/60 H Blood Pressure Mean 88 88 Pulse Ox 96 96 Oxygen Delivery Method Room Air Room Air Positive well nourished and well developed; Negative for cachectic or contractures General Appearance ED: well developed; Negative for cachectic, contractures, cyanotic or diaphoretic Nutritional Appearance: Negative for cachectic HEENT Reports dry mucous membranes; Denies moist mucous membranes normocephalic and atraumatic Mouth ED: Yes dry mucous membranes Mouth: dry mucous membranes Throat: posterior oropharynx normal Eyes PERRL and EOMs intact bilaterally General Eye ED: Negative for pale conjunctiva or scleral icterus Neck no lymphadenopathy, supple, no meningeal signs and no JVD General: Negative for anterior neck swelling or lymphadenopathy Resp normal respiratory effort and clear to auscultation bilaterally Effort and Inspection: Negative for retractions Auscultation: Negative for rales, rhonchi, wheezes or diminished lung sounds Cardio S1 normal heart sound, S2 normal heart sound and no murmurs Rate: regular rate; Negative for bradycardia or tachycardic Rhythm: regular rhythm; Negative for abnormal rhythm GI non-tender, non-distended and no masses Inspection: Negative for abdominal distention Auscultation: normoactive bowel sounds Palpation: soft; Negative for tender or guarding Back/Spine no CVA tenderness and normal ROM General Back: Negative for CVA tenderness Cervical Spine: Negative for cervical spine tenderness Thoracic Spine / Upper Back: Negative for thoracic spinal tenderness Lumbar Spine / Lower Back: Negative for lumbar spinal tenderness Sacrum: Negative for tenderness Extremity normal to inspection and full ROM General Extremety ED: Negative for cyanosis, tenderness or other findings General Extremity: Negative for cyanosis or other findings Neuro oriented x3 and CN's II-XII intact bilaterally Sensorium / Orientation: alert, oriented to person, oriented to place and oriented to time; Negative for orientation impaired or lethargic Motor Exam: strength 5/5 throughout Psych mental status grossly normal Appearance: Negative for other Attitude: No agitated Mood & Affect: Negative for depressed, anxious or tearful Skin Lesions: no lesions Rashes: no rashes MDM MDM MDM Narrative Medical decision making narrative: 79-year-old female URI symptoms may or may not have COVID. It may or may not be positive because she has had it for multiple days. Generalized weakness. Should be treated IV fluids and workup. I do not think this is cardiac. She is having chest discomfort with coughing. Repeat exam patient is doing well at 2:10 PM. She was given Zofran for some nausea. I went over the patient's test results with her. Her abdomen is benign. She will be discharged to home. Zofran as needed for nausea. History & Record Review Discussion w/independent historian: Patient Additional record(s) reviewed:: Prior inpatient record, Prior outpatient record and Prior ED visit Lab Data Attestation: I reviewed the patient's lab results. Lab results narrative: CBC white count of 9. H&H 10.9 and 36.8. Patient has a history of chronic anemia. Electrolytes show a gap of 7. Normal BUN and creatinine of 15 and 0.7. Glucose 135 and troponin normal at 12. Chest x-ray chronic changes no acute process. EKG unremarkable. COVID, flu and RSV negative. Labs: Laboratory Results - last 24 hr 08/20/24 12:15 WBC 9.0 RBC 4.95 Hgb 10.9 L Hct 36.8 L MCV 74.3 L MCH 22.0 L MCHC 29.6 L RDW Std Deviation 42.9 RDW Coeff of Edgar 16.3 H Plt Count 309 MPV 8.8 Immature Gran % (Auto) 0.400 Neut % (Auto) 67.0 Lymph % (Auto) 21.3 Pepin % (Auto) 6.7 Eos % (Auto) 3.6 Baso % (Auto) 1.0 Absolute Neuts (auto) 6.0 Absolute Lymphs (auto) 1.92 Nucleated RBC % 0 Sodium 138 Potassium 4.2 Chloride 106 Carbon Dioxide 25.0 Anion Gap 7 BUN 15 Creatinine 0.76 Estim Creat Clear Calc 62.45 Est GFR (MDRD) Af Amer 94 Est GFR (MDRD) Non-Af 78 BUN/Creatinine Ratio 19.7 Glucose 135 H Calcium 9.2 Troponin I High Sens 12 Radiography Chest X-Ray - ED: 1 View, Read by ED Physician, Read by Radiologist, Normal, Heart, Lungs, Mediastinum, Bony Structures and No Acute Disease Diagnostic Testing: Clinical Impression(s) from Imaging Studies Chest X-Ray 06/08/24 11:49 IMPRESSION: No acute abnormality is seen. Electronically Signed: Murtaza Joseph MD at 12:43 EDT , Chest x-ray, portable, single view interpreted by myself and radiologist shows no acute abnormality. Normal cardiac silhouette. No pneumonia. No effusions. Rhythm Strip Rhythm Strip: Sinus Rhythm Rate: 73 Ectopy: None EKG Initial EKG: Attestation: I personally reviewed and interpreted this EKG as follows: Interpretation: Sinus Rhythm and No Acute Injury Pattern Comments: Normal sinus rhythm rate of 73 no acute signs of TN or ischemia. Discharge Plan Triage Chief Complaint: Chest Pain ED Provider: Gianni Moctezuma Dx/Rx/DC Orders Clinical Impression: Cough, Viral syndrome, History of diabetes mellitus, History of coronary artery disease Instructions: ED URI, Viral, No Abx (Adult) Prescriptions: New ondansetron 4 mg tablet,disintegrating 4 mg PO Q8H PRN (Reason: nausea and vomiting) Qty: 7 0RF No Action valsartan 320 mg tablet 320 mg PO DAILY Qty: 90 3RF amlodipine 5 mg tablet 5 mg PO DAILY buprenorphine 5 mcg/hour patch weekly 1 patch transdermal QWEEK fluticasone propionate [Allergy Relief (fluticasone)] 50 mcg/actuation spray,suspension 2 spray intranasal DAILY Qty: 16 0RF Rx Instructions: administer into each nostril glimepiride 4 mg tablet 4 mg PO DAILY Qty: 90 1RF aspirin 81 mg Tablet,Delayed Release (Dr/Ec) 81 mg PO DAILY@0800 Qty: 100 6RF docusate calcium [Stool Softener (docusate rain)] 240 mg capsule 240 mg PO BID PRN (Reason: constipation) Qty: 60 11RF sennosides [Natural Senna Laxative] 8.6 mg tablet 8.6 mg PO DAILY PRN (Reason: constipation: take if Colace doesn't work) Qty: 14 3RF ezetimibe [Zetia] 10 mg tablet 10 mg PO DAILY Qty: 90 1RF potassium chloride 20 mEq tablet extended release 20 meq PO DAILY Qty: 90 1RF oxybutynin chloride 5 mg tablet extended release 24hr 5 mg PO DAILY Qty: 60 1RF cetirizine [All Day Allergy (cetirizine)] 10 mg tablet 10 mg PO DAILY Qty: 90 0RF duloxetine 20 mg capsule,delayed release(DR/EC) 20 mg PO BID Qty: 60 1RF clopidogrel 75 mg tablet 75 mg PO QHS Qty: 90 1RF doxazosin [Cardura] 2 mg tablet 2 mg PO QHS Qty: 90 1RF pantoprazole 40 mg tablet,delayed release (DR/EC) 40 mg PO BID Qty: 180 1RF Primary Care Provider: Loyd Armas Referrals: Loyd Armas MD [Primary Care Provider] - 1 Week if not improving Activity Restrictions/Additional Instructions: Plenty of fluids and rest. Zofran as needed for nausea. Follow-up with your doctor if not improving. Print Language: Japanese Disposition Disposition: Home, Self Care
[2024-06-08] MEDS: 0.9% Normal Saline (1000mL) 1,000 ML 999 ML IV (12:23)
[2024-06-08 12:25] LABS: Absolute Lymphocyte Count 1.92 X10^3/uL (0.83-4.51); Basophil# 0.09 X10^3/uL; Eosinophil# 0.32 X10^3/uL; Eosinophils% 3.6 % (0-5); Hematocrit 36.8 % (37-47); Hemoglobin 10.9 g/dL (12.0-15.0); Lymphocyte # 1.92 X10^3/ul (0.83-4.51); Lymphocyte % 21.3 % (19-41); Mean Corp Hgb Conc 29.6 g/dL (32-36); Mean Corpuscular Volume 74.3 fL (81-99); Mean Platelet Vol. 8.8 fl (6.2-12.0); Monocyte% 6.7 % (0-10); NRBC Flagged by Analyzer 0 % (0-5); Neutrophil # 6.04 X10^3/uL (2.7-7.7); Platelet Count 309 K/mm3 (150-450); RBC Distribution Width CV 16.3 % (11.6-14.6); RBC Distribution Width SD 42.9 fl (35.1-43.9); Red Blood Count 4.95 M/mm3 (4.2-5.4)
[2024-06-08 12:39] LABS: Anion Gap 7 (5-15); BUN 15 mg/dL (7-18); BUN/Creat Ratio 19.7 RATIO (10-20); Calcium,Total 9.2 mg/dL (8.5-10.1); Chloride 106 mmol/L (98-107); Creatinine, Serum 0.76 mg/dL (0.55-1.02); EST Glomerular Filtration Rate 78 mL/min (>60); Est Glom Filt Rate - Afr Amer 94 mL/min (>60); Estimated Creatinine Clearance 62.45 ml/min; Glucose 135 mg/dL (74-106); Potassium 4.2 mmol/L (3.5-5.1); Sodium Level 138 mmol/L (136-145); Troponin-I HS (w/2H Reflex) 12 pg/mL (3.0-54.0)
[2024-06-08 13:00] VITALS: BP 146/59; PULSE 83; RESP 18; O2SAT 96
[2024-06-08] MEDS: Ondansetron 4 MG/2 ML Vial IV (13:32)
[2024-06-08 14:00] VITALS: BP 144/60; PULSE 82; RESP 18; O2SAT 96
[2024-06-08 14:16] LABS: Reflex Troponin-HS? (from REC) Y
--- NOTE | 2024-06-08 14:23 | ED.RN ---
PT RINGS OUT. STATES TO THIS RN NO-ONE IS HELPING ME. PT THEN BEGINS TO YELL AT THIS RN. SCREAMING HEARD BY PHYSICIAN Yony POP AND OTHERS. PT AWARE SHE IS TO BE DISCHARGED.PT ANGRY AT HER CARE HERE. DR CRUZ
[2024-06-08 14:26] VITALS: BP 178/68; PULSE 80; RESP 18; TEMP 36.6; O2SAT 99
--- NOTE | 2024-06-08 14:39 | ED.RN ---
Pt found crying in her room states that nurse yelled at me. This RN removed pt's iv's and assist off commode. Pt states she has covid and that she was feeling so lousy last night. This RN said that if you have covid that would explain why she was feeling that way. Pt got irrate and said I don't have covid! THis RN said that she just stated that. Pt denies. pt asked this RN to assist pt with putting shoes on and instructed pt to get into wheelchair so that she could help her. Pt looked at this RN and said, not you too! This RN said that she had just asked her to help her with her shoes. Pt seemed confused.
== END 2024-06-08 14:50 | disposition home or self-care (01) ==
PROVIDERS: Emergency Provider Emergency Medicine; PCP Internal Medicine; Visit Provider Emergency Medicine
DX: B34.9 Viral infection, unspecified (principal); J44.9 Chronic obstructive pulmonary disease, unspecified; E11.9 Type 2 diabetes mellitus without complications; I25.10 Atherosclerotic heart disease of native coronary artery without angina pectoris; R09.81 Nasal congestion; R53.1 Weakness; E78.2 Mixed hyperlipidemia; Z87.891 Personal history of nicotine dependence; R05.9 Cough, unspecified; I10 Essential (primary) hypertension; R07.89 Other chest pain; Z82.49 Family history of ischemic heart disease and other diseases of the circulatory system; Z95.5 Presence of coronary angioplasty implant and graft; Z90.49 Acquired absence of other specified parts of digestive tract
CPT/HCPCS: 71045; 80048; 84484; 85025; 87631; 93005; 96361; 96374; 99285; J7030; A4216; J2405

== ENCOUNTER → 2024-07-23 | Outpatient (CLI) | payer MEDICARE, SELFPAY ==
[2024-07-23 13:15] LABS: Hematocrit 34.3 % (37-47); Hemoglobin 10.2 g/dL (12.0-15.0); Mean Corp Hgb Conc 29.7 g/dL (32-36); Mean Corpuscular Hgb 22.1 pg (27.0-32.0); Mean Corpuscular Volume 74.2 fL (81-99); Mean Platelet Vol. 8.9 fl (6.2-12.0); Platelet Count 294 K/mm3 (150-450); RBC Distribution Width SD 44.8 fl (35.1-43.9); Red Blood Count 4.62 M/mm3 (4.2-5.4); White Blood Count 7.6 K/mm3 (4.4-11.0)
[2024-07-23 13:25] LABS: Prothrombin Time (Protime)PT. 13.3 SECONDS (11.7-14.9)
[2024-07-23 13:26] LABS: Partial Thromboplast Time 28.2 Seconds (24.1-36.2)
[2024-07-23 13:36] LABS: Anion Gap 5 (5-15); BUN 17 mg/dL (7-18); BUN/Creat Ratio 20.3 RATIO (10-20); Calcium,Total 8.9 mg/dL (8.5-10.1); Chloride 108 mmol/L (98-107); Creatinine, Serum 0.84 mg/dL (0.55-1.02); EST Glomerular Filtration Rate 70 mL/min (>60); Est Glom Filt Rate - Afr Amer 85 mL/min (>60); Glucose 105 mg/dL (74-106); Potassium 4.2 mmol/L (3.5-5.1); Sodium Level 139 mmol/L (136-145)
== END | disposition home or self-care (01) ==
LOC: LAB 12:55
PROVIDERS: PCP Internal Medicine; Referring Provider Internal Medicine Cardiovascular Disease; Visit Provider Internal Medicine Cardiovascular Disease
DX: R94.39 Abnormal result of other cardiovascular function study (principal); D64.9 Anemia, unspecified; I25.10 Atherosclerotic heart disease of native coronary artery without angina pectoris; R07.9 Chest pain, unspecified; E78.5 Hyperlipidemia, unspecified; I10 Essential (primary) hypertension
CPT/HCPCS: 36415; 80048; 85027; 85610; 85730

== ENCOUNTER 2024-07-28 13:05 | Observation (INO) | payer MEDICARE, SELFPAY ==
[2024-07-27 09:41] VITALS: BMI 39.4
--- NOTE | 2024-07-28 13:28 | CL.I_ITS ---
Patient Name: BRADY BALL Study Date: 07/28/2024 Performing: Elbert Rodriguez MD Ht: 60 inches 152.4 cm : 1945 Wt: 202.01 lbs 91.63 kg Age: 79 Gender: female BSA: 1.87 PROCEDURE(S) PERFORMED DC02-(02231)LHC/COR [id number])JOSE W/WO PTCA, SINGLE CORONARY ARTERY IC10-([id number])FFR, CORONARY OR GRAFT, INITIAL VESSEL IC11-([id number])FFR, CORONARY OR GRAFT, EACH ADD'L VESSEL CLINICAL PROFILE AND CO-MORBIDITIES Indications: New Onset Angina <= 2 months Heart Failure: None CAD Presentations: Unstable angina. CONCLUSIONS 50% Prox LAD, 40% Mid LAD (FFR 0.84); 70% distal LAD 60% Prox LCX (FFR 0.85) Stents to RCA patent Successful JOSE distal LAD using [place] 2.0x12 mm, post-dilated using 2.25 mm balloon RECOMMENDATIONS ASA Indefinitley P2Y12 inhibitors for atleast 6 months DESCRIPTION OF PROCEDURE The patient arrived to the procedure lab. The risks and benefits of the procedure as well as a full description of our services here and lack of surgical backup were fully explained to the patient and/or their significant other prior to the catheterization. The Timeout was completed, verifying the correct patient and procedure. The patient's procedural site was prepped and draped in the usual fashion. Local anesthetic was given subcutaneously to right radial region with Lidocaine 2%. Local anesthetic was given subcutaneously to left radial region with Lidocaine 2%. Local anesthetic was given subcutaneously to right groin region with Lidocaine 2%. Using a modified Seldinger technique, arterial access was obtained via the left radial artery, a 6Fr sheath was inserted., arterial access was obtained via the right femoral artery, with Micropuncture set, arterial access was obtained via the right femoral artery, a 5Fr sheath was inserted.. Left Coronary Artery selective angiography was performed in multiple views using a 5 Fr. JL4 catheter. Right Coronary Artery selective angiography was then performed in multiple views using a 5 Fr. 3DRC (Binu) catheter Arterial sheath was exchanged for a 6 Fr Sheath. The FFR/iFR wire was inserted. iFR measurements were performed. iFR Ratio: 0.93 Adenosine was then given per protocol. FFR Ratio post Adenosine: 0.85 iFR Ratio: 0.94 iFR Ratio: 0.93 iFR Ratio: 0.93 Adenosine was then given per protocol. Pressures and FFR/iFR were then recorded. FFR Ratio Baseline: 0.84 FFR Ratio post Adenosine: 0.84 iFR measurements were performed. iFR Ratio: 0.88 The FFR/iFR wire was then removed. runthrough Guide wire was advanced to the LAD. lester frontier 2.0 x12 Drug Eluting stent was inserted. Drug Eluting stent was advanced across the lesion in the LAD, distal. Angiogram performed post stent deployment. NC EUPHORA 2.25 X 8 Balloon catheter was inserted. Balloon catheter was inserted post stent. Angiogram performed post balloon dilatation. Angiogram performed post balloon dilatation. The arterial sheath was pulled and a TR Band was applied for hemostasis w/ 12ml air. The arterial sheath was pulled and a Perclose closure device was deployed for hemostasis CORONARY ANGIOGRAPHY LEFT MAIN: Tubular 20% Ostial lesion in Left Main LEFT ANTERIOR DESCENDING ARTERY: LAD: Tubular 40% Mid lesion in LAD Tubular 70% Distal lesion in LAD DIAGONAL 1: Tubular 50% Proximal lesion in 1st Diagonal INTERVENTION INFORMATION LESION SITE: Circumflex (Proximal) Lesion Complexity: Non-High/Non-C, lesion length: 10 mm Pre Stenosis: 70 % Pre intervention OFELIA flow: 3 PROCEDURE: Drug Eluting Stent with post dilatation Post Stenosis: 0 % Post intervention OFELIA flow: 3 Lesion Devices: Luigi Chirp Interactives The [employer] Hub Coronary FFR Wire Cordis 6 Fr XB3.5 100cm Guide Catheter LESION SITE: LAD (Proximal) Lesion Devices: Luigi Chirp Interactives [employer] Coronary FFR Wire Cordis 6 Fr XB3.5 100cm Guide Catheter LESION SITE: LAD (Distal) Lesion Devices: Luigi Chirp Interactives [employer] Coronary FFR Wire Cordis 6 Fr XB3.5 100cm Guide Catheter Terumo .014 180cm Runthrough Extra Floppy straight Medtronic 2.00 x 12 LESTER FRONTIER JOSE Medtronic NC EUPHORA RX 2.25x08 BALLOON COMPLICATIONS No Complications PROCEDURE MEDICATIONS Versed 1 mg IV Fentanyl 50 mcg IV Fentanyl 50 mcg IV Versed 1 mg IV Fentanyl 25 mcg IV Oxygen: 2 L/min via nasal cannula Benadryl 25 mg IV 07/28/2024 10:25:36 Adenosine drip for FFR 25.8 ml IV 07/28/2024 12:11:18 Adenosine drip for FFR 25.8 ml IV @ 07/28/2024 12:18:05 Heparin given IA 07/28/2024 11:26:38 Heparin 2000 unit(s) IV 07/28/2024 11:34:44 Heparin 4000 unit(s) IV 07/28/2024 12:06:26 Heparin 2000 unit(s) IV 07/28/2024 12:29:01 Nitro 200 mcg IC 07/28/2024 12:31:46 Nitro 200 mcg IC 07/28/2024 12:31:46 Plavix 300 mg PO 07/28/2024 12:47:16 Verapamil 2.5mg, Ntg 200mcgs, 2000 units of Heparin given IA 07/28/2024 11:26:38 SUMMARY OF HEMODYNAMIC DATA Time AIR REST ECG 08:33:57 AO 172/77 (117) SA 11:34:22 AO 157/55 (93) 11:54:51 AO 159/57 (98) 11:56:16 AO 159/59 (99) 11:58:34 AO 141/52 (88) 12:14:50 Signed By Elbert Rodriguez MD On 07/28/2024 13:27:21 Elbert Rodriguez MD
--- NOTE | 2024-07-28 13:48 | PCM.DC ---
Discharge Instructions Diet Discharge Diet: Low fat / Low cholesterol Dressing / Incision Call your doctor if your incision/area has: Continuous Slow Oozing, Sudden Increased Bleeding, Increased Pain/ Swelling, Increased Redness, Foul Smelling Discharge and Swelling at the incision site Call your doctor if you observe: Fever of 101 or Higher, Coldness, Increased Pain and Numbness or Tingling Follow Up Care Please Follow Up With: Elbert Rodriguez MD When: 2 weeks Test Results: Test results from this visit will be discussed in further detail at your follow-up appointment, if applicable. Discharge Plan Admission Attending Provider: Elbert Rodriguez Primary Care Provider: Loyd Armas Instructions Print Language: Mongolian Discharge Orders/Prescriptions Prescriptions: No Action amlodipine 5 mg tablet 5 mg PO DAILY buprenorphine 5 mcg/hour patch weekly 1 patch transdermal QWEEK fluticasone propionate [Allergy Relief (fluticasone)] 50 mcg/actuation spray,suspension 2 spray intranasal DAILY Qty: 16 0RF Rx Instructions: administer into each nostril glimepiride 4 mg tablet 4 mg PO DAILY Qty: 90 1RF isosorbide dinitrate 5 mg tablet 5 mg PO BID Qty: 90 3RF Rx Instructions: allow nitrate-free interval of 12-14 hrs per 24-hr period nitroglycerin 0.4 mg tablet, sublingual 0.4 mg sublingual Q5-15M PRN (Reason: chest pain) Qty: 30 3RF Rx Instructions: do not exceed 3 doses per episode prednisone 20 mg tablet 60 mg PO QDAY Qty: 6 0RF Rx Instructions: Take three 20mg tablets by mouth at bedtime 07/28/24. Take three 20mg tablets by mouth in the morning prior to procedure on 07/29/24. famotidine [Pepcid] 20 mg tablet 20 mg PO QDAY Qty: 1 0RF Rx Instructions: Take one 20mg tablet by mouth the morning of your procedure (07/29/24). aspirin 81 mg Tablet,Delayed Release (Dr/Ec) 81 mg PO DAILY@0800 Qty: 100 6RF ondansetron 4 mg tablet,disintegrating 4 mg PO Q8H PRN (Reason: nausea and vomiting) Qty: 7 0RF docusate calcium [Stool Softener (docusate rain)] 240 mg capsule 240 mg PO BID PRN (Reason: constipation) Qty: 60 11RF sennosides [Natural Senna Laxative] 8.6 mg tablet 8.6 mg PO DAILY PRN (Reason: constipation: take if Colace doesn't work) Qty: 14 3RF ezetimibe [Zetia] 10 mg tablet 10 mg PO DAILY Qty: 90 1RF potassium chloride 20 mEq tablet extended release 20 meq PO DAILY Qty: 90 1RF oxybutynin chloride 5 mg tablet extended release 24hr 5 mg PO DAILY Qty: 60 1RF clopidogrel 75 mg tablet 75 mg PO QHS Qty: 90 1RF doxazosin [Cardura] 2 mg tablet 2 mg PO QHS Qty: 90 1RF pantoprazole 40 mg tablet,delayed release (DR/EC) 40 mg PO BID Qty: 180 1RF cetirizine [All Day Allergy (cetirizine)] 10 mg tablet 10 mg PO DAILY Qty: 90 0RF duloxetine 20 mg capsule,delayed release(DR/EC) 20 mg PO BID Qty: 60 1RF valsartan 320 mg tablet 320 mg PO DAILY Qty: 90 3RF Referrals / Follow Up: Loyd Armas MD [Primary Care Provider] - Disposition Disposition (needs filled in before D/C Order can be placed): Home, Self Care
[2024-07-28 15:13] LABS: ACT Activated Clotting Time 275 sec (74-137)
[2024-07-28 15:13] LABS: ACT Activated Clotting Time 183 sec (74-137)
[2024-07-28 16:28] LABS: Bedside Glucose 151 mg/dL (74-106)
[2024-07-28 17:55] VITALS: BP 106/58; PULSE 70; RESP 16; TEMP 35.7; O2SAT 97; BMI 39.4
[2024-07-28 20:30] VITALS: BP 96/60; PULSE 80; RESP 17; TEMP 36.7; O2SAT 94
[2024-07-28] MEDS: Isosorbide DN 10 MG Tablet 5 MG PO (21:01)
[2024-07-28] MEDS: Pantoprazole Sodium 40 MG Tablet PO (21:01)
[2024-07-28] MEDS: Doxazosin 1 MG Tablet 2 MG PO (21:01)
[2024-07-28] MEDS: Clopidogrel Bisulfate 75 MG Tablet PO (21:02)
[2024-07-28] MEDS: Acetaminophen 325 MG Tablet 650 MG PO (22:54)
[2024-07-28] MEDS: 0.9% Saline Lock 10 ML Syringe IV (22:55)
[2024-07-29 02:30] VITALS: BP 104/54; PULSE 65; RESP 16; TEMP 36.7; O2SAT 97
[2024-07-29 06:28] LABS: AST(SGOT) 18 U/L (15-37); Alanine Aminotransfer ALT/SGPT 19 U/L (13-56); Albumin, Serum 3.1 g/dL (3.2-5.0); Alkaline Phosphatase 59 U/L (45-117); Anion Gap 6 (5-15); BUN 15 mg/dL (7-18); BUN/Creat Ratio 20.9 RATIO (10-20); Calcium,Total 8.8 mg/dL (8.5-10.1); Chloride 108 mmol/L (98-107); Creatinine, Serum 0.72 mg/dL (0.55-1.02); EST Glomerular Filtration Rate 84 mL/min (>60); Est Glom Filt Rate - Afr Amer 101 mL/min (>60); Estimated Creatinine Clearance 58.51 ml/min; Globulin 3.2 g/dL (2.2-4.2); Glucose 123 mg/dL (74-106); Potassium 3.8 mmol/L (3.5-5.1); Protein, Total 6.3 g/dL (6.4-8.2); Sodium Level 140 mmol/L (136-145)
[2024-07-29 06:50] LABS: Hematocrit 31.6 % (37-47); Hemoglobin 9.6 g/dL (12.0-15.0); Mean Corp Hgb Conc 30.4 g/dL (32-36); Mean Corpuscular Hgb 22.1 pg (27.0-32.0); Mean Corpuscular Volume 72.6 fL (81-99); Mean Platelet Vol. 9.5 fl (6.2-12.0); Platelet Count 311 K/mm3 (150-450); RBC Distribution Width CV 17.3 % (11.6-14.6); RBC Distribution Width SD 44.9 fl (35.1-43.9); Red Blood Count 4.35 M/mm3 (4.2-5.4)
[2024-07-29 07:20] VITALS: O2SAT 96
[2024-07-29 08:08] VITALS: BP 108/61; PULSE 62; RESP 18; TEMP 36.7; O2SAT 96
[2024-07-29] MEDS: Glimepiride 4 MG Tablet PO (08:11)
[2024-07-29] MEDS: Aspirin E.C. 81 MG Tablet PO (08:11)
[2024-07-29] MEDS: Isosorbide DN 10 MG Tablet 5 MG PO (08:11)
[2024-07-29] MEDS: Ezetimibe 10 MG Tablet PO (08:11)
[2024-07-29] MEDS: amLODIPine 5 MG Tablet PO (08:11)
[2024-07-29] MEDS: Famotidine 20 MG Tablet PO (08:11)
[2024-07-29] MEDS: Potassium Chloride Oral Tablet 20 MEQ PO (08:11)
[2024-07-29] MEDS: Losartan Potassium 100 MG Tablet PO (08:12)
--- NOTE | 2024-07-29 09:30 | CASEMGMT ---
Pt has an order for DC placed. SERGEY CM to pt room at this time. Pt states that she lives alone but has plenty of neighbors that are able to provide support for the pt. Pt states that she is independent. Pt denies needs and states that she feels safe going home today. Pt denies further questions or concerns at this time.
[2024-07-29] MEDS: Senna Tablet 1 TABLET PO (10:57)
== END 2024-07-29 10:00 | disposition home or self-care (01) ==
LOC: CLSP 13:24 → PCU 17:26
PROVIDERS: Admitting Provider Internal Medicine Cardiovascular Disease; PCP Internal Medicine; Referring Provider Internal Medicine Cardiovascular Disease; Visit Provider Internal Medicine Cardiovascular Disease
DX: I25.110 Atherosclerotic heart disease of native coronary artery with unstable angina pectoris (principal); Z79.899 Other long term (current) drug therapy; Z79.82 Long term (current) use of aspirin; Z79.51 Long term (current) use of inhaled steroids; R09.89 Other specified symptoms and signs involving the circulatory and respiratory systems; E78.5 Hyperlipidemia, unspecified; I10 Essential (primary) hypertension
CPT/HCPCS: 80053; 82962; 85027; 85347; 92928; 93005; 93454; 93571; 93572; 99152; 99153; 99221; C1874; C1894; J0153; J7040; Q9967; A4216; C1725; C1760; C1769; C1887; C9600; G0378

== ENCOUNTER 2024-08-04 12:49 | Inpatient (IN) | payer MEDICARE, SELFPAY ==
[2024-08-04] VITALS (14 sets, daily range): BP systolic 117–154; BP diastolic 54–94; PULSE 58–73; RESP 12–18; TEMP 36.4–36.8; O2SAT 95–98; BMI 40.1; BMI 38.7
--- NOTE | 2024-08-04 13:19 | EKG12_ITS ---
Test Reason : gen Blood Pressure : / mmHG Vent. Rate : 069 BPM Atrial Rate : 069 BPM P-R Int : 190 ms QRS Dur : 072 ms QT Int : 430 ms P-R-T Axes : 067 -28 106 degrees QTc Int : 460 ms Normal sinus rhythm Minimal voltage criteria for LVH, may be normal variant ( R in aVL ) Nonspecific T wave abnormality Abnormal ECG Confirmed by Nikolay Melendez ([id number]), art editor SHANTEL LANIER ([id number]) on 08/05/2024 10:39:15 AM Referred By: Confirmed By:Nikolay Melendez
--- NOTE | 2024-08-04 13:19 | CT_ITS ---
We are attempting to reach an attending provider to discuss findings. An addendum with communication details will be sent when the communication is complete. INDICATION: Neuro deficit, acute, stroke suspected EXAMINATION: CT BRAIN - CT Head Stroke Protocol W/O Contrast Injection TECHNIQUE: Multiple axial images were obtained of the head without intravenous contrast. The protocol utilizes one or more of the following dose reduction techniques: automated exposure control, adjustment of mA and/or kV according to patient size,and/or use of iterative reconstruction technique. IV Contrast dosage and agent: None. RADIATION DOSAGE (If Supplied By Facility): CTDIvol = ( ) mGy, DLP = ( ) mGycm COMPARISON: Prior study dated: 06/13/2016 FINDINGS: BRAIN: No acute bleed. No edema. Decreased attenuation in the periventricular white matter bilaterally. Maurer-white matter differentiation is maintained. Arterial calcifications. VENTRICLES AND SULCI: The ventricles are not dilated. The sulci are prominent. EXTRA-AXIAL: No hemorrhage, fluid collection, or mass. CALVARIUM / SKULL BASE: Unremarkable. FACE/SINUSES: Unremarkable. SOFT TISSUES: Unremarkable. CT/Brain/Head without Contrast IMPRESSION: No acute abnormality. Chronic microvascular ischemic disease. CT angiogram and/or MRI recommended to evaluate for acute infarct as clinically indicated. Electronically Signed: Olga Mccain MD at 14:34 EDT ,
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
[2024-08-04 13:39] LABS: Absolute Lymphocyte Count 1.72 X10^3/uL (0.83-4.51); Absolute Neutrophil Count 4.9 X10^3/uL (2.0-7.7); Basophil# 0.03 X10^3/uL; Basophil% 0.4 % (0-1); Eosinophil# 0.28 X10^3/uL; Eosinophils% 3.7 % (0-5); Hematocrit 33.5 % (37-47); Hemoglobin 10.2 g/dL (12.0-15.0); Lymphocyte # 1.72 X10^3/ul (0.83-4.51); Lymphocyte % 22.5 % (19-41); Mean Corp Hgb Conc 30.4 g/dL (32-36); Mean Corpuscular Hgb 22.3 pg (27.0-32.0); Mean Corpuscular Volume 73.3 fL (81-99); Mean Platelet Vol. 9.1 fl (6.2-12.0); Monocyte# 0.68 X10^3/uL; Monocyte% 8.9 % (0-10); NRBC Flagged by Analyzer 0 % (0-5); Neutrophil # 4.92 X10^3/uL (2.7-7.7); Neutrophil % 64.1 % (47-70); Platelet Count 285 K/mm3 (150-450); RBC Distribution Width CV 17.2 % (11.6-14.6); Red Blood Count 4.57 M/mm3 (4.2-5.4); White Blood Count 7.7 K/mm3 (4.4-11.0)
[2024-08-04 13:58] LABS: Anion Gap 7 (5-15); BUN 11 mg/dL (7-18); BUN/Creat Ratio 13.9 RATIO (10-20); Calcium,Total 8.9 mg/dL (8.5-10.1); Chloride 109 mmol/L (98-107); Creatinine, Serum 0.79 mg/dL (0.55-1.02); EST Glomerular Filtration Rate 75 mL/min (>60); Est Glom Filt Rate - Afr Amer 90 mL/min (>60); Glucose 120 mg/dL (74-106); Potassium 3.4 mmol/L (3.5-5.1); Sodium Level 141 mmol/L (136-145); Troponin-I HS 6 pg/mL (3.0-54.0)
[2024-08-04 13:59] LABS: Prothrombin Time (Protime)PT. 13.6 SECONDS (11.7-14.9)
[2024-08-04 14:00] LABS: Partial Thromboplast Time 27.7 Seconds (24.1-36.2)
--- NOTE | 2024-08-04 14:10 | RAD_ITS ---
INDICATION: Neuro deficit, acute, stroke suspected EXAMINATION/TECHNIQUE: X-RAY - XR Chest 1 View AP portable. 2:10 PM COMPARISON: Prior study dated: 06/08/2024 FINDINGS: LINES/DEVICES: None. LUNGS: No consolidation. No pneumothorax. MEDIASTINUM: Aorta is atherosclerotic. CARDIAC SILHOUETTE: Not enlarged. BONES AND SOFT TISSUES: No acute abnormalities. RAD/Chest 1 View IMPRESSION: No evidence of active intrathoracic disease. Electronically Signed: Olga Mccain MD at 14:44 EDT ,
[2024-08-04] MEDS: Morphine 2 MG/ML Syringe IV (15:31)
[2024-08-04] MEDS: Ondansetron 4 MG/2 ML Vial IV (15:31)
--- NOTE | 2024-08-04 15:53 | ED.RN ---
Pt lives alone, states unable to give herself her own medications, lives alone. I put all my pills out and then I forgot which ones to take Pt also state she is unable to walk to kitchen to make meals and get to bathroom. has a son that is a caregiver, but pt states he does not come around often. Pt is A&Ox1-2, unable to assess gait. Being admitted for stroke workup. Social work consult put in for pt to have home health to help her with ADLs.
--- NOTE | 2024-08-04 16:29 | MRI_ITS ---
STUDY: MRI BRAIN WITHOUT CONTRAST REASON FOR EXAM: Female, 79 years old. SUSPECTED STROKE, BLURRY Vision TECHNIQUE: Standardized multiplanar fat and water weighted pulse sequences were obtained. COMPARISON: CT of the brain August 04, 2024. FINDINGS: Mild atrophy and moderate periventricular white matter ischemic change without mass effect or restricted diffusion. Normal bilateral basal ganglia. Normal thalami. There is no extra-axial fluid accumulation. Normal flow voids within the major intracranial circulation suggesting patency by spin echo criteria. Normal sella turcica, pituitary gland, infundibular stalk, optic chiasm and hypothalamus. Normal tectal plate and pineal gland. Normal midbrain, nito and medulla. Normal cerebellum. Normal basal cisterns. Normal bilateral temporal bones. Normal bilateral internal auditory canals. Postsurgical changes of the orbits.. Normal visualized paranasal sinuses. Normal calvarium and skull base. Normal visualized soft tissue structures. Normal visualized upper cervical spine. MRI/Brain without Contrast IMPRESSION: Mild atrophy and moderate periventricular white matter ischemic changes without evidence for acute infarct Electronically Signed: Matt Grayson MD at 20:14 EDT ,
--- NOTE | 2024-08-04 16:31 | ECHOD_ITS ---
Reason For Study: TIA/CVA Procedure This was a 2D Doppler, Color Flow transthoracic echocardiogram. Exam performed portable in patient room. Left Ventricle Normal LV size. The estimated ejection fraction is 65 %. No evidence for diastolic dysfunction. No regional wall motion abnormalities noted. Right Ventricle Normal RV size. Normal systolic function. Atria The left atrium is mildly enlarged. Normal right atrium. Bubble contrast study negative for right to left interatrial shunt. No doppler evidence for ASD. Mitral Valve There is no mitral valve stenosis. No mitral valve insufficiency. Tricuspid Valve There is no tricuspid stenosis. Trivial tricuspid valve insufficiency. Pulmonary artery systolic pressure is 30 mmHg. Aortic Valve Trisinus/trileaflet aortic valve. Mild aortic stenosis. Mild (1+) aortic valve insufficiency. Pulmonic Valve There is no pulmonic valvular stenosis. No pulmonic valve insufficiency. Great Vessels Normal aortic root. Pericardium/Pleural No pericardial effusion. Medication Performed a rapid injection of agitated mix of 9 cc saline and 1cc air to assess for atrial septal defect. MMode/2D Measurements & Calculations LVIDd: 4.4 cm IVSd: 1.1 cm LVOT diam: 1.9 cm LVIDs: 2.6 cm LVPWd: 0.95 cm RVDd: 3.5 cm FS: 40.8 % LVOT area: 2.8 cm2 Ao root diam: 3.1 cm asc Aorta Diam: 3.4 cm LAV(MOD-bp): 39.9 ml LAV(MOD-bp) Indexed: 21.2 ml/m2 LAV(MOD-sp2): 36.0 ml LAV(MOD-sp4): 40.2 ml SV(MOD-sp4): 36.3 ml SV(sp4-el): 39.6 ml LVAd ap4: 23.7 cm2 LVLd ap4: 7.5 cm EDV(MOD-sp4): 60.3 ml EDV(sp4-el): 63.7 ml LVAs ap4: 12.9 cm2 LVLs ap4: 5.9 cm ESV(MOD-sp4): 24.0 ml ESV(sp4-el): 24.1 ml EF(MOD-sp4): 60.2 % EF(sp4-el): 62.2 % LA A4 area: 16.9 cm2 RA A4 area: 15.8 cm2 TAPSE: 1.6 cm Time Measurements MV dec time: 0.28 sec Doppler Measurements & Calculations MV E max marquis: 78.9 cm/sec Lat Peak E' Marquis: 8.4 cm/sec Med Peak E' Marquis: 6.9 cm/sec MV A max marquis: 98.8 cm/sec E/E' lat: 9.4 E/E' med: 11.5 MV E/A: 0.80 MV dec slope: 280.5 cm/sec2 Ao V2 max: 204.6 cm/sec AI max marquis: 344.8 cm/sec Ao max P.8 mmHg AI max P.6 mmHg Ao V2 mean: 134.7 cm/sec AI dec slope: 213.5 cm/sec2 Ao mean P.4 mmHg AI P1/2t: 473.0 msec Ao V2 VTI: 43.3 cm AV (velocity ratio): 0.57 AMELIE(I,D): 1.6 cm2 AMELIE(V,D): 1.4 cm2 LV V1 max: 106.5 cm/sec SV(LVOT): 68.7 ml PA V2 max: 72.7 cm/sec LV V1 max P.5 mmHg PA max PG (full): 1.0 mmHg LV V1 mean P.3 mmHg LV V1 mean: 71.3 cm/sec LV V1 VTI: 24.7 cm TR max marquis: 253.5 cm/sec TR max P.7 mmHg ECHO/Echo Complete Interpretation Summary The estimated ejection fraction is 65 %. No evidence for diastolic dysfunction. The left atrium is mildly enlarged. Mild aortic stenosis. Mild (1+) aortic valve insufficiency. Ordering Physician: Felipe Peacock Referring Physician: ROBIN HERNÁNDEZ Performed By: Casi Durán RDCS and Student
--- NOTE | 2024-08-04 16:31 | PCM.HP.STD ---
HPI - General General Date of Admission: 08/04/24 Date of Service: 08/04/24 Chief Complaint: Headache, dizziness and blurry vision for about 1 week HPI Narrative BRADY BALL, is a 79 F came to ED for blurry vision from the right eye along with headache and dizziness for about 1 week after she had cardiac cath on 07/28/2024 for several days. She stated that next day after cardiac cath she got headache, feeling dizzy. She denies any recent fall although she had fall about 3 months ago. 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 Her headache is more on the right forehead region. She also complained of right groin pain after she had cardiac cath procedure for which left wrist and then right femoral artery was used. After the procedure she had choking, difficulty in swallowing and had angioedema like symptoms. She denied chest pain shortness of breath or orthopnea or leg symptoms. In ED she had a headache which did not show acute intracranial abnormality and patient further admitted for stroke workup [facility] Medical History Anxiety Depression Diabetes Rheumatoid arthritis Asthma Stroke/cerebrovascular accident GERD (gastroesophageal reflux disease) Anxiety and depression OAB (overactive bladder) Urinary urgency Diastolic dysfunction Aortic valve regurgitation Tricuspid regurgitation Aortic stenosis Abnormal cardiovascular stress test Flu vaccine need Palpitations Left shoulder pain Hypertension Hypokalemia Rectal bleeding Fatigue Iron deficiency anemia History of diabetes mellitus Acute pain of right foot URI (upper respiratory infection) Hypokalemia Carotid stenosis, bilateral Carotid artery disease Dyspnea on exertion Chest pain, unspecified CAD (coronary artery disease) Nonrheumatic aortic (valve) stenosis COPD (chronic obstructive pulmonary disease) YOVANA (obstructive sleep apnea) Mixed hyperlipidemia Atherosclerotic heart disease of tribal coronary artery without angina pectoris Anemia Vaginal anomaly Encounter to establish care Type 2 diabetes mellitus Memory impairment Tremor COPD (chronic obstructive pulmonary disease) Arthritis CAD (coronary artery disease) CHF (congestive heart failure) Iron deficiency anemia Venous insufficiency of both lower extremities Mild aortic stenosis Pulmonary HTN Chronic pain Constipation Chest pain Obesity Lumbago History of IBS HLD (hyperlipidemia) History of tobacco use Generalized anxiety disorder History of gastroesophageal reflux (GERD) History of fibromyalgia History of esophageal reflux CAD (coronary artery disease) Type II diabetes mellitus, uncontrolled History of COPD Coronary atherosclerosis of tribal coronary artery History of CHF (congestive heart failure) Benign essential hypertension Home Medications ?Medication ?Instructions ?Recorded ?Last Taken ?Type aspirin 81 mg tablet,delayed 81 mg PO DAILY@0800 heart health 09/16/23 07/28/24 Rx release #100 tabs docusate calcium 240 mg capsule 240 mg PO BID PRN constipation #60 09/18/23 Unknown Rx (Stool Softener (docusate calcium)) caps sennosides 8.6 mg tablet (Natural 8.6 mg PO DAILY PRN constipation: 09/18/23 Unknown Rx Senna Laxative) take if Colace doesn't work #14 tabs amlodipine 5 mg tablet 5 mg PO DAILY blood pressure 12/02/23 07/28/24 History buprenorphine 5 mcg/hour weekly 1 patch transdermal QWEEK pain 12/02/23 Unknown History transdermal patch fluticasone propionate 50 2 spray intranasal DAILY allergies 01/16/24 Unknown Rx mcg/actuation nasal #16 grams spray,suspension (Allergy Relief (fluticasone)) ezetimibe 10 mg tablet (Zetia) 10 mg PO DAILY cholesterol #90 tabs 03/29/24 Unknown Rx potassium chloride 20 mEq 20 meq PO DAILY supplement #90 tabs 03/29/24 07/28/24 Rx tablet,extended release oxybutynin chloride 5 mg 5 mg PO DAILY urine #60 tabs 04/26/24 Unknown Rx tablet,extended release 24 hr glimepiride 4 mg tablet 4 mg PO DAILY DIABETES #90 tabs 05/03/24 Unknown Rx clopidogrel 75 mg tablet 75 mg PO QHS BLOOD THINNER #90 tabs 05/28/24 07/27/24 Rx doxazosin 2 mg tablet (Cardura) 2 mg PO QHS BLOOD PRESSURE #90 tabs 05/28/24 Unknown Rx pantoprazole 40 mg tablet,delayed 40 mg PO BID ACID REFLUX #180 tabs 05/28/24 07/28/24 Rx release ondansetron 4 mg disintegrating 4 mg PO Q8H PRN nausea and 06/08/24 Unknown Rx tablet vomiting #7 tabs nitroglycerin 0.4 mg sublingual 0.4 mg sublingual Q5-15M PRN chest 07/19/24 Unknown Rx tablet pain #30 tabs famotidine 20 mg tablet (Pepcid) 20 mg PO QDAY reflux #1 TAB 07/20/24 07/28/24 Rx cetirizine 10 mg tablet (All Day 10 mg PO DAILY allergies #90 tabs 07/23/24 Unknown Rx Allergy (cetirizine)) duloxetine 20 mg capsule,delayed 20 mg PO BID mental health #60 caps 07/23/24 Unknown Rx release valsartan 320 mg tablet 320 mg PO DAILY blood pressure #90 07/23/24 07/28/24 Rx tabs isosorbide dinitrate 5 mg tablet 5 mg PO BID heart #180 tabs 07/30/24 Unknown Rx Allergy/AdvReac Type Severity Reaction Status Date / Time Iodinated Contrast Media Allergy Severe Angioedema Verified 08/04/24 12:51 amoxicillin Allergy Unknown Itching Verified 08/04/24 12:51 cephalexin (From Keflex) Allergy Unknown GI Upset, Verified 08/04/24 12:51 Itching doxycycline Allergy Unknown Rash Verified 08/04/24 12:51 furosemide (From Lasix) Allergy Unknown Hives Verified 08/04/24 12:51 simvastatin Allergy Unknown Hives Verified 08/04/24 12:51 atorvastatin calcium (From Allergy Hives Verified 08/04/24 12:51 Lipitor) divalproex sodium (From Allergy Hives Verified 08/04/24 12:51 Depakote) moxifloxacin HCl (From Allergy Unknown Verified 08/04/24 12:51 Avelox) vancomycin Allergy Hives Verified 08/04/24 12:51 amlodipine AdvReac Unknown Swelling Verified 08/04/24 12:51 fluticasone furoate (From AdvReac Unknown Throat Verified 08/04/24 12:51 Breo Ellipta) Burning-hoarseness sucralfate (From Carafate) AdvReac Unknown Diarrhea Verified 08/04/24 12:51 vilanterol (From Breo AdvReac Unknown Throat Verified 08/04/24 12:51 Ellipta) Burning-hoarseness Family History Father CAD (coronary artery disease) Hypertension Mother CAD (coronary artery disease) Hypertension Mixed hyperlipidemia COPD (chronic obstructive pulmonary disease) Brother CAD (coronary artery disease) History of coronary artery bypass surgery Brother CAD (coronary artery disease) History of coronary artery bypass surgery Sister CAD (coronary artery disease) History of coronary artery bypass surgery Sister CAD (coronary artery disease) History of coronary artery bypass surgery Surgical History History of coronary artery stent placement History of left heart catheterization (~09/16/23) Presence of stent in coronary artery (~09/16/23) History of foot surgery History of cholecystectomy History of total knee replacement History of hysterectomy Social History Smoking Status: Former smoker alcohol intake: never substance use type: does not use what type of physical activity do you participate in: none ROS ROS Narrative Constitutional: Reports fatigue and weakness. No fever. Patient is very nervous and apprehensive HEENT: Blurry vision. Reports systems reviewed and no addt'l complaints, except as documented Respiratory/Chest: No acute shortness of breath or respiratory distress or wheezing. CVS: No acute chest pain or shortness of breath. Recent cardiac cath on 07/28/2024 as mentioned in HPI. Gastrointestinal: Denies coffee ground emesis, hematemesis or vomiting Genitourinary: Denies burning urination or new urinary tract symptoms Musculoskeletal: Complain of right groin pain. Left leg chronic scar fasciotomy from 1984. No acute injury. Neurologic: Denies seizure-like symptoms. Headache is described in HPI skin: No ulcer. No rash Endocrinology: Reports systems reviewed and no addt'l complaints, except as documented Hematologic/Lymphatic: Reports systems reviewed and no addt'l complaints, except as documented Rest 14 ROS are negative except as mentioned in HPI Vital Signs Vital Signs Vital Signs: 08/04/24 12:51 08/04/24 13:19 08/04/24 13:49 Temperature 97.5 F L Temperature Source Temporal Pulse Rate 73 68 64 Respiratory Rate 16 13 12 Blood Pressure 144/63 H 147/71 H 134/55 H Blood Pressure Mean 90 96 81 Pulse Ox 97 96 Oxygen Delivery Method Room Air Room Air Room Air 08/04/24 14:01 08/04/24 14:19 08/04/24 14:30 Temperature Temperature Source Pulse Rate 68 62 Respiratory Rate 12 14 Blood Pressure 122/94 H 134/55 H Blood Pressure Mean 103 81 Pulse Ox 96 95 Oxygen Delivery Method Room Air Room Air Room Air 08/04/24 14:50 08/04/24 15:39 08/04/24 16:00 Temperature 98.2 F Temperature Source Pulse Rate 66 62 68 Respiratory Rate 14 16 17 Blood Pressure 146/73 H 153/74 H 154/70 H Blood Pressure Mean 97 100 98 Pulse Ox 97 96 97 Oxygen Delivery Method Room Air Room Air Weight Weight: 198 lb 10.184 oz Body Mass Index (BMI) 38.7 Physical Exam Narrative General: Alert, Oriented x3, Cooperative HEENT: Atraumatic, PERRLA, EOMI, Normocephalic Oral: Oral mucosa moist no Gingival or Mucosal Lesions/ Ulcerations Neck: Supple, No JVD, Negative Carotid Bruits Chest wall/Lungs: Air entry diminished in bilateral lung bases. No crepitation/rhonchi Cardiovascular: Sinus rhythm, Normal S1, Normal S2, No M/G/R. No right groin hematoma, bruise palpated or bruit heard. Abdomen: Bowel Sounds Present, Soft, Non Tender, Non-Distended : No dysuria. No renal angle tenderness. No suprapubic tenderness. Extremities: No edema, Capillary Refill Less than 3 Seconds Skin: No rashes, No breakdown Musculoskeletal: Mild tenderness on right groin/femoral triangle at the area of cardiac cath/sheath. No Tenderness to Palpation of other joints or Extremities Neurological: Cranial nerves II-XII grossly intact, DTR 2+/4. Blurry vision on the right eye but no hemianopia ordered Psych/Mental Status: Flat affect Results Lab / Micro Data 08/04/24 13:25 08/04/24 13:25 Labs: Laboratory Results - last 24 hr 08/04/24 13:25: WBC 7.7, RBC 4.57, Hgb 10.2 L, Hct 33.5 L, MCV 73.3 L, MCH 22.3 L, MCHC 30.4 L, RDW Std Deviation 45.0 H, RDW Coeff of Edgar 17.2 H, Plt Count 285, MPV 9.1, Immature Gran % (Auto) 0.400, Neut % (Auto) 64.1, Lymph % (Auto) 22.5, Brooke % (Auto) 8.9, Eos % (Auto) 3.7, Baso % (Auto) 0.4, Absolute Neuts (auto) 4.9, Absolute Lymphs (auto) 1.72, Nucleated RBC % 0, PT 13.6, INR 1.0, APTT 27.7, Sodium 141, Potassium 3.4 L, Chloride 109 H, Carbon Dioxide 24.0, Anion Gap 7, BUN 11, Creatinine 0.79, Est GFR (MDRD) Af Amer 90, Est GFR (MDRD) Non-Af 75, BUN/Creatinine Ratio 13.9, Glucose 120 H, Calcium 8.9, Troponin I High Sens 6 Imaging Radiology Impression Brain CT 08/04/24 13:19 IMPRESSION: No acute abnormality. Chronic microvascular ischemic disease. CT angiogram and/or MRI recommended to evaluate for acute infarct as clinically indicated. Electronically Signed: Olga Mccain MD at 14:34 EDT , ADDENDUM: 08/04/24 1441 IMPRESSION: No acute abnormality. Chronic microvascular ischemic disease. CT angiogram and/or MRI recommended to evaluate for acute infarct as clinically indicated. N.B. : The above Results were Read Back by Olga Mccain MD to Michael Subramanian MD, and understanding confirmed on 08/04/2024 14:34:27 (ET). Electronically Signed: Olga Mccain MD at 14:34 EDT , Chest X-Ray 08/04/24 14:10 IMPRESSION: No evidence of active intrathoracic disease. Electronically Signed: Olga Mccain MD at 14:44 EDT , Assessment & Plan Assessment/Plan (1) Blurred vision, right eye: (2) Acute headache: PLAN: Plan This 79-year-old came to ED for right forehead headache and right blurry vision and dizziness is being admitted for stroke workup 1. Right eye blurry vision, headache and dizziness with chronic left eye strabismus, concern for possible stroke: Patient had symptom onset about 5 to 7 days ago therefore stroke alert was not called. Patient is being admitted in PCU. Twelve-lead EKG shows NSR, LVH 69 bpm, QTc 460 ms. Chest x-ray no acute abnormality. PT, OT, speech therapy/swallow evaluation and management, nursing NIH stroke scale, BP and glucose monitoring and control as per stroke protocol. TSH, A1c fasting lipid profile tomorrow AM. MRI brain and MRA head and neck and 2D echo with bubble contrast study ordered 2. Right groin pain from right femoral artery cardiac cath access site: On exam no hematoma or bruise or bruit found. PT and OT ordered. 3. Chronic debility due to poor balance/disequilibrium from right foot Charcot neuroarthropathy and fall about 3 months ago: Patient was last admitted in September 2022 for right foot pain due to Charcot neuroarthropathy. At that time MRI of the foot showed moderate edema at the base and proximal shaft of second third MT bone but no acute fracture. 3. Chronic microcytic anemia due to iron deficiency: Patient iron studies in June 2022 which were consistent with iron deficiency. H&H 10.2/33.5%. MCV MCH and MCHC low. RDW 17.2 consistent with chronic iron-deficiency anemia. On review of record, H&H is baseline. Monitor CBC. Continue ferrous sulfate 4. DM type II: Glucose 120. A1c ordered for tomorrow AM. Most recent A1c 8.0 in May 08. Insulin 5. CAD with recurrent angina pectoralis: Therefore patient had cardiac cath on 07/28/2024: Cardiac cath showed 50% proximal LAD, 40% mid LAD, 70% distal LAD, 60% proximal circumflex. Stent to RCA patent. Successful JOSE distal LAD, FFR 0.84. Recommended aspirin indefinitely and Plavix for at least 6 months and continued. Patient also on isosorbide dinitrate 5 mg twice daily 6 GERD -Continue home Protonix 7. Hypertension: Blood pressure is controlledContinue home valsartan -As needed Cinthya 8. COPD: Patient not on scheduled or as needed inhalers 9. Obstructive sleep apnea: Patient does not wear CPAP. 10. Anxiety and depression: Patient is very apprehensive 11. DVT prophylaxis: Enoxaparin 40 mill subcu daily 12 chronic constipation: Senna S2 tablet twice daily Living will/advanced directive/end of life care: Patient does not have living will or advanced directive. Her daughter is power of title attorney for health. After discussion of benefits/risks procedures involved with full code, DNR CC arrest and DNR CC, the patient opted for full code. Patient does want artificial life support including intubation, tube feed, ventilator and/chest compression, central venous catheter, vasopressor and DC shock if needed Total time spent in [id number] encounter in discussion of advanced directive 17 minutes. laboratory Results 08/04/24 13:25: WBC 7.7, RBC 4.57, Hgb 10.2 L, Hct 33.5 L, MCV 73.3 L, MCH 22.3 L, MCHC 30.4 L, RDW Std Deviation 45.0 H, RDW Coeff of Edgar 17.2 H, Plt Count 285, MPV 9.1, Immature Gran % (Auto) 0.400, Neut % (Auto) 64.1, Lymph % (Auto) 22.5, Brooke % (Auto) 8.9, Eos % (Auto) 3.7, Baso % (Auto) 0.4, Absolute Neuts (auto) 4.9, Absolute Lymphs (auto) 1.72, Nucleated RBC % 0, PT 13.6, INR 1.0, APTT 27.7, Sodium 141, Potassium 3.4 L, Chloride 109 H, Carbon Dioxide 24.0, Anion Gap 7, BUN 11, Creatinine 0.79, Est GFR (MDRD) Af Amer 90, Est GFR (MDRD) Non-Af 75, BUN/Creatinine Ratio 13.9, Glucose 120 H, Calcium 8.9, Troponin I High Sens 6 Clinical Impression(s) from Imaging Studies Brain CT 08/04/24 13:19 IMPRESSION: No acute abnormality. Chronic microvascular ischemic disease. CT angiogram and/or MRI recommended to evaluate for acute infarct as clinically indicated. Electronically Signed: Olga Mccain MD at 14:34 EDT , ADDENDUM: 08/04/24 0331 IMPRESSION: No acute abnormality. Chronic microvascular ischemic disease. CT angiogram and/or MRI recommended to evaluate for acute infarct as clinically indicated. N.B. : The above Results were Read Back by Olga Mccain MD to Michael Subramanian MD, and understanding confirmed on 08/04/2024 14:34:27 (ET). Electronically Signed: Olga Mccain MD at 14:34 EDT , Chest X-Ray 08/04/24 14:10 IMPRESSION: No evidence of active intrathoracic disease. Electronically Signed: Olga Mccain MD at 14:44 EDT , Charges/Coding Visit Charges Inpatient E&M: 45475 Init Hosp L3 Procedures Hospitalists Procedures: 48417 Advncd Care Plan 30 Min
--- NOTE | 2024-08-04 16:32 | MRI_ITS ---
We are attempting to reach an attending provider to discuss findings. An addendum with communication details will be sent when the communication is complete. STUDY: MRA OF THE HEAD WITHOUT CONTRAST REASON FOR EXAM: Female, 79 years old. suspected stroke -- headache TECHNIQUE: 3-D [id number] (TOF) imaging was performed with MIPs. The study was performed unenhanced. COMPARISON: None. FINDINGS: Normal bilateral petrous carotid arteries. Normal right cavernous carotid artery with a normal supraclinoid bifurcation. 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 Normal right A1 segments of the anterior cerebral artery. Normal left A1 segments of the anterior cerebral artery. Normal intact anterior communicating artery (ACOM). Normal bilateral A2 segments of the anterior cerebral arteries. Normal right M1 and M2 segments of the middle cerebral arteries, with a normal M1 bifurcation. Normal left M1 and M2 segments of the middle cerebral arteries, with a normal M1 bifurcation. Posterior communicating arteries are not visualized consistent with normal variant Normal right vertebral artery. Mild diffuse narrowing of the distal left vertebral Normal basilar artery with a normal basilar bifurcation. The visualized bilateral superior cerebellar (SCA) arteries are normal. Normal bilateral P1, P2 and visualized P3 segments of the posterior cerebral arteries. 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 There is no major vessel occlusion or hemodynamically significant stenosis. . MRI/MRA Head ONLY without Contrast IMPRESSION: Mild diffuse narrowing of the distal left vertebral. Question small leblanc aneurysm at the junction of the distal left petrous and proximal cavernous carotid. Would recommend correlation with contrast-enhanced CTA and possibly catheter angiography Electronically Signed: Matt Grayson MD at 20:29 EDT ,
--- NOTE | 2024-08-04 16:32 | MRI_ITS ---
STUDY: MRA NECK WITHOUT CONTRAST REASON FOR EXAM: Female, 79 years old. suspected stroke TECHNIQUE: Source images were obtained, MIPs were performed. The study was performed unenhanced. COMPARISON: None. FINDINGS: RIGHT CAROTID ARTERIES: Normal right common carotid artery (CCA). Normal right common carotid bulb. Normal origin of the right internal carotid (ICA) artery without a hemodynamically significant stenosis. Normal visualized cervical portion of the right internal carotid artery. Normal origin of the right external carotid artery (ECA). LEFT CAROTID ARTERIES: Normal left common carotid artery (CCA). Normal left common carotid bulb. Normal origin of the left internal carotid (ICA) artery without a hemodynamically significant stenosis. Normal visualized cervical portion of the left internal carotid artery. Normal origin of the left external carotid artery (ECA). VERTEBRAL ARTERIES: Normal antegrade flow within the bilateral vertebral artery without a hemodynamically significant stenosis. MRI/MRA Neck without Contrast IMPRESSION: Normal bilateral cervical carotid and vertebral arteries. Electronically Signed: Matt Grayson MD at 20:30 EDT ,
[2024-08-04] MEDS: Enoxaparin 40 MG/0.4 ML Syringe SC (17:23)
[2024-08-04] MEDS: Aspirin 81 MG TAB.CHEW PO (17:23)
[2024-08-04] MEDS: 0.9% Normal Saline (1000mL) 1,000 ML 100 ML IV (17:24)
[2024-08-04] MEDS: 0.9% Saline Lock 10 ML Syringe IV (17:29)
[2024-08-04] MEDS: Acetaminophen 325 MG Tablet 650 MG PO (20:15)
[2024-08-04] MEDS: Senna/Docusate Sodium 1 Tablet 2 TABLET PO (20:57)
[2024-08-04] MEDS: oxyCODONE 5 MG Tablet PO (23:38)
[2024-08-05 00:16] LABS: Bedside Glucose 131 mg/dL (74-106)
[2024-08-05 00:24] VITALS: BMI 38.7
[2024-08-05 05:48] VITALS: BMI 39.7
[2024-08-05 06:15] LABS: Absolute Lymphocyte Count 1.88 X10^3/uL (0.83-4.51); Absolute Neutrophil Count 3.2 X10^3/uL (2.0-7.7); Basophil# 0.05 X10^3/uL; Basophil% 0.8 % (0-1); Hematocrit 33.6 % (37-47); Hemoglobin 9.9 g/dL (12.0-15.0); Lymphocyte # 1.88 X10^3/ul (0.83-4.51); Lymphocyte % 31.4 % (19-41); Mean Corp Hgb Conc 29.5 g/dL (32-36); Mean Corpuscular Hgb 22.2 pg (27.0-32.0); Mean Corpuscular Volume 75.3 fL (81-99); Mean Platelet Vol. 9.7 fl (6.2-12.0); Monocyte# 0.57 X10^3/uL; Monocyte% 9.5 % (0-10); NRBC Flagged by Analyzer 0 % (0-5); Neutrophil # 3.16 X10^3/uL (2.7-7.7); Platelet Count 300 K/mm3 (150-450); RBC Distribution Width CV 17.4 % (11.6-14.6); RBC Distribution Width SD 46.8 fl (35.1-43.9); Red Blood Count 4.46 M/mm3 (4.2-5.4)
[2024-08-05 06:33] VITALS: BP 125/62; PULSE 60; RESP 18; TEMP 36.5; O2SAT 98
[2024-08-05] MEDS: oxyCODONE 5 MG Tablet PO (06:37)
[2024-08-05 06:48] LABS: Anion Gap 6 (5-15); BUN 9 mg/dL (7-18); BUN/Creat Ratio 13.2 RATIO (10-20); Calcium,Total 8.5 mg/dL (8.5-10.1); Chloride 111 mmol/L (98-107); Cholesterol 144 mg/dL (200); Creatinine, Serum 0.68 mg/dL (0.55-1.02); EST Glomerular Filtration Rate 88 mL/min (>60); Est Glom Filt Rate - Afr Amer 107 mL/min (>60); Estimated Creatinine Clearance 58.76 ml/min; Glucose 91 mg/dL (74-106); High Density Lipoprotein 57 mg/dL; Potassium 3.4 mmol/L (3.5-5.1); Sodium Level 142 mmol/L (136-145); Triglycerides 156 mg/dL; Very Low Density Lipoprotein 31 mg/dL (5-40)
[2024-08-05 07:17] LABS: Bedside Glucose 119 mg/dL (74-106)
[2024-08-05 07:52] LABS: Hemoglobin A1c 6.8 % (3.8-5.6)
--- NOTE | 2024-08-05 07:52 | PCM.PN.HOSP ---
Reason for Visit Reason for Visit: Diagnoses Other visual disturbances (08/04/24) Headache, unspecified (08/04/24) Subjective Subjective atient is a 79-year-old lady who presented with right forehead headache blurry vision as well as dizziness admitted to a monitored bed for possible workup of CVA Objective Data Objective Data Vital Signs: Vital Signs Temp Pulse Resp BP Pulse Ox O2 Del Method 97.7 F L 60 18 125/62 H 98 Room Air 08/05/24 06:33 08/05/24 06:33 08/05/24 06:33 08/05/24 06:33 08/05/24 06:33 08/05/24 06:33 Oxygen Delivery Method Room Air Weight: 92.3 kg Body Mass Index (BMI) 39.7 Intake & Output: Intake and Output for Last 24 Hours 08/03/24 08/04/24 08/05/24 23:59 23:59 23:59 Intake Total 350 / 350 890 / 890 Output Total 450 / 450 Balance 350 / 350 440 / 440 Lab / Micro Data 08/05/24 05:11 08/05/24 05:11 Labs: Laboratory Results - last 24 hr 08/04/24 13:25: WBC 7.7, RBC 4.57, Hgb 10.2 L, Hct 33.5 L, MCV 73.3 L, MCH 22.3 L, MCHC 30.4 L, RDW Std Deviation 45.0 H, RDW Coeff of Edgar 17.2 H, Plt Count 285, MPV 9.1, Immature Gran % (Auto) 0.400, Neut % (Auto) 64.1, Lymph % (Auto) 22.5, [place] % (Auto) 8.9, Eos % (Auto) 3.7, Baso % (Auto) 0.4, Absolute Neuts (auto) 4.9, Absolute Lymphs (auto) 1.72, Nucleated RBC % 0, PT 13.6, INR 1.0, APTT 27.7, Sodium 141, Potassium 3.4 L, Chloride 109 H, Carbon Dioxide 24.0, Anion Gap 7, BUN 11, Creatinine 0.79, Est GFR (MDRD) Af Amer 90, Est GFR (MDRD) Non-Af 75, BUN/Creatinine Ratio 13.9, Glucose 120 H, Calcium 8.9, Troponin I High Sens 6 08/04/24 16:54: Magnesium 2.0 08/04/24 23:55: POC Glucose 131 H 08/05/24 05:11: WBC 6.0, RBC 4.46, Hgb 9.9 L, Hct 33.6 L, MCV 75.3 L, MCH 22.2 L, MCHC 29.5 L, RDW Std Deviation 46.8 H, RDW Coeff of Edgar 17.4 H, Plt Count 300, MPV 9.7, Immature Gran % (Auto) 0.300, Neut % (Auto) 53.0, Lymph % (Auto) 31.4, [place] % (Auto) 9.5, Eos % (Auto) 5.0, Baso % (Auto) 0.8, Absolute Neuts (auto) 3.2, Absolute Lymphs (auto) 1.88, Nucleated RBC % 0, Sodium 142, Potassium 3.4 L, Chloride 111 H, Carbon Dioxide 25.0, Anion Gap 6, BUN 9, Creatinine 0.68, Estim Creat Clear Calc 58.76, Est GFR (MDRD) Af Amer 107, Est GFR (MDRD) Non-Af 88, BUN/Creatinine Ratio 13.2, Glucose 91, Calcium 8.5, Triglycerides 156, Cholesterol 144, LDL Cholesterol 56, VLDL Cholesterol 31, HDL Cholesterol 57, TSH 3.150 08/05/24 06:32: POC Glucose 119 H Radiography Diagnostic Testing: Radiology Impression Brain CT 08/04/24 13:19 IMPRESSION: No acute abnormality. Chronic microvascular ischemic disease. CT angiogram and/or MRI recommended to evaluate for acute infarct as clinically indicated. Electronically Signed: Olga Mccain MD at 14:34 EDT , ADDENDUM: 08/04/24 1441 IMPRESSION: No acute abnormality. Chronic microvascular ischemic disease. CT angiogram and/or MRI recommended to evaluate for acute infarct as clinically indicated. N.B. : The above Results were Read Back by Olga Mccain MD to Michael Subramanian MD, and understanding confirmed on 08/04/2024 14:34:27 (ET). Electronically Signed: Olga Mccain MD at 14:34 EDT , Chest X-Ray 08/04/24 14:10 IMPRESSION: No evidence of active intrathoracic disease. Electronically Signed: Olga Mccain MD at 14:44 EDT , Brain MRI 08/04/24 16:29 IMPRESSION: Mild atrophy and moderate periventricular white matter ischemic changes without evidence for acute infarct Electronically Signed: Matt Grayson MD at 20:14 EDT , Head MRA 08/04/24 16:32 IMPRESSION: Mild diffuse narrowing of the distal left vertebral. Question small leblanc aneurysm at the junction of the distal left petrous and proximal cavernous carotid. Would recommend correlation with contrast-enhanced CTA and possibly catheter angiography Electronically Signed: Matt Grayson MD at 20:29 EDT , ADDENDUM: 08/04/242054 IMPRESSION: Mild diffuse narrowing of the distal left vertebral. Question small leblanc aneurysm at the junction of the distal left petrous and proximal cavernous carotid. Would recommend correlation with contrast-enhanced CTA and possibly catheter angiography N.B. : The above Results were Read Back by Matt Grayson MD to Lakeshia Garrett RN, and understanding confirmed on 08/04/2024 20:49:00 (ET). Electronically Signed: Matt Grayson MD at 20:29 EDT , Neck MRA 08/04/24 16:32 IMPRESSION: Normal bilateral cervical carotid and vertebral arteries. Electronically Signed: Matt Grayson MD at 20:30 EDT Reading Location ID and State: [facility] / [place] Tel , Service support , Physical Exam Narrative GENERAL: cooperative HEENT: Atraumatic; normocephalic EYES; Anicteric, Normal Conjunctiva NECK; supple, normal thyroid, RESPIRATORY: Diminished to auscultation CARDIOVASCULAR: Regular S1 S2, GI: soft, normoactive bowel sounds, : No Renal angle tenderness; EXTREMITIES: No edema, no clubbing, MUSCULOSKELETAL: no muscle wasting NEURO: Awake; no lateralizing signs. SKIN: No Rash PSYCH; Flat affect Assessment & Plan Assessment/Plan (1) Blurred vision, right eye: (2) Acute headache: PLAN: Plan Patient is a 79-year-old lady who presented with right forehead headache blurry vision as well as dizziness admitted to a monitored bed for possible workup of CVA 1. Suspected CVA ? Patient presented with blurry vision and dizziness as well as headache complex migraine remains a differential diagnosis. Admitted to monitored bed ordered every 4 neurochecks as well as MRI of the brain with consultation placed to [facility] teleneurology Coronary artery disease ? Patient underwent left heart catheterization on 07/28/2024 with successful JOSE placement to distal LAD lesion. Subsequently discharged on guideline directed medical therapy 3. Diabetes mellitus type II -patient's oral hypoglycemics held. Placed on long acting insulin, Accu-Cheks a.c. and at bedtime and covered with sliding scale insulin 4. Anemia ? Secondary to chronic disorder monitoring H&H and transfuse if patient becomes symptomatic or hemoglobin falls below 7 5. Hypertension ? Blood pressure controlled, home medications continued with dose adjustment as needed 6. 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 Requested for PT OT eval and social work manager to assist with discharge planning 7. GERD ? Patient on PPI 8. COPD ? Currently not in exacerbation aerosol treatments as needed 9. Obstructive sleep apnea ? Consistent use of CPAP encouraged 10. Overactive bladder ? Patient is on oxybutynin 10. Depression ? Patient is on duloxetine 11. Hypokalemia -Corrected per protocol 12. DVT prophylaxis ? SC Lovenox Time spent in the patient's overall evaluation,decision-making process, review of diagnostic data, adjustment of management, discussion with other providers, nursing nursing and ancillary staff involved in patient's care documentation,38 Minutes Charges/Coding Visit Charges Inpatient E&M: 57161 Subs Hosp L2
[2024-08-05] MEDS: Senna/Docusate Sodium 1 Tablet 2 TABLET PO ×2 (09:04→20:13)
[2024-08-05] MEDS: Pantoprazole Sodium 40 MG Tablet PO (09:04)
[2024-08-05] MEDS: Aspirin 81 MG TAB.CHEW PO (09:10)
--- NOTE | 2024-08-05 11:30 | NEURO.CONS ---
Assessment and Plan: Neuro Assessment/Plan BRADY BALL is a 79 F with a past medical history of HTN, YOVANA, Aortic stenosis , being evaluated by Teleneurology for headache and blurry vision. History of migraines, this is similar but persistent and worse than usual. She does report right eye symptoms with migraines in the past (although fairly poor historian). MRI unremarkable ruling out stroke. Incidental small left intracranial ICA aneurysm noted on MRA. Diagnosis: Complex migraine Plan: - Migraine cocktails - IV Benadryl 25 mg, IV Compazine 10 mg, Toradol 15 mg can be given Q6h x3 doses - IV Mag 2 gr once with first cocktail - Follow up with neurosurgery for evaluation of possible aneurysm - Would consider ophthalmology evaluation for right eye symptoms - likely related to migraine but would evaluate for alternative etiologies as well. - No further work up from neurology standpoint I personally attended this patient and spent a total time of 31 minutes evaluating this patient including clinical assessment, review of chart, medical history imaging, and determining appropriate treatment and workup. HPI Consult Data Date of Consult: 08/05/24 HPI Narrative HPI Narrative: BRADY BALL, is a 79 F who presents with headache, blurry vision for the last week. She had a cardiac cath on 07/28/2024, symptoms began about a day after this procedure. She describes a right sided headache that is sharp in character. She reports photo/phonophobia, nausea and vomiting with the headache. She does have a history of migraine. She gets about one headache a month, but this has been lasting longer. She reports right sided/eye blurry vision with the headaches, repots this happens with her headaches. Since she was admitted she has been given oxycodone, but otherwise no treatment. Her current headache pain is 7/10. MRI Brain and MRAs were completed. MRI Brain unremarkable. MRA with small ?aneurysm in the L ICA. [facility] Medical History Anxiety Depression Diabetes Rheumatoid arthritis Asthma Stroke/cerebrovascular accident GERD (gastroesophageal reflux disease) Anxiety and depression OAB (overactive bladder) Urinary urgency Diastolic dysfunction Aortic valve regurgitation Tricuspid regurgitation Aortic stenosis Abnormal cardiovascular stress test Flu vaccine need Palpitations Left shoulder pain Hypertension Hypokalemia Rectal bleeding Fatigue Iron deficiency anemia History of diabetes mellitus Acute pain of right foot URI (upper respiratory infection) Hypokalemia Carotid stenosis, bilateral Carotid artery disease Dyspnea on exertion Chest pain, unspecified CAD (coronary artery disease) Nonrheumatic aortic (valve) stenosis COPD (chronic obstructive pulmonary disease) YOVANA (obstructive sleep apnea) Mixed hyperlipidemia Atherosclerotic heart disease of [place] coronary artery without angina pectoris Anemia Vaginal anomaly Encounter to establish care Type 2 diabetes mellitus Memory impairment Tremor COPD (chronic obstructive pulmonary disease) Arthritis CAD (coronary artery disease) CHF (congestive heart failure) Iron deficiency anemia Venous insufficiency of both lower extremities Mild aortic stenosis Pulmonary HTN Chronic pain Constipation Chest pain Obesity Lumbago History of IBS HLD (hyperlipidemia) History of tobacco use Generalized anxiety disorder History of gastroesophageal reflux (GERD) History of fibromyalgia History of esophageal reflux CAD (coronary artery disease) Type II diabetes mellitus, uncontrolled History of COPD Coronary atherosclerosis of [place] coronary artery History of CHF (congestive heart failure) Benign essential hypertension Home Medications ?Medication ?Instructions ?Recorded ?Last Taken ?Type aspirin 81 mg tablet,delayed 81 mg PO DAILY@0800 heart health 09/16/23 07/28/24 Rx release #100 tabs docusate calcium 240 mg capsule 240 mg PO BID PRN constipation #60 09/18/23 Unknown Rx (Stool Softener (docusate calcium)) caps sennosides 8.6 mg tablet (Natural 8.6 mg PO DAILY PRN constipation: 09/18/23 Unknown Rx Senna Laxative) take if Colace doesn't work #14 tabs amlodipine 5 mg tablet 5 mg PO DAILY blood pressure 12/02/23 07/28/24 History buprenorphine 5 mcg/hour weekly 1 patch transdermal QWEEK pain 12/02/23 Unknown History transdermal patch fluticasone propionate 50 2 spray intranasal DAILY allergies 01/16/24 Unknown Rx mcg/actuation nasal #16 grams spray,suspension (Allergy Relief (fluticasone)) ezetimibe 10 mg tablet (Zetia) 10 mg PO DAILY cholesterol #90 tabs 03/29/24 Unknown Rx potassium chloride 20 mEq 20 meq PO DAILY supplement #90 tabs 03/29/24 07/28/24 Rx tablet,extended release oxybutynin chloride 5 mg 5 mg PO DAILY urine #60 tabs 04/26/24 Unknown Rx tablet,extended release 24 hr glimepiride 4 mg tablet 4 mg PO DAILY DIABETES #90 tabs 05/03/24 Unknown Rx clopidogrel 75 mg tablet 75 mg PO QHS BLOOD THINNER #90 tabs 05/28/24 07/27/24 Rx doxazosin 2 mg tablet (Cardura) 2 mg PO QHS BLOOD PRESSURE #90 tabs 05/28/24 Unknown Rx pantoprazole 40 mg tablet,delayed 40 mg PO BID ACID REFLUX #180 tabs 05/28/24 07/28/24 Rx release ondansetron 4 mg disintegrating 4 mg PO Q8H PRN nausea and 06/08/24 Unknown Rx tablet vomiting #7 tabs nitroglycerin 0.4 mg sublingual 0.4 mg sublingual Q5-15M PRN chest 07/19/24 Unknown Rx tablet pain #30 tabs famotidine 20 mg tablet (Pepcid) 20 mg PO QDAY reflux #1 TAB 07/20/24 07/28/24 Rx cetirizine 10 mg tablet (All Day 10 mg PO DAILY allergies #90 tabs 07/23/24 Unknown Rx Allergy (cetirizine)) duloxetine 20 mg capsule,delayed 20 mg PO BID mental health #60 caps 07/23/24 Unknown Rx release valsartan 320 mg tablet 320 mg PO DAILY blood pressure #90 07/23/24 07/28/24 Rx tabs isosorbide dinitrate 5 mg tablet 5 mg PO BID heart #180 tabs 07/30/24 Unknown Rx Allergy/AdvReac Type Severity Reaction Status Date / Time Iodinated Contrast Media Allergy Severe Angioedema Verified 08/04/24 12:51 amoxicillin Allergy Unknown Itching Verified 08/04/24 12:51 cephalexin (From Keflex) Allergy Unknown GI Upset, Verified 08/04/24 12:51 Itching doxycycline Allergy Unknown Rash Verified 08/04/24 12:51 furosemide (From Lasix) Allergy Unknown Hives Verified 08/04/24 12:51 simvastatin Allergy Unknown Hives Verified 08/04/24 12:51 atorvastatin calcium (From Allergy Hives Verified 08/04/24 12:51 Lipitor) divalproex sodium (From Allergy Hives Verified 08/04/24 12:51 Depakote) moxifloxacin HCl (From Allergy Unknown Verified 08/04/24 12:51 Avelox) vancomycin Allergy Hives Verified 08/04/24 12:51 amlodipine AdvReac Unknown Swelling Verified 08/04/24 12:51 fluticasone furoate (From AdvReac Unknown Throat Verified 08/04/24 12:51 Breo Ellipta) Burning-hoarseness sucralfate (From Carafate) AdvReac Unknown Diarrhea Verified 08/04/24 12:51 vilanterol (From Breo AdvReac Unknown Throat Verified 08/04/24 12:51 Ellipta) Burning-hoarseness Family History Father CAD (coronary artery disease) Hypertension Mother CAD (coronary artery disease) Hypertension Mixed hyperlipidemia COPD (chronic obstructive pulmonary disease) Brother CAD (coronary artery disease) History of coronary artery bypass surgery Brother CAD (coronary artery disease) History of coronary artery bypass surgery Sister CAD (coronary artery disease) History of coronary artery bypass surgery Sister CAD (coronary artery disease) History of coronary artery bypass surgery Surgical History History of coronary artery stent placement History of left heart catheterization (~09/16/23) Presence of stent in coronary artery (~09/16/23) History of foot surgery History of cholecystectomy History of total knee replacement History of hysterectomy Social History Smoking Status: Current some day smoker tobacco type: cigarettes alcohol intake: never substance use type: does not use what type of physical activity do you participate in: none Vital Signs Vital Signs Vital Signs: 08/04/24 12:51 08/04/24 13:19 08/04/24 13:49 Temperature 97.5 F L Temperature Source Temporal Pulse Rate 73 68 64 Pulse Strength Respiratory Rate 16 13 12 Respiratory Effort Respiratory Depth Respiratory Pattern Blood Pressure 144/63 H 147/71 H 134/55 H Blood Pressure Mean 90 96 81 Blood Pressure Source Blood Pressure Position Blood Pressure Location Pulse Ox 97 96 Oxygen Delivery Method Room Air Room Air Room Air 08/04/24 14:01 08/04/24 14:19 08/04/24 14:30 Temperature Temperature Source Pulse Rate 68 62 Pulse Strength Respiratory Rate 12 14 Respiratory Effort Respiratory Depth Respiratory Pattern Blood Pressure 122/94 H 134/55 H Blood Pressure Mean 103 81 Blood Pressure Source Blood Pressure Position Blood Pressure Location Pulse Ox 96 95 Oxygen Delivery Method Room Air Room Air Room Air 08/04/24 14:50 08/04/24 15:39 08/04/24 16:00 Temperature 98.2 F Temperature Source Pulse Rate 66 62 68 Pulse Strength Respiratory Rate 14 16 17 Respiratory Effort Respiratory Depth Respiratory Pattern Blood Pressure 146/73 H 153/74 H 154/70 H Blood Pressure Mean 97 100 98 Blood Pressure Source Blood Pressure Position Blood Pressure Location Pulse Ox 97 96 97 Oxygen Delivery Method Room Air Room Air 08/04/24 17:00 08/04/24 17:15 08/04/24 17:45 Temperature 97.8 F 97.9 F 97.5 F L Temperature Source Oral Oral Oral Pulse Rate 62 64 66 Pulse Strength Respiratory Rate 14 14 16 Respiratory Effort Respiratory Depth Respiratory Pattern Blood Pressure 147/57 H 150/62 H 140/57 H Blood Pressure Mean 87 91 84 Blood Pressure Source Monitor Monitor Monitor Blood Pressure Position Semi-Fowlers Semi-Fowlers Semi-Fowlers Blood Pressure Location Left Arm Left Arm Left Arm Pulse Ox 95 95 95 Oxygen Delivery Method Room Air Room Air Room Air 08/04/24 18:15 08/04/24 20:27 08/04/24 20:55 Temperature 97.7 F L 98.0 F Temperature Source Oral Oral Pulse Rate 62 62 Pulse Strength Respiratory Rate 16 18 Respiratory Effort Normal Non-Labored Respiratory Depth Normal Respiratory Pattern Normal Blood Pressure 130/55 H 117/54 L Blood Pressure Mean 80 75 Blood Pressure Source Monitor Monitor Blood Pressure Position Supine Semi-Fowlers Blood Pressure Location Right Arm Left Arm Pulse Ox 95 98 Oxygen Delivery Method Room Air Room Air Room Air 08/04/24 22:30 08/04/24 23:40 08/05/24 02:20 Temperature 98.0 F Temperature Source Oral Pulse Rate 58 L Pulse Strength Normal (2+) Respiratory Rate 18 Respiratory Effort Normal Non-Labored Respiratory Depth Normal Respiratory Pattern Normal Blood Pressure 131/60 H Blood Pressure Mean 83 Blood Pressure Source Monitor Blood Pressure Position Semi-Fowlers Blood Pressure Location Left Arm Pulse Ox 98 Oxygen Delivery Method Room Air Room Air 08/05/24 06:33 Temperature 97.7 F L Temperature Source Oral Pulse Rate 60 Pulse Strength Respiratory Rate 18 Respiratory Effort Respiratory Depth Respiratory Pattern Blood Pressure 125/62 H Blood Pressure Mean 83 Blood Pressure Source Monitor Blood Pressure Position Semi-Fowlers Blood Pressure Location Left Arm Pulse Ox 98 Oxygen Delivery Method Room Air Weight Weight: 92.3 kg Body Mass Index (BMI) 39.7 EEG Results Procedure Details EEG Procedure Details: BRADY BALL is a 79 year old F with a past medical history of , who presents for evaluation of Electroencephalogram on DATE at TIME NIHSS NIHSS Nursing Documentation NIHSS Nursing Documentation: NIHSS: Ischemic Stroke/TIA Start: 08/04/24 16:30 Text: For PCU Patients: NIH and Neuro Check every 4 Status: Complete hours, PRN and with change in RN caregiver. Freq: [id number] Protocol: Activity Type Activity Date Activity User E-sign Co-sign Detail Recorded Client Recorded Date Recorded By Document 08/04/24 18:00 KRYSTLE [id number] 08/04/24 18:43 KRYSTLE 08/04/24 18:00 NIH Stroke Scale [NIHSS] A score of 0 is normal or asymptomatic . Total possible score is 42. Inpatient: RN or Physician to activate a stroke alert for onset of new stroke symptoms or with NIHSS increase >/= 3 points. Following change in neurological status, NIHSS will be performed per physician order or more frequently PRN. -1a. Level of Consciousness Alert; keenly responsive -1b. LOC Questions Answers neither question correctly. -1c. LOC Commands Performs both tasks correctly . -2. Best Gaze Normal -3. Visual No visual loss -4. Facial Palsy Normal symmetrical movements -5a. Left Arm No drift; arm holds 90 (or 45 ) degrees for full 10 seconds -5b. Right Arm No drift; arm holds 90 (or 45 ) degrees for full 10 seconds -6a. Left Leg No drift; leg holds 30-degree position for full 5 seconds -6b. Right Leg Some effort against gravity ; -7. Limb Ataxia UN=Amputation or joint fusion , explain -'UN' explanation Too much pain -8. Sensory Mild-to- moderate sensory loss; -9. Best Language No aphasia; normal -10. Dysarthria Normal -11. Extinction and Inattention No abnormality -Total 5 Query Text:A score of 0 is normal or asymptomatic. Total possible score is 42 . ED: Notify Physician for NIHSS increase by > / = 3 points. Inpatient: RN or Physician to activate a stroke alert for NIHSS increase of > / = 3 points. NIHSS: Ischemic Stroke/TIA Start: 08/04/24 16:30 Text: For ICU Patients: NIH sroke scale at Status: Complete presentation and every 2 hours or with change in RN caregiver Freq: [id number] Protocol: Activity Type Activity Date Activity User E-sign Co-sign Detail Recorded Client Recorded Date Recorded By Document 08/04/24 20:55 DC [id number] 08/04/24 20:55 DC 08/04/24 20:55 -1a. Level of Consciousness Alert; keenly responsive -1b. LOC Questions Answers neither question correctly. -1c. LOC Commands Performs both tasks correctly . -2. Best Gaze Normal -3. Visual No visual loss -4. Facial Palsy Normal symmetrical movements -5a. Left Arm No drift; arm holds 90 (or 45 ) degrees for full 10 seconds -5b. Right Arm No drift; arm holds 90 (or 45 ) degrees for full 10 seconds -6a. Left Leg UN= Amputation or joint fusion , explain: -'UN' explanation painful -6b. Right Leg UN= Amputation or joint fusion , explain: -'UN' explanation painful -7. Limb Ataxia UN=Amputation or joint fusion , explain -'UN' explanation painful -8. Sensory Mild-to- moderate sensory loss; -9. Best Language No aphasia; normal -10. Dysarthria Normal -11. Extinction and Inattention No abnormality -Total 3 Query Text:A score of 0 is normal or asymptomatic. Total possible score is 42 . ED: Notify Physician for NIHSS increase by > / = 3 points. Inpatient: RN or Physician to activate a stroke alert for NIHSS increase of > / = 3 points. Coma Scale [Assess] -Eye Opening Spontaneous -Motor Obeys Commands -Verbal Confused [Total] -Coma Scale Total 14 Physical Exam Neuro Neuro Narrative: Alert, oriented x3. Follows commands. CN vision blurried in right eye, double vision in left eye (when right eye closed). PERRL. EOMI. face symmetric motor. Decreased sensation entire right face. tongue midline. shoulder shrug symmetric. Speech normal, no dysarthria. Motor: all limbs anti-gravity, no drift. Sensation intact to light touch throughout. Coordination: FN/HS intact. Coordination / Balance: [id number] test normal and boen-uh-ckee test normal Speech: speech normal Motor Exam: strength 5/5 throughout and no pronator drift Pupil Exam: Normal Pupillary Reactivity/Response: bilateral Lab / Micro Data 08/05/24 05:11 08/05/24 05:11 Labs: Laboratory Results - last 24 hr 08/04/24 13:25: WBC 7.7, RBC 4.57, Hgb 10.2 L, Hct 33.5 L, MCV 73.3 L, MCH 22.3 L, MCHC 30.4 L, RDW Std Deviation 45.0 H, RDW Coeff of Edgar 17.2 H, Plt Count 285, MPV 9.1, Immature Gran % (Auto) 0.400, Neut % (Auto) 64.1, Lymph % (Auto) 22.5, Nuckolls % (Auto) 8.9, Eos % (Auto) 3.7, Baso % (Auto) 0.4, Absolute Neuts (auto) 4.9, Absolute Lymphs (auto) 1.72, Nucleated RBC % 0, PT 13.6, INR 1.0, APTT 27.7, Sodium 141, Potassium 3.4 L, Chloride 109 H, Carbon Dioxide 24.0, Anion Gap 7, BUN 11, Creatinine 0.79, Est GFR (MDRD) Af Amer 90, Est GFR (MDRD) Non-Af 75, BUN/Creatinine Ratio 13.9, Glucose 120 H, Calcium 8.9, Troponin I High Sens 6 08/04/24 16:54: Magnesium 2.0 08/04/24 23:55: POC Glucose 131 H 08/05/24 05:11: WBC 6.0, RBC 4.46, Hgb 9.9 L, Hct 33.6 L, MCV 75.3 L, MCH 22.2 L, MCHC 29.5 L, RDW Std Deviation 46.8 H, RDW Coeff of Edgar 17.4 H, Plt Count 300, MPV 9.7, Immature Gran % (Auto) 0.300, Neut % (Auto) 53.0, Lymph % (Auto) 31.4, Nuckolls % (Auto) 9.5, Eos % (Auto) 5.0, Baso % (Auto) 0.8, Absolute Neuts (auto) 3.2, Absolute Lymphs (auto) 1.88, Nucleated RBC % 0, Sodium 142, Potassium 3.4 L, Chloride 111 H, Carbon Dioxide 25.0, Anion Gap 6, BUN 9, Creatinine 0.68, Estim Creat Clear Calc 58.76, Est GFR (MDRD) Af Amer 107, Est GFR (MDRD) Non-Af 88, BUN/Creatinine Ratio 13.2, Glucose 91, Hemoglobin A1c 6.8 H, Calcium 8.5, Triglycerides 156, Cholesterol 144, LDL Cholesterol 56, VLDL Cholesterol 31, HDL Cholesterol 57, TSH 3.150 08/05/24 06:32: POC Glucose 119 H Imaging Radiology Impression Brain CT 08/04/24 13:19 IMPRESSION: No acute abnormality. Chronic microvascular ischemic disease. CT angiogram and/or MRI recommended to evaluate for acute infarct as clinically indicated. Electronically Signed: Olga Mccain MD at 14:34 EDT , ADDENDUM: 08/04/24 1441 IMPRESSION: No acute abnormality. Chronic microvascular ischemic disease. CT angiogram and/or MRI recommended to evaluate for acute infarct as clinically indicated. N.B. : The above Results were Read Back by Olga Mccain MD to Michael Subramanian MD, and understanding confirmed on 08/04/2024 14:34:27 (ET). Electronically Signed: Olga Mccain MD at 14:34 EDT , Chest X-Ray 08/04/24 14:10 IMPRESSION: No evidence of active intrathoracic disease. Electronically Signed: Olga Mccain MD at 14:44 EDT , Brain MRI 08/04/24 16:29 IMPRESSION: Mild atrophy and moderate periventricular white matter ischemic changes without evidence for acute infarct Electronically Signed: Matt Grayson MD at 20:14 EDT , Head MRA 08/04/24 16:32 IMPRESSION: Mild diffuse narrowing of the distal left vertebral. Question small leblanc aneurysm at the junction of the distal left petrous and proximal cavernous carotid. Would recommend correlation with contrast-enhanced CTA and possibly catheter angiography Electronically Signed: Matt Grayson MD at 20:29 EDT , ADDENDUM: 08/04/242054 IMPRESSION: Mild diffuse narrowing of the distal left vertebral. Question small leblanc aneurysm at the junction of the distal left petrous and proximal cavernous carotid. Would recommend correlation with contrast-enhanced CTA and possibly catheter angiography N.B. : The above Results were Read Back by Matt Grayson MD to Lakeshia Garrett RN, and understanding confirmed on 08/04/2024 20:49:00 (ET). Electronically Signed: Matt Grayson MD at 20:29 EDT , Neck MRA 08/04/24 16:32 IMPRESSION: Normal bilateral cervical carotid and vertebral arteries. Electronically Signed: Matt Grayson MD at 20:30 EDT , Active Medications Active Medications Active Medications: Current Medications Generic Name Dose Route Start Last Admin Trade Name Freq PRN Reason Stop Dose Admin Acetaminophen 650 mg 08/04/24 16:29 08/04/24 20:15 Acetaminophen 325 Mg Tablet PO 650 mg Q4H PRN PRN Administration Pain 1-10 Or Fever>99.6 Aspirin 81 mg 08/05/24 08:00 08/05/24 09:10 Aspirin 81 Mg Tab.Chew PO 81 mg BREAKFAST JENNIFER Administration Bisacodyl 5 mg 08/04/24 16:36 Bisacodyl 5 Mg Tablet PO DAILY PRN PRN Constipation Enoxaparin Sodium 40 mg 08/04/24 16:45 08/04/24 17:23 Enoxaparin 40 Mg/0.4 Ml Syringe SC 40 mg Q24H JENNIFER Administration Hydralazine HCl 5 mg 08/04/24 16:29 Hydralazine 20 Mg/Ml Vial IV 08/05/24 16:30 Q30M PRN maintain BP parameters with HR <60 Sodium Chloride 100 mls @ 15 mls/hr 08/04/24 16:23 IV .Q6H40M PRN Saline Flush Insulin Human Lispro 0 unit 08/05/24 07:00 08/05/24 06:41 Insulin Lispro 100 Unit/Ml Insuln.Pen SC Not Given ACHS [facility] Protocol Labetalol HCl 20 mg 08/04/24 13:18 Labetalol (Prefilled) 20 Mg/4 Ml Vial IV 08/05/24 13:19 X1 PRN BLOOD PRESSURE Labetalol HCl 10 - 20 mg 08/04/24 16:29 Labetalol (Prefilled) 20 Mg/4 Ml Vial IV 08/05/24 16:30 Q10M PRN PRN maintain BP parameters with HR >/=60 Nitroglycerin 0.4 mg 08/04/24 16:36 Nitroglycerin (Inpatient Use) 0.4 Mg Tab.Subl SL Q5M PRN CARDIAC/CHEST PAIN Oxycodone HCl 2.5 - 5 mg 08/04/24 16:36 08/05/24 06:37 Oxycodone 5 Mg Tablet PO 5 mg Q4H PRN PRN Administration Pain Score 4-10 Pantoprazole Sodium 40 mg 08/05/24 10:00 08/05/24 09:04 Pantoprazole Sodium 40 Mg Tablet PO 40 mg DAILY JENNIFER Administration Prochlorperazine Edisylate 5 mg 08/04/24 16:36 Prochlorperazine 10 Mg/2 Ml Vial IV Q4H PRN PRN Breakthrough Nausea/Vomiting Senna/Docusate Sodium 2 tablet 08/04/24 22:00 08/05/24 09:04 Senna/Docusate Sodium 1 Tablet PO 2 tablet BID JENNIFER Administration Sodium Chloride 10 - 40 ml 08/04/24 16:23 08/04/24 17:29 0.9% Saline Lock 10 Ml Syringe IV 10 ml UD PRN Administration SALINE FLUSH
[2024-08-05 12:00] VITALS: BP 122/54; PULSE 63; RESP 16; TEMP 35.6; O2SAT 95
--- NOTE | 2024-08-05 14:05 | CASEMGMT ---
RN MATTHEW Face to Face with patient for initial transition planning/care coordination assessment. RN MATTHEW introduced self and role at [facility]. Patient sitting in chair, alert and oriented. Patient willing to participate in assessment and is able to answer all questions appropriately. Care providers, pharmacy, and demographics verified. Strata: 3 PCP:Chanda Specialists: Michael, occ therapist; Preferred Pharmacy: [facility]; [facility] Retail at discharge. Insurance: [employer] Prescription Benefit: yes Living Will/HPOA: patient states daughter Karen VILLANUEVA: son, daughter Living Arrangements: Patient lives alone in a first floor apartment with no steps to enter. Patient states she is independent for self care. Transportation: friends DME/HHC: Patient has a broken rollator and glucometer with supplies. No previous HHC. Patient has been to [facility] in the past. Patient wishes to discharge home, discussed progress with therapy and recommendation for SNF at discharge. After reviewing therapy recommendations, patient agreeable to SNF at discharge. Patient requested this RN CM called daughter Karen to discuss plan. Patient states she has no further needs or concerns at this time. RN CM called Karen and updated regarding plan, Karen agreeable to plan. CM to follow for discharge planning needs that may arise. Disposition Plan: SNF pending acceptance and precert. Krista LOPEZ, RN, CM
--- NOTE | 2024-08-05 14:46 | CASEMGMT ---
Discharge Planning A list of?SNF providers including quality and resource use data and consistent with the patient's preferred geographic region, medical needs, and insurance network was created in [facility] Guide.? This list was provided to the RN MATTHEW. Bee Hernandez, Discharge Planning Asst.
--- NOTE | 2024-08-05 14:51 | CHAPLAIN ---
Type of Pastoral Visit _x__ Initial Visit ___ Follow-up Visit ___ On-call Visit ___ General Patient Visit ___ Spiritual Assessment ___ Family Conference ___ Bereavement ___ Rapid Response ___ Code Blue ___ Other (describe below) Pastoral Care Referral From _x__ Patient ___ Family ___ Nurse ___ Physician ___ Job Specification Writer ___ Insemination Worker ___ Other (describe below) Sacrament/Intervention _x__ Active listening ___ Anointing ___ Taoism ___ Bereavement ___ Communion _x__ Rochelle exploration ___ ___ Life review ___ Prayer ___ Reconciliation ___ Sacrament of Sick _x__ Supportive presence ___ Wedding ___ Other (describe below) Pastoral Comments patient is welcoming and immediately begins to talk about her knowledge of the Bible, the end times, the state of our country, and asks many questions of this master ocean about his beliefs; this master ocean attempted to keep the patient focused on her health and needs but she continued to talk without stopping about her yazdanism; this master ocean listened and gave time for pt to be expressive; again the patient was asked about her feelings, coping, and needs for this time and she denied any of the above; pt declined a prayer or further support
[2024-08-05 15:13] LABS: Bedside Glucose 155 mg/dL (74-106)
[2024-08-05] MEDS: proCHLORPERazine 10 MG/2 ML Vial 5 MG IV (15:36)
[2024-08-05] MEDS: 0.9% Saline Lock 10 ML Syringe IV (15:36)
[2024-08-05 17:47] LABS: Bedside Glucose 136 mg/dL (74-106)
[2024-08-05 18:00] VITALS: BP 108/57; PULSE 70; RESP 16; TEMP 36.2; O2SAT 96
[2024-08-05] MEDS: Acetaminophen 325 MG Tablet 650 MG PO (20:14)
[2024-08-05 20:29] LABS: Bedside Glucose 179 mg/dL (74-106)
[2024-08-05 21:00] VITALS: BP 143/64; PULSE 67; RESP 18; TEMP 36.2; O2SAT 96
[2024-08-06 03:00] VITALS: BP 162/59; PULSE 79; RESP 18; TEMP 36.2; O2SAT 97
[2024-08-06 03:59] VITALS: BMI 39.9
[2024-08-06] MEDS: Acetaminophen 325 MG Tablet 650 MG PO (05:39)
[2024-08-06 06:53] LABS: Bedside Glucose 120 mg/dL (74-106)
[2024-08-06] MEDS: Polyethylene Glycol 3350 17 GM PACKET PO (06:54)
[2024-08-06 08:10] VITALS: O2SAT 96
--- NOTE | 2024-08-06 08:33 | PCM.PN.HOSP ---
Reason for Visit Reason for Visit: Diagnoses Other visual disturbances (08/04/24) Headache, unspecified (08/04/24) Subjective Subjective MRI was negative for acute CVA assessment of complex migraine made [facility] teleneurology recommended Migraine cocktails - IV Benadryl 25 mg, IV Compazine 10 mg, Toradol 15 mg can be given Q6h x3 doses. Patient also did agree to be discharged to a fdc facility Objective Data Objective Data Vital Signs: Vital Signs Temp Pulse Resp BP Pulse Ox O2 Del Method 97.2 F L 79 18 162/59 H 97 Room Air 08/06/24 03:00 08/06/24 03:00 08/06/24 03:00 08/06/24 03:00 08/06/24 03:00 08/06/24 03:00 Oxygen Delivery Method Room Air Weight: 92.6 kg Body Mass Index (BMI) 39.9 Intake & Output: Intake and Output for Last 24 Hours 08/04/24 08/05/24 08/06/24 23:59 23:59 23:59 Intake Total 350 / 350 890 / 890 Output Total 450 / 450 Balance 350 / 350 440 / 440 Lab / Micro Data 08/05/24 05:11 08/05/24 05:11 Labs: Laboratory Results - last 24 hr 08/05/24 14:46: POC Glucose 155 H 08/05/24 17:25: POC Glucose 136 H 08/05/24 20:09: POC Glucose 179 H 08/06/24 06:09: POC Glucose 120 H Radiography Diagnostic Testing: Radiology Impression Echocardiogram 08/04/24 16:31 Interpretation Summary The estimated ejection fraction is 65 %. No evidence for diastolic dysfunction. The left atrium is mildly enlarged. Mild aortic stenosis. Mild (1+) aortic valve insufficiency. Ordering Physician: Felipe Peacock Referring Physician: ROBIN HERNÁNDEZ Performed By: Casi Durán RDCS and Student Physical Exam Narrative GENERAL: cooperative HEENT: Atraumatic; normocephalic EYES; Anicteric, Normal Conjunctiva NECK; supple, normal thyroid, RESPIRATORY: Diminished to auscultation CARDIOVASCULAR: Regular S1 S2, GI: soft, normoactive bowel sounds, : No Renal angle tenderness; EXTREMITIES: No edema, no clubbing, MUSCULOSKELETAL: no muscle wasting NEURO: Awake; no lateralizing signs. SKIN: No Rash PSYCH; Flat affect Assessment & Plan Assessment/Plan (1) Myalgia: (2) Acute headache: PLAN: Plan Patient is a 79-year-old lady who presented with right forehead headache blurry vision as well as dizziness admitted to a monitored bed for possible workup of CVA 1. Suspected CVA ? Patient presented with blurry vision and dizziness as well as headache complex migraine remains a differential diagnosis. Admitted to monitored bed ordered every 4 neurochecks as well as [facility]; MRI was negative for acute CVA assessment of complex migraine made [facility] teleneurology recommended Migraine cocktails - IV Benadryl 25 mg, IV Compazine 10 mg, Toradol 15 mg can be given Q6h x3 doses 2. Coronary artery disease ? Patient underwent left heart catheterization on 07/28/2024 with successful JOSE placement to distal LAD lesion. Subsequently discharged on guideline directed medical therapy 3. Diabetes mellitus type II -patient's oral hypoglycemics held. Placed on long acting insulin, Accu-Cheks a.c. and at bedtime and covered with sliding scale insulin 4. Anemia ? Secondary to chronic disorder monitoring H&H and transfuse if patient becomes symptomatic or hemoglobin falls below 7 5. Hypertension ? Blood pressure controlled, home medications continued with dose adjustment as needed 6. 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 Requested for PT OT eval and renal social worker to assist with discharge planning ? patient agreeable to being discharged to fdc facility 7. GERD ? Patient on PPI 8. COPD ? Currently not in exacerbation aerosol treatments as needed 9. Obstructive sleep apnea ? Consistent use of CPAP encouraged 10. Overactive bladder ? Patient is on oxybutynin 10. Depression ? Patient is on duloxetine 11. Hypokalemia -Corrected per protocol 12. DVT prophylaxis ? SC Lovenox Time spent in the patient's overall evaluation,decision-making process, review of diagnostic data, adjustment of management, discussion with other providers, nursing nursing and ancillary staff involved in patient's care documentation,35 Minutes Charges/Coding Visit Charges Inpatient E&M: 75248 Subs Hosp L2
[2024-08-06 08:55] VITALS: BP 141/61; PULSE 66; RESP 18; TEMP 36.8; O2SAT 94
--- NOTE | 2024-08-06 09:02 | CASEMGMT ---
Addendum entered by Lorna Ramos 08/06/24 11:01: Social Work- PT received acceptance at [facility]. Precert started. PT updated. PA Jenkins Original Note: Social Work- Social Work f/u on SNF list choices. Pt names [facility], followed by [facility], [facility], and [facility]. DCA advised. Pt is medically ready and precert can be started. PA Jenkins
--- NOTE | 2024-08-06 09:46 | CASEMGMT ---
Addendum entered by Bee Hernandez 08/09/24 11:03: [facility] Bee Hernandez DC Planning Asst. Addendum entered by Bee Hernandez 08/06/24 10:01: [facility]. [facility] asked to cancel referral. Requested that [facility] start precert. SW updated. Bee Hernandez DC Planning Asst. Original Note: Discharge Planning Referral sent to [facility] and [facility]. Bee Hernandez DC Planning Asst.
[2024-08-06] MEDS: Senna/Docusate Sodium 1 Tablet 2 TABLET PO ×2 (10:09→23:08)
[2024-08-06] MEDS: Pantoprazole Sodium 40 MG Tablet PO (10:09)
[2024-08-06] MEDS: Aspirin 81 MG TAB.CHEW PO (10:09)
[2024-08-06] MEDS: DiphenhydrAMINE 50 MG/ML Syringe 25 MG IV (10:10)
[2024-08-06] MEDS: proCHLORPERazine 10 MG/2 ML Vial IV (10:11)
[2024-08-06] MEDS: 0.9% Saline Lock 10 ML Syringe IV ×3 (10:15→17:36)
[2024-08-06] MEDS: Ketorolac 15 MG/ML Vial IV ×3 (12:07→23:08)
[2024-08-06 12:31] LABS: Bedside Glucose 110 mg/dL (74-106)
[2024-08-06 14:55] VITALS: BP 150/57; PULSE 62; RESP 18; TEMP 36.6; O2SAT 96
--- NOTE | 2024-08-06 14:56 | CASEMGMT ---
Social Work- [facility] completed; [facility] advised. PA Jenkins
--- NOTE | 2024-08-06 14:58 | CASEMGMT ---
Discharge Planning [facility] updated that pt would discharge over the weekend should precert be obtained. Unit number given, SW completed passr and green sheet placed on chart. Bee Hernandez DC Planning Asst.
[2024-08-06] MEDS: Enoxaparin 40 MG/0.4 ML Syringe SC (16:28)
[2024-08-06 16:55] LABS: Bedside Glucose 108 mg/dL (74-106)
[2024-08-06 22:30] VITALS: BP 171/77; PULSE 63; RESP 18; TEMP 36.9; O2SAT 97
[2024-08-06 23:34] LABS: Bedside Glucose 111 mg/dL (74-106)
[2024-08-07] VITALS (7 sets, daily range): BP systolic 91–171; BP diastolic 58–77; PULSE 63–98; RESP 17–18; TEMP 36.4–36.9; O2SAT 96–97; BMI 39.9
[2024-08-07] MEDS: hydrALAZINE 20 MG/ML Vial 10 MG IV ×2 (00:06→04:43)
[2024-08-07] MEDS: 0.9% Saline Lock 10 ML Syringe IV (00:07)
[2024-08-07] MEDS: Acetaminophen 325 MG Tablet 650 MG PO ×3 (04:16→21:32)
[2024-08-07 06:28] LABS: Bedside Glucose 130 mg/dL (74-106)
[2024-08-07 06:44] LABS: Troponin-I HS 13 pg/mL (3.0-54.0)
[2024-08-07] MEDS: Polyethylene Glycol 3350 17 GM PACKET PO (11:51)
[2024-08-07] MEDS: Pantoprazole Sodium 40 MG Tablet PO (11:53)
[2024-08-07] MEDS: Aspirin 81 MG TAB.CHEW PO (11:53)
--- NOTE | 2024-08-07 15:51 | PN.HOSP_ITS ---
Subjective Subjective Doing well, no issues overnight Objective Data Objective Data Vital Signs: Vital Signs Temp Pulse Resp BP Pulse Ox O2 Del Method 98.1 F 76 17 153/71 H 97 Room Air 08/07/24 09:46 08/07/24 09:46 08/07/24 09:46 08/07/24 09:46 08/07/24 09:46 08/07/24 09:46 Oxygen Delivery Method Room Air Weight: 204 lb 2.369 oz Body Mass Index (BMI) 39.9 Intake & Output: Intake and Output for Last 24 Hours 08/06/24 08/07/24 08/08/24 03:59 03:59 03:59 Intake Total 890 / 890 950 / 950 120 / 120 Output Total 450 / 450 Balance 440 / 440 950 / 950 120 / 120 Lab / Micro Data 08/05/24 05:11 08/05/24 05:11 Labs: Laboratory Results - last 24 hr 08/06/24 16:24: POC Glucose 108 H 08/06/24 23:00: POC Glucose 111 H 08/07/24 06:09: Troponin I High Sens 13 08/07/24 06:10: POC Glucose 130 H Physical Exam Narrative General: Alert, Oriented x3 but confused, Cooperative, No apparent distress HEENT: Atraumatic, PERRLA, EOMI, Normocephalic Oral: Moist Mucosa Neck: Supple, No JVD Lungs: Clear to auscultation, Normal air movement, No rhonchi, No wheeze, No rales Cardiovascular: Regular rate, Regular Rhythm, Normal S1, Normal S2, No murmurs Abdomen: Soft, Non Tender, Non-Distended, No Hepato-splenomegaly Extremities: No edema, Capillary Refill Less than 3 Seconds Skin: No rashes, No breakdown Musculoskeletal: No Tenderness to Palpation of Joints or Extremities Neurological: No focal neurological deficits, Motor Exam 5/5 strength throughout, Sensory exam intact to light touch and pain Psych/Mental Status: Normal Affect, Appropriate Assessment & Plan Assessment/Plan (1) Myalgia: (2) Acute headache: PLAN: Plan 1. Suspected CVA ? Patient presented with blurry vision and dizziness as well as headache complex migraine remains a differential diagnosis. Admitted to monitored bed ordered every 4 neurochecks as well as MRI of the brain with consultation placed to [facility] teleneurology ? 08/06/2024; MRI was negative for acute CVA assessment of complex migraine made [facility] teleneurology recommended Migraine cocktails - IV Benadryl 25 mg, IV Compazine 10 mg, Toradol 15 mg can be given Q6h x3 doses 08/07/2024: Headache has resolved symptoms are improved. Likely need SNF on discharge for physical therapy 2. Coronary artery disease ? Patient underwent left heart catheterization on 07/28/2024 with successful JOSE placement to distal LAD lesion. Subsequently discharged on guideline directed medical therapy 3. Diabetes mellitus type II -patient's oral hypoglycemics held. Placed on long acting insulin, Accu-Cheks a.c. and at bedtime and covered with sliding scale insulin 4. Anemia ? Secondary to chronic disorder monitoring H&H and transfuse if patient becomes symptomatic or hemoglobin falls below 7 5. Hypertension ? Blood pressure controlled, home medications continued with dose adjustment as needed 6. 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 Requested for PT OT eval and manager social services to assist with discharge planning ? patient agreeable to being discharged to usp facility 7. GERD ? Patient on PPI 8. COPD ? Currently not in exacerbation aerosol treatments as needed 9. Obstructive sleep apnea ? Consistent use of CPAP encouraged 10. Overactive bladder ? Patient is on oxybutynin 10. Depression ? Patient is on duloxetine 11. Hypokalemia -Corrected per protocol DVT: Lovenox Charges/Coding Visit Charges Inpatient E&M: 02140 Subs Hosp L2
[2024-08-07 16:54] LABS: Bedside Glucose 120 mg/dL (74-106)
[2024-08-07] MEDS: Enoxaparin 40 MG/0.4 ML Syringe SC (18:27)
[2024-08-07] MEDS: Clopidogrel Bisulfate 75 MG Tablet PO (21:32)
[2024-08-07] MEDS: Buprenorphine 5 MCG PATCH.TDWK 1 PATCH TD (21:57)
[2024-08-07 22:03] LABS: Bedside Glucose 96 mg/dL (74-106)
[2024-08-07] MEDS: traZODone 50 MG Tablet 25 MG PO (22:32)
[2024-08-07 23:41] LABS: Bedside Glucose 122 mg/dL (74-106)
[2024-08-08] VITALS (10 sets, daily range): BP systolic 141–174; BP diastolic 55–109; PULSE 63–90; RESP 16–18; TEMP 36.1–36.5; O2SAT 95–99; BMI 39.7
[2024-08-08 05:03] LABS: Absolute Neutrophil Count 3.6 X10^3/uL (2.0-7.7); Basophil# 0.04 X10^3/uL; Basophil% 0.6 % (0-1); Eosinophil# 0.29 X10^3/uL; Eosinophils% 4.4 % (0-5); Hematocrit 32.2 % (37-47); Hemoglobin 9.9 g/dL (12.0-15.0); Lymphocyte % 30.1 % (19-41); Mean Corp Hgb Conc 30.7 g/dL (32-36); Mean Corpuscular Hgb 22.5 pg (27.0-32.0); Mean Corpuscular Volume 73.2 fL (81-99); Monocyte# 0.65 X10^3/uL; Monocyte% 9.8 % (0-10); NRBC Flagged by Analyzer 0 % (0-5); Neutrophil # 3.64 X10^3/uL (2.7-7.7); Neutrophil % 54.8 % (47-70); Platelet Count 276 K/mm3 (150-450); RBC Distribution Width CV 17.3 % (11.6-14.6); RBC Distribution Width SD 45.3 fl (35.1-43.9); White Blood Count 6.6 K/mm3 (4.4-11.0)
[2024-08-08 05:33] LABS: Anion Gap 6 (5-15); BUN 8 mg/dL (7-18); BUN/Creat Ratio 12.4 RATIO (10-20); Calcium,Total 8.8 mg/dL (8.5-10.1); Chloride 110 mmol/L (98-107); Creatinine, Serum 0.65 mg/dL (0.55-1.02); EST Glomerular Filtration Rate 94 mL/min (>60); Est Glom Filt Rate - Afr Amer 114 mL/min (>60); Estimated Creatinine Clearance 58.79 ml/min; Glucose 103 mg/dL (74-106); Potassium 3.1 mmol/L (3.5-5.1); Sodium Level 141 mmol/L (136-145)
[2024-08-08 06:46] LABS: Bedside Glucose 93 mg/dL (74-106)
[2024-08-08] MEDS: Pantoprazole Sodium 40 MG Tablet PO (09:49)
[2024-08-08] MEDS: Aspirin 81 MG TAB.CHEW PO (09:50)
--- NOTE | 2024-08-08 11:22 | PCM.PN.HOSP ---
Subjective Subjective Doing well, no issues overnight. She was able to sleep with a little bit of trazodone Objective Data Objective Data Vital Signs: Vital Signs Temp Pulse Resp BP Pulse Ox O2 Del Method 97.0 F L 69 16 152/66 H 96 Room Air 08/08/24 09:44 08/08/24 09:44 08/08/24 09:44 08/08/24 09:44 08/08/24 09:44 08/08/24 09:44 Oxygen Delivery Method Room Air Weight: 203 lb 11.314 oz Body Mass Index (BMI) 39.7 Intake & Output: Intake and Output for Last 24 Hours 08/07/24 08/08/24 08/09/24 03:59 03:59 03:59 Intake Total 950 / 950 120 / 120 Balance 950 / 950 120 / 120 Lab / Micro Data 08/08/24 04:35 08/08/24 04:35 Labs: Laboratory Results - last 24 hr 08/07/24 11:50: POC Glucose 122 H 08/07/24 16:35: POC Glucose 120 H 08/07/24 21:34: POC Glucose 96 08/08/24 04:35: WBC 6.6, RBC 4.40, Hgb 9.9 L, Hct 32.2 L, MCV 73.2 L, MCH 22.5 L, MCHC 30.7 L, RDW Std Deviation 45.3 H, RDW Coeff of Edgar 17.3 H, Plt Count 276, MPV 9.0, Immature Gran % (Auto) 0.300, Neut % (Auto) 54.8, Lymph % (Auto) 30.1, [place] % (Auto) 9.8, Eos % (Auto) 4.4, Baso % (Auto) 0.6, Absolute Neuts (auto) 3.6, Absolute Lymphs (auto) 2.00, Nucleated RBC % 0, Sodium 141, Potassium 3.1 L, Chloride 110 H, Carbon Dioxide 25.0, Anion Gap 6, BUN 8, Creatinine 0.65, Estim Creat Clear Calc 58.79, Est GFR (MDRD) Af Amer 114, Est GFR (MDRD) Non-Af 94, BUN/Creatinine Ratio 12.4, Glucose 103, Calcium 8.8 08/08/24 06:17: POC Glucose 93 Physical Exam Narrative General: Alert, Oriented x3 but confused, Cooperative, No apparent distress HEENT: Atraumatic, PERRLA, EOMI, Normocephalic Oral: Moist Mucosa Neck: Supple, No JVD Lungs: Clear to auscultation, Normal air movement, No rhonchi, No wheeze, No rales Cardiovascular: Regular rate, Regular Rhythm, Normal S1, Normal S2, No murmurs Abdomen: Soft, Non Tender, Non-Distended, No Hepato-splenomegaly Extremities: No edema, Capillary Refill Less than 3 Seconds Skin: No rashes, No breakdown Musculoskeletal: No Tenderness to Palpation of Joints or Extremities Neurological: No focal neurological deficits, Motor Exam 5/5 strength throughout, Sensory exam intact to light touch and pain Psych/Mental Status: Normal Affect, Appropriate Assessment & Plan Assessment/Plan (1) Myalgia: (2) Acute headache: PLAN: Plan 1. Suspected CVA ? Patient presented with blurry vision and dizziness as well as headache complex migraine remains a differential diagnosis. Admitted to monitored bed ordered every 4 neurochecks as well as [facility]; MRI was negative for acute CVA assessment of complex migraine made [facility] teleneurology recommended Migraine cocktails - IV Benadryl 25 mg, IV Compazine 10 mg, Toradol 15 mg can be given Q6h x3 doses 08/07/2024: Headache has resolved symptoms are improved. Likely need SNF on discharge for physical therapy 08/08/2024: She did not have a CVA she had a complex migraine now with a headache resolved symptoms have completely resolved 2. Coronary artery disease ? Patient underwent left heart catheterization on 07/28/2024 with successful JOSE placement to distal LAD lesion. Subsequently discharged on guideline directed medical therapy 3. Diabetes mellitus type II -patient's oral hypoglycemics held. Placed on long acting insulin, Accu-Cheks a.c. and at bedtime and covered with sliding scale insulin 4. Anemia ? Secondary to chronic disorder monitoring H&H and transfuse if patient becomes symptomatic or hemoglobin falls below 7 08/08/2024: Hemoglobin is 9.9 5. Hypertension ? Blood pressure controlled, home medications continued with dose adjustment as needed 6. 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 Requested for PT OT eval and community mental health social worker to assist with discharge planning ? patient agreeable to being discharged to intermediate facility 7. GERD ? Patient on PPI 8. COPD ? Currently not in exacerbation aerosol treatments as needed 9. Obstructive sleep apnea ? Consistent use of CPAP encouraged 10. Overactive bladder ? Patient is on oxybutynin 10. Depression ? Patient is on duloxetine 11. Hypokalemia -Corrected per protocol DVT: Lovenox Charges/Coding Visit Charges Inpatient E&M: 19489 Subs Hosp L2
[2024-08-08 12:23] LABS: Bedside Glucose 111 mg/dL (74-106)
[2024-08-08] MEDS: Acetaminophen 325 MG Tablet 650 MG PO (16:48)
[2024-08-08] MEDS: Enoxaparin 40 MG/0.4 ML Syringe SC (16:49)
[2024-08-08] MEDS: 0.9% Saline Lock 10 ML Syringe IV (17:09)
[2024-08-08] MEDS: hydrALAZINE 20 MG/ML Vial 10 MG IV (17:09)
[2024-08-08 17:35] LABS: Bedside Glucose 103 mg/dL (74-106)
[2024-08-08] MEDS: Senna/Docusate Sodium 1 Tablet 2 TABLET PO (21:46)
[2024-08-08] MEDS: Clopidogrel Bisulfate 75 MG Tablet PO (21:46)
[2024-08-08] MEDS: traZODone 50 MG Tablet 25 MG PO (21:52)
[2024-08-08 22:56] LABS: Bedside Glucose 135 mg/dL (74-106)
[2024-08-09 06:00] VITALS: BP 167/94; PULSE 81; RESP 18; TEMP 36.5; O2SAT 94
[2024-08-09 06:25] VITALS: BP 167/94; PULSE 81
[2024-08-09] MEDS: hydrALAZINE 20 MG/ML Vial 10 MG IV (06:25)
[2024-08-09 06:39] LABS: Bedside Glucose 98 mg/dL (74-106)
[2024-08-09] MEDS: Acetaminophen 325 MG Tablet 650 MG PO ×2 (08:23→17:07)
[2024-08-09] MEDS: Aspirin 81 MG TAB.CHEW PO (08:24)
[2024-08-09] MEDS: Senna/Docusate Sodium 1 Tablet 2 TABLET PO (08:24)
[2024-08-09] MEDS: Pantoprazole Sodium 40 MG Tablet PO (08:25)
[2024-08-09] MEDS: amLODIPine 5 MG Tablet PO (08:29)
[2024-08-09] MEDS: Ezetimibe 10 MG Tablet PO (08:29)
[2024-08-09] MEDS: DULoxetine Hcl 20 MG Capsule PO ×2 (08:30→21:34)
[2024-08-09 09:40] VITALS: BP 155/84; PULSE 77; RESP 20; TEMP 36.5; O2SAT 95
[2024-08-09] MEDS: Potassium Chloride Oral Tablet 20 MEQ 40 MEQ PO (09:51)
[2024-08-09] MEDS: Losartan Potassium 100 MG Tablet PO (09:51)
--- NOTE | 2024-08-09 11:07 | PN.HOSP_ITS ---
Subjective Subjective Doing well, no issues overnight Objective Data Objective Data Vital Signs: Vital Signs Temp Pulse Resp BP Pulse Ox O2 Del Method 97.7 F L 81 18 167/94 H 94 Room Air 08/09/24 06:00 08/09/24 06:25 08/09/24 06:00 08/09/24 06:25 08/09/24 06:00 08/09/24 06:00 Oxygen Delivery Method Room Air Weight: 203 lb 11.314 oz Body Mass Index (BMI) 39.7 Intake & Output: Intake and Output for Last 24 Hours 08/08/24 08/09/24 08/10/24 03:59 03:59 03:59 Intake Total 120 / 120 720 / 720 Balance 120 / 120 720 / 720 Lab / Micro Data 08/08/24 04:35 08/08/24 04:35 Labs: Laboratory Results - last 24 hr 08/08/24 12:04: POC Glucose 111 H 08/08/24 17:15: POC Glucose 103 08/08/24 21:42: POC Glucose 135 H 08/09/24 06:19: POC Glucose 98 Physical Exam Narrative General: Alert, Oriented x3 but confused, Cooperative, No apparent distress HEENT: Atraumatic, PERRLA, EOMI, Normocephalic Oral: Moist Mucosa Neck: Supple, No JVD Lungs: Clear to auscultation, Normal air movement, No rhonchi, No wheeze, No rales Cardiovascular: Regular rate, Regular Rhythm, Normal S1, Normal S2, No murmurs Abdomen: Soft, Non Tender, Non-Distended, No Hepato-splenomegaly Extremities: No edema, Capillary Refill Less than 3 Seconds Skin: No rashes, No breakdown Musculoskeletal: No Tenderness to Palpation of Joints or Extremities Neurological: No focal neurological deficits, Motor Exam 5/5 strength throughout, Sensory exam intact to light touch and pain Psych/Mental Status: Normal Affect, Appropriate Assessment & Plan Assessment/Plan (1) Myalgia: (2) Acute headache: PLAN: Plan 1. Complex migraine ? Patient presented with blurry vision and dizziness as well as headache complex migraine remains a differential diagnosis. Admitted to monitored bed ordered every 4 neurochecks as well as [facility] the [facility]; MRI was negative for acute CVA assessment of complex migraine made [facility] teleneurology recommended Migraine cocktails - IV Benadryl 25 mg, IV Compazine 10 mg, Toradol 15 mg can be given Q6h x3 doses 08/07/2024: Headache has resolved symptoms are improved. Likely need SNF on discharge for physical therapy 08/08/2024: She did not have a CVA she had a complex migraine now with a headache resolved symptoms have completely resolved 08/09/2024: Awaiting SNF transfer 2. Coronary artery disease ? Patient underwent left heart catheterization on 07/28/2024 with successful JOSE placement to distal LAD lesion. Subsequently discharged on guideline directed medical therapy 3. Diabetes mellitus type II -patient's oral hypoglycemics held. Placed on long acting insulin, Accu-Cheks a.c. and at bedtime and covered with sliding scale insulin 4. Anemia ? Secondary to chronic disorder monitoring H&H and transfuse if patient becomes symptomatic or hemoglobin falls below 7 08/08/2024: Hemoglobin is 9.9 5. Hypertension ? Blood pressure controlled, home medications continued with dose adjustment as needed 6. 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 Requested for PT OT eval and social service agency director to assist with discharge planning ? 08/06/2024 patient agreeable to being discharged to fpc facility 7. GERD ? Patient on PPI 8. COPD ? Currently not in exacerbation aerosol treatments as needed 9. Obstructive sleep apnea ? Consistent use of CPAP encouraged 10. Overactive bladder ? Patient is on oxybutynin 10. Depression ? Patient is on duloxetine 11. Hypokalemia -Corrected per protocol DVT: Lovenox Charges/Coding Visit Charges Inpatient E&M: 58510 Subs Hosp L2
[2024-08-09 12:08] LABS: Bedside Glucose 113 mg/dL (74-106)
[2024-08-09 12:32] VITALS: BMI 39.7
[2024-08-09 16:00] VITALS: BP 133/66; PULSE 74; RESP 18; TEMP 36.7; O2SAT 96
[2024-08-09] MEDS: Enoxaparin 40 MG/0.4 ML Syringe SC (16:52)
[2024-08-09 17:23] LABS: Bedside Glucose 151 mg/dL (74-106)
[2024-08-09 21:26] VITALS: BP 138/64; PULSE 66; RESP 16; TEMP 36.5; O2SAT 96
[2024-08-09] MEDS: Clopidogrel Bisulfate 75 MG Tablet PO (21:34)
[2024-08-09] MEDS: traZODone 50 MG Tablet 25 MG PO (21:34)
[2024-08-09] MEDS: Doxazosin 1 MG Tablet 2 MG PO (21:34)
[2024-08-09 22:29] LABS: Bedside Glucose 95 mg/dL (74-106)
[2024-08-10 03:43] VITALS: BP 104/48; PULSE 73; RESP 16; TEMP 36.6; O2SAT 97
[2024-08-10] MEDS: Acetaminophen 325 MG Tablet 650 MG PO (03:48)
[2024-08-10 06:00] VITALS: BMI 38.0
[2024-08-10 06:41] LABS: Absolute Lymphocyte Count 1.63 X10^3/uL (0.83-4.51); Absolute Neutrophil Count 4.3 X10^3/uL (2.0-7.7); Basophil# 0.04 X10^3/uL; Basophil% 0.6 % (0-1); Eosinophil# 0.22 X10^3/uL; Eosinophils% 3.3 % (0-5); Hematocrit 33.2 % (37-47); Hemoglobin 9.9 g/dL (12.0-15.0); Lymphocyte # 1.63 X10^3/ul (0.83-4.51); Lymphocyte % 24.2 % (19-41); Mean Corp Hgb Conc 29.8 g/dL (32-36); Mean Corpuscular Hgb 21.9 pg (27.0-32.0); Mean Corpuscular Volume 73.3 fL (81-99); Mean Platelet Vol. 9.1 fl (6.2-12.0); Monocyte# 0.55 X10^3/uL; Monocyte% 8.2 % (0-10); NRBC Flagged by Analyzer 0 % (0-5); Neutrophil # 4.27 X10^3/uL (2.7-7.7); Neutrophil % 63.4 % (47-70); Platelet Count 263 K/mm3 (150-450); RBC Distribution Width CV 17.2 % (11.6-14.6); RBC Distribution Width SD 45.9 fl (35.1-43.9); Red Blood Count 4.53 M/mm3 (4.2-5.4); White Blood Count 6.7 K/mm3 (4.4-11.0)
[2024-08-10 07:06] LABS: Anion Gap 6 (5-15); BUN 12 mg/dL (7-18); BUN/Creat Ratio 18.6 RATIO (10-20); Calcium,Total 8.9 mg/dL (8.5-10.1); Chloride 108 mmol/L (98-107); Creatinine, Serum 0.64 mg/dL (0.55-1.02); EST Glomerular Filtration Rate 94 mL/min (>60); Est Glom Filt Rate - Afr Amer 114 mL/min (>60); Estimated Creatinine Clearance 57.26 ml/min; Glucose 107 mg/dL (74-106); Potassium 3.2 mmol/L (3.5-5.1); Sodium Level 139 mmol/L (136-145)
[2024-08-10 07:18] LABS: Bedside Glucose 99 mg/dL (74-106)
[2024-08-10] MEDS: Aspirin 81 MG TAB.CHEW PO (09:02)
[2024-08-10] MEDS: Losartan Potassium 100 MG Tablet PO (09:02)
[2024-08-10] MEDS: Pantoprazole Sodium 40 MG Tablet PO (09:03)
[2024-08-10] MEDS: amLODIPine 5 MG Tablet PO (09:03)
[2024-08-10] MEDS: Ezetimibe 10 MG Tablet PO (09:03)
[2024-08-10] MEDS: Senna/Docusate Sodium 1 Tablet 2 TABLET PO (09:03)
[2024-08-10] MEDS: DULoxetine Hcl 20 MG Capsule PO (09:03)
[2024-08-10 09:09] VITALS: BP 141/60; PULSE 97; RESP 18; TEMP 36.9; O2SAT 97
--- NOTE | 2024-08-10 09:34 | CASEMGMT ---
SW went to patient's room. Patient was on the hospital phone. Patient was trying to get a hold of her daughter through the hospital dish machine operator. Patient's daughter did not answer. Patient was frantic that she is being discharged and she cannot get a hold of anyone. SW attempted to calm patient. SW introduced self and explained insurance has denied patient going to a detention facility. ALEJANDRA explained home health could be set up. Patient said she has no one to be with her at nights. ALEJANDRA told patient RN CM will talk with her about home health. Maria M Sumner [facility] PÉREZ
--- NOTE | 2024-08-10 09:36 | CASEMGMT ---
Discharge Planning A list of HH providers including quality and resource use data and consistent with the patient's preferred geographic region, medical needs, and insurance network was created in [facility] Guide.? This list was provided to the RN MATTHEW. Bee Hernandez, Discharge Planning Asst.
--- NOTE | 2024-08-10 11:34 | CASEMGMT ---
RN CM updated by that insurance denied SNF at discharge and patient is interested in HHC. RN CM in to discuss HHC at discharge. Patient requested that this RN CM call daughter Karen to discuss HHC and discharge planning. RN CM called Karen, updated regarding insurance denial, recommendation for HHC, and reviewed HHC list with daughter. Daughter prefers [facility]. Daughter denied further questions or concerns. RN CM called and made referral to [facility], awaiting acceptance. CM will continue to follow this patient and plan for a safe discharge.
[2024-08-10] MEDS: Insulin Lispro 100 UNIT/ML INSULN.PEN SC (11:46)
[2024-08-10 12:09] LABS: Bedside Glucose 219 mg/dL (74-106)
[2024-08-10 14:27] VITALS: BP 104/52; PULSE 89; RESP 16; TEMP 36.8; O2SAT 96
--- NOTE | 2024-08-10 14:29 | DCINST_ITS ---
Discharge Instructions Diet Discharge Diet: Low fat / Low cholesterol Activity Discharge Activity: Return to Normal Activity Dressing / Incision Call your doctor if you observe: Fever of 101 or Higher, Shortness of breath, Dizziness, Fainting spells, Swelling in the ankles, Chest pain and Increased palpitations (irregular heartbeat) Follow Up Care Test Results: Test results from this visit will be discussed in further detail at your follow- up appointment, if applicable. Discharge Plan Admission Admit Date/Time: 08/04/24 15:34 Attending Provider: Monster Quintero Primary Care Provider: Loyd Armas Consulting Providers: Felipe Peacock; Gentry Benson Instructions Additional Instructions / Restrictions: Follow-up with your PCP to monitor your kidney function and electrolytes. Discharge Orders/Prescriptions Prescriptions: Continued amlodipine 5 mg tablet 5 mg PO DAILY buprenorphine 5 mcg/hour patch weekly 1 patch transdermal QWEEK fluticasone propionate [Allergy Relief (fluticasone)] 50 mcg/actuation spray,suspension 2 spray intranasal DAILY Qty: 16 0RF Rx Instructions: administer into each nostril glimepiride 4 mg tablet 4 mg PO DAILY Qty: 90 1RF nitroglycerin 0.4 mg tablet, sublingual 0.4 mg sublingual Q5-15M PRN (Reason: chest pain) Qty: 30 3RF Rx Instructions: do not exceed 3 doses per episode famotidine [Pepcid] 20 mg tablet 20 mg PO QDAY Qty: 1 0RF Rx Instructions: Take one 20mg tablet by mouth the morning of your procedure (07/29/24). aspirin 81 mg Tablet,Delayed Release (Dr/Ec) 81 mg PO DAILY@0800 Qty: 100 6RF ondansetron 4 mg tablet,disintegrating 4 mg PO Q8H PRN (Reason: nausea and vomiting) Qty: 7 0RF docusate calcium [Stool Softener (docusate rain)] 240 mg capsule 240 mg PO BID PRN (Reason: constipation) Qty: 60 11RF sennosides [Natural Senna Laxative] 8.6 mg tablet 8.6 mg PO DAILY PRN (Reason: constipation: take if Colace doesn't work) Qty: 14 3RF ezetimibe [Zetia] 10 mg tablet 10 mg PO DAILY Qty: 90 1RF potassium chloride 20 mEq tablet extended release 20 meq PO DAILY Qty: 90 1RF oxybutynin chloride 5 mg tablet extended release 24hr 5 mg PO DAILY Qty: 60 1RF clopidogrel 75 mg tablet 75 mg PO QHS Qty: 90 1RF doxazosin [Cardura] 2 mg tablet 2 mg PO QHS Qty: 90 1RF pantoprazole 40 mg tablet,delayed release (DR/EC) 40 mg PO BID Qty: 180 1RF cetirizine [All Day Allergy (cetirizine)] 10 mg tablet 10 mg PO DAILY Qty: 90 0RF duloxetine 20 mg capsule,delayed release(DR/EC) 20 mg PO BID Qty: 60 1RF valsartan 320 mg tablet 320 mg PO DAILY Qty: 90 3RF isosorbide dinitrate 5 mg tablet 5 mg PO BID Qty: 180 3RF Rx Instructions: allow nitrate-free interval of 12-14 hrs per 24-hr period Referrals / Follow Up: Loyd Armas MD [Primary Care Provider] - 08/20/24 1:00 pm (Appointment is with Vernell Pierre N.P.) Disposition Disposition (needs filled in before D/C Order can be placed): Home Health Service
--- NOTE | 2024-08-10 15:00 | CASEMGMT ---
RN CM received call back from [facility] and they are able to accept patient with planned start of care for . RN CM received call from son and updated regarding plan. RN CM called daughter Karen and updated regarding acceptance and planned start of care, daughter voiced appreciation. RN CM updated patient's discharge plan.
--- NOTE | 2024-08-10 15:09 | PHA.DC_ITS ---
Pharmacy [place] Med Reconciliation Pharmacy Service has performed discharge medication reconciliation for this patient. The patient's discharge medication list was reviewed for discrepancies and discrepancies were resolved. Medications at Discharge Home Medications aspirin 81 mg tablet,delayed release 81 mg PO DAILY@0800 [facility] health #100 tabs 09/16/23 docusate calcium 240 mg capsule (Stool Softener (docusate calcium)) 240 mg PO BID PRN constipation #60 caps 09/18/23 sennosides 8.6 mg tablet (Natural Senna Laxative) 8.6 mg PO DAILY PRN constipation: take if Colace doesn't work #14 tabs 09/18/23 amlodipine 5 mg tablet 5 mg PO DAILY blood pressure 12/02/23 buprenorphine 5 mcg/hour weekly transdermal patch 1 patch transdermal QWEEK pain 12/02/23 fluticasone propionate 50 mcg/actuation nasal spray,suspension (Allergy Relief (fluticasone)) 2 spray intranasal DAILY allergies #16 grams 01/16/24 ezetimibe 10 mg tablet (Zetia) 10 mg PO DAILY cholesterol #90 tabs 03/29/24 potassium chloride 20 mEq tablet,extended release 20 meq PO DAILY supplement #90 tabs 03/29/24 oxybutynin chloride 5 mg tablet,extended release 24 hr 5 mg PO DAILY urine #60 tabs 04/26/24 glimepiride 4 mg tablet 4 mg PO DAILY DIABETES #90 tabs 05/03/24 clopidogrel 75 mg tablet 75 mg PO QHS BLOOD THINNER #90 tabs 05/28/24 doxazosin 2 mg tablet (Cardura) 2 mg PO QHS BLOOD PRESSURE #90 tabs 05/28/24 pantoprazole 40 mg tablet,delayed release 40 mg PO BID ACID REFLUX #180 tabs 05/28/24 ondansetron 4 mg disintegrating tablet 4 mg PO Q8H PRN nausea and vomiting #7 tabs 06/08/24 nitroglycerin 0.4 mg sublingual tablet 0.4 mg sublingual Q5-15M PRN chest pain #30 tabs 07/19/24 famotidine 20 mg tablet (Pepcid) 20 mg PO QDAY reflux #1 TAB 07/20/24 cetirizine 10 mg tablet (All Day Allergy (cetirizine)) 10 mg PO DAILY allergies #90 tabs 07/23/24 duloxetine 20 mg capsule,delayed release 20 mg PO BID mental health #60 caps 07/23/24 valsartan 320 mg tablet 320 mg PO DAILY blood pressure #90 tabs 07/23/24 isosorbide dinitrate 5 mg tablet 5 mg PO BID heart #180 tabs 07/30/24
[2024-08-10] MEDS: Potassium Chloride Oral Tablet 20 MEQ 40 MEQ PO (15:12)
[2024-08-10 15:30] VITALS: BP 104/52; PULSE 89; RESP 16; TEMP 36.8; O2SAT 96
--- NOTE | 2024-08-10 16:55 | PCM.DC.SUM ---
Providers Date of Admission: 08/04/24 Date of Discharge: 08/10/24 Primary Care Physician: Dr. Loyd Armas MD Consultations 08/04/24 16:30 Consult: Tele-Neurology Routine Consulting Provider: [facility] Reason for Consult: Acute Ischemic Stroke/TIA EMERGENT Consult: No MD Notified: Yes Date Notified: 08/04/24 Time Notified: 17:26 Method of Notification: Answering Service Nursing Unit Staff Notify [facility] of Tele-Neurology Consult: Yes Reason For Visit: SUSPECTED STROKE Diagnosis Discharge Diagnosis (1) Myalgia: Status: Acute Code(s): M79.10 - Myalgia, unspecified site (2) Acute headache: Status: Acute Code(s): R51.9 - Headache, unspecified Plan 1. Complex migraine ? Patient presented with blurry vision and dizziness as well as headache complex migraine remains a differential diagnosis. Admitted to monitored bed ordered every 4 neurochecks as well as MRI [facility]; MRI was negative for acute CVA [facility] - IV Benadryl 25 mg, IV Compazine 10 mg, Toradol 15 mg can be given Q6h x3 doses 08/07/2024: Headache has resolved symptoms are improved. Likely need SNF on discharge for physical therapy 08/08/2024: She did not have a CVA she had a complex migraine now with a headache resolved symptoms have completely resolved 08/09/2024: Awaiting SNF transfer 08/10/2024: She was denied for SNF by her insurance company I discussed with her the plan for discharge she expressed understanding the risk benefits going home and would like to go home today. Will have her work with home health care as well as potentially home physical therapy. 2. Coronary artery disease ? Patient underwent left heart catheterization on 07/28/2024 with successful JOSE placement to distal LAD lesion. Subsequently discharged on guideline directed medical therapy 3. Diabetes mellitus type II -patient's oral hypoglycemics held. Placed on long acting insulin, Accu-Cheks a.c. and at bedtime and covered with sliding scale insulin 4. Anemia ? Secondary to chronic disorder monitoring H&H and transfuse if patient becomes symptomatic or hemoglobin falls below 7 08/08/2024: Hemoglobin is 9.9 5. Hypertension ? Blood pressure controlled, home medications continued with dose adjustment as needed 6. 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 Requested for PT OT eval and social worker masters to assist with discharge planning ? 08/06/2024 patient agreeable to being discharged to long-term facility 7. GERD ? Patient on PPI 8. COPD ? Currently not in exacerbation aerosol treatments as needed 9. Obstructive sleep apnea ? Consistent use of CPAP encouraged 10. Overactive bladder ? Patient is on oxybutynin 10. Depression ? Patient is on duloxetine 11. Hypokalemia -Corrected per protocol DVT: Lovenox Medications at Discharge Home Medications aspirin 81 mg tablet,delayed release 81 mg PO DAILY@0800 heart health #100 tabs 09/16/23 docusate calcium 240 mg capsule (Stool Softener (docusate calcium)) 240 mg PO BID PRN constipation #60 caps 09/18/23 sennosides 8.6 mg tablet (Natural Senna Laxative) 8.6 mg PO DAILY PRN constipation: take if Colace doesn't work #14 tabs 09/18/23 amlodipine 5 mg tablet 5 mg PO DAILY blood pressure 12/02/23 buprenorphine 5 mcg/hour weekly transdermal patch 1 patch transdermal QWEEK pain 12/02/23 fluticasone propionate 50 mcg/actuation nasal spray,suspension (Allergy Relief (fluticasone)) 2 spray intranasal DAILY allergies #16 grams 01/16/24 ezetimibe 10 mg tablet (Zetia) 10 mg PO DAILY cholesterol #90 tabs 03/29/24 potassium chloride 20 mEq tablet,extended release 20 meq PO DAILY supplement #90 tabs 03/29/24 oxybutynin chloride 5 mg tablet,extended release 24 hr 5 mg PO DAILY urine #60 tabs 04/26/24 glimepiride 4 mg tablet 4 mg PO DAILY DIABETES #90 tabs 05/03/24 clopidogrel 75 mg tablet 75 mg PO QHS BLOOD THINNER #90 tabs 05/28/24 doxazosin 2 mg tablet (Cardura) 2 mg PO QHS BLOOD PRESSURE #90 tabs 05/28/24 pantoprazole 40 mg tablet,delayed release 40 mg PO BID ACID REFLUX #180 tabs 05/28/24 ondansetron 4 mg disintegrating tablet 4 mg PO Q8H PRN nausea and vomiting #7 tabs 06/08/24 nitroglycerin 0.4 mg sublingual tablet 0.4 mg sublingual Q5-15M PRN chest pain #30 tabs 07/19/24 famotidine 20 mg tablet (Pepcid) 20 mg PO QDAY reflux #1 TAB 07/20/24 cetirizine 10 mg tablet (All Day Allergy (cetirizine)) 10 mg PO DAILY allergies #90 tabs 07/23/24 duloxetine 20 mg capsule,delayed release 20 mg PO BID mental health #60 caps 07/23/24 valsartan 320 mg tablet 320 mg PO DAILY blood pressure #90 tabs 07/23/24 isosorbide dinitrate 5 mg tablet 5 mg PO BID heart #180 tabs 07/30/24 Physical Exam Narrative General: Alert, Oriented x3, Cooperative, No apparent distress HEENT: Atraumatic, PERRLA, EOMI, Normocephalic Oral: Moist Mucosa Neck: Supple, No JVD Lungs: Clear to auscultation, Normal air movement, No rhonchi, No wheeze, No rales Cardiovascular: Regular rate, Regular Rhythm, Normal S1, Normal S2, No murmurs Abdomen: Soft, Non Tender, Non-Distended, No Hepato-splenomegaly Extremities: No edema, Capillary Refill Less than 3 Seconds Skin: No rashes, No breakdown Musculoskeletal: No Tenderness to Palpation of Joints or Extremities Neurological: No focal neurological deficits, Motor Exam 5/5 strength throughout, Sensory exam intact to light touch and pain Psych/Mental Status: Normal Affect, Appropriate Weight / BMI Weight Weight: 194 lb 7.163 oz Body Mass Index (BMI) 38.0 ABG / Lab / Microbiology Data 08/10/24 05:56 08/10/24 05:56 Laboratory: Laboratory Results - last 24 hr 08/09/24 16:50: POC Glucose 151 H 08/09/24 21:33: POC Glucose 95 08/10/24 05:56: WBC 6.7, RBC 4.53, Hgb 9.9 L, Hct 33.2 L, MCV 73.3 L, MCH 21.9 L, MCHC 29.8 L, RDW Std Deviation 45.9 H, RDW Coeff of Edgar 17.2 H, Plt Count 263, MPV 9.1, Immature Gran % (Auto) 0.300, Neut % (Auto) 63.4, Lymph % (Auto) 24.2, [place] % (Auto) 8.2, Eos % (Auto) 3.3, Baso % (Auto) 0.6, Absolute Neuts (auto) 4.3, Absolute Lymphs (auto) 1.63, Nucleated RBC % 0, Sodium 139, Potassium 3.2 L, Chloride 108 H, Carbon Dioxide 24.0, Anion Gap 6, BUN 12, Creatinine 0.64, Estim Creat Clear Calc 57.26, Est GFR (MDRD) Af Amer 114, Est GFR (MDRD) Non-Af 94, BUN/Creatinine Ratio 18.6, Glucose 107 H, Calcium 8.9 08/10/24 07:00: POC Glucose 99 08/10/24 11:46: POC Glucose 219 H D/C Instructions Discharge Diet: Low fat / Low cholesterol Call your doctor if you observe: Fever of 101 or Higher, Shortness of breath, Dizziness, Fainting spells, Swelling in the ankles, Chest pain and Increased palpitations (irregular heartbeat) Meaningful Use Info Meaningful Use Meaningful Use Diagnoses (Choose all that apply): None applicable Ischemic Stroke Statin Dosing Therapy Reference: STATIN DOSE THERAPY REFERENCE: * Patients > 75 years receive moderate or high dose statin therapy. * Patients 75 years or YOUNGER should receive HIGH intensity statin dose unless contraindicated. You will be required to document reason for non-treatment if statin daily dose does not meet guidelines. HIGH DOSE STATIN THERAPY DAILY Atorvastatin > than or = to 40 mg Rosuvastatin > than or = to 20 mg Amlodipine + Atorvastatin > than or = to 2.5/40 mg Ezetimibe + Simvastatin 10/80 mg Simvastatin 80mg Discharge Plan Admission Admit Date/Time: 08/04/24 15:34 Attending Provider: Monster Quintero Primary Care Provider: Loyd Armas Consulting Providers: Felipe Peacock; Gentry Benson Instructions Additional Instructions / Restrictions: Follow-up with your PCP to monitor your kidney function and electrolytes. Discharge Orders/Prescriptions Prescriptions: Continued amlodipine 5 mg tablet 5 mg PO DAILY buprenorphine 5 mcg/hour patch weekly 1 patch transdermal QWEEK fluticasone propionate [Allergy Relief (fluticasone)] 50 mcg/actuation spray,suspension 2 spray intranasal DAILY Qty: 16 0RF Rx Instructions: administer into each nostril glimepiride 4 mg tablet 4 mg PO DAILY Qty: 90 1RF nitroglycerin 0.4 mg tablet, sublingual 0.4 mg sublingual Q5-15M PRN (Reason: chest pain) Qty: 30 3RF Rx Instructions: do not exceed 3 doses per episode famotidine [Pepcid] 20 mg tablet 20 mg PO QDAY Qty: 1 0RF Rx Instructions: Take one 20mg tablet by mouth the morning of your procedure (07/29/24). aspirin 81 mg Tablet,Delayed Release (Dr/Ec) 81 mg PO DAILY@0800 Qty: 100 6RF ondansetron 4 mg tablet,disintegrating 4 mg PO Q8H PRN (Reason: nausea and vomiting) Qty: 7 0RF docusate calcium [Stool Softener (docusate rain)] 240 mg capsule 240 mg PO BID PRN (Reason: constipation) Qty: 60 11RF sennosides [Natural Senna Laxative] 8.6 mg tablet 8.6 mg PO DAILY PRN (Reason: constipation: take if Colace doesn't work) Qty: 14 3RF ezetimibe [Zetia] 10 mg tablet 10 mg PO DAILY Qty: 90 1RF potassium chloride 20 mEq tablet extended release 20 meq PO DAILY Qty: 90 1RF oxybutynin chloride 5 mg tablet extended release 24hr 5 mg PO DAILY Qty: 60 1RF clopidogrel 75 mg tablet 75 mg PO QHS Qty: 90 1RF doxazosin [Cardura] 2 mg tablet 2 mg PO QHS Qty: 90 1RF pantoprazole 40 mg tablet,delayed release (DR/EC) 40 mg PO BID Qty: 180 1RF cetirizine [All Day Allergy (cetirizine)] 10 mg tablet 10 mg PO DAILY Qty: 90 0RF duloxetine 20 mg capsule,delayed release(DR/EC) 20 mg PO BID Qty: 60 1RF valsartan 320 mg tablet 320 mg PO DAILY Qty: 90 3RF isosorbide dinitrate 5 mg tablet 5 mg PO BID Qty: 180 3RF Rx Instructions: allow nitrate-free interval of 12-14 hrs per 24-hr period Referrals / Follow Up: Loyd Armas MD [Primary Care Provider] - 08/20/24 1:00 pm (Appointment is with Vernell Pierre N.P.) Disposition Disposition (needs filled in before D/C Order can be placed): Home Health Service Charges/Coding Visit Charges Inpatient E&M: 53190 Disch Hosp >30min
== END 2024-08-10 15:38 | disposition home health service (06) | DRG 103 ==
LOC: ED 14:52 → PCU 15:40
PROVIDERS: Family Medicine; Internal Medicine; Admitting Provider Internal Medicine; Emergency Provider Emergency Medicine; PCP Internal Medicine; Visit Provider Family Medicine
DX: G43.909 Migraine, unspecified, not intractable, without status migrainosus (principal); I27.20 Pulmonary hypertension, unspecified; I69.322 Dysarthria following cerebral infarction; D63.8 Anemia in other chronic diseases classified elsewhere; E11.610 Type 2 diabetes mellitus with diabetic neuropathic arthropathy; D50.9 Iron deficiency anemia, unspecified; Z51.5 Encounter for palliative care; Z66 Do not resuscitate; J44.9 Chronic obstructive pulmonary disease, unspecified; F32.A Depression, unspecified; I10 Essential (primary) hypertension; E78.2 Mixed hyperlipidemia; M79.7 Fibromyalgia; I25.10 Atherosclerotic heart disease of native coronary artery without angina pectoris; K21.9 Gastro-esophageal reflux disease without esophagitis; G47.33 Obstructive sleep apnea (adult) (pediatric); E87.6 Hypokalemia; G51.0 Bell's palsy; Z90.710 Acquired absence of both cervix and uterus; R53.81 Other malaise; Z79.82 Long term (current) use of aspirin; Z79.51 Long term (current) use of inhaled steroids; Z79.84 Long term (current) use of oral hypoglycemic drugs; Z95.5 Presence of coronary angioplasty implant and graft; Z87.891 Personal history of nicotine dependence; F41.1 Generalized anxiety disorder; N32.81 Overactive bladder
CPT/HCPCS: 36415; 70450; 70544; 70547; 70551; 71045; 80048; 80061; 82962; 83036; 83735; 84443; 84484; 85025; 85610; 85730; 93005; 93306; 94668; 97110; 97116; 97162; 97166; 97530; 97535; 97802; 99285; J7030; A4216; J2405

== ENCOUNTER → 2024-08-20 | Outpatient (CLI) | payer MEDICARE, SELFPAY ==
[2024-08-20 15:17] LABS: Potassium 4.1 mmol/L (3.5-5.1)
== END | disposition home or self-care (01) ==
LOC: BIMLAB 13:49
PROVIDERS: PCP Internal Medicine; Referring Provider Nurse Practitioner; Visit Provider Nurse Practitioner
DX: E87.6 Hypokalemia (principal)
CPT/HCPCS: 36415; 84132

== ENCOUNTER 2024-09-09 11:27 | Emergency (ER) | payer MEDICARE, SELFPAY ==
[2024-09-09 11:27] VITALS: BP 118/64; PULSE 70; RESP 18; TEMP 36.7; O2SAT 97
--- NOTE | 2024-09-09 11:51 | RAD_ITS ---
STUDY: X-RAY - ABDOMEN/PELVIS REASON FOR EXAM: Female, 79 years old. constipation TECHNIQUE: Single AP view of the abdomen / pelvis. COMPARISON: None. FINDINGS: Status post cholecystectomy. There is an unremarkable bowel gas pattern. The visualized liver, spleen and kidneys are grossly normal in size and morphology. Normal soft tissue structures. Mild dextroscoliosis of the lumbar spine with degenerative disc disease. RAD/Abdomen Single View IMPRESSION: Normal x-ray examination of the abdomen and pelvis. Electronically Signed: Zachariah Fu MD at 12:30 EST ,
--- NOTE | 2024-09-09 12:41 | ED.VIS.GI ---
HPI HPI - GI History of Present Illness Chief Complaint: GI Bleed Informant: patient Narrative Narrative: 79-year-old female presenting to the emergency room for constipation. Patient states it has been days since she had a large bowel movement. She states that she has been taking stool softeners with no relief. She notes that she noticed some bright red blood in the toilet this morning. She denies any rectal pain. She notes that in the past she has had a hemorrhoid. Patient denies any significant abdominal pain but does feel bloated. She states that she was recently in the hospital and has been enjoying being at home. She has physical therapy coming to see her. She has not been as active going for her walks due to her fear of falling. [facility] Medical History Anxiety Depression Diabetes Rheumatoid arthritis Asthma Stroke/cerebrovascular accident GERD (gastroesophageal reflux disease) Anxiety and depression OAB (overactive bladder) Urinary urgency Diastolic dysfunction Aortic valve regurgitation Tricuspid regurgitation Aortic stenosis Abnormal cardiovascular stress test Flu vaccine need Palpitations Left shoulder pain Hypertension Hypokalemia Rectal bleeding Fatigue Iron deficiency anemia History of diabetes mellitus Acute pain of right foot URI (upper respiratory infection) Hypokalemia Carotid stenosis, bilateral Carotid artery disease Dyspnea on exertion Chest pain, unspecified CAD (coronary artery disease) Nonrheumatic aortic (valve) stenosis COPD (chronic obstructive pulmonary disease) YOVANA (obstructive sleep apnea) Mixed hyperlipidemia Atherosclerotic heart disease of [place] coronary artery without angina pectoris Anemia Vaginal anomaly Encounter to establish care Type 2 diabetes mellitus Memory impairment Tremor COPD (chronic obstructive pulmonary disease) Arthritis CAD (coronary artery disease) CHF (congestive heart failure) Iron deficiency anemia Venous insufficiency of both lower extremities Mild aortic stenosis Pulmonary HTN Chronic pain Constipation Chest pain Obesity Lumbago History of IBS HLD (hyperlipidemia) History of tobacco use Generalized anxiety disorder History of gastroesophageal reflux (GERD) History of fibromyalgia History of esophageal reflux CAD (coronary artery disease) Type II diabetes mellitus, uncontrolled History of COPD Coronary atherosclerosis of [place] coronary artery History of CHF (congestive heart failure) Benign essential hypertension Home Medications ?Medication ?Instructions ?Recorded ?Last Taken ?Type aspirin 81 mg tablet,delayed 81 mg PO DAILY@0800 heart health 09/16/23 08/04/24 Rx release #100 tabs docusate calcium 240 mg capsule 240 mg PO BID PRN constipation #60 09/18/23 08/04/24 Rx (Stool Softener (docusate calcium)) caps sennosides 8.6 mg tablet (Natural 8.6 mg PO DAILY PRN constipation: 09/18/23 08/04/24 Rx Senna Laxative) take if Colace doesn't work #14 tabs amlodipine 5 mg tablet 5 mg PO DAILY blood pressure 12/02/23 08/04/24 History buprenorphine 5 mcg/hour weekly 1 patch transdermal QWEEK pain 12/02/23 08/04/24 History transdermal patch fluticasone propionate 50 2 spray intranasal DAILY allergies 01/16/24 08/04/24 Rx mcg/actuation nasal #16 grams spray,suspension (Allergy Relief (fluticasone)) ezetimibe 10 mg tablet (Zetia) 10 mg PO DAILY cholesterol #90 tabs 03/29/24 08/04/24 Rx potassium chloride 20 mEq 20 meq PO DAILY supplement #90 tabs 03/29/24 08/04/24 Rx tablet,extended release glimepiride 4 mg tablet 4 mg PO DAILY DIABETES #90 tabs 05/03/24 08/04/24 Rx clopidogrel 75 mg tablet 75 mg PO QHS BLOOD THINNER #90 tabs 05/28/24 08/04/24 Rx doxazosin 2 mg tablet (Cardura) 2 mg PO QHS BLOOD PRESSURE #90 tabs 05/28/24 08/04/24 Rx pantoprazole 40 mg tablet,delayed 40 mg PO BID ACID REFLUX #180 tabs 05/28/24 08/04/24 Rx release nitroglycerin 0.4 mg sublingual 0.4 mg sublingual Q5-15M PRN chest 07/19/24 08/04/24 Rx tablet pain #30 tabs cetirizine 10 mg tablet (All Day 10 mg PO DAILY allergies #90 tabs 07/23/24 08/04/24 Rx Allergy (cetirizine)) duloxetine 20 mg capsule,delayed 20 mg PO BID mental health #60 caps 07/23/24 08/04/24 Rx release isosorbide dinitrate 5 mg tablet 5 mg PO BID heart #180 tabs 07/30/24 08/04/24 Rx ondansetron 4 mg disintegrating 4 mg PO Q8H PRN nausea and 08/16/24 Unknown Rx tablet vomiting #20 tabs famotidine 20 mg tablet (Pepcid) 20 mg PO QDAY reflux #60 tabs 08/20/24 Unknown Rx oxybutynin chloride 5 mg 5 mg PO DAILY urine #60 tabs 08/20/24 Unknown Rx tablet,extended release 24 hr valsartan 160 mg tablet 160 mg PO QDAY This is a lower 08/25/24 Unknown Rx dose d/t orthostatic hypotension #30 tabs magnesium citrate 150 ml PO BID PRN constipation #2 09/09/24 Unknown Rx BOTTLES sodium phosphates 19 gram-7 118 ml ME DAILY 3 days #3 BOTTLES 09/09/24 Unknown Rx gram/118 mL enema ([id number] Enema) Allergy/AdvReac Type Severity Reaction Status Date / Time Iodinated Contrast Media Allergy Severe Angioedema Verified 09/09/24 11:30 amoxicillin Allergy Unknown Itching Verified 09/09/24 11:30 cephalexin (From Keflex) Allergy Unknown GI Upset, Verified 09/09/24 11:30 Itching doxycycline Allergy Unknown Rash Verified 09/09/24 11:30 furosemide (From Lasix) Allergy Unknown Hives Verified 09/09/24 11:30 simvastatin Allergy Unknown Hives Verified 09/09/24 11:30 atorvastatin calcium (From Allergy Hives Verified 09/09/24 11:30 Lipitor) divalproex sodium (From Allergy Hives Verified 09/09/24 11:30 Depakote) moxifloxacin HCl (From Allergy Unknown Verified 09/09/24 11:30 Avelox) vancomycin Allergy Hives Verified 09/09/24 11:30 amlodipine AdvReac Unknown Swelling Verified 09/09/24 11:30 fluticasone furoate (From AdvReac Unknown Throat Verified 09/09/24 11:30 Breo Ellipta) Burning-hoarseness sucralfate (From Carafate) AdvReac Unknown Diarrhea Verified 09/09/24 11:30 vilanterol (From Breo AdvReac Unknown Throat Verified 09/09/24 11:30 Ellipta) Burning-hoarseness Family History Father CAD (coronary artery disease) Hypertension Mother CAD (coronary artery disease) Hypertension Mixed hyperlipidemia COPD (chronic obstructive pulmonary disease) Brother CAD (coronary artery disease) History of coronary artery bypass surgery Brother CAD (coronary artery disease) History of coronary artery bypass surgery Sister CAD (coronary artery disease) History of coronary artery bypass surgery Sister CAD (coronary artery disease) History of coronary artery bypass surgery Surgical History History of coronary artery stent placement History of left heart catheterization (~09/16/23) Presence of stent in coronary artery (~09/16/23) History of foot surgery History of cholecystectomy History of total knee replacement History of hysterectomy Social History Smoking Status: Former smoker alcohol intake: never substance use type: does not use what type of physical activity do you participate in: none ROS ROS ED Constitutional Constitutional ED: Denies chills, fever(s) or weight loss Eyes Eyes: Denies change in vision or diplopia ENT ENT ED: Denies ear pain, rhinorrhea or sore throat Cardiovascular Cardiovascular: Denies chest pain, orthopnea, palpitations or racing heartbeat Respiratory/Chest Respiratory/Chest: Denies cough, dyspnea or orthopnea Gastrointestinal Gastrointestinal: Reports abdominal pain and constipation; Denies diarrhea, nausea or vomiting Genitourinary Genitourinary ED: Denies dysuria, hematuria or urinary frequency Musculoskeletal Musculoskeletal: Denies arthralgias or myalgias Integumentary Denies abscess or rash Neurologic Neurologic: Denies headache(s) or weakness Psychiatric Psychiatric: Denies anxiety, depression, suicidal ideation or suicidal thoughts Endocrine Endocrinology: Denies polydipsia, polyphagia or polyuria Allergic/Immunologic Allergic/Immunologic ED: Denies mouth swelling, tongue swelling or urticaria EXAM Physical Exam Const Vital Signs: 09/09/24 11:27 Temperature 98.1 F Temperature Source Oral Pulse Rate 70 Respiratory Rate 18 Blood Pressure 118/64 Blood Pressure Mean 82 Pulse Ox 97 Oxygen Delivery Method Room Air Positive well nourished and well developed General Appearance ED: well developed HEENT Reports normocephalic, head/scalp atraumatic and moist mucous membranes Eyes PERRL and EOMs intact bilaterally Neck no lymphadenopathy, supple and no JVD Resp normal respiratory effort and clear to auscultation bilaterally Cardio regular rate, regular rhythm and no murmurs GI normal to inspection, nondistended, normoactive bowel sounds and non-tender GI Narrative: Rectal examination was performed in the presence of female nurse (Vernell). There is no gross blood. No large hemorrhoidal disease. No fissure noted. There is soft stool in the rectal vault that falls apart easily. Palpation: soft Back/Spine no CVA tenderness and normal ROM Extremity normal to inspection General Extremety ED: Negative for edema General Extremity: Negative for edema Neuro oriented x3 and CN's II-XII intact bilaterally Sensorium / Orientation: alert Motor Exam: strength 5/5 throughout Psych mental status grossly normal Mood & Affect: Negative for depressed or tearful Skin no rashes or lesions noted and no wounds MDM MDM MDM Narrative Medical decision making narrative: Differential diagnosis includes lower GI bleeding (hemorrhoidal anal fissure diverticular AVM) constipation fecal impaction volvulus bowel obstruction My depend interpretation of the plain films of the abdomen is increased stool burden consistent with constipation. Patient will be instructed on the use of fleets enema as well as magnesium citrate. Patient will follow with primary care if needed History & Record Review Discussion w/independent historian: Patient Radiography Diagnostic Testing: Clinical Impression(s) from Imaging Studies KUB X-Ray 09/09/24 11:51 IMPRESSION: Normal x-ray examination of the abdomen and pelvis. Electronically Signed: Zachariah Fu MD at 12:30 EST , Discharge Plan Triage Chief Complaint: GI Bleed ED Provider: Quinten Coates Dx/Rx/DC Orders Clinical Impression: Acute constipation, Acute lower gastrointestinal bleeding Instructions: ED Constipation (Adult) Prescriptions: New magnesium citrate Solution 150 ml PO BID PRN (Reason: constipation) Qty: 2 0RF Rx Instructions: Take until large bowel movement occurs then discontinue [id number] Enema 19-7 gram/118 mL enema 118 ml ME DAILY 3 Days Qty: 3 0RF No Action amlodipine 5 mg tablet 5 mg PO DAILY buprenorphine 5 mcg/hour patch weekly 1 patch transdermal QWEEK fluticasone propionate [Allergy Relief (fluticasone)] 50 mcg/actuation spray,suspension 2 spray intranasal DAILY Qty: 16 0RF Rx Instructions: administer into each nostril glimepiride 4 mg tablet 4 mg PO DAILY Qty: 90 1RF nitroglycerin 0.4 mg tablet, sublingual 0.4 mg sublingual Q5-15M PRN (Reason: chest pain) Qty: 30 3RF Rx Instructions: do not exceed 3 doses per episode aspirin 81 mg Tablet,Delayed Release (Dr/Ec) 81 mg PO DAILY@0800 Qty: 100 6RF docusate calcium [Stool Softener (docusate rain)] 240 mg capsule 240 mg PO BID PRN (Reason: constipation) Qty: 60 11RF sennosides [Natural Senna Laxative] 8.6 mg tablet 8.6 mg PO DAILY PRN (Reason: constipation: take if Colace doesn't work) Qty: 14 3RF ezetimibe [Zetia] 10 mg tablet 10 mg PO DAILY Qty: 90 1RF potassium chloride 20 mEq tablet extended release 20 meq PO DAILY Qty: 90 1RF clopidogrel 75 mg tablet 75 mg PO QHS Qty: 90 1RF doxazosin [Cardura] 2 mg tablet 2 mg PO QHS Qty: 90 1RF pantoprazole 40 mg tablet,delayed release (DR/EC) 40 mg PO BID Qty: 180 1RF cetirizine [All Day Allergy (cetirizine)] 10 mg tablet 10 mg PO DAILY Qty: 90 0RF duloxetine 20 mg capsule,delayed release(DR/EC) 20 mg PO BID Qty: 60 1RF isosorbide dinitrate 5 mg tablet 5 mg PO BID Qty: 180 3RF Rx Instructions: allow nitrate-free interval of 12-14 hrs per 24-hr period ondansetron 4 mg tablet,disintegrating 4 mg PO Q8H PRN (Reason: nausea and vomiting) Qty: 20 0RF oxybutynin chloride 5 mg tablet extended release 24hr 5 mg PO DAILY Qty: 60 1RF famotidine [Pepcid] 20 mg tablet 20 mg PO QDAY Qty: 60 0RF Rx Instructions: Take one 20mg tablet by mouth the morning of your procedure (07/29/24). valsartan 160 mg tablet 160 mg PO QDAY Qty: 30 11RF Primary Care Provider: Loyd Armas Referrals: Loyd Armas MD [Primary Care Provider] - As Needed Print Language: Occitan Disposition Disposition: Home, Self Care
[2024-09-09 12:46] VITALS: BP 136/70; PULSE 68; RESP 18; TEMP 36.6; O2SAT 98
== END 2024-09-09 12:55 | disposition home or self-care (01) ==
PROVIDERS: Emergency Provider Emergency Medicine; PCP Internal Medicine; Visit Provider Emergency Medicine
DX: K92.2 Gastrointestinal hemorrhage, unspecified (principal); I11.0 Hypertensive heart disease with heart failure; I50.9 Heart failure, unspecified; J44.9 Chronic obstructive pulmonary disease, unspecified; E11.9 Type 2 diabetes mellitus without complications; Z87.891 Personal history of nicotine dependence; E78.2 Mixed hyperlipidemia; I25.10 Atherosclerotic heart disease of native coronary artery without angina pectoris; K59.00 Constipation, unspecified; Z86.73 Personal history of transient ischemic attack (TIA), and cerebral infarction without residual deficits; Z79.82 Long term (current) use of aspirin; Z79.899 Other long term (current) drug therapy; Z79.51 Long term (current) use of inhaled steroids; Z79.84 Long term (current) use of oral hypoglycemic drugs; Z79.02 Long term (current) use of antithrombotics/antiplatelets; K21.9 Gastro-esophageal reflux disease without esophagitis; F41.9 Anxiety disorder, unspecified; F32.A Depression, unspecified; Z95.5 Presence of coronary angioplasty implant and graft; Z90.49 Acquired absence of other specified parts of digestive tract; Z96.659 Presence of unspecified artificial knee joint; Z90.710 Acquired absence of both cervix and uterus
CPT/HCPCS: 74018; 99282; A4216

== ENCOUNTER → 2024-12-22 | Outpatient (CLI) | payer MEDICARE, SELFPAY ==
[2024-12-22 15:19] LABS: Absolute Lymphocyte Count 1.71 X10^3/uL (0.83-4.51); Absolute Neutrophil Count 3.8 X10^3/uL (2.0-7.7); Basophil# 0.06 X10^3/uL; Eosinophil# 0.14 X10^3/uL; Eosinophils% 2.3 % (0-5); Hematocrit 33.4 % (37-47); Hemoglobin 9.8 g/dL (12.0-15.0); Lymphocyte # 1.71 X10^3/ul (0.83-4.51); Lymphocyte % 27.9 % (19-41); Mean Corp Hgb Conc 29.3 g/dL (32-36); Mean Corpuscular Hgb 21.5 pg (27.0-32.0); Mean Corpuscular Volume 73.2 fL (81-99); Mean Platelet Vol. 9.2 fl (6.2-12.0); Monocyte# 0.44 X10^3/uL; Monocyte% 7.2 % (0-10); NRBC Flagged by Analyzer 0 % (0-5); Neutrophil # 3.75 X10^3/uL (2.7-7.7); Neutrophil % 61.3 % (47-70); Platelet Count 330 K/mm3 (150-450); RBC Distribution Width CV 17.9 % (11.6-14.6); RBC Distribution Width SD 46.9 fl (35.1-43.9); Red Blood Count 4.56 M/mm3 (4.2-5.4); White Blood Count 6.1 K/mm3 (4.4-11.0)
[2024-12-22 15:33] LABS: Microalbumin,Random Urine < 12.0 mg/L (NO RANGE EST.); Microalbumin:Creatinine Ratio UNABLE TO CALCULATE mg/g CRE
[2024-12-22 19:30] LABS: Cholesterol 161 mg/dL (<=200); High Density Lipoprotein 49 mg/dL; Low Density Lipoprotein Calc. 79 mg/dL; Triglycerides 167 mg/dL; Very Low Density Lipoprotein 33 mg/dL (5-40); cholesterol:hdl ratio screen 3.31
[2024-12-22 19:40] LABS: ALB/GLOB Ratio 1.4 RATIO (0.9-2.4); AST(SGOT) 25 U/L (<=31); Alanine Aminotransfer ALT/SGPT 18 U/L (<=34); Albumin, Serum 4.3 g/dL (3.4-4.8); Alkaline Phosphatase 66 U/L (35-104); Anion Gap 14 (5-15); BUN 18 mg/dL (4-19); BUN/Creat Ratio 22.9 RATIO (10-20); Bilirubin, Direct < 0.08 mg/dL (0.00-0.30); Calcium,Total 9.3 mg/dL (7.6-11.0); Carbon Dioxide 22.5 mmol/L (21.0-32.0); Chloride 104 mmol/L (98-108); EST Glomerular Filtration Rate 75 (>60); Glucose 154 mg/dL (70-99); Protein, Total 7.2 g/dL (5.9-8.4); Sodium Level 140 mmol/L (133-145); Total Bilirubin 0.17 mg/dL (0.00-1.30)
[2024-12-22 19:58] LABS: Hemoglobin A1c 6.4 % (<=5.6)
[2024-12-23 10:45] LABS: Ferritin 12 ng/mL (22-378); Iron 16 ug/dL (50-170); Iron Binding Capacity,Unsat 476 ug/dL (228-428)
[2024-12-23 11:07] LABS: Iron Binding Capacity,Total 492 ug/dL (250-450); PERCENT IRON SATURATION 3.3 % (15.0-55.0)
== END | disposition home or self-care (01) ==
LOC: BIMLAB 12:15
PROVIDERS: PCP Internal Medicine; Referring Provider Internal Medicine; Visit Provider Internal Medicine
DX: D64.9 Anemia, unspecified (principal); E11.9 Type 2 diabetes mellitus without complications; E78.00 Pure hypercholesterolemia, unspecified; I10 Essential (primary) hypertension
CPT/HCPCS: 36415; 80053; 80061; 82043; 82248; 82570; 82728; 83036; 83540; 83550; 85025

== ENCOUNTER 2025-01-07 10:14 | Outpatient (CLI) | payer MEDICARE, SELFPAY ==
[2025-01-07 10:30] VITALS: BP 118/78; PULSE 67; RESP 16; TEMP 36.4; O2SAT 97; BMI 34.3
[2025-01-07] MEDS: Iron Sucrose Complex 200 MG in 0.9% Normal Saline (100mL Bag) 100 ML 220 MG IV (10:45)
[2025-01-07] MEDS: 0.9% NaCl IVPB Med Flush (100mL) 15 ML IV (10:46)
[2025-01-07 11:29] VITALS: BP 123/38; PULSE 60; RESP 16; TEMP 35.9; O2SAT 97
[2025-01-07 11:51] VITALS: BP 121/89; PULSE 67; RESP 16; TEMP 36.4; O2SAT 100
== END 2025-01-07 23:59 | disposition home or self-care (01) ==
LOC: MEDOUTP 10:15
PROVIDERS: PCP Internal Medicine; Referring Provider Internal Medicine; Visit Provider Internal Medicine
DX: D50.9 Iron deficiency anemia, unspecified (principal)
CPT/HCPCS: 96365; J1756; A4216

== ENCOUNTER 2025-01-10 11:21 | Outpatient (CLI) | payer MEDICARE, SELFPAY ==
[2025-01-10 11:41] VITALS: BP 85/57; PULSE 54; RESP 16; TEMP 36.1; O2SAT 95; BMI 33.5
[2025-01-10] MEDS: 0.9% NaCl IVPB Med Flush (100mL) 15 ML IV (12:12)
[2025-01-10] MEDS: Iron Sucrose Complex 200 MG in 0.9% Normal Saline (100mL Bag) 100 ML 220 MG IV (12:12)
[2025-01-10 12:59] VITALS: BP 113/56; PULSE 63; RESP 16
== END 2025-01-10 23:59 | disposition home or self-care (01) ==
LOC: MEDOUTP 11:21
PROVIDERS: PCP Internal Medicine; Referring Provider Internal Medicine; Visit Provider Internal Medicine
DX: D50.9 Iron deficiency anemia, unspecified (principal)
CPT/HCPCS: 96365; J1756; A4216

== ENCOUNTER 2025-01-12 11:06 | Outpatient (CLI) | payer MEDICARE, SELFPAY ==
[2025-01-12 11:44] VITALS: BP 80/56; PULSE 68; RESP 16; TEMP 36.1; O2SAT 98; BMI 34.1
[2025-01-12] MEDS: 0.9% NaCl IVPB Med Flush (100mL) 15 ML IV (11:48)
[2025-01-12] MEDS: 0.9% NaCl Peripheral Flush Adult IV (11:48)
[2025-01-12] MEDS: Iron Sucrose Complex 200 MG in 0.9% Normal Saline (100mL Bag) 100 ML 220 MG IV (11:49)
[2025-01-12 12:43] VITALS: BP 90/36; PULSE 60; RESP 16; TEMP 36.2; O2SAT 96
== END 2025-01-12 23:59 | disposition home or self-care (01) ==
LOC: MEDOUTP 11:06
PROVIDERS: PCP Internal Medicine; Referring Provider Internal Medicine; Visit Provider Internal Medicine
DX: D50.9 Iron deficiency anemia, unspecified (principal)
CPT/HCPCS: 96365; J1756; A4216

== ENCOUNTER 2025-01-14 10:37 | Outpatient (CLI) | payer MEDICARE, SELFPAY ==
[2025-01-14 10:54] VITALS: BP 126/52; PULSE 64; RESP 16; TEMP 36.1; O2SAT 97; BMI 35.6
[2025-01-14] MEDS: Iron Sucrose Complex 200 MG in 0.9% Normal Saline (100mL Bag) 100 ML 220 MG IV (11:05)
[2025-01-14] MEDS: 0.9% NaCl Peripheral Flush Adult IV (11:05)
[2025-01-14] MEDS: 0.9% NaCl IVPB Med Flush (100mL) 15 ML IV (11:05)
[2025-01-14 11:53] VITALS: BP 142/48; PULSE 63; RESP 14; TEMP 36; O2SAT 99
== END 2025-01-14 23:59 | disposition home or self-care (01) ==
LOC: MEDOUTP 10:37
PROVIDERS: PCP Internal Medicine; Referring Provider Internal Medicine; Visit Provider Internal Medicine
DX: D50.9 Iron deficiency anemia, unspecified (principal)
CPT/HCPCS: 96365; J1756; A4216

== ENCOUNTER 2025-01-31 17:34 | Emergency (ER) | payer MEDICARE, SELFPAY ==
[2025-01-31 17:35] VITALS: BP 146/67; PULSE 62; RESP 18; TEMP 36.7; O2SAT 96
--- NOTE | 2025-01-31 19:34 | EX.ED.DYSGE1 ---
HPI <EMMA Goetz - Last Filed: 01/31/25 21:13> History of Present Illness Chief Complaint: General Illness Narrative Narrative: 79-year-old female with PMH of HTN, HLD, GERD, DM2, CAD, COPD, pulmonary hypertension states 2 evenings ago she developed generalized abdominal pain and diarrhea. Anytime she eats or drinks she has watery stool that is orange and brown. No blood. She has nausea but no vomiting. She is hydrating with Pedialyte. PFSH <EMMA Goetz - Last Filed: 01/31/25 21:13> [facility] Medical History (Updated 01/31/25 @ 21:02 by EMMA Goetz) Debility Osteoarthritis Constipation Anxiety Depression Diabetes Rheumatoid arthritis Asthma Stroke/cerebrovascular accident GERD (gastroesophageal reflux disease) Anxiety and depression OAB (overactive bladder) Urinary urgency Diastolic dysfunction Aortic valve regurgitation Tricuspid regurgitation Aortic stenosis Abnormal cardiovascular stress test Flu vaccine need Palpitations Left shoulder pain Hypertension Hypokalemia Rectal bleeding Fatigue Iron deficiency anemia History of diabetes mellitus Acute pain of right foot URI (upper respiratory infection) Hypokalemia Carotid stenosis, bilateral Carotid artery disease Dyspnea on exertion Chest pain, unspecified CAD (coronary artery disease) Nonrheumatic aortic (valve) stenosis COPD (chronic obstructive pulmonary disease) YOVANA (obstructive sleep apnea) Mixed hyperlipidemia Atherosclerotic heart disease of lummi coronary artery without angina pectoris Anemia Vaginal anomaly Encounter to establish care Type 2 diabetes mellitus Memory impairment Tremor COPD (chronic obstructive pulmonary disease) Arthritis CAD (coronary artery disease) CHF (congestive heart failure) Iron deficiency anemia Venous insufficiency of both lower extremities Mild aortic stenosis Pulmonary HTN Chronic pain Chest pain Obesity Lumbago History of IBS HLD (hyperlipidemia) History of tobacco use Generalized anxiety disorder History of gastroesophageal reflux (GERD) History of fibromyalgia History of esophageal reflux CAD (coronary artery disease) Type II diabetes mellitus, uncontrolled History of COPD Coronary atherosclerosis of lummi coronary artery History of CHF (congestive heart failure) Benign essential hypertension Home Medications ?Medication ?Instructions ?Recorded ?Last Taken ?Type fluticasone propionate 50 2 spray intranasal DAILY allergies 01/16/24 08/04/24 Rx mcg/actuation nasal #16 grams spray,suspension (Allergy Relief (fluticasone)) nitroglycerin 0.4 mg sublingual 0.4 mg sublingual Q5-15M PRN chest 07/19/24 08/04/24 Rx tablet pain #30 tabs isosorbide dinitrate 5 mg tablet 5 mg PO BID heart #180 tabs 07/30/24 08/04/24 Rx ondansetron 4 mg disintegrating 4 mg PO Q8H PRN nausea and 08/16/24 Unknown Rx tablet vomiting #20 tabs valsartan 160 mg tablet 160 mg PO QDAY This is a lower 08/25/24 Unknown Rx dose d/t orthostatic hypotension #30 tabs potassium chloride 20 mEq 20 meq PO DAILY supplement #90 tabs 09/13/24 Unknown Rx tablet,extended release buprenorphine 10 mcg/hour weekly 1 patch transdermal QWEEK 10/05/24 Unknown History transdermal patch glycerin (adult) 1 supp MO QDAY PRN constipation #5 10/05/24 Unknown Rx ea polyethylene glycol 3350 17 17 g PO BID constipation #510 grams 10/05/24 Unknown Rx gram/dose oral powder (Miralax) sodium phosphates 19 gram-7 197 ml MO ONCE Sigmoidoscopy bowel 10/05/24 Unknown Rx gram/118 mL enema (Fleet Enema) prep #266 mL amlodipine 5 mg tablet 5 mg PO DAILY blood pressure #90 10/11/24 Unknown Rx tabs glimepiride 4 mg tablet 4 mg PO DAILY DIABETES #90 tabs 10/11/24 Unknown Rx hydroxyzine HCl 10 mg tablet 10 mg PO TID PRN itching #30 tabs 10/14/24 Unknown Rx aspirin 81 mg tablet,delayed 81 mg PO DAILY@0800 #90 tabs 10/15/24 Unknown Rx release clopidogrel 75 mg tablet 75 mg PO QHS BLOOD THINNER #90 tabs 11/08/24 Unknown Rx pantoprazole 40 mg tablet,delayed 40 mg PO BID ACID REFLUX #180 tabs 11/08/24 Unknown Rx release doxazosin 2 mg tablet (Cardura) 2 mg PO QHS BLOOD PRESSURE #60 tabs 11/12/24 Unknown Rx oxybutynin chloride 5 mg 5 mg PO DAILY urine #60 tabs 12/07/24 Unknown Rx tablet,extended release 24 hr ezetimibe 10 mg tablet 10 mg PO QHS 01/07/25 Unknown History famotidine 20 mg tablet 20 mg PO DAILY 01/07/25 Unknown History Allergy/AdvReac Type Severity Reaction Status Date / Time Iodinated Contrast Media Allergy Severe Angioedema Verified 01/31/25 17:39 amoxicillin Allergy Unknown Itching Verified 01/31/25 17:39 cephalexin (From Keflex) Allergy Unknown GI Upset, Verified 01/31/25 17:39 Itching doxycycline Allergy Unknown Rash Verified 01/31/25 17:39 furosemide (From Lasix) Allergy Unknown Hives Verified 01/31/25 17:39 simvastatin Allergy Unknown Hives Verified 01/31/25 17:39 atorvastatin calcium (From Allergy Hives Verified 01/31/25 17:39 Lipitor) divalproex sodium (From Allergy Hives Verified 01/31/25 17:39 Depakote) moxifloxacin HCl (From Allergy Unknown Verified 01/31/25 17:39 Avelox) vancomycin Allergy Hives Verified 01/31/25 17:39 amlodipine AdvReac Unknown Swelling Verified 01/31/25 17:39 fluticasone furoate (From AdvReac Unknown Throat Verified 01/31/25 17:39 Breo Ellipta) Burning-hoarseness sucralfate (From Carafate) AdvReac Unknown Diarrhea Verified 01/31/25 17:39 vilanterol (From Breo AdvReac Unknown Throat Verified 01/31/25 17:39 Ellipta) Burning-hoarseness Family History Father CAD (coronary artery disease) Hypertension Mother CAD (coronary artery disease) Hypertension Mixed hyperlipidemia COPD (chronic obstructive pulmonary disease) Brother CAD (coronary artery disease) History of coronary artery bypass surgery Brother CAD (coronary artery disease) History of coronary artery bypass surgery Sister CAD (coronary artery disease) History of coronary artery bypass surgery Sister CAD (coronary artery disease) History of coronary artery bypass surgery Surgical History History of coronary artery stent placement History of left heart catheterization (~09/16/23) Presence of stent in coronary artery (~09/16/23) History of foot surgery History of cholecystectomy History of total knee replacement History of hysterectomy Social History (Updated 01/31/25 @ 19:14 by Vernell Viramontes) household members: none housing: house Smoking Status: Former smoker alcohol intake: never substance use type: does not use what type of physical activity do you participate in: none ROS <EMMA Goetz - Last Filed: 01/31/25 21:13> ROS ED ROS Narrative Constitutional: Negative for fever, chills, malaise. GI: Positive for abdominal pain, nausea, diarrhea. Negative for vomiting, melena, hematochezia : Negative for dysuria, hematuria or frequency. EXAM <EMMA Goetz - Last Filed: 01/31/25 21:13> Physical Exam Narrative Exam Narrative: CONST: Patient sitting in no acute distress. EYES: Normal inspection. NECK: Normal inspection. RESP: No respiratory distress, CTAB. CVS: Regular rate and rhythm, no murmur, no gallop. ABD: Soft with periumbilical tenderness, no guarding or rebound, nondistended,. SKIN: Color normal, no rash, warm, dry, intact. EXTREMITIES: Normal appearance, no pedal edema. NEURO: Alert and answering questions appropriately. PSYCH: Normal affect. Const Vital Signs: 01/31/25 17:35 01/31/25 19:14 01/31/25 19:35 Temperature 98.0 F Temperature Source Oral Pulse Rate 62 61 Respiratory Rate 18 16 Respiratory Effort Normal Non-Labored Respiratory Pattern Normal Blood Pressure 146/67 H 162/127 H Blood Pressure Mean 93 138 Pulse Ox 96 98 Oxygen Delivery Method Room Air Room Air 01/31/25 21:12 Temperature Temperature Source Pulse Rate Respiratory Rate Respiratory Effort Respiratory Pattern Blood Pressure 174/65 H Blood Pressure Mean 101 Pulse Ox Oxygen Delivery Method <Dr. Tavares Burger DO - Last Filed: 01/31/25 23:28> Physical Exam Const Vital Signs: 01/31/25 17:35 01/31/25 19:14 01/31/25 19:35 Temperature 98.0 F Temperature Source Oral Pulse Rate 62 61 Respiratory Rate 18 16 Respiratory Effort Normal Non-Labored Respiratory Pattern Normal Blood Pressure 146/67 H 162/127 H Blood Pressure Mean 93 138 Pulse Ox 96 98 Oxygen Delivery Method Room Air Room Air 01/31/25 21:12 Temperature Temperature Source Pulse Rate Respiratory Rate Respiratory Effort Respiratory Pattern Blood Pressure 174/65 H Blood Pressure Mean 101 Pulse Ox Oxygen Delivery Method MDM <EMMA oGetz - Last Filed: 01/31/25 21:13> MDM MDM Narrative Medical decision making narrative: Differential includes but not limited to: Viral diarrhea, bacterial infection such as C. difficile, colitis, diverticulitis 71-year-old female has had 2 days of nausea, generalized abdominal pain, and frequent nonbloody diarrhea. She is tolerating p.o. intake. She appears well and nontoxic. Vital signs stable. She has no clinical signs of dehydration. Abdomen is soft with periumbilical tenderness without peritoneal signs. WBC is 6.6. Hemoglobin 11.6 is higher than her previous baseline. Electrolytes and renal function are normal. Glucose is 67. CT of the abdomen/pelvis shows no acute findings. She was given something to eat and drink for her mild hypoglycemia. She was unable to provide a stool sample here for C. difficile testing. I recommended continued oral hydration, prescribe Zofran as needed for her nausea, discussed return precautions and recommended to see her primary care doctor this week. If the diarrhea continues she should have a stool sample tested. She was comfortable with this plan and discharged in stable condition. Lab Data Attestation: I reviewed the patient's lab results. Labs: Laboratory Results - last 24 hr 01/31/25 19:39 WBC 6.6 RBC 4.85 Hgb 11.6 L Hct 37.5 MCV 77.3 L MCH 23.9 L MCHC 30.9 L RDW Std Deviation 64.4 H RDW Coeff of Edgar 23.7 H Plt Count 231 MPV 8.6 Immature Gran % (Auto) 0.200 Neut % (Auto) 48.7 Lymph % (Auto) 37.6 Tyrrell % (Auto) 9.5 Eos % (Auto) 2.9 Baso % (Auto) 1.1 H Absolute Neuts (auto) 3.2 Absolute Lymphs (auto) 2.49 Nucleated RBC % 0 Differential Comment SCANNED Anisocytosis 2+ Sodium 139 Potassium 3.7 Chloride 105 Carbon Dioxide 22.8 Anion Gap 12 BUN 14 Creatinine 0.64 L Estim Creat Clear Calc 58.44 Est GFR (MDRD) Non-Af 90 BUN/Creatinine Ratio 21.2 H Glucose 67 L Calcium 9.3 Radiography Diagnostic Testing: Clinical Impression(s) from Imaging Studies Abdomen/Pelvis CT 01/31/25 19:46 IMPRESSION: UNREMARKABLE NONCONTRAST CT OF THE ABDOMEN AND PELVIS Reading Location: [facility] <Dr. Tavares Burger, DO - Last Filed: 01/31/25 23:28> [facility] Lab Data Labs: Laboratory Results - last 24 hr 01/31/25 19:39 WBC 6.6 RBC 4.85 Hgb 11.6 L Hct 37.5 MCV 77.3 L MCH 23.9 L MCHC 30.9 L RDW Std Deviation 64.4 H RDW Coeff of Edgar 23.7 H Plt Count 231 MPV 8.6 Immature Gran % (Auto) 0.200 Neut % (Auto) 48.7 Lymph % (Auto) 37.6 Tyrrell % (Auto) 9.5 Eos % (Auto) 2.9 Baso % (Auto) 1.1 H Absolute Neuts (auto) 3.2 Absolute Lymphs (auto) 2.49 Nucleated RBC % 0 Differential Comment SCANNED Anisocytosis 2+ Sodium 139 Potassium 3.7 Chloride 105 Carbon Dioxide 22.8 Anion Gap 12 BUN 14 Creatinine 0.64 L Estim Creat Clear Calc 58.44 Est GFR (MDRD) Non-Af 90 BUN/Creatinine Ratio 21.2 H Glucose 67 L Calcium 9.3 Radiography Diagnostic Testing: Clinical Impression(s) from Imaging Studies Abdomen/Pelvis CT 01/31/25 19:46 IMPRESSION: UNREMARKABLE NONCONTRAST CT OF THE ABDOMEN AND PELVIS Reading [facility] Treatment and Re-Evaluation :: I have personally performed a face to face assessment of the patient and have reviewed the DAVID Note. I performed a substantive portion of the visit including all aspects of the following. My echols findings include: History: Patient presents with abdominal pain that has been getting worse over the past 3 days. Patient describes it as cramping. Patient states it is diffuse across her entire abdomen. Patient states she has had diarrhea that is yellow and loose. Patient states she has had multiple episodes per day for the past 2 days. Patient denies any nausea or vomiting. Patient admits to a fever of 101 at home. Exam: Vital signs are stable. Patient is afebrile. Patient is in no acute distress. Oral mucosa is pink and moist. Neck is supple. Trachea is midline. There is no JVD. Heart was regular rate and rhythm. Lungs are clear and equal bilaterally. Abdomen is soft. Bowel sounds are normal. There is diffuse tenderness. There is no rebound or guarding noted. Cranial nerves II through XII are intact. There are no focal motor or sensory deficits noted. Medical Decision Making: Differential diagnosis includes dehydration, viral illness, electrolyte abnormality, bowel obstruction, perforation, and colitis. CBC will be obtained to assess for leukocytosis and anemia. Basic metabolic profile will be obtained to assess for electrolyte abnormality and renal function. CT scan of the abdomen and pelvis will be obtained to assess for bowel obstruction and perforation. C. difficile will be obtained to assess for C. difficile colitis. Patient was given IV fluids and Zofran. CBC was reviewed and showed a mild anemia with a hemoglobin of 11.6. The remainder is within normal limits. Basic metabolic profile was reviewed and was essentially within normal limits. Patient was unable to provide a stool specimen for C. difficile toxin. Patient was instructed to drink plenty of fluids. Patient was instructed to follow-up with her primary care physician in 5 to 7 days. Patient understood and was agreeable with plan. All questions were answered. Discharge Plan Triage Chief Complaint: General Illness ED Midlevel Provider: Gisell Mills ED Provider: Tavares Burger Dx/Rx/DC Orders Clinical Impression: Acute diarrhea, Abdominal pain Instructions: Abdominal Pain, ED Diarrhea, Unknown Cause Prescriptions: No Action fluticasone propionate [Allergy Relief (fluticasone)] 50 mcg/actuation spray,suspension 2 spray intranasal DAILY Qty: 16 0RF Rx Instructions: administer into each nostril nitroglycerin 0.4 mg tablet, sublingual 0.4 mg sublingual Q5-15M PRN (Reason: chest pain) Qty: 30 3RF Rx Instructions: do not exceed 3 doses per episode hydroxyzine HCl 10 mg tablet 10 mg PO TID PRN (Reason: itching) Qty: 30 0RF buprenorphine 10 mcg/hour patch weekly 1 patch transdermal QWEEK polyethylene glycol 3350 [Miralax] 17 gram/dose powder 17 g PO BID Qty: 510 3RF glycerin (adult) Suppository 1 supp MO QDAY PRN (Reason: constipation) Qty: 5 0RF Fleet Enema 19-7 gram/118 mL enema 197 ml MO ONCE Qty: 266 0RF famotidine 20 mg tablet 20 mg PO DAILY ezetimibe 10 mg tablet 10 mg PO QHS isosorbide dinitrate 5 mg tablet 5 mg PO BID Qty: 180 3RF Rx Instructions: allow nitrate-free interval of 12-14 hrs per 24-hr period ondansetron 4 mg tablet,disintegrating 4 mg PO Q8H PRN (Reason: nausea and vomiting) Qty: 20 0RF valsartan 160 mg tablet 160 mg PO QDAY Qty: 30 11RF potassium chloride 20 mEq tablet extended release 20 meq PO DAILY Qty: 90 1RF amlodipine 5 mg tablet 5 mg PO DAILY Qty: 90 3RF glimepiride 4 mg tablet 4 mg PO DAILY Qty: 90 1RF aspirin 81 mg tablet,delayed release (DR/EC) 81 mg PO DAILY@0800 Qty: 90 3RF clopidogrel 75 mg tablet 75 mg PO QHS Qty: 90 1RF pantoprazole 40 mg tablet,delayed release (DR/EC) 40 mg PO BID Qty: 180 1RF doxazosin [Cardura] 2 mg tablet 2 mg PO QHS Qty: 60 1RF oxybutynin chloride 5 mg tablet extended release 24hr 5 mg PO DAILY Qty: 60 1RF Primary Care Provider: Loyd Armas Referrals: Loyd Armas MD [Primary Care Provider] - Activity Restrictions/Additional Instructions: Your blood work and CT scan look normal. Your diarrhea may be viral and will resolve on its own over the next 7 to 10 days. Drink plenty of fluids, electrolytes such as Gatorade or Pedialyte, and you can try [id number] Imodium. I prescribed nausea medicine as needed. I recommend you follow-up with your primary care doctor to have stool testing to rule out C. difficile since you could not provide a sample here. If your symptoms worsen or you develop fever, worsening pain, or blood in your diarrhea please come back to the ER for reevaluation. Print Language: Serbian Disposition Disposition: Home, Self Care Discharge Date/Time: 01/31/25 21:59
[2025-01-31 19:35] VITALS: BP 162/127; PULSE 61; RESP 16; O2SAT 98
[2025-01-31] MEDS: Ondansetron 4 MG/2 ML Vial IV (19:46)
[2025-01-31] MEDS: 0.9% Normal Saline (1000mL) 1,000 ML 999 ML IV (19:46)
--- NOTE | 2025-01-31 19:46 | CT_ITS ---
PROCEDURE: ABDOMEN/PELVIS WITHOUT CONT 01/31/2025 REASON FOR EXAM: PAIN, DIARRHEA TECHNIQUE: Abdomen and pelvis CT without intravenous contrast. Noncontrast technique limits evaluation of the abdominal and pelvic viscera. Coronal and Sagittal reconstruction series were provided. One or more dose reduction techniques were used (e.g., Automated exposure control, adjustment of the mA and/or kV according to patient size, use of iterative reconstruction technique). PATIENT PREPARATION: Per protocol ORAL CONTRAST TYPE: None. AMOUNT: mL COMPARISON: None FINDINGS: Lung bases: Unremarkable Liver: Normal size. No obvious mass. Gallbladder: Surgically absent. Spleen: Normal size. Pancreas: Diffuse fatty atrophy. Adrenals: Unremarkable Kidneys: No urolithiasis. No hydronephrosis. Bladder: Unremarkable Reproductive Organs: Prior hysterectomy. Adnexal regions are unremarkable. Bowel: Unremarkable Appendix: Unremarkable Lymph nodes: Unremarkable. Vasculature: Mild diffuse atherosclerotic calcifications are noted. Peritoneum / Retroperitoneum: Unremarkable Bones: Degenerative changes of the spine. Small fat containing umbilical hernia. CT/Abdomen/Pelvis without Cont IMPRESSION: UNREMARKABLE NONCONTRAST CT OF THE ABDOMEN AND PELVIS [facility]
[2025-01-31 19:47] VITALS: BMI 35.6
[2025-01-31 19:51] LABS: Absolute Lymphocyte Count 2.49 X10^3/uL (0.83-4.51); Absolute Neutrophil Count 3.2 X10^3/uL (2.0-7.7); Basophil# 0.07 X10^3/uL; Basophil% 1.1 % (0-1); Eosinophil# 0.19 X10^3/uL; Eosinophils% 2.9 % (0-5); Hematocrit 37.5 % (37-47); Hemoglobin 11.6 g/dL (12.0-15.0); Lymphocyte # 2.49 X10^3/ul (0.83-4.51); Lymphocyte % 37.6 % (19-41); Mean Corp Hgb Conc 30.9 g/dL (32-36); Mean Corpuscular Hgb 23.9 pg (27.0-32.0); Mean Corpuscular Volume 77.3 fL (81-99); Mean Platelet Vol. 8.6 fl (6.2-12.0); Monocyte# 0.63 X10^3/uL; Monocyte% 9.5 % (0-10); NRBC Flagged by Analyzer 0 % (0-5); Neutrophil # 3.24 X10^3/uL (2.7-7.7); Neutrophil % 48.7 % (47-70); POSITIVE MORPHOLOGY YES; Platelet Count 231 K/mm3 (150-450); RBC Distribution Width CV 23.7 % (11.6-14.6); RBC Distribution Width SD 64.4 fl (35.1-43.9); Red Blood Count 4.85 M/mm3 (4.2-5.4); White Blood Count 6.6 K/mm3 (4.4-11.0)
[2025-01-31 19:59] LABS: Differential Indicated SCAN CRITERIA MET
[2025-01-31 20:21] LABS: Anion Gap 12 (5-15); BUN 14 mg/dL (4-19); BUN/Creat Ratio 21.2 RATIO (10-20); Calcium,Total 9.3 mg/dL (7.6-11.0); Carbon Dioxide 22.8 mmol/L (21.0-32.0); Chloride 105 mmol/L (98-108); Creatinine, Serum 0.64 mg/dL (0.70-1.20); EST Glomerular Filtration Rate 90 (>60); Estimated Creatinine Clearance 58.44 ml/min (50-250); Glucose 67 mg/dL (70-99); Potassium 3.7 mmol/L (3.3-5.1); Sodium Level 139 mmol/L (133-145)
[2025-01-31 21:12] VITALS: BP 174/65
[2025-01-31 22:53] LABS: Anisocytosis 2+; Differential Comment SCANNED
== END 2025-01-31 21:59 | disposition home or self-care (01) ==
PROVIDERS: Physician Assistant; Emergency Provider Emergency Medicine; PCP Internal Medicine; Visit Provider Emergency Medicine
DX: R19.7 Diarrhea, unspecified (principal); J44.9 Chronic obstructive pulmonary disease, unspecified; E11.649 Type 2 diabetes mellitus with hypoglycemia without coma; R10.9 Unspecified abdominal pain; Z82.49 Family history of ischemic heart disease and other diseases of the circulatory system; I25.10 Atherosclerotic heart disease of native coronary artery without angina pectoris; Z87.891 Personal history of nicotine dependence; E78.2 Mixed hyperlipidemia; Z90.710 Acquired absence of both cervix and uterus; Z95.5 Presence of coronary angioplasty implant and graft; Z86.73 Personal history of transient ischemic attack (TIA), and cerebral infarction without residual deficits; Z79.82 Long term (current) use of aspirin; R11.0 Nausea; I10 Essential (primary) hypertension; K21.9 Gastro-esophageal reflux disease without esophagitis
CPT/HCPCS: 74176; 80048; 85025; 96361; 96374; 99283; A4216; C1751; J2405

== ENCOUNTER 2025-02-14 16:02 | Emergency (ER) | payer MEDICARE, SELFPAY ==
[2025-02-14 16:00] VITALS: BP 144/101; PULSE 71; RESP 18; O2SAT 97
[2025-02-14 16:08] VITALS: BP 156/101; PULSE 74; RESP 18; TEMP 36.9; O2SAT 98; BMI 33.7
--- NOTE | 2025-02-14 16:08 | EDS_ITS ---
HPI History of Present Illness Chief Complaint: Nausea/Vomiting/Diarrhea Detail of Chief Complaint: Nausea and diarrhea Informant: patient Onset/Context/Timing Onset: Days (February 10) Context: Sudden Onset Timing: Continuous and Waxes and wanes Quality: Abdominal discomfort predominantly upper abdomen with nausea and diarrhea Location: GI Current Severity: Moderate Maximum Severity: Severe Worsened by: Nothing Relieved by: Nothing Associated Symptoms Associated Symptoms: thirst and lightheadedness Narrative Narrative: Patient is a 79-year-old woman. She has history of coronary artery disease with placement of 5 stents, congestive heart failure, pulmonary hypertension, valvular heart disease, COPD, obstructive sleep apnea, mixed hyperlipidemia, type 2 diabetes, as well as anxiety and depression. She arrived by ambulance because she did not have a ride and she had 2 near falls due to lightheadedness. She reports Tmax of 100.9 ?F. She states her fever is highest at night. She presently does not feel feverish. She denied chills. She denied headache, visual, ocular auditory symptoms. She denies trouble with speech or swallowing. She denies cardiac or respiratory symptoms. She does report predominately upper abdominal pain with nausea and diarrhea. She states she has had 12 loose stools since midnight. She is uncertain whether she has had C. difficile, pseudomembranous colitis, versus colitis . Patient has noted mucus in her stool. She has not noted blood. She states it is brown in color. She does endorse decreased urine output. She has no dysuria or hematuria. She denies leg pain, swelling discoloration. Review of prior record indicates she has history of MRSA but not pseudomembranous under colitis. Prior similar symptoms: Yes Recent Illness/Hospitalization: No PFSH PFSH Medical History Debility Osteoarthritis Constipation Anxiety Depression Diabetes Rheumatoid arthritis Asthma Stroke/cerebrovascular accident GERD (gastroesophageal reflux disease) Anxiety and depression OAB (overactive bladder) Urinary urgency Diastolic dysfunction Aortic valve regurgitation Tricuspid regurgitation Aortic stenosis Abnormal cardiovascular stress test Flu vaccine need Palpitations Left shoulder pain Hypertension Hypokalemia Rectal bleeding Fatigue Iron deficiency anemia History of diabetes mellitus Acute pain of right foot URI (upper respiratory infection) Hypokalemia Carotid stenosis, bilateral Carotid artery disease Dyspnea on exertion Chest pain, unspecified CAD (coronary artery disease) Nonrheumatic aortic (valve) stenosis COPD (chronic obstructive pulmonary disease) YOVANA (obstructive sleep apnea) Mixed hyperlipidemia Atherosclerotic heart disease of [place] coronary artery without angina pectoris Anemia Vaginal anomaly Encounter to establish care Type 2 diabetes mellitus Memory impairment Tremor COPD (chronic obstructive pulmonary disease) Arthritis CAD (coronary artery disease) CHF (congestive heart failure) Iron deficiency anemia Venous insufficiency of both lower extremities Mild aortic stenosis Pulmonary HTN Chronic pain Chest pain Obesity Lumbago History of IBS HLD (hyperlipidemia) History of tobacco use Generalized anxiety disorder History of gastroesophageal reflux (GERD) History of fibromyalgia History of esophageal reflux CAD (coronary artery disease) Type II diabetes mellitus, uncontrolled History of COPD Coronary atherosclerosis of [place] coronary artery History of CHF (congestive heart failure) Benign essential hypertension Home Medications ?Medication ?Instructions ?Recorded ?Last Taken ?Type isosorbide dinitrate 5 mg tablet 5 mg PO BID heart #18 0 tabs 07/30/24 08/04/24 Rx valsartan 160 mg tablet 160 mg PO QDAY This is a low er 08/25/24 02/13/25 Rx dose d/t orthostatic hypotension #30 tabs amlodipine 5 mg tablet 5 mg PO DAILY blood pressure #90 10/11/24 Unknown Rx tabs glimepiride 4 mg tablet 4 mg PO DAILY DIABETES #90 t abs 10/11/24 02/14/25 Rx aspirin 81 mg tablet,delayed 81 mg PO DAILY@0800 #90 t abs 10/15/24 02/13/25 Rx release clopidogrel 75 mg tablet 75 mg PO QHS BLOOD THINNER # 90 tabs 11/08/24 Unknown Rx pantoprazole 40 mg tablet,delayed 40 mg PO BID ACID RE FLUX #180 tabs 11/08/24 02/14/25 Rx release doxazosin 2 mg tablet (Cardura) 2 mg PO QHS BLOOD PRES SURE #60 tabs 11/12/24 Unknown Rx oxybutynin chloride 5 mg 5 mg PO DAILY urine #60 tabs 12/07/24 Unknown Rx tablet,extended release 24 hr ezetimibe 10 mg tablet 10 mg PO QHS 01/07/25 Unknow n History duloxetine 20 mg capsule,delayed 20 mg PO BID 02/14/25 Unknown History release ondansetron 4 mg disintegrating 4 mg PO Q8H PRN PRN Na usea #10 tabs 02/14/25 Unknown Rx tablet potassium chloride 20 mEq 20 meq PO DAILY 02/14/25 History tablet,extended release(part/cryst) (Klor-Con M) Allergy/AdvReac Type Severity Reaction Status Date / Time Iodinated Contrast Media Allergy Severe Angioedema Verified 01/31/25 17:39 amoxicillin Allergy Unknown Itching Verified 01/31/25 17:39 cephalexin (From Keflex) Allergy Unknown GI Upset, Verified 01/31/25 17:39 Itching doxycycline Allergy Unknown Rash Verified 01/31/25 17:39 furosemide (From Lasix) Allergy Unknown Hives Verified 01/31/25 17:39 simvastatin Allergy Unknown Hives Verified 01/31/25 17:39 atorvastatin calcium (From Allergy Hives Verified 01/31/25 17:39 Lipitor) divalproex sodium (From Allergy Hives Verified 01/31/25 17:39 Depakote) moxifloxacin HCl (From Allergy Unknown Verified 01/31/25 17:39 Avelox) vancomycin Allergy Hives Verified 01/31/25 17:39 amlodipine AdvReac Unknown Swelling Verified 01/31/25 17:39 fluticasone furoate (From AdvReac Unknown Throat Verified 01/31/25 17:39 Breo Ellipta) Burning-hoarseness sucralfate (From Carafate) AdvReac Unknown Diarrhea Verified 01/31/25 17:39 vilanterol (From Breo AdvReac Unknown Throat Verified 01/31/25 17:39 Ellipta) Burning-hoarseness Family History Father CAD (coronary artery disease) Hypertension Mother CAD (coronary artery disease) Hypertension Mixed hyperlipidemia COPD (chronic obstructive pulmonary disease) Brother CAD (coronary artery disease) History of coronary artery bypass surgery Brother CAD (coronary artery disease) History of coronary artery bypass surgery Sister CAD (coronary artery disease) History of coronary artery bypass surgery Sister CAD (coronary artery disease) History of coronary artery bypass surgery Surgical History History of coronary artery stent placement History of left heart catheterization (~09/16/23) Presence of stent in coronary artery (~09/16/23) History of foot surgery History of cholecystectomy History of total knee replacement History of hysterectomy Social History household members: none housing: house Smoking Status: Former smoker alcohol intake: never substance use type: does not use what type of physical activity do you participate in: none ROS ROS ED Constitutional Constitutional ED: Reports fever(s), sweats, weight loss and other Details: Weight loss because she has had no appetite the past several days. ; Denies chills or subjective Eyes Eyes: Denies blurry vision, change in vision or diplopia ENT ENT ED: Denies rhinorrhea or sore throat Cardiovascular Cardiovascular: Denies chest pain, orthopnea, palpitations or paroxysmal nocturnal dyspnea Respiratory/Chest Respiratory/Chest: Denies cough, dyspnea, dyspnea on exertion, orthopnea or paroxysmal nocturnal dyspnea Gastrointestinal Gastrointestinal: Reports abdominal pain, diarrhea and nausea; Denies constipation, melena or vomiting Genitourinary Genitourinary ED: Denies dysuria, hematuria or urinary frequency Musculoskeletal Musculoskeletal: Denies arthralgias, back pain or myalgias Integumentary Denies rash Neurologic Neurologic: Reports weakness; Denies headache(s) or paresthesias Endocrine Endocrinology: Denies cold intolerance or heat intolerance Hematologic/Lymphatic Hematologic/Lymphatic: Reports systems reviewed and no addt'l complaints, except as documented EXAM Physical Exam Const Vital Signs: 02/14/25 16:00 02/14/25 16:08 02/14/25 18:00 Temperature 98.4 F Temperature Source Oral Pulse Rate 71 74 87 Respiratory Rate 18 18 16 Blood Pressure 144/101 H 156/101 H 139/64 H Blood Pressure Mean 115 119 89 Pulse Ox 97 98 98 Oxygen Delivery Method Room Air Room Air Positive well nourished and well developed Constitutional Narrative: BMI is elevated. She appears in no obvious distress. General Appearance ED: well developed, NAD and pallor; Negative for cyanotic or diaphoretic HEENT Reports dry mucous membranes HEENT Narrative: Head is atraumatic normocephalic. Ears normal. Nares patent. Posterior pharynx is normal. Mouth ED: Yes dry mucous membranes Mouth: dry mucous membranes Eyes PERRL and EOMs intact bilaterally General Eye ED: Negative for pale conjunctiva or scleral icterus Neck no lymphadenopathy, supple and no JVD Chest Wall inspection of chest normal and palpation of chest normal Resp normal respiratory effort and clear to auscultation bilaterally Cardio regular rate, S1 normal heart sound, S2 normal heart sound and no murmurs GI no masses; Negative for non-tender, non-distended or hepatosplenomegaly GI Narrative: Abdomen is tympanitic mostly central. There is tenderness both right and left upper quadrant. Maximum tenderness is epigastrium. Negative clinical Bowman sign. Patient states she has had a hysterectomy with unilateral oophorectomy. He states her appendix and gallbladder are still in. Inspection: abdominal distention Palpation: soft and tender epigastric; Negative for guarding, splenomegaly or mass Back/Spine no CVA tenderness Extremity normal to inspection General Extremety ED: Negative for tenderness Neuro oriented x3 and CN's II-XII intact bilaterally Sensorium / Orientation: alert Psych mental status grossly normal Skin no rashes or lesions noted, no wounds and No skin turgor normal General Skin Exam: pallor; Negative for jaundice MDM MDM MDM Narrative Medical decision making narrative: With profuse diarrhea and need to entertain possibility of infection gastroenteritis versus colitis versus pseudomembranous enterocolitis. Patient's nausea was treated with Zofran. Workup included CBC, electrolyte panel as well as hepatic and lipase. Hepatic and lipase were obtained because of the upper abdominal pain specifically right upper quadrant epigastric area. Review of prior records indicates there is no history of pancreatitis. Review of prior records indicates she has had a cholecystectomy. Cholelithiasis cholecystitis is less likely. She may have choledocholithiasis. She also was recently seen in the emergency room February 01. Note that was authored by physician licensed physical therapy assistant Gisell Mills was reviewed. History & Record Review Additional record(s) reviewed:: Prior inpatient record, Prior ED visit and Prior labs Lab Data Attestation: I reviewed the patient's lab results. Lab results narrative: CBC is unremarkable. Patient has mild microcytic anemia. Comprehensive metabolic panel reveals CO2 of 19 with a normal anion gap. BUN and creatinine are normal. More importantly her potassium is normal in light of the amount of diarrhea she has had. Lipase is normal. Labs: Laboratory Results - last 24 hr 02/14/25 16:24 WBC 5.6 RBC 4.66 Hgb 12.0 Hct 36.9 L MCV 79.2 L MCH 25.8 L MCHC 32.5 RDW Std Deviation 63.8 H RDW Coeff of [place] 22.9 H Plt Count 252 MPV 9.2 Immature Gran % (Auto) 0.200 Neut % (Auto) 48.3 Lymph % (Auto) 38.5 [place] % (Auto) 8.9 Eos % (Auto) 3.2 Baso % (Auto) 0.9 Absolute Neuts (auto) 2.7 Absolute Lymphs (auto) 2.17 Nucleated RBC % 0 Platelet Estimate ADEQUATE Anisocytosis 1+ Sodium 140 Potassium 4.0 Chloride 107 Carbon Dioxide 19.4 L Anion Gap 14 BUN 12 Creatinine 0.80 Estim Creat Clear Calc 55.92 Est GFR (MDRD) Non-Af 75 BUN/Creatinine Ratio 15.1 Glucose 71 Lactic Acid < 1.0 Calcium 9.4 Total Bilirubin 0.20 Direct Bilirubin 0.08 AST 24 ALT 15 Alkaline Phosphatase 61 Total Protein 7.1 Albumin 4.3 Globulin 2.8 Lipase 27 Treatment and Re-Evaluation :: Patient was reassessed at 1925. She is smiling. She appears in no distress. She was informed of results. She then made the comment that no blood test were ordered. I informed that that blood tests were ordered and that they are unremarkable. Since she has no diarrhea feels better looks better should be discharged to home Discharge Plan Triage Chief Complaint: Nausea/Vomiting/Diarrhea ED Provider: Michael Subramanian Dx/Rx/DC Orders Clinical Impression: Diarrhea, Anxiety and depression, Pulmonary HTN, Memory impairment, Type 2 diabetes mellitus, CAD (coronary artery disease), Nausea, Acute upper abdominal pain Instructions: ED Diet Vomiting Diarrhea Prescriptions: New ondansetron 4 mg tablet,disintegrating 4 mg PO Q8H PRN PRN (Reason: Nausea) Qty: 10 0RF No Action ezetimibe 10 mg tablet 10 mg PO QHS potassium chloride [Klor-Con M20] 20 mEq tablet,ER particles/crystals 20 meq PO DAILY duloxetine 20 mg capsule,delayed release(DR/EC) 20 mg PO BID isosorbide dinitrate 5 mg tablet 5 mg PO BID Qty: 180 3RF Rx Instructions: allow nitrate-free interval of 12-14 hrs per 24-hr period valsartan 160 mg tablet 160 mg PO QDAY Qty: 30 11RF amlodipine 5 mg tablet 5 mg PO DAILY Qty: 90 3RF glimepiride 4 mg tablet 4 mg PO DAILY Qty: 90 1RF aspirin 81 mg tablet,delayed release (DR/EC) 81 mg PO DAILY@0800 Qty: 90 3RF clopidogrel 75 mg tablet 75 mg PO QHS Qty: 90 1RF pantoprazole 40 mg tablet,delayed release (DR/EC) 40 mg PO BID Qty: 180 1RF doxazosin [Cardura] 2 mg tablet 2 mg PO QHS Qty: 60 1RF oxybutynin chloride 5 mg tablet extended release 24hr 5 mg PO DAILY Qty: 60 1RF Primary Care Provider: Loyd Armas Referrals: Loyd Armas MD [Primary Care Provider] - Activity Restrictions/Additional Instructions: 1. Take Imodium for diarrhea. 2. Take Zofran for the nausea Print Language: Danish Disposition Disposition: Home, Self Care
[2025-02-14] MEDS: 0.9% Normal Saline (1000mL) 1,000 ML 999 ML IV (16:22)
[2025-02-14] MEDS: Ondansetron 4 MG/2 ML Vial IV (16:24)
[2025-02-14 16:44] LABS: Absolute Lymphocyte Count 2.17 X10^3/uL (0.83-4.51); Absolute Neutrophil Count 2.7 X10^3/uL (2.0-7.7); Basophil# 0.05 X10^3/uL; Basophil% 0.9 % (0-1); Eosinophil# 0.18 X10^3/uL; Eosinophils% 3.2 % (0-5); Hematocrit 36.9 % (37-47); Lymphocyte # 2.17 X10^3/ul (0.83-4.51); Lymphocyte % 38.5 % (19-41); Mean Corp Hgb Conc 32.5 g/dL (32-36); Mean Corpuscular Hgb 25.8 pg (27.0-32.0); Mean Corpuscular Volume 79.2 fL (81-99); Mean Platelet Vol. 9.2 fl (6.2-12.0); Monocyte% 8.9 % (0-10); NRBC Flagged by Analyzer 0 % (0-5); Neutrophil # 2.73 X10^3/uL (2.7-7.7); Neutrophil % 48.3 % (47-70); POSITIVE MORPHOLOGY YES; Platelet Count 252 K/mm3 (150-450); RBC Distribution Width CV 22.9 % (11.6-14.6); RBC Distribution Width SD 63.8 fl (35.1-43.9); Red Blood Count 4.66 M/mm3 (4.2-5.4); White Blood Count 5.6 K/mm3 (4.4-11.0)
[2025-02-14 16:58] LABS: Differential Indicated SCAN CRITERIA MET
[2025-02-14 17:27] LABS: AST(SGOT) 24 U/L (<=31); Alanine Aminotransfer ALT/SGPT 15 U/L (<=34); Albumin, Serum 4.3 g/dL (3.4-4.8); Alkaline Phosphatase 61 U/L (35-104); Anion Gap 14 (5-15); BUN 12 mg/dL (4-19); BUN/Creat Ratio 15.1 RATIO (10-20); Bilirubin, Direct 0.08 mg/dL (0.00-0.30); Calcium,Total 9.4 mg/dL (7.6-11.0); Carbon Dioxide 19.4 mmol/L (21.0-32.0); Chloride 107 mmol/L (98-108); EST Glomerular Filtration Rate 75 (>60); Estimated Creatinine Clearance 55.92 ml/min (50-250); Globulin 2.8 g/dL (2.2-4.2); Glucose 71 mg/dL (70-99); Lactic Acid < 1.0 mmol/L (0.0-2.0); Lipase 27 U/L (13-75); Protein, Total 7.1 g/dL (5.9-8.4); Sodium Level 140 mmol/L (133-145)
[2025-02-14 18:00] VITALS: BP 139/64; PULSE 87; RESP 16; O2SAT 98
[2025-02-14 19:01] LABS: Anisocytosis 1+; Platelet Estimate ADEQUATE (ADEQ)
[2025-02-14 20:07] VITALS: BP 149/83; PULSE 83; RESP 15; TEMP 36.7; O2SAT 96
== END 2025-02-14 20:09 | disposition home or self-care (01) ==
PROVIDERS: Emergency Provider Emergency Medicine; PCP Internal Medicine; Visit Provider Emergency Medicine
DX: R11.2 Nausea with vomiting, unspecified (principal); I11.0 Hypertensive heart disease with heart failure; I27.20 Pulmonary hypertension, unspecified; I50.9 Heart failure, unspecified; J44.9 Chronic obstructive pulmonary disease, unspecified; E11.9 Type 2 diabetes mellitus without complications; I25.10 Atherosclerotic heart disease of native coronary artery without angina pectoris; F41.9 Anxiety disorder, unspecified; Z90.710 Acquired absence of both cervix and uterus; Z87.891 Personal history of nicotine dependence; F32.A Depression, unspecified; E78.2 Mixed hyperlipidemia; R19.7 Diarrhea, unspecified; R41.3 Other amnesia; R10.9 Unspecified abdominal pain; Z95.5 Presence of coronary angioplasty implant and graft; Z79.899 Other long term (current) drug therapy; Z79.84 Long term (current) use of oral hypoglycemic drugs; Z79.82 Long term (current) use of aspirin; Z79.02 Long term (current) use of antithrombotics/antiplatelets; K21.9 Gastro-esophageal reflux disease without esophagitis; Z90.49 Acquired absence of other specified parts of digestive tract; Z96.659 Presence of unspecified artificial knee joint
CPT/HCPCS: 80048; 80076; 83605; 83690; 85025; 96361; 96374; 99284; A4216; J2405

== ENCOUNTER 2025-02-23 10:13 | Emergency (ER) | payer MEDICARE, SELFPAY ==
[2025-02-23 10:15] VITALS: BP 131/62; PULSE 75; RESP 16; TEMP 36.8; O2SAT 97
[2025-02-23 10:19] VITALS: BMI 34.2
[2025-02-23 11:38] LABS: Absolute Lymphocyte Count 2.06 X10^3/uL (0.83-4.51); Absolute Neutrophil Count 3.5 X10^3/uL (2.0-7.7); Basophil# 0.05 X10^3/uL; Basophil% 0.8 % (0-1); Eosinophil# 0.16 X10^3/uL; Eosinophils% 2.6 % (0-5); Hematocrit 39.6 % (37-47); Hemoglobin 12.9 g/dL (12.0-15.0); Lymphocyte # 2.06 X10^3/ul (0.83-4.51); Lymphocyte % 32.9 % (19-41); Mean Corp Hgb Conc 32.6 g/dL (32-36); Mean Corpuscular Hgb 25.9 pg (27.0-32.0); Mean Corpuscular Volume 79.4 fL (81-99); Mean Platelet Vol. 8.9 fl (6.2-12.0); Monocyte# 0.52 X10^3/uL; Monocyte% 8.3 % (0-10); NRBC Flagged by Analyzer 0 % (0-5); Neutrophil # 3.46 X10^3/uL (2.7-7.7); Neutrophil % 55.1 % (47-70); POSITIVE MORPHOLOGY YES; Platelet Count 233 K/mm3 (150-450); RBC Distribution Width CV 22.3 % (11.6-14.6); RBC Distribution Width SD 63.1 fl (35.1-43.9); Red Blood Count 4.99 M/mm3 (4.2-5.4); White Blood Count 6.3 K/mm3 (4.4-11.0)
[2025-02-23 11:40] LABS: Differential Indicated SCAN CRITERIA MET
[2025-02-23 12:30] LABS: Anisocytosis 1+
[2025-02-23 12:38] LABS: ALB/GLOB Ratio 1.5 RATIO (0.9-2.4); AST(SGOT) 24 U/L (<=31); Alanine Aminotransfer ALT/SGPT 17 U/L (<=34); Albumin, Serum 4.4 g/dL (3.4-4.8); Alkaline Phosphatase 60 U/L (35-104); Anion Gap 13 (5-15); BUN 12 mg/dL (4-19); BUN/Creat Ratio 17.9 RATIO (10-20); Calcium,Total 9.6 mg/dL (7.6-11.0); Carbon Dioxide 22.4 mmol/L (21.0-32.0); Chloride 105 mmol/L (98-108); Creatinine, Serum 0.65 mg/dL (0.70-1.20); EST Glomerular Filtration Rate 90 (>60); Glucose 85 mg/dL (70-99); Lipase 26 U/L (13-75); Protein, Total 7.3 g/dL (5.9-8.4); Sodium Level 141 mmol/L (133-145); Total Bilirubin 0.35 mg/dL (0.00-1.30)
[2025-02-23 12:51] LABS: Bacteria 0 SEEN /hpf (None Seen); Red Blood Cells-Urine 0 SEEN /hpf (0-5)
[2025-02-23 13:01] LABS: Color, Urine Yellow (Yellow); Glucose, Dipstick Normal (Normal); Ketone-Dipstick 5 mg/dl (Negative); Leukocyte Esterase-Dipstick 500 /ul (Negative); Nitrite-Dipstick Negative (Negative); Occult Blood-Urine 10 /ul (Negative); Protein-Dipstick 30 mg/dl (Negative); Urine Bilirubin Dipstick Negative (Negative); Urine Clarity Clear (Clear); Urine Urobilinogen Normal (Normal)
[2025-02-23] MEDS: Ondansetron 4 MG/2 ML Vial IV (13:20)
[2025-02-23] MEDS: 0.9% Normal Saline (1000mL) 1,000 ML 999 ML IV (13:20)
[2025-02-23] MEDS: Dicyclomine 10 MG Capsule PO (13:20)
[2025-02-23] MEDS: Ketorolac 15 MG/ML Vial IV (13:21)
[2025-02-23 13:23] LABS: Mucous, Urine 2+ /hpf (<or=2+); Squamous Epithelial Cells - UA 0-5 SEEN /hpf (5-10); White Blood Cells 5-10 SEEN /hpf (0-5)
--- NOTE | 2025-02-23 13:55 | CT_ITS ---
PROCEDURE: ABDOMEN/PELVIS WITHOUT CONT, 02/23/2025 REASON FOR EXAM: ABD PAIN, CONSTIPATION TECHNIQUE: CT abdomen and pelvis was performed without IV contrast. Multiplanar reformats were generated. IV contrast: None. RADIATION DOSE SUMMARY: CTDlvol: 19.58 mGy DLP: 968.55 mGycm One or more dose reduction techniques were used (e.g., Automated exposure control, adjustment of the mA and/or kV according to patient size, use of iterative reconstruction technique). COMPARISON: 01/31/2025 FINDINGS: Note that evaluation of the abdominopelvic viscera, vasculature, and remaining soft tissues is limited in the absence of IV contrast. Lung bases: Multivessel coronary atherosclerosis and/or stents. Mitral and aortic annular calcification. Minimal likely atelectasis/scarring. Liver: Unremarkable. Spleen: Unremarkable. Gallbladder: Cholecystectomy. Similar mild biliary dilatation favoring post cholecystectomy effect.. Pancreas: Atrophic. Adrenals: Unremarkable. Kidneys: Unremarkable. Bowel: Diverticulosis. Colonic stool burden is low to moderate.. Normal caliber appendix. Findings suggestive of pelvic floor dysfunction including descent of the anorectal junction. Lymph nodes: Unremarkable. Vasculature: Moderate to advanced atherosclerosis. Likely at least moderate stenosis along the proximal RIGHT common iliac artery, not well evaluated.. Peritoneum: Unremarkable. Bladder: Underdistended and suboptimally evaluated, grossly unremarkable. Reproductive Organs: Hysterectomy. Body Wall: Findings suggestive of pelvic floor dysfunction with descent of the anorectal junction as above. Small fat containing umbilical hernia... Bones: Demineralization. Multilevel spondylosis. Likely severe spinal canal stenosis at L4-L5 suboptimally delineated by CT. Mild lumbar dextroscoliosis.. CT/Abdomen/Pelvis without Cont IMPRESSION: 1. No acute noncontrast findings. Colonic stool burden is low to moderate. 2. Additional description as above. Reading Location: [id number]
[2025-02-23 15:05] VITALS: BP 115/64; PULSE 59; RESP 16; O2SAT 99
--- NOTE | 2025-02-23 15:18 | EDS_ITS ---
HPI HPI - GI History of Present Illness Chief Complaint: Constipation Informant: patient Narrative Narrative: Patient is a 79-year-old female with history of diabetes, hyperlipidemia, coronary artery disease, YOVANA, COPD, hypertension, aortic stenosis, GERD, anxiety and overactive bladder presenting with diffuse abdominal pain and concern for constipation. She has had some associated nausea but denies any vomiting. Patient states the pain is all over her abdomen. Notes that she recently had diarrhea but then after that has not had a bowel movement in 5 to 6 days and is worried she is constipated. No fever or chills reported. Denies any dysuria or urinary symptoms. No other complaints or concerns reported at this time. Denies any chest pain or difficulty breathing. Does not report any blood in her stool. [facility] Medical History Debility Osteoarthritis Constipation Anxiety Depression Diabetes Rheumatoid arthritis Asthma Stroke/cerebrovascular accident GERD (gastroesophageal reflux disease) Anxiety and depression OAB (overactive bladder) Urinary urgency Diastolic dysfunction Aortic valve regurgitation Tricuspid regurgitation Aortic stenosis Abnormal cardiovascular stress test Flu vaccine need Palpitations Left shoulder pain Hypertension Hypokalemia Rectal bleeding Fatigue Iron deficiency anemia History of diabetes mellitus Acute pain of right foot URI (upper respiratory infection) Hypokalemia Carotid stenosis, bilateral Carotid artery disease Dyspnea on exertion Chest pain, unspecified CAD (coronary artery disease) Nonrheumatic aortic (valve) stenosis COPD (chronic obstructive pulmonary disease) YOVANA (obstructive sleep apnea) Mixed hyperlipidemia Atherosclerotic heart disease of [place] coronary artery without angina pectoris Anemia Vaginal anomaly Encounter to establish care Type 2 diabetes mellitus Memory impairment Tremor COPD (chronic obstructive pulmonary disease) Arthritis CAD (coronary artery disease) CHF (congestive heart failure) Iron deficiency anemia Venous insufficiency of both lower extremities Mild aortic stenosis Pulmonary HTN Chronic pain Chest pain Obesity Lumbago History of IBS HLD (hyperlipidemia) History of tobacco use Generalized anxiety disorder History of gastroesophageal reflux (GERD) History of fibromyalgia History of esophageal reflux CAD (coronary artery disease) Type II diabetes mellitus, uncontrolled History of COPD Coronary atherosclerosis of [place] coronary artery History of CHF (congestive heart failure) Benign essential hypertension Home Medications ?Medication ?Instructions ?Recorded ?Last Taken ?Type valsartan 160 mg tablet 160 mg PO QDAY This is a low er 08/25/24 02/13/25 Rx dose d/t orthostatic hypotension #30 tabs amlodipine 5 mg tablet 5 mg PO DAILY blood pressure #90 10/11/24 Unknown Rx tabs glimepiride 4 mg tablet 4 mg PO DAILY DIABETES #90 t abs 10/11/24 02/14/25 Rx aspirin 81 mg tablet,delayed 81 mg PO DAILY@0800 #90 t abs 10/15/24 02/13/25 Rx release clopidogrel 75 mg tablet 75 mg PO QHS BLOOD THINNER # 90 tabs 11/08/24 Unknown Rx pantoprazole 40 mg tablet,delayed 40 mg PO BID ACID RE FLUX #180 tabs 11/08/24 02/14/25 Rx release ondansetron 4 mg disintegrating 4 mg PO Q8H PRN PRN Na usea #10 tabs 02/14/25 Unknown Rx tablet potassium chloride 20 mEq 20 meq PO DAILY 02/14/25 History tablet,extended release(part/cryst) (Klor-Con M) acetaminophen 500 mg capsule 1,000 mg PO Q6H PRN 02/17 Unknown History loperamide 2 mg capsule 2 mg PO Q6H PRN 02/17/25 Unk nown History docusate sodium 100 mg capsule 100 mg PO QDAY #10 caps 02/22/25 Unknown Rx (Colace) dicyclomine 20 mg tablet 20 mg PO TID PRN abdominal p ain 02/23/25 Unknown Rx #20 tabs Allergy/AdvReac Type Severity Reaction Status Date / Time Iodinated Contrast Media Allergy Severe Angioedema Verified 02/23/25 10:15 amoxicillin Allergy Unknown Itching Verified 02/23/25 10:15 cephalexin (From Keflex) Allergy Unknown GI Upset, Verified 02/23/25 10:15 Itching doxycycline Allergy Unknown Rash Verified 02/23/25 10:15 furosemide (From Lasix) Allergy Unknown Hives Verified 02/23/25 10:15 simvastatin Allergy Unknown Hives Verified 02/23/25 10:15 atorvastatin calcium (From Allergy Hives Verified 02/23/25 10:15 Lipitor) divalproex sodium (From Allergy Hives Verified 02/23/25 10:15 Depakote) moxifloxacin HCl (From Allergy Unknown Verified 02/23/25 10:15 Avelox) vancomycin Allergy Hives Verified 02/23/25 10:15 amlodipine AdvReac Unknown Swelling Verified 02/23/25 10:15 fluticasone furoate (From AdvReac Unknown Throat Verified 02/23/25 10:15 Breo Ellipta) Burning-hoarseness sucralfate (From Carafate) AdvReac Unknown Diarrhea Verified 02/23/25 10:15 vilanterol (From Breo AdvReac Unknown Throat Verified 02/23/25 10:15 Ellipta) Burning-hoarseness Family History Father CAD (coronary artery disease) Hypertension Mother CAD (coronary artery disease) Hypertension Mixed hyperlipidemia COPD (chronic obstructive pulmonary disease) Brother CAD (coronary artery disease) History of coronary artery bypass surgery Brother CAD (coronary artery disease) History of coronary artery bypass surgery Sister CAD (coronary artery disease) History of coronary artery bypass surgery Sister CAD (coronary artery disease) History of coronary artery bypass surgery Surgical History History of coronary artery stent placement History of left heart catheterization (~09/16/23) Presence of stent in coronary artery (~09/16/23) History of foot surgery History of cholecystectomy History of total knee replacement History of hysterectomy Social History household members: none housing: house Smoking Status: Former smoker alcohol intake: never substance use type: does not use what type of physical activity do you participate in: none ROS ROS ED Constitutional Constitutional ED: Denies chills or fever(s) Cardiovascular Cardiovascular: Denies chest pain Respiratory/Chest Respiratory/Chest: Denies dyspnea Gastrointestinal Gastrointestinal: Reports abdominal pain, constipation and nausea; Denies vomiting Musculoskeletal Musculoskeletal: Denies arthralgias or myalgias Integumentary Denies rash Neurologic Neurologic: Reports weakness Psychiatric Psychiatric: Reports anxiety; Denies depression Hematologic/Lymphatic Hematologic/Lymphatic: Denies easy bleeding or easy bruising EXAM Physical Exam Const Vital Signs: 02/23/25 10:15 02/23/25 15:05 02/23/25 15:42 Temperature 98.2 F 97.4 F L Temperature Source Oral Pulse Rate 75 59 L 70 Respiratory Rate 16 16 16 Blood Pressure 131/62 H 115/64 139/70 H Blood Pressure Mean 85 81 93 Pulse Ox 97 99 98 Oxygen Delivery Method Room Air Room Air Positive well nourished and well developed General Appearance ED: well developed and NAD; Negative for pallor HEENT Reports dry mucous membranes Mouth ED: Yes dry mucous membranes Mouth: dry mucous membranes Neck supple Resp normal respiratory effort and clear to auscultation bilaterally Cardio regular rate and regular rhythm GI non-distended GI Narrative: Mild diffuse tenderness it is not particularly reproducible direct palpation Auscultation: normoactive bowel sounds Palpation: soft and tender Back/Spine no CVA tenderness Extremity full ROM General Extremety ED: Negative for edema General Extremity: Negative for edema Neuro moves all extremities Sensorium / Orientation: alert and oriented to person Motor Exam: general weakness Psych thought process normal Mood & Affect: anxious Skin no wounds General Skin Exam: Negative for jaundice or pallor MDM MDM MDM Narrative Medical decision making narrative: Patient valuated for diffuse abdominal pain and concern of constipation. Differential includes urinary tract infection, constipation, electrolyte abnormality, colitis, diverticulitis and obstruction. ER visit for is reviewed which shows at that time patient was evaluated for sudden onset of nausea vomiting and diarrhea. At that time she had lab including CBC, CMP and lactate which was largely normal. She felt improved and was discharged home. Patient seen by GI nurse practitioner in 10/05/2024. Noted reviewed. Patient reports constipation but does not take laxatives because it makes her cramp roll bad. Plan was for sigmoidoscopy as well as start MiraLAX twice daily with as needed glycerin suppositories. I do not see any documentation the patient actually had her colonoscopy. Patient's lab including CBC, CMP, lipase is largely normal. No significant electrolyte abnormalities or leukocytosis. No anemia. Her urinalysis shows 500 leukocyte esterase with 5-10 white blood cells but no bacteria are noted. There is negative nitrates. I will send the urine for culture but given that she does not have a leukocytosis, fever or bacteria in her urine we will hold off on treatment at this time. CT abdomen pelvis is obtained and does not show any acute process. In fact her colonic stool burden is low to moderate. Patient given p.o. challenge. Was initially given Bentyl, Toradol and Zofran in the emergency room as well as IV fluids. Anticipate patient be discharged home with prescription for Bentyl as needed for pain and outpatient GI follow-up. Lab Data Attestation: I reviewed the patient's lab results. Labs: Laboratory Results - last 24 hr 02/23/25 02/23/25 11:20 12:47 WBC 6.3 RBC 4.99 Hgb 12.9 Hct 39.6 MCV 79.4 L MCH 25.9 L MCHC 32.6 RDW Std Deviation 63.1 H RDW Coeff of Edgar 22.3 H Plt Count 233 MPV 8.9 Immature Gran % (Auto) 0.300 Neut % (Auto) 55.1 Lymph % (Auto) 32.9 [place] % (Auto) 8.3 Eos % (Auto) 2.6 Baso % (Auto) 0.8 Absolute Neuts (auto) 3.5 Absolute Lymphs (auto) 2.06 Nucleated RBC % 0 Anisocytosis 1+ Sodium 141 Potassium 4.0 Chloride 105 Carbon Dioxide 22.4 Anion Gap 13 BUN 12 Creatinine 0.65 L Est GFR (MDRD) Non-Af 90 BUN/Creatinine Ratio 17.9 Glucose 85 Calcium 9.6 Total Bilirubin 0.35 AST 24 ALT 17 Alkaline Phosphatase 60 Total Protein 7.3 Albumin 4.4 Globulin 3.0 Albumin/Globulin Ratio 1.5 Lipase 26 Urine Color Yellow Urine Clarity Clear Urine pH 5.0 Ur Specific [place] 1.020 Urine Protein 30 H Urine Glucose (UA) Normal Urine Ketones 5 H Urine Occult Blood 10 H Urine Nitrite Negative Urine Bilirubin Negative Urine Urobilinogen Normal Ur Leukocyte Esterase 500 H Urine RBC 0 SEEN Urine WBC 5-10 SEEN Ur Squamous Epith Cells 0-5 SEEN Urine Bacteria 0 SEEN Urine Mucus 2+ Radiography Diagnostic Testing: Clinical Impression(s) from Imaging Studies Abdomen/Pelvis CT 02/23/25 13:55 IMPRESSION: 1. No acute noncontrast findings. Colonic stool burden is low to moderate. 2. Additional description as above. Reading Location: [facility] Discharge Plan Triage Chief Complaint: Constipation ED Provider: Allie Elizabeth Dx/Rx/DC Orders Clinical Impression: Abdominal pain of unknown etiology Instructions: ED Abdominal Pain Unkn Cause Fem Prescriptions: New dicyclomine 20 mg tablet 20 mg PO TID PRN (Reason: abdominal pain) Qty: 20 0RF No Action acetaminophen 500 mg capsule 1,000 mg PO Q6H PRN loperamide 2 mg capsule 2 mg PO Q6H PRN potassium chloride [Klor-Con M20] 20 mEq tablet,ER particles/crystals 20 meq PO DAILY ondansetron 4 mg tablet,disintegrating 4 mg PO Q8H PRN PRN (Reason: Nausea) Qty: 10 0RF valsartan 160 mg tablet 160 mg PO QDAY Qty: 30 11RF amlodipine 5 mg tablet 5 mg PO DAILY Qty: 90 3RF glimepiride 4 mg tablet 4 mg PO DAILY Qty: 90 1RF aspirin 81 mg tablet,delayed release (DR/EC) 81 mg PO DAILY@0800 Qty: 90 3RF clopidogrel 75 mg tablet 75 mg PO QHS Qty: 90 1RF pantoprazole 40 mg tablet,delayed release (DR/EC) 40 mg PO BID Qty: 180 1RF docusate sodium [Colace] 100 mg capsule 100 mg PO QDAY Qty: 10 0RF Primary Care Provider: Loyd Armas Referrals: Loyd Armas MD [Primary Care Provider] - Friend,DO Constantine [Med Staff - Active Staff] - Activity Restrictions/Additional Instructions: Your lab work today was largely normal. Your urine was sent for culture to make sure you do not have a urinary tract infection but there is no bacteria seen in your urine today. Your CT did not show any acute abnormalities. Please follow- up with your GI specialist. Print Language: Cambodian Disposition Disposition: Home, Self Care Discharge Date/Time: 02/23/25 16:08
[2025-02-23 15:42] VITALS: BP 139/70; PULSE 70; RESP 16; TEMP 36.3; O2SAT 98
== END 2025-02-23 16:08 | disposition home or self-care (01) ==
PROVIDERS: Emergency Provider Emergency Medicine; PCP Internal Medicine; Visit Provider Emergency Medicine
DX: R10.9 Unspecified abdominal pain (principal); I11.0 Hypertensive heart disease with heart failure; I50.32 Chronic diastolic (congestive) heart failure; J44.9 Chronic obstructive pulmonary disease, unspecified; E11.9 Type 2 diabetes mellitus without complications; I25.10 Atherosclerotic heart disease of native coronary artery without angina pectoris; F41.9 Anxiety disorder, unspecified; R11.0 Nausea; Z90.710 Acquired absence of both cervix and uterus; Z82.49 Family history of ischemic heart disease and other diseases of the circulatory system; E78.2 Mixed hyperlipidemia; Z87.891 Personal history of nicotine dependence; R53.1 Weakness; Z90.49 Acquired absence of other specified parts of digestive tract; Z95.5 Presence of coronary angioplasty implant and graft; G47.33 Obstructive sleep apnea (adult) (pediatric)
CPT/HCPCS: 74176; 80053; 81001; 83690; 85025; 87077; 87086; 87088; 96361; 96374; 96375; 99282; A4216; J2405

== ENCOUNTER → 2025-08-01 | Outpatient (CLI) | payer MEDICARE, SELFPAY ==
[2025-08-01 11:26] LABS: Anion Gap 12 (5-15); BUN 11 mg/dL (4-19); BUN/Creat Ratio 17.1 RATIO (10-20); Calcium,Total 9.1 mg/dL (7.6-11.0); Carbon Dioxide 25.1 mmol/L (21.0-32.0); Chloride 104 mmol/L (98-108); Glucose 143 mg/dL (70-99); Potassium 4.0 mmol/L (3.3-5.1)
== END | disposition home or self-care (01) ==
LOC: LAB 10:04
PROVIDERS: PCP Internal Medicine; Referring Provider Internal Medicine; Visit Provider Internal Medicine
DX: K59.00 Constipation, unspecified (principal)
CPT/HCPCS: 36415; 80048